=== PATIENT | male | born 1950 | race Caucasian/White ===

== ENCOUNTER → 2017-09-11 09:15 | Outpatient (CLI) | payer OTHER, SELFPAY ==
[2017-09-11 10:20] LABS: Anion Gap 7 (5-15); BUN 11 mg/dL (7-18); BUN/Creat Ratio 9.9 RATIO (10-20); Calcium,Total 9.3 mg/dL (8.5-10.1); Chloride 106 mmol/L (98-107); Creatinine, Serum 1.11 mg/dL (0.70-1.30); EST Glomerular Filtration Rate 70 mL/min (>60); Est Glom Filt Rate - Afr Amer 85 mL/min (>60); Glucose 89 mg/dL (74-106); Sodium Level 140 mmol/L (136-145)
== END ==
PROVIDERS: Family Provider Family Medicine; PCP Family Medicine; Visit Provider Family Medicine
DX: E11.9 Type 2 diabetes mellitus without complications (principal)
CPT/HCPCS: 36415; 80048

== ENCOUNTER → 2018-03-21 10:09 | Outpatient (CLI) | payer OTHER, SELFPAY ==
[2018-03-21 11:02] LABS: Microalbumin,Random Urine 15.5 mg/L (NO RANGE EST.); Microalbumin:Creatinine Ratio 12.1 mg/g CRE (<30 mg/g CRE)
[2018-03-21 11:25] LABS: AST(SGOT) 19 U/L (15-37); Alanine Aminotransfer ALT/SGPT 23 U/L (16-61); Albumin, Serum 3.6 g/dL (3.2-5.0); Alkaline Phosphatase 92 U/L (45-117); Anion Gap 6 (5-15); BUN 12 mg/dL (7-18); BUN/Creat Ratio 11.5 RATIO (10-20); Bilirubin, Direct 0.14 mg/dL (0.00-0.30); Calcium,Total 8.9 mg/dL (8.5-10.1); Chloride 102 mmol/L (98-107); Cholesterol 123 mg/dL (200); Creatinine, Serum 1.04 mg/dL (0.70-1.30); EST Glomerular Filtration Rate 76 mL/min (>60); Est Glom Filt Rate - Afr Amer 92 mL/min (>60); Globulin 4.1 g/dL (2.2-4.2); Glucose 92 mg/dL (74-106); High Density Lipoprotein 42 mg/dL; Potassium 4.4 mmol/L (3.5-5.1); Protein, Total 7.7 g/dL (6.4-8.2); Sodium Level 138 mmol/L (136-145); Triglycerides 99 mg/dL; Very Low Density Lipoprotein 20 mg/dL (5-40)
== END ==
PROVIDERS: Family Provider Family Medicine; PCP Family Medicine; Referring Provider Family Medicine; Visit Provider Family Medicine
DX: E11.9 Type 2 diabetes mellitus without complications (principal)
CPT/HCPCS: 36415; 80048; 80061; 80076; 82043; 82570

== ENCOUNTER → 2018-04-10 16:07 | Outpatient (CLI) | payer OTHER, SELFPAY ==
[2018-04-10 16:58] LABS: Absolute Lymphocyte Count 3.49 X10^3/ul (0.83-4.51); Absolute Neutrophil Count 5.8 X10^3/uL (2.0-7.7); Basophil# 0.03 X10^3/uL; Basophil% 0.3 % (0-1); Eosinophil# 0.13 X10^3/uL; Eosinophils% 1.3 % (0-5); Hematocrit 46.6 % (40-54); Hemoglobin 15.6 g/dl (13.0-16.5); Lymphocyte # 3.49 X10^3/ul (4.0); Lymphocyte % 34.8 % (19-41); Mean Corp Hgb Conc 33.5 g/gl (32-36); Mean Corpuscular Hgb 29.9 pg (27.0-32.0); Mean Corpuscular Volume 89.3 fL (80-94); Mean Platelet Vol. 10.2 fl (6.2-12.0); Monocyte# 0.62 X10^3/uL; Monocyte% 6.2 % (0-10); Neutrophil # 5.76 X10^3/uL (2.7-7.7); Neutrophil % 57.4 % (47-70); Platelet Count 176 K/mm3 (150-450); RBC Distribution Width CV 14.5 % (11.6-14.6); RBC Distribution Width SD 47.1 fl (35.1-43.9); Red Blood Count 5.22 M/mm3 (4.6-6.2)
[2018-04-10 16:59] LABS: POSITIVE COUNT NO; POSITIVE DIFFERENTIAL NO; POSITIVE MORPHOLOGY NO
[2018-04-10 17:53] LABS: Anion Gap 10 (5-15); BUN 14 mg/dL (7-18); BUN/Creat Ratio 14.3 RATIO (10-20); Calcium,Total 9.3 mg/dL (8.5-10.1); Chloride 103 mmol/L (98-107); Creatinine, Serum 0.98 mg/dL (0.70-1.30); EST Glomerular Filtration Rate 81 mL/min (>60); Est Glom Filt Rate - Afr Amer 98 mL/min (>60); Glucose 132 mg/dL (74-106); Potassium 3.7 mmol/L (3.5-5.1); Sodium Level 139 mmol/L (136-145)
--- OUTSIDE RECORDS SUMMARY | 2018-06-05 15:41 | XMS RPT_ITS | Summary of Care ---
:1950 Author Organization [facility] Address [address] [place] [address] Care Team Providers Name Role Phone Dulce Maria Daniels MD Unavailable Christophe Dexter MD Primary Care Provider Reason for Visit Auth/Cert Status Reason Specialty Diagnoses / Procedures Referred By Contact Referred To Contact Diagnoses Coronary artery disease involving y[place] shoshone coronary artery of y[place] heart, angina presence unspecified Procedures Left Heart Cath Possible PTCA/Stent Encounter Details Date Type Department Care Team Description 04/23/2018 Hospital Encounter [facility] Lilia, Coronary artery disease involving y[place] shoshone coronary artery of y[place] shoshone heart, angina presence unspecified; Procedural Care Unit Jaswinder Perez MD Coronary artery disease involving y[place] shoshone coronary artery of [place]osh[place] heart [address] [place] [address] [id number] Allergies No Known Allergiesas of this encounter Medications Prescription Sig. Disp. Refills Start Date End Date Status metoprolol succinate Take 25 mg by Active (TOPROL-XL) 25 MG 24 hr mouth daily. tablet aspirin 81 MG EC tablet Take 81 mg by Active mouth daily. DOCOSAHEXANOIC ACID/EPA Take by mouth. Active (FISH OIL ORAL) amLODIPine (NORVASC) 5 Take 5 mg by Active MG tablet mouth daily. atorvastatin (LIPITOR) Take 40 mg by Active 40 MG tablet mouth daily. cinnamon bark Take 2,000 mg by Active (CINNAMON) 500 mg mouth daily . capsule nitroGLYCERIN Place 1 tablet 24 tablet 3 08/19/2016 Active (NITROSTAT) 0.4 MG SL (0.4 mg total) tablet under the tongue every 5 (five) minutes as needed for chest pain , if no relief after 3rd dose call 911 . pantoprazole (PROTONIX) Take 40 mg by Active 40 MG tablet mouth daily . farxiga (SAMPLE) 5 mg Take 10 mg by Active tablet mouth daily . glimepiride (AMARYL) 2 Take 2 mg by Active MG tablet mouth every morning before breakfast . empagliflozin Take 10 mg by Active (JARDIANCE) 10 mg Tab mouth daily . metFORMIN (GLUCOPHAGE) Take 1,000 mg by Active 1000 MG tablet mouth 2 (two) times a day with meals . as of this encounter Active Problems Problem Noted Date Coronary artery disease involving [place] shosh[place] coronary artery of [place]oshone heart 04/20/2018 Overview: Added automatically from request for surgery [id number] CAD (coronary artery disease) 08/19/2016 Overview: 2002- OM stent 1998-[place]-- stent- LAD 2017- pat stents 50-60 mid lad, occluded rca with excellent collaterals Last Assessment & Plan: Worrisome symptoms and with abnormal stress will follow with cardiac cath GI bleed 08/19/2016 Overview: 4 units PRBC- Black stools no source-08/2016 Same in 2012 Last Assessment & Plan: ? AVM Social History Tobacco Use Types Packs/Day Years Used Date Current Every Day Smoker 1 Smokeless Tobacco: Never Used Alcohol Use Drinks/Week oz/Week Comments No occasional Sex Assigned at Date Recorded Not on file as of this encounter Last Filed Vital Signs Vital Sign Reading Time Taken Blood Pressure 123/70 04/23/2018 9:15 AM EST Pulse 77 04/23/2018 9:15 AM EST Temperature 36.4 ??C (97.6 ??F) 04/23/2018 7:32 AM EST Respiratory Rate 17 04/23/2018 9:15 AM EST Oxygen Saturation 97% 04/23/2018 9:15 AM EST Inhaled Oxygen Concentration - - Weight 90.7 kg (200 lb) 04/23/2018 7:32 AM EST Height 180.3 cm (5' 11) 04/23/2018 7:32 AM EST Body Mass Index 27.89 04/23/2018 7:32 AM EST in this encounter Discharge Instructions Discharge Instr - Other Orders - Ellie Harris RN - 04/23/2018 10:33 AM ESTContinue your home medications. Remember to hold your metformin until Mon. On Fri. Go and have lab work done, continue to hold office will call you and tell you when ok to restart. Follow up with your family doctor. And follow up with Dr. Rodrigues in about a year. The following attachments cannot be sent through Care Everywhere.CORONARY ANGIOGRAM: POST-OP ([place])in this encounter H&P Notes Jaswinder Rodrigues MD - 04/23/2018 7:31 AM ESTINTERVAL HISTORY AND PHYSICAL Patient Name: Cristofer Hancock Admit Date: [id number] MR #: [id number] : 1950 The H&P has been reviewed and the patient has been examined. I concur with the findings of the H&P. There are no significant changes. It is appropriate to proceed with the planned procedure. Sedation Plan: Moderate ASA Classification: 2 - Patient with mild systemic disease Mallampati Score: II Jaswinder Rodrigues MD 04/23/2018 7:31 AM Jaswinder Rodrigues MD - 04/20/2018 1:39 PM ESTFormatting of this note may be different from the original. Patient Name: Cristofer Hancock MR #: [id number] 04/20/18 Dear Christophe Dexter MD, Cristofer Hancock was seen in follow up for : Problem Cad (Coronary Artery Disease) 2002- OM stent 1998-[place]-- stent- unk Assessment and Plan CAD (coronary artery disease) Worrisome symptoms and with abnormal stress will follow with cardiac cath Thank you or allowing me to participate in the care of your patients. Orders Placed This Encounter Procedures ??? Basic Metabolic Panel ??? CBC and Differential ??? ECG 12 Lead ??? 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 The Friday before he aspirated something and had a horrible coughing spell. Since then he has been feeling fatigued lightheaded numbness feelings under his eyes occasionally and exertional burning across the chest. Theburning though and soreness may last an hour to an hour and a half. He in general just has lost hisenergy and feeling lousy. He summary that never really complaints. He had an abnormal EKG and was sent to [facility] for a stress Cardiolite. He had decent exercise tolerance of 7-1/2 minutes and did not really have any discomfort however he did have a moderate area of inferior ischemia. He now presents for further evaluation. He has a h/o GIB unknown-- but reportedly Hb was ok Denies , palpitations, pnd, orthopnea,edema or syncope. Past History and Exam PMH: Past Medical History: Diagnosis Date ??? 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 Coronary artery disease ??? Diabetes mellitus (HCC) ??? GI bleed 06/2013 ??? Myocardial infarction (HCC) Physical exam: BP 132/79 Pulse 77 Ht 5' 11 Wt 94.6 kg (208 lb 9.6 oz) SpO2 93% BMI 29.09 kg/m?? General: No acute distress, alert, and oriented x3. HEENT: Normocephalic, Neck: Supple, Cardiovascular: Regular rate and rhythm. No , murmurs, No JVD, No Carotid Bruits Respiratory: Clear to auscultation bilaterally Abdominal: Soft, nontender, nondistended,mild obese. Skin: Normal turgor, well-hydrated, Extremities : No clubbing cyanosis or edema Neurological: Cranial nerves 2 through 12 intact grossly. No focal neurological deficits noted. Psych: Normal mood and affect. ROS/MA were reviewed Home Medications: Patient's Medications New Prescriptions No medications on file Previous Medications AMLODIPINE (NORVASC) 5 MG TABLET Take 5 mg by mouth daily. ASPIRIN 81 MG EC TABLET Take 81 mg by mouth daily. ATORVASTATIN (LIPITOR) 40 MG TABLET Take 40 mg by mouth daily. CINNAMON BARK (CINNAMON) 500 MG CAPSULE Take 2,000 mg by mouth daily . DOCOSAHEXANOIC ACID/EPA (FISH OIL ORAL) Take by mouth. FARXIGA (SAMPLE) 5 MG TABLET Take 10 mg by mouth daily . METOPROLOL SUCCINATE (TOPROL-XL) 25 MG 24 HR TABLET Take 25 mg by mouth daily. NITROGLYCERIN (NITROSTAT) 0.[address] 1 tablet (0.4 mg total) under the tongue every 5 (five) minutes as needed for chest pain , if no relief after 3rd dose call 911 . PANTOPRAZOLE (PROTONIX) 40 MG TABLET Take 40 mg by mouth daily . Modified Medications No medications on file Discontinued Medications CLOPIDOGREL (PLAVIX) 75 MG TABLET Take 75 mg by mouth daily. GLIMEPIRIDE (AMARYL) 2 MG TABLET Take 2 mg by mouth every morning before breakfast. METFORMIN (GLUCOPHAGE) 1000 MG TABLET Take 1,000 mg by mouth 2 (two) times a day with meals. in this encounter Plan of Treatment Scheduled Tests Name Priority Associated Diagnoses Order Schedule Basic Metabolic Panel Routine Coronary artery disease 1 Occurrences starting involving y[place] sh[place] coronary 04/23/2018 until 04/23/2019 artery of y[place] shoshone heart Basic metabolic panel Routine Coronary artery disease 1 Occurrences starting involving y[place]osh[place] coronary 04/23/2018 until 04/23/2019 artery of y[place] shoshone heart Health Maintenance Due Date Last Done Comments COLONOSCOPY 1950 HEPATITIS C SCREENING 1950 ZOSTER VACCINES (1 of 2) 2000 ABDOMINAL AORTIC ULTRASOUND 12/11/2015 PNEUMOCOCCAL VACCINE AGE 65+ (1 of 2 - PCV13) 12/11/2015 SEQUENTIAL INFLUENZA VACCINE (#1) 2018 TETANUS EVERY 10 YR 11/18/2025 11/19/2015 as of this encounter Procedures Procedure Name Priority Date/Time Associated Diagnosis Comments LEFT HEART CATH Routine 04/23/2018 8:33 AM Coronary artery Results for this POSSIBLE PTCA/STENT EST disease involving procedure are in [place] coronary the results artery of [place] section. heart, angina presence unspecified in this encounter Results CARDIAC CATHETERIZATION (04/23/2018 8:33 AM) Narrative Performed At [facility] Patient Name: CRISTOFER MONCADA? Date of : 1950? Procedure Date: 04/23/2018? Cath #: [id number] Physician(s): Jaswinder Rodrigues?MD? Ref. Physician: PROCEDURE(S) PERFORMED: Heart Cath: Left with Coronary Angio & LV gram Clinical History:?Current/Recent Smoker (within 1year): Yes Cigarettes Heavy use (>= 10/day) Diabetes Mellitus: Yes Prior GA: Yes Prior PCI: Yes 02/23/2003 Family History of Premature CAD: Yes Shortness of breath Fatigue Lightheaded chest pain abnormal stress test Pre-OP Diagnosis/Indication: ACC Indications: Worsening Angina Stress Test w/SPECT MPI: Yes, Result: Positive Intermediate Risk ASA Classification: II Sedation plan prior to initiation of the case was moderate. ASA status unchanged immediately prior to sedation administration. Heart, lungs, and airway assessed prior to sedation. Following informed consent, the patient was brought to the procedure room in the fasting state.?was prepped and draped in a sterile fashion. Local anesthesia was attained with 2% Lidocaine SQ, total injected 5 mls to the Right groin region. Using standard technique, sheath(s) were placed in the following site(s): right femoral artery?- 6F. 10 cm [place] Catheters were advanced using standard guide wire technique. Multiple angiographic pictures were taken and appropriate pressures obtained. Hemodynamics: Time AIR REST AO?139/52?(98)?SA?08:20:39 AO?124/69?(91)?08:20:51 LV?123/11,?21?08:24:54 LV?128/12,?21?08:25:02 LVp?108/12,?24?08:25:15 AOp?128/73?(96)?08:25:22 After review of the angiography and assurance of the patient's stability, the catheter was withdrawn from the sheath and CORONARY_ANGIO/FINDINGS ANNOTATION: Patent LAD and Cx stents Tubular Calcified 50% Proximal lesion in LAD Collateral flow from LAD septal to right PDA Diagnosis: Coronary Artery Disease angiographic greater than 50% with patent old LAD/Cx stents Tubular 85% Ostial lesion in 2nd diagonal Calcified Complex 70% Proximal lesion in RCA Complex 100% Ostial lesion in RCA Collateral flow from RCA to RCA Luminal Irregularities 10% Ostial lesion in RCA Collateral(s):? Collateral flow from RCA to RCA Collateral flow from LAD septal to right PDA ANNOTATION: Patent LAD and Cx stents Ventricular Function:? LV Gram- 55% EF?with normal wall motion Dominance: < Right Dominant POST-OP DIAGNOSIS: Coronary Artery Disease angiographic greater than 50% with patent old LAD/Cx stents CARDIAC RECOMMENDATIONS: Medical therapy COMMENTS: No Complications _ ____ Intraprocedure Medications: Versed 2 mg IV given for anxiety and general discomfort per verbal order - Jaswinder Rodrigues M.D. Equipment: Sheath(s)? [employer] 6F 10CM [place] SHEATH Wire(s)? [employer] J WIRE FIXED MERIT .035 X 150CM GUIDEWIRE Catheter(s)? [employer] JL4 DIAG CATH 6F [employer] JR4 DIAG CATH 6F [employer] PIGTAIL ANGLED DIAG CATH 6F Other? [facility] ANGIOSEAL 6F VIP See Nursing Notes for further details Signed By Jaswinder Rodrigues? On 04/23/2018 08:42:39 Signed By Jaswinder Rodrigues? On 04/23/2018 08:41:46 Jaswinder Rodrigues? _ ____ Procedure Note Interface, Rad In [facility] - 04/23/2018 9:06 AM EST Patient Name: CRISTOFER MONCADA Date of : 1950 Procedure Date: 04/23/2018 Cath #: [id number] Physician(s): Jaswinder Rodrigues MD Ref. Physician: PROCEDURE(S) PERFORMED: Heart Cath: Left with Coronary Angio & LV gram Clinical History: Current/Recent Smoker (within 1year): Yes Cigarettes Heavy use (>= 10/day) Diabetes Mellitus: Yes Prior GA: Yes Prior PCI: Yes 02/23/2003 Family History of Premature CAD: Yes Shortness of breath Fatigue Lightheaded chest pain abnormal stress test Pre-OP Diagnosis/Indication: ACC Indications: Worsening Angina Stress Test w/SPECT MPI: Yes, Result: Positive Intermediate Risk ASA Classification: II Sedation plan prior to initiation of the case was moderate. ASA status unchanged immediately prior to sedation administration. Heart, lungs, and airway assessed prior to sedation. Following informed consent, the patient was brought to the procedure room in the fasting state. was prepped and draped in a sterile fashion. Local anesthesia was attained with 2% Lidocaine SQ, total injected 5 mls to the Right groin region. Using standard technique, sheath(s) were placed in the following site(s): right femoral artery - 6F. 10 cm [place] Catheters were advanced using standard guide wire technique. Multiple angiographic pictures were taken and appropriate pressures obtained. Hemodynamics: Time AIR REST AO 139/52 (98) SA 08:20:39 AO 124/69 (91) 08:20:51 LV 123/11, 21 08:24:54 LV 128/12, 21 08:25:02 LVp 108/12, 24 08:25:15 AOp 128/73 (96) 08:25:22 After review of the angiography and assurance of the patient's stability, the catheter was withdrawn from the sheath and CORONARY_ANGIO/FINDINGS ANNOTATION: Patent LAD and Cx stents Tubular Calcified 50% Proximal lesion in LAD Collateral flow from LAD septal to right PDA Diagnosis: Coronary Artery Disease angiographic greater than 50% with patent old LAD/Cx stents Tubular 85% Ostial lesion in 2nd diagonal Calcified Complex 70% Proximal lesion in RCA Complex 100% Ostial lesion in RCA Collateral flow from RCA to RCA Luminal Irregularities 10% Ostial lesion in RCA Collateral(s): Collateral flow from RCA to RCA Collateral flow from LAD septal to right PDA ANNOTATION: Patent LAD and Cx stents Ventricular Function: LV Gram- 55% EF with normal wall motion Dominance: < Right Dominant POST-OP DIAGNOSIS: Coronary Artery Disease angiographic greater than 50% with patent old LAD/Cx stents CARDIAC RECOMMENDATIONS: Medical therapy COMMENTS: No Complications ____ Intraprocedure Medications: Versed 2 mg IV given for anxiety and general discomfort per verbal order - Jaswinder Rodrigues M.D. Equipment: Sheath(s) [employer] 6F 10CM [place] SHEATH Wire(s) [employer] J WIRE FIXED MERIT .035 X 150CM GUIDEWIRE Catheter(s) [employer] JL4 DIAG CATH 6F [employer] JR4 DIAG CATH 6F [employer] PIGTAIL ANGLED DIAG CATH 6F Other [facility] ANGIOSEAL 6F VIP See Nursing Notes for further details Signed By Jaswinder Rodrigues MD On 04/23/2018 08:42:39 Signed By Jaswinder Rodrigues MD On 04/23/2018 08:41:46 Lilia Jaswinder VILLATORO ____ Performing Organization Address City/State/Zipcode Phone Number [facility] [address] [place] [address] in this encounter Visit Diagnoses Diagnosis Coronary artery disease involving [place] coronary artery of [place]osh[place] heart, angina presence unspecified Administered Medications Inactive Administered Medications - up to 3 most recent administrations Medication Order MAR Action Action Date Dose Rate Site ondansetron (ZOFRAN) injection 4 mg 4 mg, Intravenous, Every 6 hours PRN, nausea, vomiting, Starting Dari 04/23/18 at 0852, [] Oral or IV - use oral route if tolerated. ondansetron (ZOFRAN-ODT) disintegrating tablet 4 mg 4 mg, Oral, Every 6 hours PRN, nausea, vomiting, Starting Dari 04/23/18 at 0852, [] Oral or IV - use oral route if tolerated. Formulation requires tablet remain in sealed package until immediately prior to dose being administered. sodium chloride (PF) (NS) flush 5 mL 5 mL, Intravenous, As needed, line care, Starting Dari 04/23/18 at 0852 sodium chloride (PF) (NS) flush 5 mL 5 mL, Intravenous, Every 8 hours scheduled, First dose on Fri04/23/18 at 0945, Saline lock sodium chloride 0.9% (NS) 20 mL/hr, Intravenous, Continuous, Starting Fri04/23/18 at 0815, Pre-Procedure sodium chloride 0.9% (NS) 0-150 mL/hr, Intravenous, As needed, To flush line after IV infusions when no maintenance IV ordered or a compatibility issue with maintenance IV, Starting Dari 04/23/18 at 0852, Run as Primary IV. NOT intended for KVO. in this encounter
--- OUTSIDE RECORDS SUMMARY | 2018-06-05 15:42 | XMS RPT_ITS ---
:1950 Author Organization OHIP Support Name Relationship Address Phone KEK SUPPLY Unavailable [address] + [address] [address] MERCEDESCLIFF, GAVINO Unavailable [address] + [place] [address] LENNERTH, GAVINO Unavailable Unavailable + LENNERTH, GAVINO Unavailable Unavailable + KEK SUPPLY Unavailable [address] + [address] [address] LENNERTH, GAVINO Unavailable [address] + [place] [address] LENEDMUNDTH, GAVINO Unavailable Unavailable + KEK SUPPLY Unavailable [address] + [address] [address] MERCEDESNERTH, GAVINO Unavailable [address] + [place] [address] KEK SUPPLY Unavailable [address] + [address] [address] LENEDMUNDTH, GAVINO Unavailable [address] + [place] [address] KEK SUPPLY Unavailable [address] + [address] [address] LENEDMUNDTH, GAVINO Unavailable [address] + [place] [address] KEK SUPPLY Unavailable [address] + [address] [address] IBETH, GAVINO Unavailable [address] + [place] [address] KEK SUPPLY Unavailable [address] + [address] [place] [address] GAVINO CRISTINA Unavailable [address] + [place] [address] Care Team Providers Name Role Phone JASWINDER DEL RIO Attending Unavailable KAVITHA, PRAMOD ANJELICA Primary Care Unavailable JASWINDER DEL RIO Attending Unavailable CHRISTOPHE CORRAL Primary Care Unavailable JASWINDER DEL RIO Admitting Unavailable JASWINDER DEL RIO Attending Unavailable CORRAL, CHRISTOPHE DIEHL Primary Care Unavailable Quang, Dr. Jaswinder Lundy Admitting Unavailable Quang, Dr. Jaswinder Lundy Attending Unavailable , TIMMY Attending Unavailable , TIMMY Referring Unavailable Corral, Christophe Primary Care Unavailable Calabretta, Omar Attending Unavailable Corral, Christophe Referring Unavailable Calabretta, Omar Attending Unavailable Corral, Christophe Referring Unavailable Corral, Christophe Attending Unavailable Corral, Christophe Primary Care Unavailable Corral, Christophe Attending Unavailable Corral, Christophe Referring Unavailable Corral, Christophe Primary Care Unavailable Corral, Christophe Attending Unavailable Corral, Christophe Primary Care Unavailable Corral, Christophe Attending Unavailable Corral, Christophe Referring Unavailable Corral, Christophe Primary Care Unavailable PROBLEMS PROBLEMS DATE TYPE CONDITION / CODE ATTENDING STATUS SOURCE 04/27/2018 Unknown 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 / I25.10(ICD-10) 04/20/2018 Admitting Atherosclerotic QUANG, [facility] diagnosis heart disease of JASWINDER Perez Repository [place] coronary artery without angina pectoris / I25.10(ICD-10) 04/10/2018 Unknown R07.9 - Chest pain, Christophe Corral Active [place] unspecified / Community R07.9(ICD-10) Hospital Repository 03/21/2018 Unknown E11.9 - Type 2 Christophe Corral Active [place] diabetes mellitus Community without Hospital complications / Repository E11.9(ICD-10) PROCEDURES PROCEDURES No Procedure Records FoundRESULTS RESULTS BASIC METABOLIC Collected: 04/27/2018 Status: F Source: [facility] PROFILE (BMP) 8:47 AM [facility] TYPE CODE TESTS RESULT OUT OF RANGE REFERENCE UNITS LAB L501.0100 74-106 mg/dL High GLU 234 Result Comment: Glucose result greater than or equal to 200 mg/dL suggests DIABETES MELLITUS per A.D.A. criteria. Please note revised GLUCOSE reference range effective 2017. LAB L501.1000 7-18 mg/dL Normal BUN 10 LAB L501.1100 0.70-1.30 mg/dL Normal CREAT,SERUM 1.15 Result Comment: The validity of the calculated GFR AND GFRAA in patients over 70 years has not been determined. Clinical correlation is essential. LAB L501.1110 >60 mL/min Normal EST GFR 67 Result Comment: Non- GFR Calc LAB L501.1115 >60 mL/min Normal EST GFR - AA 82 Result Comment: GFR Calc LAB L501.1300 10-20 RATIO Low BUN/CRE 8.7 LAB L501.2200 8.5-10.1 mg/dL Normal CA 8.9 LAB L501.5300 136-145 mmol/L Normal NA 141 LAB L501.5600 3.5-5.1 mmol/L Normal K 4.0 LAB L501.5900 98-107 mmol/L Normal CL 103 LAB L501.6100 21.0-32.0 mmol/L Normal CO2 27.0 LAB L501.6200 5-15 Normal GAP 11 Performed By: #### L500.2500 #### [facility] [address] [place], [place], [address] LEFT HEART CATH Observed: 04/23/2018 Status: C Source: [facility] PTCA/STENT 9:06 AM TWO REPOSITORY Patient Name: ROBERT MONCADA Date of : 1950 Procedure Date: 04/23/2018 Cath #: [id number] Physician(s): Jaswinder Del Rio MD Ref. Physician: PROCEDURE(S) PERFORMED: Heart Cath: Left with Coronary Angio AND LV gram Clinical History: Current/Recent Smoker (within 1year): Yes Cigarettes Heavy use (>= 10/day) Diabetes Mellitus: Yes Prior NH: Yes Prior PCI: Yes 02/23/2003 Family History [...] right femoral artery - 6F. 10 cm [place] Catheters were advanced using standard guide wire [...] general discomfort per verbal order - Jaswinder Del Rio M.D. Equipment: Sheath(s) DriveFactor 6F 10CM [place] SHEATH Wire(s) [employer] J WIRE FIXED MERIT .035 X 150CM GUIDEWIRE Catheter(s) [employer] JL4 DIAG CATH 6F [employer] JR4 DIAG CATH 6F [employer] PIGTAIL ANGLED DIAG CATH 6F [address] [facility] VANESSA - DAIG DIVISION ANGIOSEAL 6F VIP See Nursing Notes for further details Signed By Jaswinder Del Rio MD On 04/23/2018 08:42:39 Signed By Jaswinder Del Rio MD On 04/23/2018 08:41:46 Jaswinder Del Rio MD ____ CBC WITH DIFF Collected: 04/20/2018 Status: F Source: [facility] 1:51 PM [facility] REPOSITORY TYPE CODE TESTS RESULT OUT OF REFERENCE UNITS RANGE LAB WBC 3.6-10.4 K/mcL WBC High 12.3 LAB RBC 4.0-5.5 M/mcL RBC 5.30 LAB HGB 12.9-16.9 g/dL Hemoglobin 15.9 LAB HCT 37.9-49.2 % Hematocrit 47.8 LAB MCV 82.8-99.3 FL MCV 90.2 LAB MCH 27.7-34.6 pg MCH 29.9 LAB MCHC 32.9-35.5 g/dL MCHC 33.2 LAB RDW 10-14.3 % RDW High 14.8 LAB PLT 139-354 K/mcL Platelet Count 182 LAB MPV 6.6-10.8 FL MPV 9.3 LAB NEUT# 1.4-6.8 K/mcL High Neutrophil # 8.4 LAB LYMPH# 0.9-3.6 K/mcL Lymphocyte # 2.9 LAB MONO# 0.2-0.6 K/mcL Monocyte High # 0.9 LAB EOS# 0-0.5 K/mcL Eosinophil # 0.1 LAB BASO# 0-0.2 K/mcL Basophil # 0.1 LAB SEGNEU% % Segmented Neut % 67.9 LAB LYMP% % Lymphocyte% 23.5 LAB MO% % Monocyte % 7.3 LAB EO% % Eosinophil % 0.8 LAB BA% % Basophil % 0.5 Performed By: #### CHEM8, CBCDIF #### Unless otherwise noted, all testing performed by [address] [place], [place] [address] CLIA: [id number] Bridge Opener: Jean Stubbs M.D. BASIC METABOLIC PANEL Collected: 04/20/2018 Status: F Source: [facility] 1:51 PM [facility] REPOSITORY TYPE CODE TESTS RESULT OUT OF REFERENCE UNITS RANGE LAB GLU 70-99 mg/dL High Glucose 170 Result Comment: This test result might be falsely depressed or falsely elevated on samples drawn from patients taking Sulfasalazine and Sulfapyridine. Venipuncture should occur prior to taking either of these drugs. LAB BUN 8-25 mg/dL BUN 12 LAB CREA 0.80-1.30 mg/dL Creatinine 1.05 LAB eGFR ml/min/1.73sq .m eGFR,NonAfrican-Am erican >=60 Result Comment: Non- GFR Calc eGFR is an estimated Glomerular Filtration Rate based on the value of the patient's serum creatinine. In outpatients, eGFR should be used as a helpful tool in screening for CKD. In inpatients or patients with acute renal failure, eGFR represents the GFR at the moment of the draw and should be used with caution. LAB eGFRB ml/min/1.73sq.m eGFR, -Saudi Arabian >=60 Result Comment: GFR Calc LAB CALCM 8.4-10.2 mg/dL Calcium 8.9 LAB NA 135-145 mmol/L Sodium 138 LAB K 3.5-5.1 mmol/L Potassium 3.9 LAB CL 98-108 mmol/L Chloride 104 LAB CO2 21-32 mmol/L CO2 24 Performed By: #### CHEM8, CBCDIF #### Unless otherwise noted, all testing performed by [facility] [address] [place], [place] [address] CLIA: [id number] Bridge Opener: Jean Stubbs M.D. STRESS REPORT Observed: 04/17/2018 Status: F Source: GY[place]UM 9:25 AM [facility] REPOSITORY [facility] Cardiovascular Services [address] [place] [address] MR#: [id number] Acct: [id number] Name: ROBERT CRISTINA Rep #: [id number] : 1950 67 From: Samuel Marx MD Primary Care: Christophe Corral MD Status: REG CLI Ordering Dr: Aung: Chelsie Dean Stress Test Report Exercise myocardial perfusion stress test. 67-year-old man with a history of chest pain. Status post previous angioplasty and stenting 1998, 2000. Stress protocol: Resting EKG demonstrates normal sinus rhythm with a rate of 65 bpm normal intervals are noted resting blood pressure 130/78 mmHg. The patient exercised according to regular Jaswinder protocol for a total duration of 7 minutes and 30 seconds. Patient completed 1 minute and 30 seconds into stage III of the Jaswinder protocol. Maximum heart rate attained was 134 bpm which was 87% of maximum predicted heart rate the maximum workload was 9.3 metabolic equivalents. At rest there were no ST or T wave changes noted suggest ischemia at peak exercise less than [address] depression was noted in the inferior leads we did not meet the criteria for ischemia. There was suggestive however, the resting blood pressure was 130/78 with a peak blood pressure 162/60. Myocardial perfusion protocol. 10.0 mCi of technetium 99m sestamibi was injected at rest. The patient exercised according to regular Jaswinder protocol for 7 minutes and 30 seconds at peak exercise 30.0 mCi of technetium 99m sestamibi was injected stress images were obtained stress and rest images were reconstructed and compared in the short axis vertical long horizontal long axis. Gated images were also obtained Perfusion SPECT analysis: Review of the stress images demonstrate normal uptake of tracer noted in the septum anterior wall and lateral wall. The mid to basal inferior wall had a perfusion defect medium in size. The resting images demonstrate complete reversibility in this area suggesting ischemia in the basal to mid inferior wall. Gated SPECT analysis: The gated ejection fraction is noted to be 65%. Conclusion: Abnormal exercise myocardial perfusion stress test at a moderate workload with evidence of basal to midinferior ischemia. Preserved ejection fraction. 04/17/18924 <Electronically signed by Samuel Marx MD> Date Samuel Marx MD CC: Christophe Corral MD Date Dictated: 04/17/18921 Date Transcribed: 04/17/18921 Gyn Physician: CO Signed CBC W/DIFF, AUTOMATED Collected: 04/10/2018 Status: F Source: ANDREW 4:09 PM [facility] REPOSITORY TYPE CODE TESTS RESULT OUT OF RANGE REFERENCE UNITS LAB L100.1000 4.4-11.0 K/mm3 Normal WBC 10.0 LAB L100.1200 4.6-6.2 M/mm3 Normal RBC 5.22 LAB L100.1300 13.0-16.5 g/dl Normal HGB 15.6 LAB L100.1400 40-54 % Normal HCT 46.6 LAB L100.1500 80-94 fL Normal MCV 89.3 LAB L100.1600 27.0-32.0 pg Normal MCH 29.9 LAB L100.1700 32-36 g/gl Normal MCHC 33.5 LAB L100.1810 11.6-14.6 % Normal RDW CV 14.5 LAB L100.1820 35.1-43.9 fl High RDW SD 47.1 LAB L100.1900 150-450 K/mm3 Normal PLT 176 LAB L100.2000 6.2-12.0 fl Normal MPV 10.2 LAB L100.2100 47-70 % Normal NEUT% 57.4 LAB L100.2200 19-41 % Normal LY% 34.8 LAB L100.2300 0-10 % Normal MONO% 6.2 LAB L100.2400 0-5 % Normal EO% 1.3 LAB L100.2500 0-1 % Normal BASO% 0.3 LAB L100.2550 0.0-0.9 % Normal IM GRAN % 0.000 Result Comment: IG% - Immature Granulocytes (promyelocytes, myelocytes and metamyelocytes) > 1% indicates that a LEFT SHIFT is Present. LAB L100.2620 2.0-7.7 X10 3/uL Normal Absolute Neut 5.8 LAB L100.2720 0.83-4.51 X10 3/ul Normal Absolute Lymph 3.49 Performed By: #### L100.0100 #### [facility] [address] [place], [address] BASIC METABOLIC Collected: 04/10/2018 Status: F Source: [place] PROFILE (BMP) 4:09 PM [facility] REPOSITORY Order Comment: 'TROP' Serial specimen #1, #2, #3, or #4: 1 TYPE CODE TESTS RESULT OUT OF RANGE REFERENCE UNITS LAB L501.0100 74-106 mg/dL High GLU 132 Result Comment: Fasting Glucose result greater than or equal to 126 mg/dL suggests DIABETES MELLITUS per A.D.A. criteria. Please note revised GLUCOSE reference range effective 2017. LAB L501.1000 7-18 mg/dL Normal BUN 14 LAB L501.1100 0.70-1.30 mg/dL Normal CREAT,SERUM 0.98 Result Comment: The validity of the calculated GFR AND GFRAA in patients over 70 years has not been determined. Clinical correlation is essential. LAB L501.1110 >60 mL/min Normal EST GFR 81 Result Comment: Non- GFR Calc LAB L501.1115 >60 mL/min Normal EST GFR - AA 98 Result Comment: GFR Calc LAB L501.1300 10-20 RATIO Normal BUN/CRE 14.3 LAB L501.2200 8.5-10.1 mg/dL CA Normal 9.3 LAB L501.5300 136-145 mmol/L NA Normal 139 LAB L501.5600 3.5-5.1 mmol/L K Normal 3.7 LAB L501.5900 98-107 mmol/L CL Normal 103 LAB L501.6100 21.0-32.0 mmol/L Normal CO2 26.0 LAB L501.6200 5-15 Normal GAP 10 Performed By: #### L500.2500, L501.4010 #### [facility] [address] [place], [address] TROPONIN-I Collected: 04/10/2018 Status: F Source: ANDREW 4:09 PM [facility] REPOSITORY Order Comment: 'TROP' Serial specimen #1, #2, #3, or #4: 1 TYPE CODE TESTS RESULT OUT OF RANGE REFERENCE UNITS LAB L501.4010 <0.045 ng/mL Normal < 0.015 TROPONIN-I Result Comment: TROPONIN-I EXPECTED VALUES <0.045 Negative 0.045 - 0.590 Consistent with Cardiac Damage > OR = 0.600 Critical Value Not every elevated troponin is indicative of NH. These values should be used with clinical judgement in examining the patient's clinical picture for diagnosis. To establish a diagnosis of NH versus myocardial injury, there must be a demonstrated rise and/or fall in the troponin values, in addition to ischemic symptoms, EKG changes, new regional wall motion abnormality, and/or angiographical evidence. PLEASE NOTE: REFERENCE RANGES EDITED 17 Performed By: #### L500.2500, L501.4010 #### [facility] [address] [facility] [place], [place], [address] MICROALB:CREAT Collected: 03/21/2018 Status: F Source: ANDREW RATIO,RANDOM UR 10:15 AM [facility] REPOSITORY TYPE CODE TESTS RESULT OUT OF RANGE REFERENCE UNITS LAB L501.1200 NO RANGE EST. mg/dL Normal UR CREAT 128.00 LAB L502.0500 NO RANGE EST. mg/L Normal 15.5 MICROALBUMIN ,UR LAB L502.0600 <30 mg/g CRE mg/g CRE Normal 12.1 MALB:CREAT Performed By: #### L502.0250 #### [facility] [address] [place], [place], [address] BASIC METABOLIC Collected: 03/21/2018 Status: F Source: ANDREW PROFILE (BMP) 10:15 AM [facility] REPOSITORY TYPE CODE TESTS RESULT OUT OF RANGE REFERENCE UNITS LAB L501.0100 74-106 mg/dL Normal GLU 92 Result Comment: Please note revised GLUCOSE reference range effective 2017. LAB L501.1000 7-18 mg/dL Normal BUN 12 LAB L501.1100 0.70-1.30 mg/dL Normal CREAT,SERUM 1.04 Result Comment: The validity of the calculated GFR AND GFRAA in patients over 70 years has not been determined. Clinical correlation is essential. LAB L501.1110 >60 mL/min Normal EST GFR 76 Result Comment: Non- GFR Calc LAB L501.1115 >60 mL/min Normal EST GFR - AA 92 Result Comment: GFR Calc LAB L501.1300 10-20 RATIO Normal BUN/CRE 11.5 LAB L501.2200 8.5-10.1 mg/dL CA Normal 8.9 LAB L501.5300 136-145 mmol/L NA Normal 138 LAB L501.5600 3.5-5.1 mmol/L K Normal 4.4 Result Comment: Slight Hemolysis, Result may be falsely increased. LAB L501.5900 98-107 mmol/L Normal CL 102 LAB L501.6100 21.0-32.0 mmol/L Normal CO2 30.0 LAB L501.6200 5-15 Normal 6 GAP Performed By: #### L500.2500, L500.3400, L500.4100 #### [facility] [address] [place], [address] LIVER PROFILE Collected: 03/21/2018 Status: F Source: GYPSUM 10:15 AM [facility] REPOSITORY TYPE CODE TESTS RESULT OUT OF RANGE REFERENCE UNITS LAB L501.1500 6.4-8.2 g/dL Normal T PROT 7.7 LAB L501.1800 3.2-5.0 g/dL Normal ALB 3.6 LAB L501.1950 2.2-4.2 g/dL Normal GLOB 4.1 LAB L501.4100 15-37 U/L Normal AST 19 Result Comment: Slight Hemolysis, Result may be falsely increased. LAB L501.4305 45-117 U/L Normal ALK P 92 LAB L501.4405 16-61 U/L Normal ALT 23 LAB L501.4600 0.20-1.00 mg/dL Normal T BILI 0.50 LAB L501.4700 0.00-0.30 mg/dL Normal D BILI 0.14 Performed By: #### L500.2500, L500.3400, L500.4100 #### [facility] [address] [place], [place], [address] LIPID PROFILE Collected: 03/21/2018 Status: F Source: GYPSUM 10:15 AM [facility] REPOSITORY TYPE CODE TESTS RESULT OUT OF RANGE REFERENCE UNITS LAB L501.4900 200 mg/dL Normal CHOL 123 Result Comment: <200 mg/dL Desirable 200-240 mg/dL Borderline >240 mg/dL High Risk LAB L501.5000 mg/dL Normal TRIG 99 Result Comment: The drugs N-Acetylcysteine and Metamizole may falsely depress this assay. Serum Triglycerides Reference Interval Normal <150 mg/dL Borderline high 150 - 199 mg/dL High 200 - 499 mg/dL Very High > or = 500 mg/dL LAB L501.6400 mg/dL Normal HDL 42 Result Comment: The drugs N-Acetylcysteine and Metamizole may falsely depress this assay. Reference Range HDL <40 mg/dL Low HDL Cholesterol HDL >or= 60 mg/dL High HDL Cholesterol LAB L501.6500 0-130 mg/dL Normal LDL 61 LAB L501.6600 5-40 mg/dL Normal VLDL 20 Performed By: #### L500.2500, L500.3400, L500.4100 #### [facility] [address] [place], [place], [address] BASIC METABOLIC Collected: 09/11/2017 Status: F Source: ANDREW PROFILE (BMP) 9:17 AM [facility] REPOSITORY TYPE CODE TESTS RESULT OUT OF RANGE REFERENCE UNITS LAB L501.0100 74-106 mg/dL Normal GLU 89 Result Comment: Please note revised GLUCOSE reference range effective 2017. LAB L501.1000 7-18 mg/dL Normal BUN 11 LAB L501.1100 0.70-1.30 mg/dL Normal CREAT,SERUM 1.11 Result Comment: The validity of the calculated GFR AND GFRAA in patients over 70 years has not been determined. Clinical correlation is essential. LAB L501.1110 >60 mL/min Normal EST GFR 70 Result Comment: Non- GFR Calc LAB L501.1115 >60 mL/min Normal EST GFR - AA 85 Result Comment: GFR Calc LAB L501.1300 10-20 RATIO Low BUN/CRE 9.9 LAB L501.2200 8.5-10.1 mg/dL Normal CA 9.3 LAB L501.5300 136-145 mmol/L Normal NA 140 LAB L501.5600 3.5-5.1 mmol/L Normal K 4.0 LAB L501.5900 98-107 mmol/L Normal CL 106 LAB L501.6100 21.0-32.0 mmol/L Normal CO2 27.0 LAB L501.6200 5-15 Normal GAP 7 Performed By: #### L500.2500 #### [facility] [address] 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 [Ecotrin] 81 mg PO DAILY@0800 02/23/15 [History Confirmed 08/07/17] Atorvastatin Calcium [Lipitor] 40 mg PO QHS 02/23/15 [History Confirmed 08/07/17] Fish Oil/Dha/Epa [Fish Oil 1,200 mg Fish Oil] 2 cap PO QHS 02/23/15 [History Confirmed 08/07/17] Metformin 1,000 mg PO BID 02/23/15 [History Confirmed 08/07/17] Metoprolol(XL)Succ [Toprol Xl (Beta Paulie)] 25 mg PO DAILY 02/23/15 [History Confirmed 08/07/17] Nitro 0.4 mg SL PRN PRN 02/23/15 [History Confirmed 08/07/17] Ascorbic Acid [Vitamin C] 500 mg PO DAILY@0800 08/16/16 [History Confirmed 08/07/17] Cinnamon Bark [Cinnamon] 2,000 mg PO BID 08/16/16 [History Confirmed 08/07/17] Pantoprazole Sodium [Protonix] 40 mg PO DAILY 08/16/16 [History Confirmed 08/07/17] cinnamon bark 500 mg capsule mg PO 08/07/17 [History Confirmed 08/07/17] dapagliflozin 10 mg tablet 10 mg PO QAM 08/07/17 [History Confirmed 08/07/17] PFSH Medical History CAD (coronary artery disease) (Acute) Diabetes (Acute) GERD (gastroesophageal reflux disease) (Acute) Heart disease (Acute) Umbilical hernia (Acute) HTN (hypertension) (Chronic) Surgical History H/O heart artery stent (Acute) History of back surgery (Acute) History of colonoscopy (Acute) History of eye surgery (Acute) Family History Father Diabetes Heart disease Social History Smoking Status: Current every day smoker alcohol intake: current alcohol intake frequency: holidays/special occasions only HPI HPI HPI: ROBERT CRISTINA, is a 66 M who presents to the office today for umbilical hernia. The patient reports he has noticed a slight bulge in his umbilical region for 4 months. He is not having any pain and is not having any limiting of his daily activities. He does not report any nausea or vomiting. ROS General General: No weight change or fatigue Musc Musculoskeletal: No back problems or arthritis Cardio Cardiovascular: Yes heart disease, heart attack and heart stent; no murmur, pacemaker, atrial fibrillation, high blood pressure, palpitations, shortness of breat with exertion or chest pain Psych Psychiatric: No depression, anxiety or hearing voices Resp Respiratory: No shortness of breath, No sleep apnea, No cough, No COPD, No asthma, No emphysema, No wheezing Gastro Gastrointestinal: No abdominal pain, No nausea or vomiting, No diarrhea, No constipation, No blood in stool, No acid reflux, No hemorrhoids, No ulcers, No gallbladder problem, No black,tarry stools Dani Hematologic: Yes blood thinners Exam Const General: cooperative Orientation: alert, oriented x3 Resp Effort AND Inspection: normal respiratory effort Auscultation: clear to auscultation bilaterally Cardio Rate: regular rate Rhythm: regular rhythm Heart Sounds: no murmurs GI Inspection: non-distended Palpation: soft, nontender, hernia umbilical Other: The patient has a small umbilical hernia which is not even the size of my fingertip. It is approximately 3-5 mm. There are no incarcerated contents and is nontender. Assessment AND Plan Problems 1. Umbilical hernia without obstruction and without gangrene K42.9 Plan 1. He has a very small umbilical hernia. There is no incarceration or signs of obstruction. It does not limit his daily activities or cause him any pain. I recommended that he get this fixed once it becomes painful enough that it limits any daily activity or grows large enough that hernia contents actually cause discomfort. The patient is agreeable to this plan. We will continue to observe and he will follow-up if the hernia grows or becomes painful. Omar Verdin MD Pager: [facility] [address] , [address] [address] Office: Coding Level of Care Code Off vis,new,level 3 Diagnoses Umbilical hernia without obstruction and without gangrene K42.9 Obstruction and gangrene presence: without obstruction or gangrene 08/12/17 1228 <Electronically signed by Omar Verdin MD> Date Omar Verdin MD Cosigner Signature: Date (if applicable) CC: Christophe Corral MD ALLERGIES ALLERGIES DATE TYPE / CODE NAME / CODE REACTION SEVERITY SOURCE 08/07/2017 Drug No Known Unknown [facility] Allergy/416 Allergies/[id number] Hospital 393339(SNOM 0388(RXNORM) Repository ED CT) Drug NO KNOWN [facility] Three Class/42591 ALLERGIES Repository 1003(SNOMED CT) ENCOUNTERS ENCOUNTERS ADMIT/DISCHARGE ACCOUNT NUMBER ADMITTING ENCOUNTER LOCATION SOURCE CLASS 04/27/2018 [id number] Ambulatory [facility] ding:LAB Repository 04/23/2018/04/23/20 [id number] QUANG Ambulatory Building:[place] [address] JASWINDER Perez Room: Two PXR29Wco: 11 Repository 04/20/2018 [id number] Quang, Ambulatory [facility] Dr. Jaswinder Lundy [place] [facility] Repository 04/20/2018/04/20/20 [id number] Ambulatory Building:[place] [address] HVPGAHANNAAM Three BPKWY Repository 04/17/2018 [id number] [facility] Center ding[facility] Repository 04/17/2018 [id number] Ambulatory Building:[facility] HCHOOVERRD Three Repository 04/10/2018 [id number] Ambulatory [facility] ding:MFPLAB Repository 03/21/2018 [id number] Ambulatory [facility] ding:LAB Repository 09/11/2017 [id number] Ambulatory [facility] ding:MFPLAB Repository 08/07/2017/08/08/19 [id number] Ambulatory BMSBuilding: [place] 18 [facility] Repository 06/19/2017 [id number] Ambulatory BMSBuilding: [place] [facility] Repository PAYERS PAYERS ENCOUNTER GUARANTOR PAYER SUBSCRIBER SOURCE 04/27/2018 ROBERT Salazar Primary Insurance:[facility] GAVINO Samayoaoster [id number] [facility] LENNERDOB: [facility] 8923-54-86ESVFate, [place] Number: Repository [address]Neb: (291) [id number] [phone] (HP) Date:9866-10-05AQ [address]CZVLVVLXR, [place] [address]XU: CHECK WEBSITE 04/27/2018 Secondary NOT GIVENUNK [place] Insurance:SELF PAY [facility] Number: Effective Repository Date:2018-04-27 04/23/2018 EDUMU Salazar Primary [facility] LENNERTHDOB: Insurance:MMOPolicy LENNERTHDOB: Repository [id number] Number: [id number] [facility] [address] [id number] [place] Date:0065-13-36WC [place], [place] [address]Dcx: ([phone]) 60[address], [place] [address]Fmn: (HP) [phone]: (HP) [phone] 04/20/2018 Primary [facility] Insurance:[facility] Number: Repository [id number] Date:Plan Name:Health 04/20/2018 EDUMU Salazar [facility] LENNERTHDOB: Insurance:MMOPolicy LENNERTHDOB: Three Repository [id number] Number: [id number] [facility] [id number] [place] Date:9088-34-46GS [place], [place] [address]Ozq: (095) 6093[place], [place] [address]Fgr: (HP) [address]ZL: (HP) [phone] 04/17/2018 PRITIUMU Salazar Primary Insurance:[facility] GAVINO L [facility]8238 [facility]: Community [facility] 8218-56-91WSAFate, [place] Number: Repository [address]Xyx: 440 [id number] [phone] (HP) Date:6890-14-04QF [facility] [address]UMPYNAQYV, [place] [address]AC: CHECK WEBSITE 04/17/2018 Secondary NOT GIVENUNK [place] Insurance:SELF PAY Community [facility] Number: Effective Repository Date:2018-04-14 04/17/2018 EDUMU Salazar [facility] Insurance:Dayanna HERRMANN: Three Repository [id number] Number: [id number] [facility] [id number] [place], [place] Date:7960-31-70AQ [place], [place] [address]Nfu: (112) 6017[place], [place] [address]Afh: (HP) [phone]: (HP) [phone] 04/10/2018 ROBERT Salazar Primary Insurance:[facility] GAVINO [id number] [facility]: [facility] [id number], [place] Number: Repository [address]Hmi: 440 [id number] [phone] () Date:9222-44-54TG [facility] 81957BJNXVOVIU, [place] [address]CB: CHECK WEBSITE 04/10/2018 Secondary NOT GIVENUNK [place] Insurance:SELF PAY [facility] Number: Effective Repository Date:2018-04-10 03/21/2018 ROBERT Salazar Primary Insurance:[facility] GAVINO Kamron Andrewjake [id number] [facility]: [facility] [id number], [place] Number: Repository [address]Ryw: 440 [id number] [phone] () Date:7357-04-95DN [facility] 08957AQSZHLZBK, [place] [address]CH: CHECK WEBSITE 03/21/2018 Secondary NOT GIVENUNK [place] Insurance:SELF PAY [facility] Number: Effective Repository Date:2018-03-21 09/11/2017 EDUMU Primary Insurance:[facility] GAVINO Kamron Andrew [id number] [facility]: [facility] [id number], [place] Number: Repository [address]Rck: [id number] [phone] Date:8417-09-94DQ [address] (HP) [address]DFSORYFRO, [place] [address]BS: CHECK WEBSITE 09/11/2017 Secondary NOT GIVENUNK [place] Insurance:SELF PAY [facility] Number: Effective Repository Date:2017-09-11 08/07/2017 EDWARD Primary Insurance:[facility] GAVINO Morales [id number] [facility]: [facility] 5028-88-68AHQFate, [place] Number: Repository [address]Xrn: [id number] [phone] Date:7526-68-73CL [address] (HP) [address]AIULOFXRL, [place] [address]EF: CHECK WEBSITE 08/07/2017 Secondary NOT GIVENUNK [place] Insurance:SELF PAY [facility] Number: Effective Repository Date:2017-08-07 06/19/2017 Edward Primary Insurance:[facility] Gavino Morales [id number] [facility]: [facility] [id number] [place], [place] Number: Repository [address]Kqg: (320) [id number] [phone] (HP) Date:3978-68-69ZD [address] [address]SKESKIILH, [place] [address]LM: CHECK WEBSITE 06/19/2017 Secondary NOT GIVENUNK [place] Insurance:SELF PAY [facility] Number: Effective Repository Date:2017-06-16
== END ==
PROVIDERS: Family Provider Family Medicine; PCP Family Medicine; Visit Provider Family Medicine
DX: R07.9 Chest pain, unspecified (principal)
CPT/HCPCS: 36415; 80048; 84484; 85025

== ENCOUNTER → 2018-04-17 06:49 | Outpatient (CLI) | payer OTHER, SELFPAY ==
--- NOTE | 2018-04-17 09:22 | STRESSREP ---
Stress Test Report Exercise myocardial perfusion stress test. 67-year-old man with a history of chest pain. Status post previous angioplasty and stenting 1998, 2000. Stress protocol: Resting EKG demonstrates normal sinus rhythm with a rate of 65 bpm normal intervals are noted resting blood pressure 130/78 mmHg. The patient exercised according to regular Jaswinder protocol for a total duration of 7 minutes and 30 seconds. Patient completed 1 minute and 30 seconds into stage III of the Jaswinder protocol. Maximum heart rate attained was 134 bpm which was 87% of maximum predicted heart rate the maximum workload was 9.3 metabolic equivalents. At rest there were no ST or T wave changes noted suggest ischemia at peak exercise less than [address] depression was noted in the inferior leads we did not meet the criteria for ischemia. There was suggestive however, the resting blood pressure was 130/78 with a peak blood pressure 162/60. Myocardial perfusion protocol. 10.0 mCi of technetium 99m sestamibi was injected at rest. The patient exercised according to regular Jaswinder protocol for 7 minutes and 30 seconds at peak exercise 30.0 mCi of technetium 99m sestamibi was injected stress images were obtained stress and rest images were reconstructed and compared in the short axis vertical long horizontal long axis. Gated images were also obtained Perfusion SPECT analysis: Review of the stress images demonstrate normal uptake of tracer noted in the septum anterior wall and lateral wall. The mid to basal inferior wall had a perfusion defect medium in size. The resting images demonstrate complete reversibility in this area suggesting ischemia in the basal to mid inferior wall. Gated SPECT analysis: The gated ejection fraction is noted to be 65%. Conclusion: Abnormal exercise myocardial perfusion stress test at a moderate workload with evidence of basal to midinferior ischemia. Preserved ejection fraction.
== END ==
PROVIDERS: Family Provider Family Medicine; PCP Family Medicine; Referring Provider Family Medicine; Visit Provider Family Medicine
DX: R07.9 Chest pain, unspecified (principal)
CPT/HCPCS: 78452; 93017; A9500; A4216

== ENCOUNTER → 2018-04-27 08:41 | Outpatient (CLI) | payer OTHER, SELFPAY ==
[2017-08-07 08:46] VITALS: BMI 28.5
[2018-04-27 09:25] LABS: Anion Gap 11 (5-15); BUN 10 mg/dL (7-18); BUN/Creat Ratio 8.7 RATIO (10-20); Calcium,Total 8.9 mg/dL (8.5-10.1); Chloride 103 mmol/L (98-107); Creatinine, Serum 1.15 mg/dL (0.70-1.30); EST Glomerular Filtration Rate 67 mL/min (>60); Est Glom Filt Rate - Afr Amer 82 mL/min (>60); Glucose 234 mg/dL (74-106); Sodium Level 141 mmol/L (136-145)
--- OUTSIDE RECORDS SUMMARY | 2018-07-29 19:51 | XMS RPT_ITS ---
:1950 Author Organization OHIP Support Name Relationship Address Phone KEK SUPPLY Unavailable [address] + [address] [address] MERCEDESCLIFF, GAVINO Unavailable [address] + [place] [address] LENEDMUNDTH, GAVINO Unavailable Unavailable + LENEDMUNDTH, GAVINO Unavailable Unavailable + KEK SUPPLY Unavailable [address] + [address] [address] LENEDMUNDTH, GAVINO Unavailable [address] + [place] [address] KEK SUPPLY Unavailable [address] + [address] [address] MERCEDESEDMUNDTH, GAVINO Unavailable [address] + [place] [address] LENCLIFF, GAVINO Unavailable Unavailable + KEK SUPPLY Unavailable [address] + [address] [address] LENEDMUNDTH, GAVINO Unavailable [address] + [place] [address] KEK SUPPLY Unavailable [address] + [address] [address] IBETH, GAVINO Unavailable [address] + [place] [address] KEK SUPPLY Unavailable [address] + [address] [address] IBETH, GAVINO Unavailable [address] + [place] [address] KEK SUPPLY Unavailable [address] + [facility] [address] [place] [address] GAVINO CRISTINA Unavailable [address] + [place] [address] KEK SUPPLY Unavailable [address] + [place] [address] [place] [address] CANDICE CRISTINANDY Unavailable [address] + [place] [address] Care Team Providers Name Role Phone JASWINDER DEL RIO Attending Unavailable GANPRAMOD KHAN Primary Care Unavailable JASWINDER DEL RIO Attending Unavailable SHAYNA, CHRISTOPHE DIEHL Primary Care Unavailable Quang, Dr. Jaswinder Lundy Admitting Unavailable Quang, Dr. Jaswinder Lundy Attending Unavailable JASWINDER DEL RIO Admitting Unavailable JASWINDER DEL RIO Attending Unavailable SHAYNA, CHRISTOPHE DIEHL Primary Care Unavailable , TIMMY Attending Unavailable TIMMY MOODY Referring Unavailable Dexter, Christophe Primary Care Unavailable Araseli, Samuel Attending Unavailable Dexter, Christophe Referring Unavailable Calabretta, Omar Attending Unavailable Dexter, Christophe Referring Unavailable Calabretta, Omar Attending Unavailable Dexter, Christophe Referring Unavailable Dexter, Christophe Attending Unavailable Dexter, Christophe Primary Care Unavailable Dexter, Christophe Attending Unavailable Dexter, Christophe Referring Unavailable Dexter, Christophe Primary Care Unavailable Dexter, Christophe Attending Unavailable Dexter, Christophe Primary Care Unavailable Dexter, Christophe Attending Unavailable Dexter, Christophe Referring Unavailable Dexter, Christophe Primary Care Unavailable PROBLEMS PROBLEMS DATE TYPE CONDITION / CODE ATTENDING STATUS SOURCE 04/27/2018 Unknown 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 / I25.10(ICD-10) 04/20/2018 Admitting Atherosclerotic Yara DEL RIO [facility] diagnosis heart disease of JASWINDER Perez Repository [place] coronary artery without angina pectoris / I25.10(ICD-10) 05/06/2018 Unknown R07.9 - Chest pain, Araseli, Samuel Active [place] unspecified / Community R07.9(ICD-10) Hospital Repository 03/21/2018 Unknown E11.9 - Type 2 Christophe Dexter Active [place] diabetes mellitus Community without Hospital complications / Repository E11.9(ICD-10) PROCEDURES PROCEDURES No Procedure Records FoundRESULTS RESULTS BASIC METABOLIC Collected: 04/27/2018 Status: F Source: ORANGE PROFILE ([facility]) 8:47 AM [facility] REPOSITORY TYPE CODE TESTS RESULT OUT OF [...] GAP 11 Performed By: #### L500.2500 #### [facility] [address] [place], [address] LEFT HEART CATH Observed: 04/23/2018 Status: C Source: [facility] POSSIBLE PTCA/STENT 9:06 AM TWO REPOSITORY Patient Name: ROBERT MONCADA Date of : 1950 Procedure Date: 04/23/2018 Cath #: [id number] Physician(s): Jaswinder Del Rio MD Ref. Physician: PROCEDURE(S) PERFORMED: Heart Cath: Left with Coronary Angio AND LV gram Clinical History: Current/Recent Smoker (within 1year): Yes Cigarettes Heavy use (>= 10/day) Diabetes Mellitus: Yes Prior AR: Yes Prior PCI: Yes 02/23/2003 Family History [...] right femoral artery - 6F. 10 cm [place] Catheters were advanced using standard guide wire [...] - Jaswinder Del Rio M.D. Equipment: Sheath(s) DDN 6F 10CM [place] SHEATH Wire(s) [employer] J WIRE FIXED MERIT .035 X 150CM GUIDEWIRE Catheter(s) [employer] JL4 DIAG CATH 6F [employer] JR4 DIAG CATH 6F [employer] PIGTAIL ANGLED DIAG CATH [address] [facility] DIVISION ANGIOSEAL 6F VIP See Nursing Notes for further details Signed By Jaswinder Del Rio MD On 04/23/2018 08:42:39 Signed By Jaswinder Del Rio MD On 04/23/2018 08:41:46 Jaswinder Del Rio MD ____ CBC WITH DIFF Collected: 04/20/2018 Status: F Source: [facility] 1:51 PM [facility] REPOSITORY TYPE CODE TESTS RESULT OUT OF [...] Unless otherwise noted, all testing performed by [address] [address] CLIA: [id number] Corporate Treasurer: [place] Stubbs M.D. BASIC METABOLIC PANEL Collected: 04/20/2018 Status: F Source: [facility] 1:51 PM [facility] REPOSITORY TYPE CODE TESTS RESULT OUT OF [...] used with caution. LAB eGFRB ml/min/1.73sq.m eGFR, -Kenyan >=60 Result Comment: GFR Calc LAB CALCM 8.4-10.2 mg/dL Calcium 8.9 LAB NA 135-145 mmol/L Sodium 138 LAB K 3.5-5.1 mmol/L Potassium 3.9 LAB CL 98-108 mmol/L Chloride 104 LAB CO2 21-32 mmol/L CO2 24 Performed By: #### CHEM8, CBCDIF #### Unless otherwise noted, all testing performed by [facility] [address] [place], [place] [address] CLIA: [id number] Corporate Treasurer: [place] Stubbs M.D. STRESS REPORT Observed: 04/17/2018 Status: F Source: [place] 9:25 AM [facility] REPOSITORY [facility] Cardiovascular Services [address] [place] [address] MR#: [id number] Acct: [id number] Name: ROBERT CRISTINA Rep #: [id number] : 1950 67 From: Samuel Marx MD Primary Care: Christophe Dexter MD Status: REG CLI Ordering Dr: Sex: Chelsie C Stress Test Report Exercise myocardial perfusion stress [...] MD> Date Samuel Marx MD CC: Christophe Dexter MD Date Dictated: 04/17/18921 Date Transcribed: 04/17/18921 Blending Technician: CO Signed CBC W/DIFF, AUTOMATED Collected: 04/10/2018 Status: F Source: ANDREW 4:09 PM [facility] REPOSITORY TYPE CODE TESTS RESULT OUT OF [...] Lymph 3.49 Performed By: #### L100.0100 #### [facility] [address] [place], [address] BASIC METABOLIC Collected: 04/10/2018 Status: F Source: [place] PROFILE (BMP) 4:09 PM [facility] REPOSITORY Order Comment: 'TROP' Serial specimen #1, [...] 10 Performed By: #### L500.2500, L501.4010 #### [facility] [address] [facility] [place], [place], [address] TROPONIN-I Collected: 04/10/2018 Status: F Source: [place] 4:09 PM [facility] REPOSITORY Order Comment: 'TROP' Serial specimen #1, #2, #3, or #4: 1 TYPE CODE TESTS RESULT OUT OF RANGE REFERENCE UNITS LAB L501.4010 <0.045 ng/mL Normal < 0.015 TROPONIN-I Result Comment: TROPONIN-I EXPECTED VALUES <0.045 Negative 0.045 - 0.590 Consistent with Cardiac Damage > OR = 0.600 Critical Value Not every elevated troponin is indicative of AR. These values should be used with clinical judgement in examining the patient's clinical picture for diagnosis. To establish a diagnosis of AR versus myocardial injury, there must be a demonstrated rise and/or fall in the troponin values, in addition to ischemic symptoms, EKG changes, new regional wall motion abnormality, and/or angiographical evidence. PLEASE NOTE: REFERENCE RANGES EDITED 17 Performed By: #### L500.2500, L501.4010 #### [facility] [address] [facility] [place], [place], [address] MICROALB:CREAT Collected: 03/21/2018 Status: F Source: [place] RATIO,RANDOM UR 10:15 AM [facility] REPOSITORY TYPE CODE TESTS RESULT OUT OF RANGE REFERENCE UNITS LAB L501.1200 NO RANGE EST. mg/dL Normal UR CREAT 128.00 LAB L502.0500 NO RANGE EST. mg/L Normal 15.5 MICROALBUMIN ,UR LAB L502.0600 <30 mg/g CRE mg/g CRE Normal 12.1 MALB:CREAT Performed By: #### L502.0250 #### [facility] [address] [place], [place], [address] BASIC METABOLIC Collected: 03/21/2018 Status: F Source: ANDREW PROFILE (BMP) 10:15 AM [facility] REPOSITORY TYPE CODE TESTS RESULT OUT OF [...] Performed By: #### L500.2500, L500.3400, L500.4100 #### [facility] [address] [place], [address] LIVER PROFILE Collected: 03/21/2018 Status: F Source: ANDREW 10:15 AM [facility] REPOSITORY TYPE CODE TESTS RESULT OUT OF [...] Performed By: #### L500.2500, L500.3400, L500.4100 #### [facility] [address] [place], [place], [address] LIPID PROFILE Collected: 03/21/2018 Status: F Source: [place] 10:15 AM [facility] REPOSITORY TYPE CODE TESTS RESULT OUT OF [...] Performed By: #### L500.2500, L500.3400, L500.4100 #### [facility] [address] [place], [place], [address] BASIC METABOLIC Collected: 09/11/2017 Status: F Source: ANDREW PROFILE (BMP) 9:17 AM [facility] REPOSITORY TYPE CODE TESTS RESULT OUT OF [...] GAP 7 Performed By: #### L500.2500 #### [facility] [address] [facility] [place], [address] SURGERY VISIT REPORT Observed: 08/12/2017 Status: F Source: [place] 12:28 PM [facility] REPOSITORY [facility] [address] [facility] [address] [place] [address] OFFICE VISIT Date of Service: 08/07/17 MR#: [id number] Acct: [id number] Name: LORENZOROBERT DIXON Rep #: [id number] : 1950 Provider: Omar Verdin MD Age/Sex: 66/M Location: [facility] Status: Signed Intake Vital Signs08/07/17 Height 5 ft 11 in 08/07/17 Weight: 205 lb 08/07/17 Body Mass Index (BMI) 28.5 Intake Visit Reasons: UMBILICAL HERNIA 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 Omar Verdin MD Pager: [facility] Cydney Eng , [facility] [address] [place] [address] Office: Coding Level of Care Code Off vis,new,level 3 Diagnoses Umbilical hernia without obstruction and without gangrene K42.9 Obstruction and gangrene presence: without obstruction or gangrene 08/12/17 1228 <Electronically signed by Omar Verdin MD> Date Omar Verdin MD Cosigner Signature: Date (if applicable) CC: Christophe Dexter MD ALLERGIES ALLERGIES DATE TYPE / CODE NAME / CODE REACTION SEVERITY SOURCE 08/07/2017 Drug No Known Unknown [facility] Allergy/416 Allergies/S77503 Hospital 737770(SNOM 0388(RXNORM) Repository ED CT) Drug NO KNOWN [facility] Three Class/29897 ALLERGIES Repository 1003(SNOMED CT) ENCOUNTERS ENCOUNTERS ADMIT/DISCHARGE ACCOUNT NUMBER ADMITTING ENCOUNTER LOCATION SOURCE CLASS 04/27/2018 [id number] Ambulatory [facility] ding:LAB Repository 04/23/2018/04/23/20 [id number] QUANG, Ambulatory Building:[place] [address] JASWINDER Perez Room: [place] [address]Bed: 11 Repository 04/20/2018 [id number] Quang, Ambulatory [facility] Dr. Jaswinder Lundy [facility] Repository 04/20/2018/04/20/20 [id number] Ambulatory Building:[place] [address] HVPGAHANNA Three BPKWY Repository 04/17/2018 [id number] Ambulatory BMSBuilding: [facility] Repository 04/17/2018 [id number] Ambulatory [facility] ding:[facility] Repository 04/17/2018 [id number] Ambulatory Building:[facility] HCHOOVERRD Three Repository 04/10/2018 [id number] Ambulatory [facility] ding:MFPLAB Repository 03/21/2018 [id number] Ambulatory [facility] ding:LAB Repository 09/11/2017 [id number] Ambulatory [facility] ding:MFPLAB Repository 08/07/2017/08/08/19 [id number] Ambulatory BMSBuilding: [place] [facility] Repository 06/19/2017 [id number] Ambulatory BMSBuilding: Andrew BMS.[facility] Repository PAYERS PAYERS ENCOUNTER GUARANTOR PAYER SUBSCRIBER SOURCE 04/27/2018 ROBERT Salazar Primary Insurance:[facility] GAVINO Samayoaoster [id number] [facility] LENNERDOB: [facility] [address] [facility] 4916-57-42[place]QLyn[place], [place] Number: Repository [address]Nvu: (981) [id number] [phone] (HP) Date:7653-18-42LM [facility] [address]NZVGSBYTR, [place] [address]GG: CHECK WEBSITE 04/27/2018 Secondary NOT GIVENUNK [place] Insurance:SELF PAY [facility] Number: Effective Repository Date:2018-04-27 04/23/2018 ROBERT Salazar Primary [facility] LENNERDOB: Insurance:MMOPolangelicay LORENZOTHDOB: Repository [id number] Number: [id number] [address] [id number] [address], [place] Date:1168-89-68NY [place], [place] [address]Myz: (834) 6[address], [place] [address]Awo: (HP) [address]AM: (HP) [phone] 04/20/2018 Primary [facility] Insurance:Medical [place] [facility] Number: Repository [id number] Date:Plan Name:Health 04/20/2018 PRITIUMU Martin Primary [facility] LENNERDOB: Insurance:MMOPolicy LORENZOTHDOB: Three Repository Number: [id number] [address] [id number] [place], [place] Date:1580-12-25ZN [place], [place] [address]Lkz: (942) 6[address], [place] [address]Mvl: (HP) [address]WU: (HP) [phone] 04/17/2018 ROBERT Salazar Primary Insurance:[facility] GAVINO Kamron Andrew [id number] [facility] LENNERDOB: [facility] RDWEST SERVICESFairmount Behavioral Health System 3234-96-16NMOLyn[place], [place] Number: Repository [address]Kty: 440 [id number] [phone] (HP) Date:3439-79-15OV [address] [address]PWIUJKONR, [place] [address]OY: CHECK WEBSITE 04/17/2018 Secondary NOT GIVENUNK Andrew Insurance:SELF PAY [facility] Number: Effective Repository Date:2018-04-17 04/17/2018 ROBERT Salazar Primary Insurance:[facility] GAVINO L Andrew [id number] [facility]: [facility] CenterWEST SERVICESFairmount Behavioral Health [facility] 0585-60-09WTTLyndhurst, [place] Number: Repository [address]Ofs: 440 [id number] [phone] () Date:6053-00-99AY [address] [address]DWPVGYFLF, [place] [address]XO: CHECK WEBSITE 04/17/2018 Secondary NOT GIVENUNK [place] Insurance:SELF PAY [facility] Number: Effective Repository Date:2018-04-14 04/17/2018 ROBERT Salazar Primary [facility] MICH[facility]ANEDMUNDDOB: Three Repository Number: [id number] [facility] [id number] [place], [place] Date:3499-76-78VY [place], [place] [address]Wly: (337) 6[address], [place] [address]Wkp: (HP) [address]OH: () [phone] 04/10/2018 ROBERT Salazar Primary Insurance:[facility] GAVINO L Andrew [id number] [facility]ENTERD[facility]: [facility] RDWEST SERVICESFairmount Behavioral Health System 1848-44-10DMJLyndhurst, [place] Number: Repository [address]Hvq: 440 [id number] [phone] (HP) Date:7565-74-98BO [address] [address]EWOUMOVEM, [place] [address]UA: CHECK WEBSITE 04/10/2018 Secondary NOT GIVENUNK [place] Insurance:SELF PAY Community [facility] Number: Effective Repository Date:2018-04-10 03/21/2018 EDWARD J Primary Insurance:[facility] GAVINO Morales [id number] [facility]: [facility] 5601-85-89SUDMimbres Memorial [facility] Number: Repository [address]Epa: (208) [id number] [phone] (HP) Date:7562-33-73QZ [address] [address]DMGBRFLFQ, [place] [address]KR: CHECK WEBSITE 03/21/2018 Secondary NOT GIVENUNK [place] Insurance:SELF PAY [facility] Number: Effective Repository Date:2018-03-21 09/11/2017 EDWARD Primary Insurance:[facility] GAVINO Morales [id number] [facility]ITAL[facility]: [facility] [id number] Memorial [facility], [place] Number: Repository [address]Icp: [id number] [phone] Date:9352-69-41YQ [address] (HP) [address]PFGKYLFBL, [place] [address]XO: CHECK WEBSITE 09/11/2017 Secondary NOT GIVENUNK [place] Insurance:SELF PAY [facility] Number: Effective Repository Date:2017-09-11 08/07/2017 EDWARD Primary Insurance:[facility] GAVINO Morales [id number] [facility]: [facility] [id number] Memorial Hospital, [place] Number: Repository [address]Ajr: [id number] [phone] Date:8619-08-27MW [address] (HP) [address]GFRBQATKI, [place] [address]JW: CHECK WEBSITE 08/07/2017 Secondary NOT GIVENUNK [place] Insurance:SELF PAY [facility] Number: Effective Repository Date:2017-08-07 06/19/2017 Edward Primary Insurance:[facility] Gavino Morales [id number] [facility]: [facility] 1731-11-77SEGNew [facility] Rehabilitation [facility], [place] Number: Repository [address]Sxb: (346) [id number] [phone] () Date:6118-62-24ZX [address] [address]AUPOHTZZW, [place] [address]NP: CHECK WEBSITE 06/19/2017 Secondary NOT GIVENUNK Andrew Insurance:SELF PAY [facility] Number: Effective Repository Date:2017-06-16
== END ==
PROVIDERS: Family Provider Family Medicine; PCP Family Medicine
DX: I25.10 Atherosclerotic heart disease of native coronary artery without angina pectoris (principal)
CPT/HCPCS: 36415; 80048

== ENCOUNTER → 2018-10-01 08:27 | Outpatient (CLI) | payer OTHER, SELFPAY ==
[2017-08-07 08:46] VITALS: BMI 28.5
[2018-10-01 10:20] LABS: Microalbumin,Random Urine 64.6 mg/L (NO RANGE EST.); Microalbumin:Creatinine Ratio 21.8 mg/g CRE (<30 mg/g CRE)
[2018-10-01 10:23] LABS: AST(SGOT) 20 U/L (15-37); Alanine Aminotransfer ALT/SGPT 27 U/L (16-61); Albumin, Serum 3.6 g/dL (3.2-5.0); Alkaline Phosphatase 99 U/L (45-117); Anion Gap 8 (5-15); BUN 12 mg/dL (7-18); BUN/Creat Ratio 13.2 RATIO (10-20); Bilirubin, Direct 0.16 mg/dL (0.00-0.30); Calcium,Total 9.4 mg/dL (8.5-10.1); Chloride 107 mmol/L (98-107); Cholesterol 119 mg/dL (200); Creatinine, Serum 0.91 mg/dL (0.70-1.30); EST Glomerular Filtration Rate 88 mL/min (>60); Est Glom Filt Rate - Afr Amer 107 mL/min (>60); Globulin 3.6 g/dL (2.2-4.2); Glucose 121 mg/dL (74-106); High Density Lipoprotein 43 mg/dL; Potassium 4.4 mmol/L (3.5-5.1); Protein, Total 7.2 g/dL (6.4-8.2); Sodium Level 139 mmol/L (136-145); Triglycerides 93 mg/dL; Very Low Density Lipoprotein 19 mg/dL (5-40)
== END ==
PROVIDERS: Family Provider Family Medicine; PCP Family Medicine; Visit Provider Family Medicine
DX: E11.9 Type 2 diabetes mellitus without complications (principal)
CPT/HCPCS: 36415; 80048; 80061; 80076; 82043; 82570

== ENCOUNTER → 2019-04-10 10:08 | Outpatient (CLI) | payer OTHER, SELFPAY ==
[2017-08-07 08:46] VITALS: BMI 28.5
[2019-04-10 11:10] LABS: Anion Gap 8 (5-15); BUN 17 mg/dL (7-18); BUN/Creat Ratio 17.5 RATIO (10-20); Calcium,Total 9.6 mg/dL (8.5-10.1); Chloride 106 mmol/L (98-107); Creatinine, Serum 0.97 mg/dL (0.70-1.30); EST Glomerular Filtration Rate 82 mL/min (>60); Est Glom Filt Rate - Afr Amer 99 mL/min (>60); Glucose 106 mg/dL (74-106); Potassium 4.3 mmol/L (3.5-5.1); Sodium Level 140 mmol/L (136-145)
== END ==
PROVIDERS: Family Provider Family Medicine; PCP Family Medicine; Referring Provider Family Medicine; Visit Provider Family Medicine
DX: E11.9 Type 2 diabetes mellitus without complications (principal)
CPT/HCPCS: 36415; 80048

== ENCOUNTER 2019-06-29 10:00 | Outpatient (RCR) | payer OTHER, SELFPAY ==
[2019-06-22 08:49] VITALS: BP 114/68; PULSE 85; RESP 16; TEMP 36.7; BMI 26.5
[2019-06-22 11:27] LABS: Hematocrit 47.8 % (40-54); Hemoglobin 15.3 g/dL (13.0-16.5); Mean Corpuscular Volume 87.4 fL (80-94); Mean Platelet Vol. 11.4 fl (6.2-12.0); Platelet Count 157 K/mm3 (150-450); RBC Distribution Width CV 14.6 % (11.6-14.6); RBC Distribution Width SD 46.6 fl (35.1-43.9); Red Blood Count 5.47 M/mm3 (4.6-6.2); White Blood Count 9.4 K/mm3 (4.4-11.0)
[2019-06-22 11:49] LABS: Hemoglobin A1c 6.6 % (4.2-6.3)
[2019-06-22 12:01] LABS: Anion Gap 5 (5-15); BUN 16 mg/dL (7-18); BUN/Creat Ratio 13.1 RATIO (10-20); Calcium,Total 9.5 mg/dL (8.5-10.1); Chloride 108 mmol/L (98-107); Creatinine, Serum 1.22 mg/dL (0.70-1.30); EST Glomerular Filtration Rate 63 mL/min (>60); Est Glom Filt Rate - Afr Amer 76 mL/min (>60); Estimated Creatinine Clearance 59.84 ml/min; Glucose 65 mg/dL (74-106); Potassium 4.9 mmol/L (3.5-5.1); Prealbumin 24.6 mg/dL (20.0-40.0); Sodium Level 138 mmol/L (136-145)
--- NOTE | 2019-06-22 13:23 | PCM.WC.HP ---
(1) Ulcer of right leg Status: Chronic Current Visit: Yes Qualifiers: Non-pressure ulcer stage: with fat layer exposed Qualified Code(s): L97.912 - Non-pressure chronic ulcer of unspecified part of right lower leg with fat layer exposed Code(s): L97.919 - Non-pressure chronic ulcer of unspecified part of right lower leg with unspecified severity (2) Swelling of right lower extremity Status: Chronic Current Visit: Yes Code(s): M79.89 - Other specified soft tissue disorders (3) Coronary artery disease Status: Chronic Current Visit: Yes Qualifiers: Coronary Disease-Associated Artery/Lesion type: [place] artery [place] vs. transplanted heart: [place] heart Code(s): I25.10 - Atherosclerotic heart disease of [place] coronary artery without angina pectoris (4) Stented coronary artery Status: Chronic Current Visit: Yes Code(s): Z95.5 - Presence of coronary angioplasty implant and graft (5) Diabetes mellitus Status: Chronic Current Visit: Yes Qualifiers: Diabetes mellitus type: type 2 Code(s): E11.9 - Type 2 diabetes mellitus without complications (6) Hypertension Status: Chronic Current Visit: No Code(s): I10 - Essential (primary) hypertension (7) Umbilical hernia Status: Chronic Current Visit: No Code(s): K42.9 - Umbilical hernia without obstruction or gangrene (8) Overweight (BMI 25.0-29.9) Status: Chronic Current Visit: No (9) Hyperlipidemia Status: Chronic Current Visit: No Code(s): E78.5 - Hyperlipidemia, unspecified (10) History of VA (myocardial infarction) Status: Chronic Current Visit: No Code(s): I25.2 - Old myocardial infarction (11) Tobacco abuse Status: Chronic Current Visit: Yes Code(s): Z72.0 - Tobacco use (12) Tobacco abuse counseling Status: Chronic Current Visit: Yes Code(s): Z71.6 - Tobacco abuse counseling History of Present Illness Date of Service: 06/22/19 Chief Complaint: Clustered ulceration of the right anterior tibial surface History of Wound: This is a 68-year-old functional white male who presents with a clustered ulceration on the right anterior tibial surface. According to the patient, there has been no recent trauma. The ulceration has been present for approximately 1 month. He remembers itching in the area at the time of its initiation, to which he responded by scratching. This may have been the inciting event. The patient relates swelling in his right lower extremity. He denies a history of deep vein thrombosis. He is active. He ambulates liberally. He sleeps on a flat mattress at night. He has had no similar wounds or ulcerations in the past. When evaluated by the patient's primary care physician several days ago, the patient was placed on oral Bactrim antibiotic, and collagen hydrogel was prescribed as a topical treatment measure. Past Medical History Past Medical History: Chronic Problems (Last Reviewed 08/07/17 @ 08:45 by Britta Lea) Ulcer of right leg (Chronic) Swelling of right lower extremity (Chronic) Coronary artery disease (Chronic) Stented coronary artery (Chronic) Diabetes mellitus (Chronic) Hypertension (Chronic) Umbilical hernia (Chronic) Overweight (BMI 25.0-29.9) (Chronic) Hyperlipidemia (Chronic) History of VA (myocardial infarction) (Chronic) Tobacco abuse (Chronic) Tobacco abuse counseling (Chronic) Past Medical History: Patient has a history of coronary artery disease, for which he has undergone 2 cardiac stenting procedures. He has a history of 2 prior myocardial infarctions. He suffers from diabetes mellitus, hypertension, and hyperlipidemia. Known umbilical hernia. His history is negative for cerebrovascular accident, pulmonary disease, renal disease, and thyroid disease. The patient is a smoker, and has been counseled as to its adverse health consequences, and advised to quit. Surgical History: - - The patient has had 2 coronary artery stent procedures. He is undergone bilateral cataract extraction. Lumbar disc surgery has been performed in the past. Allergies/Adverse Reactions: Allergies No Known Allergies Allergy (Verified 08/07/17 08:47) Home Medications: Ambulatory Orders Medication Instructions Recorded Amlodipine [Norvasc] 5 mg PO DAILY 02/23/15 Aspirin E.C. [Ecotrin] 81 mg PO DAILY@0800 02/23/15 Atorvastatin Calcium [Lipitor] 40 mg PO QHS 02/23/15 Fish Oil/Dha/Epa [Fish Oil 1,200 1,000 mg PO QHS 02/23/15 mg Fish Oil] Metformin 1,000 mg PO BID 02/23/15 Metoprolol(XL)Succ [Toprol Xl 25 mg PO DAILY 02/23/15 (Beta Paulie)] Pantoprazole Sodium [Protonix] 40 mg PO DAILY 08/16/16 cinnamon bark 500 mg capsule 2,000 mg PO BID 08/07/17 Dapagliflozin Propanediol [Farxiga] 10 mg PO DAILY 06/22/19 Lipitor 06/22/19 Pantoprazole Sodium [Protonix] 40 mg PO DAILY 06/22/19 - Family History Paternal Family History: Family History (Last Updated 08/07/17 @ 08:46 by Britta Lea) Father Diabetes Heart disease - - Patient's father age of 80 with a history of heart disease. Patient's mother at the age of 80, suffering from dementia. Social History: The patient is . He lives with his . 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 He denies the use of alcohol. He smokes 1 pack of cigarettes per day and has done so for many years. Counseling has been provided as to the adverse health effects of smoking, and the patient has been advised to cease the habit. Lives: Spouse/ Significant Other Smoking Status: Current every day smoker Tobacco Use: Cigarettes Alcohol: None Drugs: None Review of Systems Constitutional: Denies: Chills, Fever, Weight Change Eyes: Denies: Pain, Vision Change HEENT: Denies: Difficulty Hearing, Difficulty Swallowing, Sinus Congestion Cardiovascular: Denies: Chest Pain, Palpitations Respiratory: Denies: Cough, Shortness of Breath Gastrointestinal: Denies: Diarrhea, Nausea, Vomiting Genitourinary: Denies: Dysuria, Hematuria Endocrine: Denies: Heat/ Cold Intolerance, Polydipsia, Polyuria Hematologic/ Lymphatic: Denies: Easy Bruising, Easy Bleeding - Physical Exam Vital Signs Temp Pulse Resp BP 98.0 F 85 16 114/68 06/22/19 08:49 06/22/19 08:49 06/22/19 08:49 06/22/19 08:49 General: Alert, Oriented x3, Cooperative, No apparent distress, Well developed, Well nourished HEENT: Atraumatic, PERRLA, EOMI, Normocephalic Oral: Moist Mucosa, No Gingival or Mucosal Lesions/ Ulcerations Neck: Supple, No JVD, Negative Carotid Bruits, Negative Hepatojugular Reflux, No Nodes, No Nuchal Rigidity, Trachea Midline Lungs: Clear to auscultation, Normal air movement, No rhonchi, No wheeze, No rales Cardiovascular: Regular rate, Regular Rhythm, Normal S1, Normal S2, No murmurs Abdomen: Soft, Non Tender, Non-Distended Extremities: No clubbing, No cyanosis, No edema, No Calf Tenderness, - - Multiple clustered ulcerations are noted on the right anterior tibial surface, with associated dry gangrenous changes. There is a hint of erythema, suspected to be cellulitic in nature. Dimensions are documented elsewhere. Wound Measurements and Assessment WC - Nurse 1 - General Ulcer Measurement Start: 06/22/19 08:49 Freq: Status: Active Protocol: Activity Type Activity Date Activity User E-Sign Co-Sign Detail Recorded Client Recorded Date Recorded By Document 06/22/19 08:49 [id number] 06/22/19 09:10 06/22/19 08:49 Wound Center Nurse 1 [Ulcer Assessment] 1-right dick cluster -Combined with other wound No -Current Size (cm) - Length 11.0 -Current Size (cm) - Width 9.3 -Current Size (cm) - Depth 0.1 -Total Square Cm 102.30 -Photo Taken Yes -Epithelialization None Present -Tunneling No -Undermining/Tunneling No -Circular Undermining No -Classification - Thickness Unclassifiable (Eschar Covered ) -Exudate Amt None Present -Wound Margin Flat & Intact -Granulation Amt None Present (0 %) -Slough/Fibrin Yes -Necrosis Amt Large (67-100%) -Necrotic Tissue Type Eschar -Structure Exposed N/A -Texture (Genia-wound Skin Appearance) Assessed, Localized Edema -Moisture (Genia-wound Skin Appearance Assessed,Dry/ ) Scaly -Color (Genia-wound Skin Appearance) Assessed -Temperature (Genia-wound Skin No Abnormality Appearance) (Pt Warm) -Tenderness on Palpation (Genia-wound No Skin Appearance) -Ulcer Cleansing Rinsed/ Irrigated with Saline -Foul Odor after Cleansing No -Anesthetic Used 4% Lidocaine Solution [Edema Assessment] -Lower Limb Edema Present Yes -Right Calf (cm) 40.7 -Right Ankle (cm) 25.5 -Left Calf (cm) 36.8 -Left Ankle (cm) 22.7 WC - Nurse 2 - General Ulcer CM Notes Start: 06/22/19 08:49 Freq: Status: Active Protocol: Activity Type Activity Date Activity User E-Sign Co-Sign Detail Recorded Client Recorded Date Recorded By Document 02/11/20 09:47 DV [id number] 06/22/19 10:10 DV 06/22/19 09:47 Wound Center Nurse 2 [Procedure/Treatment] 1-right dick cluster -Time 09:47 -Correct Patient Yes -Correct Side, Site, Position Yes -Correct Procedure Yes -Procedure Performed Yes -Type of Procedure Debridement -Clinical Debridement Subcutaneous -Post Debridement Size (cm) - Length 10.0 -Post Debridement Size (cm) - Width 8.9 -Post Debridement Size (cm) - Depth 0.4 -Total Square Cm 89.00 -Wound/Ulcer Outcome Healed- Flap -Ulcer Cleansing Rinsed/ Irrigated with Saline -Foul Odor after Cleansing No -Bioengineered Tissue No -Bleeding Controlled with Pressure -Offloading No -Treatment Response Procedure Tolerated Well [See Physician Procedure note for Specifics] Pain Scale: 0-10 Numeric [Pain] -Is Patient Pain Free? Yes Musculoskeletal: No Muscle Wasting Neurological: Cranial nerves II-XII grossly intact, Neuro grossly intact Psych/Mental Status: Normal Affect, Appropriate, Alert and oriented to time, place, person, mood and affect Debridement Note Post-Debridement Measurements/Treatment WC - Nurse 2 - General Ulcer CM Notes Start: 06/22/19 08:49 Freq: Status: Active Protocol: Activity Type Activity Date Activity User E-Sign Co-Sign Detail Recorded Client Recorded Date Recorded By Document 06/22/19 09:47 DV [id number] 06/22/19 10:10 DV 06/22/19 09:47 Wound Center Nurse 2 1-right dick cluster -Time 09:47 -Correct Patient Yes -Correct Side, Site, Position Yes -Correct Procedure Yes -Procedure Performed Yes -Type of Procedure Debridement -Clinical Debridement Subcutaneous -Post Debridement Size (cm) - Length 10.0 -Post Debridement Size (cm) - Width 8.9 -Post Debridement Size (cm) - Depth 0.4 -Total Square Cm 89.00 -Wound/Ulcer Outcome Healed- Flap -Ulcer Cleansing Rinsed/ Irrigated with Saline -Foul Odor after Cleansing No -Bioengineered Tissue No -Bleeding Controlled with Pressure -Offloading No -Treatment Response Procedure Tolerated Well Pain Scale: 0-10 Numeric Is Patient Pain Free? Yes Laterality: Right - Anterior tibial surface Type of Debridement: Excisional debridement Anesthesia Used: 5% Lidocaine Gel Depth: Down to and including healthy tissue, in the subcutaneous layer Percentage of wound debrided: 100 Instrument Used: 5mm curette, #15 blade, Forceps Tissue Removed: Bioburden and frankly necrotic tissue Severity: Fat Layer Exposed Amount of bleeding with debridement: Mild Bleeding Controlled with: Compression and gauze Patient tolerated procedure well Assessment/Plan Active Problems (Last Reviewed 08/07/17 @ 08:45 by Britta Lea) Ulcer of right leg (Chronic) Swelling of right lower extremity (Chronic) Coronary artery disease (Chronic) Stented coronary artery (Chronic) Diabetes mellitus (Chronic) Hypolipidemia (Acute) Tobacco abuse (Chronic) Tobacco abuse counseling (Chronic) Assessment: This is a 68-year-old functional white male who presents with clustered, necrotic ulcerations on the right anterior tibial surface. It appears as though these are nontraumatic in nature, though the patient does admit to scratching approximately 1 month ago at the time of the origination of the ulcerations. Patient has multiple pre-existing medical problems, as discussed above. Plan: At the time of debridement today, the remaining areas of frankly necrotic, gangrenous tissue, which were resistant to removal, were scored with a #15 scalpel blade. The scoring was performed so as to permit better penetration of the collagenase Santyl ointment, in an effort to enhance its enzymatic penetration and effect. The patient has been advised to optimize his nutritional intake. He has also been advised to optimize his glycemic control. Serial debridements are anticipated with each clinic visit. We are to obtain a noninvasive lower extremity arterial study, and a venous duplex examination, for further evaluation of the patient's vascular status. Routine laboratory studies will be obtained as well, including a CBC, comprehensive metabolic profile, serum prealbumin, and a hemoglobin A1c. Swab cultures have been obtained, for aerobic and anaerobic bacterial growth. These results will be awaited. Antibiotic treatment will be tailored to the results of the cultures. The patient is currently on Bactrim oral antibiotic, which is to be continued to completion. Patient has been advised to elevate his lower extremities as much as possible to minimize the swelling, she has experienced historically. Consideration may be given to some form of compression in the future, based upon the patient's evolving course. The patient is to return in 1 week for reassessment. Influenza vaccine was not administered today. Patient stands 5 feet 10 inches tall. He weighs 185 pounds. His BMI is 26.5, which places him in an overweight category. Weight optimization has been recommended, with collaboration by the patient's primary care physician. The patient is known to be a smoker, and has been counseled as to the adverse consequences of the smoking habit, and smoking cessation has been recommended.
[2019-06-22 13:32] LABS: M R Staph aureus DNA By PCR Negative (Negative); Probe Check PASS; Specimen Processing Control PASS; Staph aureus DNA By PCR NEGATIVE (Negative)
--- NOTE | 2019-06-25 11:04 | WC ---
Dr Novak called after reviewing culture results. Per pt's , he is currently already on a 14 day course of Bactrim per Dr Azevedo for his wound. Instruction given to pt's for him to continue w/ current antibiotic regimen w/ understanding voiced.
--- NOTE | 2019-06-29 08:00 | ART_ITS ---
Reason For Study: PVD Procedure A bilateral lower extremity continuous wave Doppler with analog waveform analysis,segmental pressures,and ankle brachial indexes without exercise. Left Segmental Pressures Left brachial= 103mmHg. Left posterior tibial artery = 117mmHg. Left dorsalis pedis artery = 120mmHg. Left digit = 96 mmHg. The left dorsalis pedis waveforms are triphasic. The left posterior tibial artery waveforms are triphasic. Right Segmental Pressures Right brachial= 110mmHg. Right posterior tibial artery = 120mmHg. Right dorsalis pedis artery = 117mmHg. Right digit = 88 mmHg. The right dorsalis pedis waveforms are triphasic. The right posterior tibial artery waveforms are triphasic. Indices The right ankle brachial index by the dorsalis pedis is 1.06. The right ankle brachial index by the posterior tibial artery is 1.09. The right digital-brachial index is .8. The left ankle brachial index by the dorsalis pedis is 1.09. The left ankle brachial index by the posterior tibial artery is 1.06. The left digital-brachial index is .87. Interpretation Summary Triphasic Doppler waveforms are noted at ankle level bilaterally. Pulse-volume recordings appear satisfactory at all levels bilaterally. Resting ankle-brachial indices are normal bilaterally. Digital-brachial indices are normal bilaterally. There is no evidence of significant arterial occlusive disease in the lower extremities bilaterally. Ordering Physician: Garcia Novak Performed By: [facility]
--- NOTE | 2019-06-29 08:01 | VDLE_ITS ---
Reason For Study: swelling, pain RIGHT LEFT CFV is compressible, spontaneous, phasic, CFV is compressible, spontaneous, phasic, competent and demonstrates normal competent, and demonstrates normal augmentation. augmentation. FV is compressible, spontaneous, phasic, FV is compressible, spontaneous, phasic, competent and demonstrates normal competent and demonstrates normal augmentation. augmentation. POP V is compressible, spontaneous, phasic, POP V is compressible, spontaneous, phasic, competent and demonstrates normal competent and demonstrates normal augmentation. augmentation. T/P Trunk is compressible. T/P Trunk is compressible. PTV is compressible. PTV is compressible. RT PerV is compressible. LT PerV is compressible. SFJ is competent and measures .51 x .6 cm. SFJ is competent and measures .63 x .73 cm. GSV proximal thigh measures .22 x .26 cm. GSV proximal thigh measures .29 x .35 cm. GSV at knee measures .18 x .23 cm. GSV at knee measures .27 x .25 cm. GSV is competent throughout. GSV is competent throughout. SSV proximal calf is competent and SSV proximal calf is competent and measures .36 x .37 cm. measures .19 x .19 cm. Procedure Exam performed in department. The exam was diagnostic. Interpretation Summary Deep veins of the lower extremities are bilaterally patent and compressible segmentally. There is no evidence of deep vein thrombosis on either side. Valvular competence appears intact within the proximal deep venous systems bilaterally. The great saphenous veins appear bilaterally patent and compressible segmentally. Sapheno-femoral junctions are bilaterally competent . Valvular competence appears to be intact segmentally within the great saphenous veins bilaterally. Small saphenous veins are patent and competent bilaterally. Ordering Physician: Garcia Novak Performed By: Kulwinder Coleman, RVT
[2019-06-29 09:37] VITALS: BP 125/74; PULSE 76; RESP 18; TEMP 36.4; BMI 26.5
--- NOTE | 2019-06-29 10:30 | TISS_PTH ---
PATIENT: ROBERT CRISTINA LOC: U#:[id number] AGE/SX: 68/M ROOM: RE06/29/[address]: Dr. Garcia Novak MD : 1950 BED: DIS: 07/10/2019 SPEC #: [id number] RECD: 06/29/19 11:09 STATUS: LUKE VITA #: [id number] JANEY: 06/29/19 10:[address]: Garcia Novak DEPT: SURGICAL PATHOLOGY RECD BY: Norris Garcia ENTERED: 06/29/19 13:06 SP TYPE: Tissue Bx LEXII DR: Dr. Christophe Dexter MD Tissues: Right leg Procedures: Special Stain Group I Surgery Specimen Level IV AFB Stain (control) GMS Stain (control) HEADER OPERATION: Biopsy of right dick cluster x2 PRE-OP DIAGNOSIS: Rule out pyoderma gangrenosum; rule out necrobiosis lipoidica diabeticorum TISSUE SUBMITTED: Right dick, middle edge of cluster; right dick, right edge of cluster MICROSCOPIC DIAGNOSIS Right dick, punch biopsy x2: Skin with ulceration, necrosis as well as an extensive neutrophilic and eosinophilic dermal infiltrate. Special stains for acid fast bacilli and fungi are negative for organisms; matched controls are appropriate. See comment. SJ:brian 07/07/19 COMMENT The specimen is sent to [facility] for expert opinion and reviewed by Dr. Handley and above diagnosis is rendered. Dr. Handley also made note that the findings are not entirely specific. The differential diagnosis includes Sweet syndrome, an arthropod assault or a drug eruption in the appropriate clinical setting. The microscopic features do not support pyoderma gangrenosum which is always a diagnosis by exclusion. No evidence of granulomatous dermatitis is identified. If the lesion(s) persist or progress, an additional biopsy is recommended. Multiple level sections have been examined. The complete report is viewable in patient's EMR. Case has been reviewed in consultation with Dr. Oh who concurs with the above diagnosis. IDC:AM MICROSCOPIC DESCRIPTION Slides are reviewed. GROSS DESCRIPTION Received in fixative is one container labeled with the patient's name and designated right dick. The specimen consists of two pieces of punch biopsy of champion-white skin each measuring 0.5 cm in diameter and 0.4 cm in length. One of the piece is inked black. Both pieces are longitudinally bisected. The entire specimen is submitted in one cassette. / SJ:brian 06/29/19 TC:2 CPT: 37127, 22203 x2
--- NOTE | 2019-06-29 13:03 | PCM.WC.HP ---
(1) Ulcer of right leg Status: Chronic Current Visit: Yes Qualifiers: Non-pressure ulcer stage: with fat layer exposed Qualified Code(s): L97.912 - Non-pressure chronic ulcer of unspecified part of right lower leg with fat layer exposed Code(s): L97.919 - Non-pressure chronic ulcer of unspecified part of right lower leg with unspecified severity (2) Swelling of right lower extremity Status: Chronic Current Visit: Yes Code(s): M79.89 - Other specified soft tissue disorders (3) Coronary artery disease Status: Chronic Current Visit: Yes Qualifiers: Coronary Disease-Associated Artery/Lesion type: [place] artery [place] vs. transplanted heart: [place] heart Code(s): I25.10 - Atherosclerotic heart disease of [place] coronary artery without angina pectoris (4) Stented coronary artery Status: Chronic Current Visit: Yes Code(s): Z95.5 - Presence of coronary angioplasty implant and graft (5) Diabetes mellitus Status: Chronic Current Visit: Yes Qualifiers: Diabetes mellitus type: type 2 Code(s): E11.9 - Type 2 diabetes mellitus without complications (6) Hypertension Status: Chronic Current Visit: No Code(s): I10 - Essential (primary) hypertension (7) Umbilical hernia Status: Chronic Current Visit: No Code(s): K42.9 - Umbilical hernia without obstruction or gangrene (8) Overweight (BMI 25.0-29.9) Status: Chronic Current Visit: No (9) Hyperlipidemia Status: Chronic Current Visit: No Code(s): E78.5 - Hyperlipidemia, unspecified (10) History of SC (myocardial infarction) Status: Chronic Current Visit: No Code(s): I25.2 - Old myocardial infarction (11) Tobacco abuse Status: Chronic Current Visit: Yes Code(s): Z72.0 - Tobacco use (12) Tobacco abuse counseling Status: Chronic Current Visit: Yes Code(s): Z71.6 - Tobacco abuse counseling History of Present Illness Date of Service: 06/29/19 Chief Complaint: Clustered ulceration of the right anterior tibial surface History of Wound: This is a 68-year-old active and functional white male who presents with a clustered ulceration on the right anterior tibial surface. According to the patient, there had been no recent trauma. The ulceration had been present for approximately 1 month. He remembers itching in the area at the time of its initiation, to which he responded by scratching. This may have been the inciting event. The patient relates intermittent swelling in his right lower extremity. He denies a history of deep vein thrombosis. He is active and ambulates liberally. He sleeps on a flat mattress at night. He has had no similar wounds or ulcerations in the past. When evaluated by the patient's primary care physician several days prior to presentation here, the patient was placed on oral Bactrim antibiotic, and collagen hydrogel was prescribed as a topical treatment measure. Past Medical History Past Medical History: Chronic Problems (Last Reviewed 08/07/17 @ 08:45 by Britta Lea) Ulcer of right leg (Chronic) Swelling of right lower extremity (Chronic) Coronary artery disease (Chronic) Stented coronary artery (Chronic) Diabetes mellitus (Chronic) Hypertension (Chronic) Umbilical hernia (Chronic) Overweight (BMI 25.0-29.9) (Chronic) Hyperlipidemia (Chronic) History of SC (myocardial infarction) (Chronic) Tobacco abuse (Chronic) Tobacco abuse counseling (Chronic) Surgical History: - - The patient has had 2 coronary artery stent procedures. He is undergone bilateral cataract extraction. Lumbar disc surgery has been performed in the past. Allergies/Adverse Reactions: Allergies No Known Allergies Allergy (Verified 08/07/17 08:47) Home Medications: Ambulatory Orders Medication Instructions Recorded Amlodipine [Norvasc] 5 mg PO DAILY 02/23/15 Aspirin E.C. [Ecotrin] 81 mg PO DAILY@0800 02/23/15 Atorvastatin Calcium [Lipitor] 40 mg PO QHS 02/23/15 Fish Oil/Dha/Epa [Fish Oil 1,200 1,000 mg PO QHS 02/23/15 mg Fish Oil] Metformin 1,000 mg PO BID 02/23/15 Metoprolol(XL)Succ [Toprol Xl 25 mg PO DAILY 02/23/15 (Beta Paulie)] Pantoprazole Sodium [Protonix] 40 mg PO DAILY 08/16/16 cinnamon bark 500 mg capsule 2,000 mg PO BID 08/07/17 Dapagliflozin Propanediol [Farxiga] 10 mg PO DAILY 06/22/19 Lipitor 06/22/19 Pantoprazole Sodium [Protonix] 40 mg PO DAILY 06/22/19 - Family History Paternal Family History: Family History (Last Updated 08/07/17 @ 08:46 by Britta Lea) Father Diabetes Heart disease - - Patient's father age of 80 with a history of heart disease. Patient's mother at the age of 80, suffering from dementia. Lives: Spouse/ Significant Other Smoking Status: Current every day smoker Tobacco Use: Cigarettes Alcohol: None Drugs: None Review of Systems Constitutional: Denies: Chills, Fever, Weight Change Eyes: Denies: Pain, Vision Change HEENT: Denies: Difficulty Hearing, Difficulty Swallowing, Sinus Congestion Cardiovascular: Denies: Chest Pain, Palpitations Respiratory: Denies: Cough, Shortness of Breath Gastrointestinal: Denies: Diarrhea, Nausea, Vomiting Genitourinary: Denies: Dysuria, Hematuria Endocrine: Denies: Heat/ Cold Intolerance, Polydipsia, Polyuria Hematologic/ Lymphatic: Denies: Easy Bruising, Easy Bleeding - Physical Exam Vital Signs Temp Pulse Resp BP 97.5 F L 76 18 125/74 H 06/29/19 09:37 06/29/19 09:37 06/29/19 09:37 06/29/19 09:37 General: Alert, Oriented x3, Cooperative, No apparent distress, Well developed, Well nourished HEENT: Atraumatic, PERRLA, EOMI, Normocephalic Oral: Moist Mucosa Neck: No JVD Lungs: Normal air movement Abdomen: Non-Distended Extremities: No clubbing, No cyanosis, No edema, No Calf Tenderness, - - The clustered ulcerations on the right anterior tibial surface persist. There are multiple, some of which are frankly dry and gangrenous, and others which have been unroofed and demonstrate mild depth with some nonviable and necrotic tissue within. In fact, additional areas of necrosis have developed since the patient was initially evaluated 1 week previously. Dimensions are documented elsewhere. Photographic images have also been obtained. Wound Measurements and Assessment WC - Nurse 1 - General Ulcer Measurement Start: 06/22/19 08:49 Freq: Status: Active Protocol: Activity Type Activity Date Activity User E-Sign Co-Sign Detail Recorded Client Recorded Date Recorded By Document 06/29/19 09:37 DL [id number] 06/29/19 09:43 DL 06/29/19 09:37 Wound Center Nurse 1 [Ulcer Assessment] 1-right dick cluster -Current Size (cm) - Length 11 -Current Size (cm) - Width 10 -Current Size (cm) - Depth 0.3 -Total Square Cm 110 -Photo Taken No -Exudate Amt Small -Exudate Type Serosanguineous -Wound Margin Distinct, Outline Attached -Granulation Amt None Present (0 %) -Necrosis Amt Large (67-100%) -Necrotic Tissue Type Adherent Slough -Structure Exposed N/A -Texture (Genia-wound Skin Appearance) Localized Edema ,Scarring -Moisture (Genia-wound Skin Appearance No Abnormality ) -Color (Genia-wound Skin Appearance) Erythema,Rubor -Temperature (Genia-wound Skin No Abnormality Appearance) (Pt Warm) -Tenderness on Palpation (Genia-wound No Skin Appearance) -Ulcer Cleansing Wound Cleanser -Foul Odor after Cleansing No -Anesthetic Used 4% Lidocaine Solution [Edema Assessment] -Right Calf (cm) 38.5 -Right Ankle (cm) 23.8 WC - Nurse 2 - General Ulcer CM Notes Start: 06/22/19 08:49 Freq: Status: Active Protocol: Activity Type Activity Date Activity User E-Sign Co-Sign Detail Recorded Client Recorded Date Recorded By Document 06/29/19 10:35 DV [id number] 06/29/19 10:43 DV 06/29/19 10:35 Wound Center Nurse 2 [Procedure/Treatment] 1-right dick cluster -Time 10:37 -Correct Patient Yes -Correct Side, Site, Position Yes -Correct Procedure Yes -Procedure Performed Yes -Type of Procedure Debridement -Clinical Debridement Subcutaneous -Post Debridement Size (cm) - Length 11.5 -Post Debridement Size (cm) - Width 10.2 -Post Debridement Size (cm) - Depth 0.3 -Total Square Cm 117.30 -Wound/Ulcer Outcome Not Healed -Ulcer Cleansing Rinsed/ Irrigated with Saline -Foul Odor after Cleansing No -Bioengineered Tissue No -Bleeding Controlled with Pressure -Offloading No -Treatment Response Procedure Tolerated Well [See Physician Procedure note for Specifics] Pain Scale: 0-10 Numeric [Pain] -Is Patient Pain Free? Yes Musculoskeletal: No Muscle Wasting Neurological: Cranial nerves II-XII grossly intact, Neuro grossly intact Psych/Mental Status: Normal Affect, Appropriate, Alert and oriented to time, place, person, mood and affect Debridement Note Post-Debridement Measurements/Treatment WC - Nurse 2 - General Ulcer CM Notes Start: 06/22/19 08:49 Freq: Status: Active Protocol: Activity Type Activity Date Activity User E-Sign Co-Sign Detail Recorded Client Recorded Date Recorded By Document 06/22/19 09:47 DV [id number] 06/22/19 10:10 DV Document 06/29/19 10:35 DV [id number] 06/29/19 10:43 DV 06/22/19 06/29/19 09:47 10:35 Wound Center Nurse 2 1-right dick cluster -Time 09:47 10:37 -Correct Patient Yes Yes -Correct Side, Site, Position Yes Yes -Correct Procedure Yes Yes -Procedure Performed Yes Yes -Type of Procedure Debridement Debridement -Clinical Debridement Subcutaneous Subcutaneous -Post Debridement Size (cm) - Length 10.0 11.5 -Post Debridement Size (cm) - Width 8.9 10.2 -Post Debridement Size (cm) - Depth 0.4 0.3 -Total Square Cm 89.00 117.30 -Wound/Ulcer Outcome Healed- Flap Not Healed -Ulcer Cleansing Rinsed/ Rinsed/ Irrigated with Irrigated with Saline Saline -Foul Odor after Cleansing No No -Bioengineered Tissue No No -Bleeding Controlled with Pressure Pressure -Offloading No No -Treatment Response Procedure Procedure Tolerated Well Tolerated Well Pain Scale: 0-10 Numeric Is Patient Pain Free? Yes Yes While no debridement was performed today, biopsies were obtained. The area was prepped with alcohol. Lidocaine 1% with epinephrine was then used to provide local anesthesia. A 5 mm punch biopsy was then used to obtain 2 specimens of tissue. The tissue obtained was at the margin of the lesion, incorporating both normal adjacent skin as well as a portion of the ulceration itself. Two specimens were obtained, were placed within formalin for histological/pathological examination. The procedure was well-tolerated by the patient. No debridement was completed today Assessment/Plan Active Problems (Last Reviewed 08/07/17 @ 08:45 by Britta Lea) Ulcer of right leg (Chronic) Swelling of right lower extremity (Chronic) Coronary artery disease (Chronic) Stented coronary artery (Chronic) Diabetes mellitus (Chronic) Hypolipidemia (Acute) Tobacco abuse (Chronic) Tobacco abuse counseling (Chronic) Assessment: This is a 68-year-old functional white male who presented with clustered, necrotic ulcerations on the right anterior tibial surface. It appears as though these are nontraumatic in nature, though the patient does admit to scratching approximately 1 month ago at the time of the origination of the ulcerations. The patient has multiple pre-existing medical problems, as documented above. The ulcerations on the right anterior tibial surface have progressed since the patient's initial visit 1 week prior, with the development of additional ulcerations in the adjacent areas. Plan: The patient remains on Bactrim twice daily, as previously prescribed by his primary care physician. He has several days remaining. Swab cultures, obtained last week, are positive for Staphylococcus epidermidis. Culture and sensitivity report suggests the organism to be sensitive to Bactrim. In addition, the patient is undergone vascular studies earlier today. A venous duplex examination appears normal, with no evidence of superficial venous incompetence in either lower extremity. A noninvasive lower extremity arterial study also appears normal, with triphasic waveforms noted at ankle level bilaterally, and with normal resting ankle-brachial indices and normal digital brachial indices bilaterally. Laboratory studies obtained 1 week ago have also been reviewed, with results as follows: Glucose 65, BUN 16, creatinine 1.22, calcium 9.5, sodium 138, potassium 4.9, chloride 108, serum prealbumin 24.6, hemoglobin A1c 6.6, white blood count 9.4, hemoglobin 15.3, hematocrit 47.8, platelets 157,000. At this juncture, the etiology of the patient's right lower extremity ulceration is somewhat enigmatic. Its appearance is atypical of an arterial or venous lesion. Biopsies have been obtained, anticipating that the results may provide further information as to the etiology of the ulcerations. Considerations as to potential etiologies include necrobiosis lipoidica diabeticorum, pyoderma gangrenosum, autoimmune phenomenon, etc. We are to request a consultation with Dr. Montez, Infectious Disease specialist. It is desired that we can exclude an infectious etiology of the patient's ulcerations. We may also consider laboratory studies to further evaluate an autoimmune etiology. Patient is to elevate his lower extremities as much as possible, and to use a mild form of compression by means of stockings, to prevent swelling in the lower extremities. Collagenase Santyl will be continued topically to the open portions of the ulceration, applied on a daily basis. The dry, gangrenous portions of the ulceration will be left undisturbed. The patient is to return in 1 week for reevaluation. The patient has been advised to optimize his nutritional intake. He has also been advised to optimize his glycemic control. The patient is to return in 1 week for reassessment. Influenza vaccine was not administered today. Patient stands 5 feet 10 inches tall. He weighs 185 pounds. His BMI is 26.5, which places him in an overweight category. Weight optimization has been recommended, with collaboration by the patient's primary care physician. The patient is known to be a smoker, and has been counseled as to the adverse consequences of the smoking habit, and smoking cessation has been recommended.
--- NOTE | 2019-07-06 15:42 | PN.PCM_ITS ---
(1) Ulcer of right leg Status: Chronic Qualifiers: Code(s): L97.919 - Non-pressure chronic ulcer of unspecified part of right lower leg with unspecified severity (2) Swelling of right lower extremity Status: Chronic Code(s): M79.89 - Other specified soft tissue disorders (3) Coronary artery disease Status: Chronic Code(s): I25.10 - Atherosclerotic heart disease of [place] coronary artery without angina pectoris (4) Stented coronary artery Status: Chronic Code(s): Z95.5 - Presence of coronary angioplasty implant and graft (5) Diabetes mellitus Status: Chronic Qualifiers: Diabetes mellitus type: type 2 Diabetes mellitus rat exterminator insulin use: without residential use Diabetes mellitus complication status: without complication Qualified Code(s): E11.9 - Type 2 diabetes mellitus without complications Code(s): E11.9 - Type 2 diabetes mellitus without complications (6) Hypertension Status: Chronic Qualifiers: Hypertension type: essential hypertension Qualified Code(s): I10 - Essential (primary) hypertension Code(s): I10 - Essential (primary) hypertension (7) Umbilical hernia Status: Chronic Code(s): K42.9 - Umbilical hernia without obstruction or gangrene (8) Overweight (BMI 25.0-29.9) Status: Chronic (9) Hyperlipidemia Status: Chronic Code(s): E78.5 - Hyperlipidemia, unspecified (10) History of [place] (myocardial infarction) Status: Chronic Code(s): I25.2 - Old myocardial infarction (11) Tobacco abuse Status: Chronic Code(s): Z72.0 - Tobacco use (12) Tobacco abuse counseling Status: Chronic Code(s): Z71.6 - Tobacco abuse counseling Type of Wound Date of Service: 07/06/19 Chief Complaint: Clustered ulceration of the right anterior tibial surface History of Wound: This is a 68-year-old active and functional white male who presents with a clustered ulceration on the right anterior tibial surface. According to the patient, there had been no recent trauma. The ulceration had been present for approximately 1 month. He remembers itching in the area at the time of its initiation, to which he responded by scratching. This may have been the inciting event. The patient relates intermittent swelling in his right lower extremity. He denies a history of deep vein thrombosis. He is active and ambulates liberally. He sleeps on a flat mattress at night. He has had no similar wounds or ulcerations in the past. When evaluated by the patient's primary care physician several days prior to presentation here, the patient was placed on oral Bactrim antibiotic, and collagen hydrogel was prescribed as a topical treatment measure. - Physical Exam Vital Signs Temp Pulse Resp BP 97.5 F L 76 18 125/74 H 06/29/19 09:37 06/29/19 09:37 06/29/19 09:37 06/29/19 09:37 Debridement Note Post-Debridement Measurements/Treatment WC - Nurse 2 - General Ulcer CM Notes Start: 06/22/19 08:49 Freq: Status: Active Protocol: Activity Type Activity Date Activity User E-Sign Co-Sign Detail Recorded Client Recorded Date Recorded By Document 06/22/19 09:47 DV [id number] 06/22/19 10:10 DV Document 06/29/19 10:35 DV [id number] 06/29/19 10:43 DV 06/22/19 06/29/19 09:47 10:35 Wound Center Nurse 2 1-right dick cluster -Time 09:47 10:37 -Correct Patient Yes Yes -Correct Side, Site, Position Yes Yes -Correct Procedure Yes Yes -Procedure Performed Yes Yes -Type of Procedure Debridement Debridement -Clinical Debridement Subcutaneous Subcutaneous -Post Debridement Size (cm) - Length 10.0 11.5 -Post Debridement Size (cm) - Width 8.9 10.2 -Post Debridement Size (cm) - Depth 0.4 0.3 -Total Square Cm 89.00 117.30 -Wound/Ulcer Outcome Healed- Flap Not Healed -Ulcer Cleansing Rinsed/ Rinsed/ Irrigated with Irrigated with Saline Saline -Foul Odor after Cleansing No No -Bioengineered Tissue No No -Bleeding Controlled with Pressure Pressure -Offloading No No -Treatment Response Procedure Procedure Tolerated Well Tolerated Well Pain Scale: 0-10 Numeric Is Patient Pain Free? Yes Yes Assessment/Plan Assessment: This is a 68-year-old functional white male who presented with clustered, necrotic ulcerations on the right anterior tibial surface. It appears as though these are nontraumatic in nature, though the patient does admit to scratching approximately 1 month ago at the time of the origination of the ulcerations. The patient has multiple pre-existing medical problems, as documented above. The ulcerations on the right anterior tibial surface have progressed since the patient's initial visit 1 week prior, with the development of additional ulcerations in the adjacent areas. Plan: The patient remains on Bactrim twice daily, as previously prescribed by his primary care physician. He has several days remaining. Swab cultures, obtained last week, are positive for Staphylococcus epidermidis. Culture and sensitivity report suggests the organism to be sensitive to Bactrim. In addition, the patient is undergone vascular studies earlier today. A venous duplex examination appears normal, with no evidence of superficial venous incompetence in either lower extremity. A noninvasive lower extremity arterial study also appears normal, with triphasic waveforms noted at ankle level bilaterally, and with normal resting ankle-brachial indices and normal digital brachial indices bilaterally. Laboratory studies obtained 1 week ago have also been reviewed, with results as follows: Glucose 65, BUN 16, creatinine 1.22, calcium 9.5, sodium 138, potassium 4.9, chloride 108, serum prealbumin 24.6, hemoglobin A1c 6.6, white blood count 9.4, hemoglobin 15.3, hematocrit 47.8, platelets 157,000. At this juncture, the etiology of the patient's right lower extremity ulceration is somewhat enigmatic. Its appearance is atypical of an arterial or venous lesion. Biopsies have been obtained, anticipating that the results may provide further information as to the etiology of the ulcerations. Considerations as to potential etiologies include necrobiosis lipoidica diabeticorum, pyoderma gangrenosum, autoimmune phenomenon, etc. We are to request a consultation with Dr. Montez, Infectious Disease specialist. It is desired that we can exclude an infectious etiology of the patient's ulcerations. We may also consider laboratory studies to further evaluate an autoimmune etiology. Patient is to elevate his lower extremities as much as possible, and to use a mild form of compression by means of stockings, to prevent swelling in the lower extremities. Collagenase Santyl will be continued topically to the open portions of the ulceration, applied on a daily basis. The dry, gangrenous portions of the ulceration will be left undisturbed. The patient is to return in 1 week for reevaluation. The patient has been advised to optimize his nutritional intake. He has also been advised to optimize his glycemic control. The patient is to return in 1 week for reassessment. Influenza vaccine was not administered today. Patient stands 5 feet 10 inches tall. He weighs 185 valerie nds. His BMI is 26.5, which places him in an overweight category. Weight optimization has been recommended, with collaboration by the patient's primary care physician. The patient is known to be a smoker, and has been counseled as to the adverse consequences of the smoking habit, and smoking cessation has been recommended.
--- NOTE | 2019-07-09 12:52 | PCM.WC.PN ---
(1) Ulcer of right leg Status: Chronic Qualifiers: Non-pressure ulcer stage: with fat layer exposed Code(s): L97.919 - Non-pressure chronic ulcer of unspecified part of right lower leg with unspecified severity (2) Swelling of right lower extremity Status: Chronic Code(s): M79.89 - Other specified soft tissue disorders (3) Coronary artery disease Status: Chronic Qualifiers: Coronary Disease-Associated Artery/Lesion type: [place] artery [place] vs. transplanted heart: [place] heart Code(s): I25.10 - Atherosclerotic heart disease of [place] coronary artery without angina pectoris (4) Stented coronary artery Status: Chronic Code(s): Z95.5 - Presence of coronary angioplasty implant and graft (5) Diabetes mellitus Status: Chronic Qualifiers: Diabetes mellitus type: type 2 Diabetes mellitus [facility] insulin use: without exterminator termite use Diabetes mellitus complication status: without complication Qualified Code(s): E11.9 - Type 2 diabetes mellitus without complications Code(s): E11.9 - Type 2 diabetes mellitus without complications (6) Hypertension Status: Chronic Qualifiers: Hypertension type: essential hypertension Qualified Code(s): I10 - Essential (primary) hypertension Code(s): I10 - Essential (primary) hypertension (7) Umbilical hernia Status: Chronic Code(s): K42.9 - Umbilical hernia without obstruction or gangrene (8) Overweight (BMI 25.0-29.9) Status: Chronic (9) Hyperlipidemia Status: Chronic Code(s): E78.5 - Hyperlipidemia, unspecified (10) History of [place] (myocardial infarction) Status: Chronic Code(s): I25.2 - Old myocardial infarction (11) Tobacco abuse Status: Chronic Code(s): Z72.0 - Tobacco use (12) Tobacco abuse counseling Status: Chronic Code(s): Z71.6 - Tobacco abuse counseling Type of Wound Date of Service: 07/09/19 Chief Complaint: Clustered ulceration of the right anterior tibial surface History of Wound: This is a 68-year-old active and functional white male who presented with a clustered ulceration on the right anterior tibial surface, with areas of necrosis. According to the patient, there had been no recent trauma or insect bites. The ulceration had been present for approximately 1 month. He remembers itching in the area at the time of its initiation, to which he responded by scratching. This may have been the inciting event. The patient relates intermittent swelling in his right lower extremity. He denies a history of deep vein thrombosis or superficial thrombophlebitis. He is active and ambulates liberally. He sleeps on a flat mattress at night. He has had no similar wounds or ulcerations in the past. When evaluated by the patient's primary care physician several days prior to presentation here, the patient was placed on oral Bactrim antibiotic, and collagen hydrogel was prescribed as a topical treatment. Progress of Wound: During [facility], 5 mm punch biopsies were obtained. These were submitted to the [facility] pathology department for histological evaluation. Given the enigmatic etiology of the patient's presenting ulcerations, etiologies such as necrobiosis lipoidica diabeticorum, pyoderma gangrenosum, autoimmune disease, and necrotizing vasculitis were considered. The initial verbal report obtained several days following the patient's biopsy suggested pyoderma gangrenosum as a possible etiology, though it was understood that the specimens were to be sent for a secondary expert opinion. The final result was rendered on July 07, 2019, as follows: Skin with ulceration, necrosis as well as an extensive neutrophilic and eosinophilic dermal infiltrate. Special stains for acid-fast bacilli and fungi are negative for organisms, matched controls are appropriate. Findings are not entirely specific. The differential diagnosis includes Sweet syndrome, and arthropod assault, or a drug eruption in the appropriate clinical setting. The microscopic features do not support pyoderma gangrenosum which is always a diagnosis by exclusion. No evidence of granulomatous dermatitis is identified. If the lesions persist or progress, an additional biopsy is recommended.In the interim, the patient did undergo inpatient treatment from July 04, 2019, through July 06, 2019. The patient has undergone evaluation by the Infectious Disease service, Dr. John Montez, and the patient was discharged from his hospital stay not thought to require ongoing antibiotic treatment. At the time of his discharge, a systemic/autoimmune source of his ulcerations was suspected, and he was discharged on prednisone 80 mg p.o. daily. At the time of the patient's discharge, it was felt that consultation with an academic cyber security systems engineer with specialty in medical dermatology and dermatopathology would be of benefit, and efforts were initiated to arrange outpatient consultation at a tertiary care center such as the [facility], [facility], or the [facility]. The patient and his have been fully informed of all issues related to care and management. It is anticipated that the patient will follow-up henceforth at the [facility], though the aforementioned consultation with a sustainable agriculture specialist is felt to be foremost. - Physical Exam Vital Signs Temp Pulse Resp BP 97.5 F L 76 18 125/74 H 06/29/19 09:37 06/29/19 09:37 06/29/19 09:37 06/29/19 09:37 Debridement Note Post-Debridement Measurements/Treatment WC - Nurse 2 - General Ulcer CM Notes Start: 06/22/19 08:49 Freq: Status: Active Protocol: Activity Type Activity Date Activity User E-Sign Co-Sign Detail Recorded Client Recorded Date Recorded By Document 06/22/19 09:47 DV [id number] 06/22/19 10:10 DV Document 06/29/19 10:35 DV [id number] 06/29/19 10:43 DV 06/22/19 06/29/19 09:47 10:35 Wound Center Nurse 2 1-right dick cluster -Time 09:47 10:37 -Correct Patient Yes Yes -Correct Side, Site, Position Yes Yes -Correct Procedure Yes Yes -Procedure Performed Yes Yes -Type of Procedure Debridement Debridement -Clinical Debridement Subcutaneous Subcutaneous -Post Debridement Size (cm) - Length 10.0 11.5 -Post Debridement Size (cm) - Width 8.9 10.2 -Post Debridement Size (cm) - Depth 0.4 0.3 -Total Square Cm 89.00 117.30 -Wound/Ulcer Outcome Healed- Flap Not Healed -Ulcer Cleansing Rinsed/ Rinsed/ Irrigated with Irrigated with Saline Saline -Foul Odor after Cleansing No No -Bioengineered Tissue No No -Bleeding Controlled with Pressure Pressure -Offloading No No -Treatment Response Procedure Procedure Tolerated Well Tolerated Well Pain Scale: 0-10 Numeric Is Patient Pain Free? Yes Yes Assessment/Plan Assessment: This is a 68-year-old functional white male who presented with clustered, necrotic ulcerations on the right anterior tibial surface. It appears as though these are nontraumatic in nature, though the patient does admit to scratching approximately 1 month ago at the time of the origination of the ulcerations. The patient has multiple pre-existing medical problems, as documented above. The ulcerations on the right anterior tibial surface have progressed since the patient's initial visit, with the development of additional ulcerations in the adjacent areas. Vascular studies have been performed. A venous duplex examination appears normal, with no evidence of superficial venous incompetence in either lower extremity. A noninvasive lower extremity arterial study also appears normal, with triphasic waveforms noted at ankle level bilaterally, and with normal resting ankle-brachial indices and normal digital-brachial indices bilaterally. Laboratory studies have been obtained recently, with results as follows: Glucose 65, BUN 16, creatinine 1.22, calcium 9.5, sodium 138, potassium 4.9, chloride 108, serum prealbumin 24.6, hemoglobin A1c 6.6, white blood count 9.4, hemoglobin 15.3, hematocrit 47.8, platelets 157,000. At this juncture, the etiology of the patient's right lower extremity ulceration is somewhat enigmatic. Its appearance is atypical of an arterial or venous lesion. Plan: At this juncture, the etiology of the patient's right lower extremity ulceration remains somewhat enigmatic. Its appearance is atypical of an arterial or venous lesion. Considerations as to potential etiologies include necrobiosis lipoidica diabeticorum, pyoderma gangrenosum, autoimmune phenomenon, necrotizing vasculitis, etc. we are seeking consultation with a sustainable agriculture specialist we are to request a consultation with Dr. Montez, Infectious Disease specialist to help in the assessment and management of the patient's ulcerations. Patient is to elevate his lower extremities as much as possible, and to use a mild form of compression by means of stockings, to prevent swelling in the lower extremities. The patient has been advised to optimize his nutritional intake. He has also been advised to optimize his glycemic control. The patient is known to be a smoker, and has been counseled as to the adverse consequences of the smoking habit, and smoking cessation has been recommended.
--- NOTE | 2019-07-09 13:48 | PCM.WC.PN ---
(1) Ulcer of right leg Status: Chronic Qualifiers: Non-pressure ulcer stage: with fat layer exposed Code(s): L97.919 - Non-pressure chronic ulcer of unspecified part of right lower leg with unspecified severity (2) Swelling of right lower extremity Status: Chronic Code(s): M79.89 - Other specified soft tissue disorders (3) Coronary artery disease Status: Chronic Qualifiers: Coronary Disease-Associated Artery/Lesion type: [place] artery [place] vs. transplanted heart: [place] heart Code(s): I25.10 - Atherosclerotic heart disease of [place] coronary artery without angina pectoris (4) Stented coronary artery Status: Chronic Code(s): Z95.5 - Presence of coronary angioplasty implant and graft (5) Diabetes mellitus Status: Chronic Qualifiers: Diabetes mellitus type: type 2 Diabetes mellitus [facility] insulin use: without intermediate frame tender use Diabetes mellitus complication status: without complication Qualified Code(s): E11.9 - Type 2 diabetes mellitus without complications Code(s): E11.9 - Type 2 diabetes mellitus without complications (6) Hypertension Status: Chronic Qualifiers: Hypertension type: essential hypertension Qualified Code(s): I10 - Essential (primary) hypertension Code(s): I10 - Essential (primary) hypertension (7) Umbilical hernia Status: Chronic Code(s): K42.9 - Umbilical hernia without obstruction or gangrene (8) Overweight (BMI 25.0-29.9) Status: Chronic (9) Hyperlipidemia Status: Chronic Code(s): E78.5 - Hyperlipidemia, unspecified (10) History of [place] (myocardial infarction) Status: Chronic Code(s): I25.2 - Old myocardial infarction (11) Tobacco abuse Status: Chronic Code(s): Z72.0 - Tobacco use (12) Tobacco abuse counseling Status: Chronic Code(s): Z71.6 - Tobacco abuse counseling Type of Wound Date of Service: 07/09/19 Chief Complaint: Clustered ulceration of the right anterior tibial surface History of Wound: This is a 68-year-old active and functional white male who presented with a clustered ulceration on the right anterior tibial surface, with areas of necrosis. According to the patient, there had been no recent trauma or insect bites. The ulceration had been present for approximately 1 month. He remembers itching in the area at the time of its initiation, to which he responded by scratching. This may have been the inciting event. The patient relates intermittent swelling in his right lower extremity. He denies a history of deep vein thrombosis or superficial thrombophlebitis. He is active and ambulates liberally. He sleeps on a flat mattress at night. He has had no similar wounds or ulcerations in the past. When evaluated by the patient's primary care physician several days prior to presentation here, the patient was placed on oral Bactrim antibiotic, and collagen hydrogel was prescribed as a topical treatment. Progress of Wound: During the [facility], 5 mm punch biopsies were obtained. These were submitted to the [facility] pathology department for histological evaluation. Given the enigmatic etiology of the patient's presenting ulcerations, etiologies such as necrobiosis lipoidica diabeticorum, pyoderma gangrenosum, autoimmune disease, and necrotizing vasculitis were considered. The initial verbal report obtained several days following the patient's biopsy suggested pyoderma gangrenosum as a possible etiology, though it was understood that the specimens were to be sent for a secondary expert opinion. The final result was rendered on July 07, 2019, as follows: Skin with ulceration, necrosis as well as an extensive neutrophilic and eosinophilic dermal infiltrate. Special stains for acid-fast bacilli and fungi are negative for organisms, matched controls are appropriate. Findings are not entirely specific. The differential diagnosis includes Sweet syndrome, and arthropod assault, or a drug eruption in the appropriate clinical setting. The microscopic features do not support pyoderma gangrenosum which is always a diagnosis by exclusion. No evidence of granulomatous dermatitis is identified. If the lesions persist or progress, an additional biopsy is recommended.In the interim, the patient did undergo inpatient treatment from July 04, 2019, through July 06, 2019. The patient has undergone evaluation by the Infectious Disease service, Dr. John Montez, and the patient was discharged from his hospital stay not thought to require ongoing antibiotic treatment. At the time of his discharge, a systemic/autoimmune source of his ulcerations was suspected, and he was discharged on prednisone 80 mg p.o. daily. At the time of the patient's discharge, it was felt that consultation with an academic physician non invasive cardiologist with specialty in medical dermatology and dermatopathology would be of benefit, and efforts were initiated to arrange outpatient consultation at a tertiary care center such as the [facility], [facility], or the [facility]. The patient and his have been fully informed of all issues related to care and management. It is anticipated that the patient will follow-up henceforth at the [facility], though the aforementioned consultation with a assistance specialist is felt to be foremost. - Physical Exam Vital Signs Temp Pulse Resp BP 97.5 F L 76 18 125/74 H 06/29/19 09:37 06/29/19 09:37 06/29/19 09:37 06/29/19 09:37 Debridement Note Post-Debridement Measurements/Treatment WC - Nurse 2 - General Ulcer CM Notes Start: 06/22/19 08:49 Freq: Status: Active Protocol: Activity Type Activity Date Activity User E-Sign Co-Sign Detail Recorded Client Recorded Date Recorded By Document 06/22/19 09:47 DV [id number] 06/22/19 10:10 DV Document 06/29/19 10:35 DV [id number] 06/29/19 10:43 DV 06/22/19 06/29/19 09:47 10:35 Wound Center Nurse 2 1-right dick cluster -Time 09:47 10:37 -Correct Patient Yes Yes -Correct Side, Site, Position Yes Yes -Correct Procedure Yes Yes -Procedure Performed Yes Yes -Type of Procedure Debridement Debridement -Clinical Debridement Subcutaneous Subcutaneous -Post Debridement Size (cm) - Length 10.0 11.5 -Post Debridement Size (cm) - Width 8.9 10.2 -Post Debridement Size (cm) - Depth 0.4 0.3 -Total Square Cm 89.00 117.30 -Wound/Ulcer Outcome Healed- Flap Not Healed -Ulcer Cleansing Rinsed/ Rinsed/ Irrigated with Irrigated with Saline Saline -Foul Odor after Cleansing No No -Bioengineered Tissue No No -Bleeding Controlled with Pressure Pressure -Offloading No No -Treatment Response Procedure Procedure Tolerated Well Tolerated Well Pain Scale: 0-10 Numeric Is Patient Pain Free? Yes Yes Assessment/Plan Assessment: This is a 68-year-old functional white male who presented with clustered, necrotic ulcerations on the right anterior tibial surface. It appears as though these are nontraumatic in nature, though the patient does admit to scratching approximately 1 month ago at the time of the origination of the ulcerations. The patient has multiple pre-existing medical problems, as documented above. The ulcerations on the right anterior tibial surface have progressed since the patient's initial visit, with the development of additional ulcerations in the adjacent areas. Vascular studies have been performed. A venous duplex examination appears normal, with no evidence of superficial venous incompetence in either lower extremity. A noninvasive lower extremity arterial study also appears normal, with triphasic waveforms noted at ankle level bilaterally, and with normal resting ankle-brachial indices and normal digital-brachial indices bilaterally. Laboratory studies have been obtained recently, with results as follows: Glucose 65, BUN 16, creatinine 1.22, calcium 9.5, sodium 138, potassium 4.9, chloride 108, serum prealbumin 24.6, hemoglobin A1c 6.6, white blood count 9.4, hemoglobin 15.3, hematocrit 47.8, platelets 157,000. At this juncture, the etiology of the patient's right lower extremity ulceration is somewhat enigmatic. Its appearance is atypical of an arterial or venous lesion. Plan: At this juncture, the etiology of the patient's right lower extremity ulceration remains somewhat enigmatic. Its appearance is atypical of an arterial or venous lesion. Considerations as to potential etiologies include necrobiosis lipoidica diabeticorum, pyoderma gangrenosum, autoimmune phenomenon, necrotizing vasculitis, etc. We are seeking consultation with a assistance specialist to help in the assessment and management of the patient's ulcerations. The patient is to elevate his lower extremities as much as possible, and to use a mild form of compression by means of stockings, to prevent swelling in the lower extremities. The patient has been advised to optimize his nutritional intake. He has also been advised to optimize his glycemic control. The patient is known to be a smoker, and has been counseled as to the adverse consequences of the smoking habit, and smoking cessation has been recommended.
== END 2019-07-10 23:59 ==
LOC: WC 10:00
PROVIDERS: PCP Family Medicine; Referring Provider Surgery; Visit Provider Surgery
DX: E11.622 Type 2 diabetes mellitus with other skin ulcer (principal); E11.52 Type 2 diabetes mellitus with diabetic peripheral angiopathy with gangrene; I25.10 Atherosclerotic heart disease of native coronary artery without angina pectoris; L97.812 Non-pressure chronic ulcer of other part of right lower leg with fat layer exposed; M79.89 Other specified soft tissue disorders; R51 Headache; I10 Essential (primary) hypertension; E78.5 Hyperlipidemia, unspecified; I25.2 Old myocardial infarction; Z79.899 Other long term (current) drug therapy; Z79.82 Long term (current) use of aspirin; Z79.84 Long term (current) use of oral hypoglycemic drugs; F17.210 Nicotine dependence, cigarettes, uncomplicated
CPT/HCPCS: 11042; 11045; 11102; 80048; 83036; 84134; 85027; 87070; 87075; 87077; 87186; 87205; 87640; 88305; 88312; 93923; 93970; 99213; G0463

== ENCOUNTER 2019-07-04 12:16 | Inpatient (IN) | payer OTHER, MEDICARE, SELFPAY ==
[2019-07-04 12:17] VITALS: BP 145/87; PULSE 84; RESP 16; TEMP 36.5; O2SAT 99; BMI 27.2
[2019-07-04 12:38] VITALS: RESP 16
[2019-07-04 12:55] LABS: Absolute Lymphocyte Count 3.57 X10^3/uL (0.83-4.51); Absolute Neutrophil Count 5.8 X10^3/uL (2.0-7.7); Basophil# 0.05 X10^3/uL; Basophil% 0.5 % (0-1); Eosinophil# 0.58 X10^3/uL; Eosinophils% 5.3 % (0-5); Hematocrit 53.4 % (40-54); Hemoglobin 17.4 g/dL (13.0-16.5); Lymphocyte # 3.57 X10^3/ul (4.0); Lymphocyte % 32.7 % (19-41); Mean Corp Hgb Conc 32.6 g/dL (32-36); Mean Corpuscular Hgb 28.9 pg (27.0-32.0); Mean Corpuscular Volume 88.6 fL (80-94); Mean Platelet Vol. 10.1 fl (6.2-12.0); Monocyte% 8.2 % (0-10); NRBC Flagged by Analyzer 0 % (0-5); Neutrophil % 53.1 % (47-70); Platelet Count 186 K/mm3 (150-450); RBC Distribution Width CV 15.1 % (11.6-14.6); RBC Distribution Width SD 47.8 fl (35.1-43.9); Red Blood Count 6.03 M/mm3 (4.6-6.2); White Blood Count 10.9 K/mm3 (4.4-11.0)
[2019-07-04] MEDS: 0.9% Normal Saline 1,000 ML 150 ML IV (12:56)
[2019-07-04 13:14] LABS: Anion Gap 5 (5-15); BUN 13 mg/dL (7-18); BUN/Creat Ratio 11.4 RATIO (10-20); Chloride 109 mmol/L (98-107); Creatinine, Serum 1.14 mg/dL (0.70-1.30); EST Glomerular Filtration Rate 68 mL/min (>60); Est Glom Filt Rate - Afr Amer 82 mL/min (>60); Estimated Creatinine Clearance 64.04 ml/min; Glucose 74 mg/dL (74-106); Potassium 4.5 mmol/L (3.5-5.1); Sodium Level 141 mmol/L (136-145)
--- NOTE | 2019-07-04 14:26 | NURSING ---
DR BENJAMÍN DICK
--- NOTE | 2019-07-04 14:33 | ED.VISSUMM ---
- ER Visit Summary Date of Service: 07/04/19 Chief Complaint: [Right leg wound] History of Present Illness: The patient is a 68 M [presents to the emergency department with a wound on his right leg that started about 3 weeks ago. Patient has been seen by his primary care physician who initially thought he might be a diabetic wound however it continued to worsen and he was referred to the wound center where he was seen by Dr. Garcia Novak the vascular surgeon. Patient has been on Bactrim and currently is on Augmentin for this wound. Patient has had a culture of it and it grew out staph epidermidis which was thought to be contaminant. Patient also apparently had a biopsy of the wound however no results are returned as of yet. Patient states that the wound keeps getting worse and he is having more discomfort in it. He denies any fever chills or sweats. states that the wound starts off as little blisters that then turned black and necrotic and ulcerated. Patient has history of coronary artery disease as well as diabetes. Patient has had a venous Doppler of the extremity and also an arterial Doppler which was unremarkable.] Physical Examination: [HEENT-PERRLA, EOMI. Cranial nerves II through XII grossly intact. TMs clear. Mucous membranes moist. No adenopathy. Cardiovascular-regular rate and rhythm without murmur or ectopy Lungs-clear to auscultation, chest wall stable without crepitus or subcu emphysema Abdomen-normoactive bowel sounds, soft, nontender, no rebound or rigidity, no peritoneal signs. Extremities-intact ?4, normal range of motion, normal pulses, atraumatic. Right leg-patient has a patchy necrotic looking rash on the anterior tibia. There is some faint erythema diffusely about the lower extremity. There is a mild soft tissue swelling noted. No lymphangitic streaking noted. No petechiae noted.] Test Results: [CBC with differential obtained was unremarkable. Chemistries unremarkable.] Emergency Department Course and Treatment: [Patient was started on vancomycin as well as Unasyn.] Treatment Plan: [Etiology of wound unclear. In the differential would be herpes zoster potentially although he does have necrotic looking wound with black eschar. Patient will be admitted for IV antibiotics and possibly infectious disease consultation.] Disposition: [Admit] Impression: [Cellulitis right leg with failed outpatient therapy] This note was generated with [employer] dictation software. It may contain incorrect words, spelling, and punctuation that were not noted in review of the chart prior to signing ED Disposition - Plan for ED Patient: Referrals: Christophe Dexter MD [Primary Care Provider] -
--- NOTE | 2019-07-04 14:52 | NURSING ---
MED SURG JOPPERI CELLULITIS RT LEG, FAILED OUT PATIENT THERAPY
[2019-07-04 15:12] VITALS: RESP 16
--- NOTE | 2019-07-04 15:23 | HP.PCM_ITS ---
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 Diabetes mellitus complication status: without complication Qualified Code(s): E11.9 - Type 2 diabetes mellitus without complications (6) Hypertension Status: Chronic Qualifiers: Hypertension type: essential hypertension Qualified Code(s): I10 - Essential (primary) hypertension (7) Hypolipidemia Status: Chronic (8) Umbilical hernia Status: Chronic (9) Overweight (BMI 25.0-29.9) Status: Chronic (10) Hyperlipidemia Status: Chronic (11) History of [place] (myocardial infarction) Status: Chronic (12) Tobacco abuse Status: Chronic (13) Tobacco abuse counseling Status: Chronic History of Present Illness Date of Admission: 07/04/19 Chief Complaint: leg wounds. The patient is a 68 year old M presents with leg wounds. He states several weeks ago he had a lesion that he scratched and since then it has just progresse d. Patient has been on antibiotics, most recently Bactrim and then just prior to arrival amoxicillin. Despite antibiotics his wounds have all gotten worse. Patient has seen Dr. Novak in the office. He had a biopsy performed this past Friday results which are still pending. Cultures have grown staph epidermidis and anaerobic cocci. Patient has had just wound care but the wounds continue to get worse. He has minimal amount of pain with this. He is never had a lesion such as this before. Lesions have developed eschars. Given its worsening, patient sought evaluation in the emergency room. In the emergency room, patient received Vanco and Unasyn. He states that he did recently see an infectious doctor up in [place] who changed him over from Bactrim to amoxicillin. Patient denies any contact with fresh or salt water. Denies any contact with livestock or any wild animals. He denies being in contact with any mysterious powders. [] Past Medical History Past Medical History (Chronic Problems): Chronic Problems (Last Reviewed 07/04/19 @ 15:[address] Candelario Seals DO) Ulcer of right leg (Chronic) Swelling of right lower extremity (Chronic) Coronary artery disease (Chronic) Stented coronary artery (Chronic) Diabetes mellitus (Chronic) Hypertension (Chronic) Hypolipidemia (Chronic) Umbilical hernia (Chronic) Overweight (BMI 25.0-29.9) (Chronic) Hyperlipidemia (Chronic) History of WI (myocardial infarction) (Chronic) Tobacco abuse (Chronic) Tobacco abuse counseling (Chronic) Medical History: Medical History (Last Reviewed 07/04/19 @ 15:[address] Candelario Seals DO) CAD (coronary artery disease) I25.10 Diabetes E11.9 GERD (gastroesophageal reflux disease) K21.9 Heart disease I51.9 Umbilical hernia K42.9 HTN (hypertension) I10 Allergies No Known Allergies Allergy (Verified 07/04/19 12:17) Home Medications: Ambulatory Orders Medication Instructions Recorded Amlodipine [Norvasc] 5 mg PO DAILY 02/23/15 Aspirin E.C. [Ecotrin] 81 mg PO DAILY@0800 02/23/15 Atorvastatin Calcium [Lipitor] 40 mg PO QHS 02/23/15 Metformin HCl 1,000 mg PO BID 02/23/15 Metoprolol(XL)Succ [Toprol Xl 25 mg PO DAILY 02/23/15 (Beta Paulie)] Pantoprazole Sodium [Protonix] 40 mg PO DAILY 08/16/16 cinnamon bark 500 mg capsule 2,000 mg PO BID 08/07/17 Dapagliflozin Propanediol [Farxiga] 10 mg PO DAILY 06/22/19 Amoxicillin/Potassium Clav 1 ea PO BID 07/04/19 [Augmentin 875-125 Tablet] [place]-3 Fatty Acids/Fish Oil [Fish 2 ea PO QHS 07/04/19 Oil 1,000 mg Capsule] Surgical History: Surgical History (Last Reviewed 07/04/19 @ 15:[address] Candelario Seals DO) H/O heart artery stent Z95.5 History of back surgery Z98.890 History of colonoscopy Z98.890 2017 History of eye surgery Z98.890 Surgical History: - - The patient has had 2 coronary artery stent procedures. He is undergone bilateral cataract extraction. Lumbar disc surgery has been performed in the past. Smoking Status: Current every day smoker - *Family History Paternal Family History: Family History (Last Reviewed 07/04/19 @ 15:[address] Candelario Seals DO) Father Diabetes Heart disease History Items: - - Patient's father age of 80 with a history of heart disease. Patient's mother at the age of 80, suffering from dementia. Review of Systems Constitutional: Denies: Anorexia, Chills, Fever Eyes: Denies: Blurred vision, Double vision HEENT: Denies: Head Aches, Sinus Congestion, Sinus Drainage Cardiovascular: Denies: Chest Pain, Palpitations Respiratory: Denies: Cough, Shortness of breath at rest, Sputum production Gastrointestinal: Denies: Abdominal Pain, Constipation, Diarrhea, Dyspepsia Genitourinary: Denies: Dysuria, Frequency, Hematuria Musculoskeletal: Denies: Joint Pain, Joint Tenderness Skin: Reports: Jaundice, Wounds. Denies: Dryness Neurological: Denies: Numbness, Tingling, Focal weakness Psychiatric: Denies: Anxiety, Depression Endocrine: Denies: Change in Body Habitus, Heat/ Cold Intolerance Hematologic/ Lymphatic: Denies: Easy Bruising, Easy Bleeding Comment: All review of systems were negative except as mentioned above in the history of present illness and the other review of systems. VTE Information - Inpt Only VTE Present on Admission: No VTE Mechan Device Prophylaxis: None VTE Pharm Prophylaxis ordered?: Yes - Physical Exam Vitals/I&O's: Vital Signs Temp Pulse Resp BP Pulse Ox 36.5 C L 84 16 145/87 H 99 07/04/19 12:17 07/04/19 12:17 07/04/19 15:12 07/04/19 12:17 07/04/19 12:17 Oxygen Delivery Method Room Air Weight: 86.183 kg Body Mass Index (BMI) 27.2 Intake and Output for Last 24 Hours 07/02/19 07/03/19 07/04/19 23:59 23:59 23:59 Intake Total 112 / 112 Balance 112 / 112 General: Alert, Cooperative, No apparent distress HEENT: Atraumatic, Normocephalic Oral: Moist Mucosa, No Gingival or Mucosal Lesions/ Ulcerations Neck: No Nodes, Trachea Midline Lungs: Clear to auscultation, Normal air movement, No rhonchi, No wheeze, No rales Cardiovascular: Regular rate, Regular Rhythm, Normal S1, Normal S2 Abdomen: Bowel Sounds Present, Soft, Non Tender, Non-Distended, No Hepato- splenomegaly Extremities: No edema, No Calf Tenderness Skin: - - Multiple confluent open lesions. Somewhat eschars, some with granulation tissue. No odor was appreciated nor any purulence. Involves on his mid to distal right dick and lateral leg. Not seen elsewhere the patient did have some few petechiae on the left lower extremity. No rash noted elsewhere. Musculoskeletal: No Tenderness to Palpation of Joints or Extremities, No Muscle Wasting Neurological: Sensory exam intact to light touch and pain, Coordination normal Psych/Mental Status: Normal Affect, Appropriate Laboratory Results 07/04/19 12:47: WBC 10.9, RBC 6.03, Hgb 17.4 H, Hct 53.4, MCV 88.6, MCH 28.9, MCHC 32.6, RDW Std Deviation 47.8 H, RDW Coeff of Homero 15.1 H, Plt Count 186, MPV 10.1, Immature Gran % (Auto) 0.200, Neut % (Auto) 53.1, Lymph % (Auto) 32.7, Drew % (Auto) 8.2, Eos % (Auto) 5.3 H, Baso % (Auto) 0.5, Absolute Neuts (auto) 5.8, Absolute Lymphs (auto) 3.57, Nucleated RBC % 0 07/04/19 12:47: Sodium 141, Potassium 4.5, Chloride 109 H, Carbon Dioxide 27.0, Anion Gap 5, BUN 13, Creatinine 1.14, Estim Creat Clear Calc 64.04, Est GFR (MDRD) Af Amer 82, Est GFR (MDRD) Non-Af 68, BUN/Creatinine Ratio 11.4, Glucose 74, Calcium 10.0 Current Medications Sodium Chloride () 1,000 mls @ 150 mls/hr IV .Q6H40M [facility] Last Admin: 07/04/19 12:56 Dose: 150 mls/hr Documented by: Assessment/Plan 1. non-healing RLE wounds * etiologies: infectious > autoimmune > traumatic > Buerger's disease. * From an infectious standpoint could be bacterial (aerobic +/- anaerobic) v zoster (or other viral) doubt anthrax * had duplex and arterial studies performed that were normal. * plan: * reculture for bacterial, plus viral culture. * consult PRS, ID, wound care * follow path from Dr. Novak on the (not in [facility] yet) * continue ampicillin/sulbactam. start clindamycin (for anaerobes) and acyclovir (for possible zoster) * smoking cessation 2. DM2 * continue home meds * add SSI * check a1c 3. VTE prophylaxis: mod risk. enoxaparin. DW patient's daughter at bedside. Code Visit Inpatient E&M: 18972 Init Hosp L3
[2019-07-04 15:57] VITALS: BMI 27.8
[2019-07-04 16:24] VITALS: BMI 27.8
[2019-07-04 16:48] LABS: Hemoglobin A1c 6.4 % (4.2-6.3)
[2019-07-04] MEDS: metFORMIN HCl 1,000 MG Tablet 1000 MG PO (17:06)
[2019-07-04 17:26] LABS: Bedside Glucose 62 mg/dL (70-110)
[2019-07-04 20:00] VITALS: BP 124/67; PULSE 76; RESP 18; TEMP 36.4; O2SAT 95
[2019-07-04] MEDS: Atorvastatin Calcium 40 MG Tablet PO (22:10)
[2019-07-04] MEDS: Acyclovir 800 MG in Dextrose 5% 250 ML 266 MG IV (22:10)
[2019-07-04] MEDS: 0.9% Saline Lock 10 ML Syringe IV (22:12)
[2019-07-04 22:31] LABS: Bedside Glucose 109 mg/dL (70-110)
[2019-07-05] VITALS (8 sets, daily range): BP systolic 134–152; BP diastolic 78–89; PULSE 75–95; RESP 16–18; TEMP 36.5–37.1; O2SAT 94–97
[2019-07-05 06:07] LABS: Absolute Lymphocyte Count 1.87 X10^3/uL (0.83-4.51); Absolute Neutrophil Count 5.9 X10^3/uL (2.0-7.7); Basophil# 0.04 X10^3/uL; Basophil% 0.4 % (0-1); Eosinophil# 0.53 X10^3/uL; Eosinophils% 5.8 % (0-5); Hematocrit 47.2 % (40-54); Hemoglobin 15.1 g/dL (13.0-16.5); Lymphocyte # 1.87 X10^3/ul (4.0); Lymphocyte % 20.6 % (19-41); Mean Corpuscular Volume 87.4 fL (80-94); Mean Platelet Vol. 10.4 fl (6.2-12.0); Monocyte# 0.74 X10^3/uL; Monocyte% 8.1 % (0-10); NRBC Flagged by Analyzer 0 % (0-5); Neutrophil # 5.87 X10^3/uL (2.7-7.7); Neutrophil % 64.8 % (47-70); Platelet Count 162 K/mm3 (150-450); RBC Distribution Width CV 14.5 % (11.6-14.6); RBC Distribution Width SD 46.6 fl (35.1-43.9); White Blood Count 9.1 K/mm3 (4.4-11.0)
[2019-07-05] MEDS: Acyclovir 800 MG in Dextrose 5% 250 ML 266 MG IV ×2 (06:15→14:02)
[2019-07-05 06:34] LABS: ALB/GLOB Ratio 0.9 RATIO (0.9-2.4); AST(SGOT) 22 U/L (15-37); Alanine Aminotransfer ALT/SGPT 38 U/L (16-61); Albumin, Serum 3.2 g/dL (3.2-5.0); Alkaline Phosphatase 110 U/L (45-117); Anion Gap 6 (5-15); BUN 13 mg/dL (7-18); BUN/Creat Ratio 13.9 RATIO (10-20); Calcium,Total 9.3 mg/dL (8.5-10.1); Chloride 108 mmol/L (98-107); Creatinine, Serum 0.93 mg/dL (0.70-1.30); EST Glomerular Filtration Rate 85 mL/min (>60); Est Glom Filt Rate - Afr Amer 103 mL/min (>60); Estimated Creatinine Clearance 78.49 ml/min; Globulin 3.6 g/dL (2.2-4.2); Glucose 83 mg/dL (74-106); Potassium 4.2 mmol/L (3.5-5.1); Protein, Total 6.8 g/dL (6.4-8.2); Sodium Level 139 mmol/L (136-145)
[2019-07-05 06:35] LABS: Bedside Glucose 108 mg/dL (70-110)
[2019-07-05] MEDS: Aspirin E.C. 81 MG Tablet PO (08:14)
[2019-07-05] MEDS: Metoprolol(XL)Succ 25 MG Tablet PO (08:14)
[2019-07-05] MEDS: Empagliflozin 25 MG Tablet PO (08:14)
[2019-07-05] MEDS: amLODIPine 5 MG Tablet PO (08:14)
[2019-07-05] MEDS: Pantoprazole Sodium 40 MG Tablet PO (08:14)
[2019-07-05] MEDS: metFORMIN HCl 1,000 MG Tablet 1000 MG PO (08:15)
--- NOTE | 2019-07-05 08:32 | NUR.TO.PHY ---
Patient refused AM lovenox. Explained risk for DVTs, patient verbalized he will ambulate frequently in hallway today
--- NOTE | 2019-07-05 09:47 | NURSING ---
wound photo: right lower leg
--- NOTE | 2019-07-05 10:13 | EKG12_ITS ---
Test Reason : ARRYTHMIA Blood Pressure : / mmHG Vent. Rate : 069 BPM Atrial Rate : 375 BPM P-R Int : 000 ms QRS Dur : 082 ms QT Int : 338 ms P-R-T Axes : 000 125 028 degrees QTc Int : 362 ms Atrial fibrillation Abnormal ECG No previous ECGs available Confirmed by FARAZ AMES ([id number]), production repairer GUILLERMINA LAMB ([id number]) on 07/07/2019 3:13:18 PM Referred By: CHASE Confirmed By:FARAZ AMES
--- NOTE | 2019-07-05 10:39 | ECHOD_ITS ---
Reason For Study: New Onset Afib Procedure This was a 2D Doppler, Color Flow transthoracic echocardiogram. Exam performed portable in patient room. Left Ventricle Normal LV size. The estimated ejection fraction is 70 %. No evidence for diastolic dysfunction. No regional wall motion abnormalities noted. Right Ventricle Normal RV size. Normal systolic function. Atria Normal left atrium. Normal right atrium. No doppler evidence for ASD. Mitral Valve There is no mitral valve stenosis. No mitral valve insufficiency. Tricuspid Valve There is no tricuspid stenosis. Trivial tricuspid valve insufficiency. Pulmonary artery systolic pressure is 30 mmHg. Aortic Valve Trisinus/trileaflet aortic valve. Mild focal aortic valve calcification. There is no aortic stenosis. No aortic valve insufficiency. Pulmonic Valve There is no pulmonic valvular stenosis. No pulmonic valve insufficiency. Great Vessels Normal aortic root. Pericardium/Pleural No pericardial effusion. MMode/2D Measurements & Calculations LVIDd: 3.9 cm IVSd: 1.2 cm Ao root diam: 3.4 cm LVIDs: 2.0 cm LVPWd: 1.2 cm RVDd: 3.3 cm FS: 50.1 % LAV(MOD-bp): 46.9 ml LVAd ap4: 20.7 cm2 SV(MOD-sp4): 31.9 ml LAV(MOD-bp) Indexed: 22.8 ml/m2 EDV(MOD-sp4): 48.0 ml LAV(MOD-sp2): 48.9 ml EDV(sp4-el): 50.2 ml LAV(MOD-sp4): 39.3 ml LVAs ap4: 10.8 cm2 ESV(MOD-sp4): 16.1 ml ESV(sp4-el): 16.5 ml EF(MOD-sp4): 66.4 % EF(sp4-el): 67.1 % SV(sp4-el): 33.7 ml LA A4 area: 15.5 cm2 LA dimension(2D): 4.3 cm RA A4 area: 17.2 cm2 Doppler Measurements & Calculations MV E max jonnie: 114.5 cm/sec Ao V2 max: 148.2 cm/sec LV V1 max: 93.3 cm/sec Ao max P.8 mmHg LV V1 max P.5 mmHg Ao V2 mean: 101.9 cm/sec Ao mean P.6 mmHg Ao V2 VTI: 22.6 cm PA V2 max: 101.8 cm/sec TR max jonnie: 246.3 cm/sec TR max P.3 mmHg Interpretation Summary The estimated ejection fraction is 70 %. No evidence for diastolic dysfunction. Ordering Physician: Los Quevedo Referring Physician: Christophe Dexter Performed By: Alisson Arevalo, RDCS, RVT
--- NOTE | 2019-07-05 11:02 | NURSING ---
talked w/ Dr. Quevedo and air conditioning installer supervisor regarding new onset AFIB and transferring to PCU. aware to stay on medsurg at this time as no cardiac interventions to be done ok to stay on medsurg.
--- NOTE | 2019-07-05 11:25 | CASEMGMT ---
RN CM Face to Face with patient for initial transition planning/care coordination assessment. RN CM introduced self and role at [facility]. Patient sitting in chair, alert and oriented. Patient willing to participate in assessment and is able to answer all questions appropriately. Care providers, pharmacy, and demographics verified. Patient wishes to discharge home, denies need for home health at this time. Patient states he has no further needs or concerns at this time. CM to follow for discharge planning needs that may arise. PCP: Guerita Specialists: Sana hardware technician Preferred Pharmacy: [facility] Retail Insurance: [facility] [employer] Prescription Benefit: yes Living Will/HPOA: none LNOK: Living Arrangements: patient lives with in house, patient independent at home. Transportation: self/ DME/HHC: Patient has cane and walker at home. Patient denies need for HHC. Disposition Plan: Patient to discharge home with family support and follow-up plans in place. Luisa ALCANTARA, RN, CM
[2019-07-05 12:01] LABS: Bedside Glucose 123 mg/dL (70-110)
--- NOTE | 2019-07-05 14:49 | PCM.CONS.GEN ---
Reason for Consult Date of Consultation: 07/05/19 Reason for Consultation: Nonhealing infected ulcers cluster with skin necrosis right anterior leg. REFERRING PHYSICIAN: Dr. Seals. FAMILY PROGRAM SPECIALIST: Dr. Cano. History of Present Illness: The patient is a 68 year old M who was recently admitted for increasing pain and redness and swelling right anterior leg. He had scratched his right leg about a month ago and since then has developed nonhealing ulcers cluster with scattered skin necrosis. [facility]. Wound culture showed Staphylococcus epidermidis and Anaerobic cocci. He was initially placed on Bactrim and that was changed to Augmentin. He had Venous Doppler studies on 06/29/19 which was negative for DVT and Arterial Doppler studies on 06/29/19 which showed triphasic waveforms and no evidence significant aorto-occlusive disease in lower extremities bilaterally. Santyl was started for wound care. HgbA1c was 6.4. Punch biopsies were done and the preliminary report (unofficial) showed pyoderma. It was sent out for a second opinion. Upon admission, he was given Vancomycin and he was started on Unasyn and Clindamycin. I was asked to evaluate this patient for surgical options for treatment. Past Medical History Past Medical History (Chronic Problems): Chronic Problems (Last Reviewed 07/04/19 @ 15:[address] 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 Candelario Seals DO) CAD (coronary artery disease) I25.10 Diabetes E11.9 GERD (gastroesophageal reflux disease) K21.9 Heart disease I51.9 Umbilical hernia K42.9 HTN (hypertension) I10 Allergies No Known Allergies Allergy (Verified 07/04/19 12:17) Home Medications: Ambulatory Orders Medication Instructions Recorded Amlodipine [Norvasc] 5 mg PO DAILY 02/23/15 Aspirin E.C. [Ecotrin] 81 mg PO DAILY@0800 02/23/15 Atorvastatin Calcium [Lipitor] 40 mg PO QHS 02/23/15 Metformin HCl 1,000 mg PO BID 02/23/15 Metoprolol(XL)Succ [Toprol Xl 25 mg PO DAILY 02/23/15 (Beta Paulie)] Pantoprazole Sodium [Protonix] 40 mg PO DAILY 08/16/16 cinnamon bark 500 mg capsule 2,000 mg PO BID 08/07/17 Dapagliflozin Propanediol [Farxiga] 10 mg PO DAILY 06/22/19 [place]-3 Fatty Acids/Fish Oil [Fish 2 ea PO QHS 07/04/19 Oil 1,000 mg Capsule] predniSONE tablet 80 mg PO DAILYCM #100 tab 07/06/19 Surgical History: Surgical History (Last Reviewed 07/04/19 @ 15:[address] Candelario Seals DO) H/O heart artery stent Z95.5 History of back surgery Z98.890 History of colonoscopy Z98.890 2017 History of eye surgery Z98.890 Surgical History: - - The patient has had 2 coronary artery stent procedures. He is undergone bilateral cataract extraction. Lumbar disc surgery has been performed in the past. Smoking Status: Current every day smoker - *Family History Paternal Family History: Family History (Last Reviewed 07/04/19 @ 15:[address] Candelario Seals DO) Father Diabetes Heart disease History Items: - - Patient's father age of 80 with a history of heart disease. Patient's mother at the age of 80, suffering from dementia. Review of Systems Comment: Constitutional: Denies: Anorexia, Chills, Fever. Eyes: Denies: Blurred vision, Double vision. HEENT: Denies: Head Aches, Sinus Congestion, Sinus Drainage. Cardiovascular: Denies: Chest Pain, Palpitations. Respiratory: Denies: Cough, Shortness of breath at rest, Sputum production. Gastrointestinal: Denies: Abdominal Pain, Constipation, Diarrhea, Dyspepsia. Genitourinary: Denies: Dysuria, Frequency, Hematuria. Musculoskeletal: Denies: Joint Pain, Joint Tenderness. Skin: Reports: Jaundice, Wounds. Denies: Dryness. Neurological: Denies: Numbness, Tingling, Focal weakness. Psychiatric: Denies: Anxiety, Depression. Endocrine: Denies: Change in Body Habitus, Heat/ Cold Intolerance. Hematologic/ Lymphatic: Denies: Easy Bruising, Easy Bleeding - Physical Exam Vitals/I&O's: General: Alert, Cooperative. HEENT: PERRL. EOMI. Oral: Moist Mucosa. Neck: supple, nontender. No cervical adenopathy. Lungs: Clear to auscultation. Cardiovascular: Regular rate, Regular Rhythm. Abdomen: Soft, Non-Distended. Extremities: No Calf Tenderness. Nonhealing ulcers cluster with scattered skin necrosis right anterior leg. Mild hyperemia around the necrotic skin. Measures 11 x 9 cm. No odor. No fluctuance. No purulent drainage. Mild swelling present. Mild discomfort to palpation. Dorsalis pedis pulses are palpable. No inguinal adenopathy. Musculoskeletal: No Tenderness to Palpation of Joints or Extremities, No Muscle Wasting Neurological: CN II-XII grossly intact. Psych/Mental Status: Normal Affect, Appropriate Vital Signs Temp Pulse Resp BP Pulse Ox 97.7 F L 95 18 152/89 H 97 07/05/19 14:13 07/05/19 14:13 07/05/19 14:13 07/05/19 14:13 07/05/19 14:13 Oxygen Delivery Method Room Air Weight: 193 lb 12.581 oz Body Mass Index (BMI) 27.8 Intake and Output for Last 24 Hours 07/03/19 07/04/19 07/05/19 23:59 23:59 23:59 Intake Total 1641.5 / 1641.5 867 / 867 Balance 1641.5 / 1641.5 867 / 867 Microbiology Past 72 Hours 07/04/19 17:00 Wound - Leg, Right Wound Culture - Preliminary Gram positive organism Laboratory Results 07/04/19 12:47: Hemoglobin A1c 6.4 H 07/04/19 17:04: POC Glucose 62 L 07/04/19 22:08: POC Glucose 109 07/05/19 05:10: WBC 9.1, RBC 5.40, Hgb 15.1, Hct 47.2, MCV 87.4, MCH 28.0, MCHC 32.0, RDW Std Deviation 46.6 H, RDW Coeff of Homero 14.5, Plt Count 162, MPV 10.4, Immature Gran % (Auto) 0.300, Neut % (Auto) 64.8, Lymph % (Auto) 20.6, [place] % (Auto) 8.1, Eos % (Auto) 5.8 H, Baso % (Auto) 0.4, Absolute Neuts (auto) 5.9, Absolute Lymphs (auto) 1.87, Nucleated RBC % 0 07/05/19 05:10: Sodium 139, Potassium 4.2, Chloride 108 H, Carbon Dioxide 25.0, Anion Gap 6, BUN 13, Creatinine 0.93, Estim Creat Clear Calc 78.49, Est GFR (MDRD) Af Amer 103, Est GFR (MDRD) Non-Af 85, BUN/Creatinine Ratio 13.9, Glucose 83, Calcium 9.3, Total Bilirubin 0.50, AST 22, ALT 38, Alkaline Phosphatase 110, Total Protein 6.8, Albumin 3.2, Globulin 3.6, Albumin/Globulin Ratio 0.9 07/05/19 06:32: POC Glucose 108 07/05/19 11:08: POC Glucose 123 H Current Medications Acetaminophen (Tylenol) 650 mg PO Q6H PRN PRN PRN Reason: Pain Score 1-10/Temp > 100.7 F Amlodipine Besylate (Norvasc) 5 mg PO DAILY [facility] Last Admin: 07/05/19 08:14 Dose: 5 mg Documented by: Apixaban (Eliquis) 5 mg PO BID [facility] Last Admin: 07/05/19 11:05 Dose: Not Given Documented by: Aspirin (Ecotrin) 81 mg PO DAILY@0800 [facility] Last Admin: 07/05/19 08:14 Dose: 81 mg Documented by: Atorvastatin Calcium (Lipitor) 40 mg PO QHS [facility] Last Admin: 07/04/19 22:10 Dose: 40 mg Documented by: Dextrose (D50w Syringe) 0 gm IV X1 PRN; Protocol PRN Reason: Hypoglycemia Empagliflozin (Jardiance) 25 mg PO DAILY [facility] Last Admin: 07/05/19 08:14 Dose: 25 mg Documented by: Glucagon () 1 mg IM .X1 PRN PRN Reason: Hypoglycemia Ampicillin Sodium/Sulbactam (Sodium 3 gm/ Sodium Chloride) 112 mls @ 150 mls/hr IV Q6 [facility] Last Infusion: 07/05/19 11:48 Dose: Infused Documented by: Acyclovir Sodium 800 mg/ (Dextrose) 266 mls @ 266 mls/hr IV Q8 [facility] Last Admin: 07/05/19 14:02 Dose: 266 mls/hr Documented by: Insulin Human Lispro (Humalog Kwikpen (Bkc)) 0 unit SC TIDAC [facility]; Protocol Last Admin: 07/05/19 11:08 Dose: Not Given Documented by: Melatonin (Melatonin) 3 mg PO QHS PRN PRN PRN Reason: INSOMNIA Metformin [facility] (Glucophage) [facility] Metoprolol Succinate (Toprol Xl (Beta Paulie)) 25 mg PO DAILY [facility] Last Admin: 07/05/19 08:14 Dose: 25 mg Documented by: Ondansetron HCl (Zofran) 4 mg IV Q8H PRN PRN PRN Reason: NAUSEA/VOMITING Pantoprazole Sodium (Protonix) 40 mg PO DAILY [facility] Last Admin: 07/05/19 08:14 Dose: 40 mg Documented by: Sodium Chloride () 10 - 40 ml IV UD PRN PRN Reason: SALINE FLUSH Last Admin: 07/04/19 22:12 Dose: 10 ml Documented by: Assessment/Plan 1. Nonhealing ulcers cluster right anterior leg with scattered skin necrosis. 2. Diabetes mellitus. 3. Smoker. 4. Suspect pyoderma gangrenosum. Patient has nonhealing ulcers cluster right anterior leg with scattered skin necrosis suspicious for possible pyoderma gangrenosum or necrobiosis lipoidica diabeticorum. Patient had recent biopsy at [facility] by Dr. Novak. Preliminary report showed Pyoderma. Pathology will be sent out for a second opinion. He had a recent culture that showed Staphylococcus epidermidis and Anaerobic cocci and was placed on Augmentin. He was given Unasyn and Clindamycin upon admission. There is no urgent need for surgery at this time. Generally, the treatment for pyoderma gangrenosum is medical. Usually steroids are given. I don't know if immune modulators may be helpful as well such as Humira. He would benefit from an evaluation by an academic Inspector Automatic Typewriter at a tertiary center as an outpatient. Surgery can be indicated in these patients only for complications of the ulcers such as hematoma, abscess, increasing pain, redness, or swelling, or sepsis. If surgical debridement becomes necessary for complications, postop wound care with a VAC can be started. If there is a plateau in the healing process, then delayed closure with skin grafting can be done. For a skin graft, the HgbA1c needs to be less than 8. For this patient, his level is 6.4 from last week. He was seen at Wound Center last week and will continue his [facility] appt next week. Keep right leg elevated when sitting. Patient was informed of the risks and complications of the procedure including alternatives to surgery. These were discussed with the patient personally. Patient voices understanding and wishes to proceed with the current plan of medical therapy and reserve surgical intervention for complications if necessary. Encouraged patient to stop smoking as it may have deleterious effects on wound healing. Code Visit Inpatient E&M: 88634 Init Hosp L2 - ICD-10 - L97.912, I96, E11.622, L88, E11.9, F17.200
--- NOTE | 2019-07-05 16:12 | PN_ITS ---
Reason for Visit: Leg wound Objective: Patient is admitted for multiple wounds in the right leg. Patient is admitted from wound center. Skin biopsy was done and Dr. Novak called me that it seems pyoderma gangrenosum. Patient was found to be irregular heartbeat. Twelve-lead EKG was done and found to be A. fib at 69 bpm. Discussed with the patient. No prior history of A. fib. A. fib probably secondary to inflammatory cause. Risk and benefits of anticoagulation discussion patient does not want anticoagulant. Patient has history of 2 times upper GI bleed on Plavix and was diagnosed ulcer. On PPI at home. Vitals/I&O's: Vital Signs Temp Pulse Resp BP Pulse Ox 97.7 F L 76 18 152/89 H 97 07/05/19 14:13 07/05/19 14:53 07/05/19 14:13 07/05/19 14:13 07/05/19 14:13 Oxygen Delivery Method Room Air Weight: 193 lb 12.581 oz Body Mass Index (BMI) 27.8 Intake and Output for Last 24 Hours 07/03/19 07/04/19 07/05/19 23:59 23:59 23:59 Intake Total 1641.5 / 1641.5 1133 / 1133 Balance 1641.5 / 1641.5 1133 / 1133 General: Alert, Oriented x3, Cooperative HEENT: Atraumatic, PERRLA, EOMI, Normocephalic Neck: Supple, No JVD, Negative Carotid Bruits Lungs: Clear to auscultation, Normal air movement, No rhonchi, No wheeze, No rales Cardiovascular: Regular rate, Normal S1, Normal S2, No murmurs, Irregular Rate Abdomen: Bowel Sounds Present, Soft, Non Tender, Non-Distended Extremities: No edema, Capillary Refill Less than 3 Seconds Skin: Ulcer/ Wound - Multiple open wounds, black in coloration with discharge present. No order. Right lower leg below knee level. Some petechial left lower extremity., Rash Present - Petechial rash, pinpoint reddish over left lower leg Musculoskeletal: No Tenderness to Palpation of Joints or Extremities, Arthritic Changes Neurological: Cranial nerves II-XII grossly intact, Deep Tendon Reflexes 2+/4 and Symmetrical, Neuro grossly intact Psych/Mental Status: Normal Affect, Appropriate Microbiology Past 72 Hours 07/04/19 17:00 Wound - Leg, Right Gram Stain - Final 07/04/19 17:00 Wound - Leg, Right Wound Culture - Preliminary Gram positive organism Laboratory Results 07/04/19 12:47: Hemoglobin A1c 6.4 H 07/04/19 17:04: POC Glucose 62 L 07/04/19 22:08: POC Glucose 109 07/05/19 05:10: WBC 9.1, RBC 5.40, Hgb 15.1, Hct 47.2, MCV 87.4, MCH 28.0, MCHC 32.0, RDW Std Deviation 46.6 H, RDW Coeff of Homero 14.5, Plt Count 162, MPV 10.4, Immature Gran % (Auto) 0.300, Neut % (Auto) 64.8, Lymph % (Auto) 20.6, [place] % (Auto) 8.1, Eos % (Auto) 5.8 H, Baso % (Auto) 0.4, Absolute Neuts (auto) 5.9, Absolute Lymphs (auto) 1.87, Nucleated RBC % 0 07/05/19 05:10: Sodium 139, Potassium 4.2, Chloride 108 H, Carbon Dioxide 25.0, Anion Gap 6, BUN 13, Creatinine 0.93, Estim Creat Clear Calc 78.49, Est GFR (MDRD) Af Amer 103, Est GFR (MDRD) Non-Af 85, BUN/Creatinine Ratio 13.9, Glucose 83, Calcium 9.3, Total Bilirubin 0.50, AST 22, ALT 38, Alkaline Phosphatase 110, Total Protein 6.8, Albumin 3.2, Globulin 3.6, Albumin/Globulin Ratio 0.9 07/05/19 06:32: POC Glucose 108 07/05/19 11:08: POC Glucose 123 H Current Medications Acetaminophen (Tylenol) 650 mg PO Q6H PRN PRN PRN Reason: Pain Score 1-10/Temp > 100.7 F Amlodipine Besylate (Norvasc) 5 mg PO DAILY [facility] Last Admin: 07/05/19 08:14 Dose: 5 mg Documented by: Apixaban (Eliquis) 5 mg PO BID [facility] Last Admin: 07/05/19 11:05 Dose: Not Given Documented by: Aspirin (Ecotrin) 81 mg PO DAILY@0800 [facility] Last Admin: 07/05/19 08:14 Dose: 81 mg Documented by: Atorvastatin Calcium (Lipitor) 40 mg PO QHS [facility] Last Admin: 07/04/19 22:10 Dose: 40 mg Documented by: Dextrose (D50w Syringe) 0 gm IV X1 PRN; Protocol PRN Reason: Hypoglycemia Empagliflozin (Jardiance) 25 mg PO DAILY [facility] Last Admin: 07/05/19 08:14 Dose: 25 mg Documented by: Glucagon () 1 mg IM .X1 PRN PRN Reason: Hypoglycemia Insulin Human Lispro (Humalog Kwikpen (Bkc)) 0 unit SC TIDAC [facility]; Protocol Last Admin: 07/05/19 11:08 Dose: Not Given Documented by: Melatonin (Melatonin) 3 mg PO QHS PRN PRN PRN Reason: INSOMNIA [facility] Metoprolol Succinate (Toprol Xl (Beta Paulie)) 25 mg PO DAILY [facility] Last Admin: 07/05/19 08:14 Dose: 25 mg Documented by: Ondansetron HCl (Zofran) 4 mg IV Q8H PRN PRN PRN Reason: NAUSEA/VOMITING Pantoprazole Sodium (Protonix) 40 mg PO DAILY [facility] Last Admin: 07/05/19 08:14 Dose: 40 mg Documented by: Pred[facility]one () [facility] Sodium Chloride () 10 - 40 ml IV UD PRN PRN Reason: SALINE FLUSH Last Admin: 07/04/19 22:12 Dose: 10 ml Documented by: STROKE Vital Signs/Narrative: Vital Signs Temp Pulse Resp BP Pulse Ox 07/05/19 14:53 76 07/05/19 14:13 97.7 F L 95 18 152/89 H 97 Medical Necessity - Tobacco Use Smoking Status: Current every day smoker Assessment/Plan This 60-year-old patient gentleman who was sent from wound center, Dr. Novak office for biopsy performed about a week ago on past Friday shows preliminary result pyoderma gangrenosum. ID has been consulted. 1. 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 Plastic surgeon Dr. Cano and ID are being consulted and they are aware. I discussed with Dr. Novak and informed me of the biopsy result of pyoderma gangrenosum and it is sent out for second opinion to confirm. Patient denies a history of ulcerative colitis. Wound culture shows gram-positive organism 1+. Prior wound cultures of 06/22 2019 shows staph epidermidis and this time gram-positive cocci most likely skin contamination. Initially started on Unasyn, clindamycin and acyclovir but has been discontinued. Patient arterial duplex and venous Doppler and were normal. Discussed with the patient regarding her diagnosis. No history of prolonged diarrhea, abdominal pain or other GI symptoms to suspect inflammatory bowel disease. Patient had colonoscopy about 4 years and as per him no diagnosis of ulcerative colitis. Patient wants to follow-up with child protective services social worker and contract administration specialist for better maintenance medicine outpatient. Smoking cessation. 2. New onset A. fib probably inflammatory response secondary to ulcer: Discussed with the patient. Does not want anticoagulant because of high risk of bleeding. 3. DM2 * continue home meds. A1c 6.4. On Accu-Chek and cover with Humalog sliding scale. 4.. VTE prophylaxis: mod risk. Patient refused for enoxaparin, DVT dose. SCDs ordered. Total time of the visit including total time spent in counseling or coordination of care, (more than 50% of the total time, spent in obtaining medical information from nurses and other ancillary care providers), discussion with customer care voice consultant, vascular surgeon Dr. Novak, RONEL and plastic surgeon, review of labs and imaging is 30 minutes Code Visit Inpatient E&M: 67398 [facility] L3
--- NOTE | 2019-07-05 16:26 | PCM.HP.ID ---
Problem List (1) Ulcer of right leg Status: Chronic Qualifiers: Reason for Consult: R dick ulcer Consulted by: Dr. Quevedo History of Present Illness: The patient is a 68 year old M with h/o DM presented with R dick ulcers, progressive over past month. No inciting events but had been scratching his leg a little. No fever, no pain, no drainage. Saw PCP, started on bactrim without improvement. Referred to Dr. Orosco, cx done, biopsy done. Referred to ID, I saw him 06/30, changed bactrim to augmentin based on cx with CoNS and anaerobes. Came to ED over the weekend with tingling in his leg. Started on clinda, unasyn, and acyclovir. Full ROS performed and neg except as noted above. - Medical History Past Medical History (Chronic Problems): Chronic Problems (Last Reviewed 07/04/19 @ 15:[address] Candelario Seals, DO) Ulcer of right leg (Chronic) Swelling of right lower extremity (Chronic) Coronary artery disease (Chronic) Stented coronary artery (Chronic) Diabetes mellitus (Chronic) Hypertension (Chronic) Hypolipidemia (Chronic) Umbilical hernia (Chronic) Overweight (BMI 25.0-29.9) (Chronic) Hyperlipidemia (Chronic) History of ID (myocardial infarction) (Chronic) Tobacco abuse (Chronic) Tobacco abuse counseling (Chronic) Allergies/Adverse Reactions: Allergies No Known Allergies Allergy (Verified 07/04/19 12:17) Home Medications: Ambulatory Orders Medication Instructions Recorded Amlodipine [Norvasc] 5 mg PO DAILY 02/23/15 Aspirin E.C. [Ecotrin] 81 mg PO DAILY@0800 02/23/15 Atorvastatin Calcium [Lipitor] 40 mg PO QHS 02/23/15 Metformin HCl 1,000 mg PO BID 02/23/15 Metoprolol(XL)Succ [Toprol Xl 25 mg PO DAILY 02/23/15 (Beta Paulie)] Pantoprazole Sodium [Protonix] 40 mg PO DAILY 08/16/16 cinnamon bark 500 mg capsule 2,000 mg PO BID 08/07/17 Dapagliflozin Propanediol [Farxiga] 10 mg PO DAILY 06/22/19 Amoxicillin/Potassium Clav 1 ea PO BID 07/04/19 [Augmentin 875-125 Tablet] [place]-3 Fatty Acids/Fish Oil [Fish 2 ea PO QHS 07/04/19 Oil 1,000 mg Capsule] - Social History Tobacco Use: cigarettes Vital Signs Temp Pulse Resp BP Pulse Ox 97.7 F L 76 18 152/89 H 97 07/05/19 14:13 07/05/19 14:53 07/05/19 14:13 07/05/19 14:13 07/05/19 14:13 Oxygen Delivery Method Room Air Weight: 87.9 kg Body Mass Index (BMI) 27.8 Microbiology Past 72 Hours 07/04/19 17:00 Gram Stain - Final Wound - Leg, Right Wound Culture - Preliminary Gram positive organism Laboratory Tests Past 24 Hrs 07/04/19 07/05/19 07/05/19 12:47 05:10 05:10 WBC 9.1 RBC 5.40 Hgb 15.1 Hct 47.2 MCV 87.4 MCH 28.0 MCHC 32.0 RDW Std Deviation 46.6 H RDW Coeff of Homero 14.5 Plt Count 162 MPV 10.4 Immature Gran % (Auto) 0.300 Neut % (Auto) 64.8 Lymph % (Auto) 20.6 [place] % (Auto) 8.1 Eos % (Auto) 5.8 H Baso % (Auto) 0.4 Absolute Neuts (auto) 5.9 Absolute Lymphs (auto) 1.87 Nucleated RBC % 0 Sodium 139 Potassium 4.2 Chloride 108 H Carbon Dioxide 25.0 Anion Gap 6 BUN 13 Creatinine 0.93 Estim Creat Clear Calc 78.49 Est GFR (MDRD) Af Amer 103 Est GFR (MDRD) Non-Af 85 BUN/Creatinine Ratio 13.9 Glucose 83 Hemoglobin A1c 6.4 H Calcium 9.3 Total Bilirubin 0.50 AST 22 ALT 38 Alkaline Phosphatase 110 Total Protein 6.8 Albumin 3.2 Globulin 3.6 Albumin/Globulin Ratio 0.9 - Other Studies Radiology: [] reviewed Other Studies: [] Route of nutrition/ use of supplements: [] Nutritional Intake: [] IV Site: [] Cohen Catheter: [] - Physical Exam General: Alert, Oriented x3, Cooperative, No apparent distress HEENT: Atraumatic, PERRLA, EOMI Neck: Supple, No Nodes Lungs: Clear to auscultation, Normal air movement Cardiovascular: Regular rate, Regular Rhythm, No murmurs Abdomen: Soft, Non Tender, Non-Distended Extremities: Edema - mild Skin: Ulcer/ Wound - R dick dark necrotic grouped lesions, minimal redness, no drainage IV Site: Peripheral, without redness Musculoskeletal: No Tenderness to Palpation of Joints or Extremities Neurological: Cranial nerves II-XII grossly intact - Assessment/Plan Antibiotics: [] Assessment/Plan: [] R dick ulcers - no systemic symptoms, doubt infection. Suspect autoimmune source. D/w Dr. Cano, prelim path is showing possible pyoderma. Some diarrhea since starting augmentin as outpt. Wound cx here with no inflammation or bacteria on gram stain; gpc seen on cx, suspect skin colonization. Will stop abx, ok to start steroids from my perspective. Will follow, thank you, d/w Dr. Quevedo
[2019-07-05] MEDS: metFORMIN HCl 500 MG Tablet PO (16:49)
[2019-07-05] MEDS: predniSONE 20 MG Tablet 60 MG PO (16:49)
[2019-07-05] MEDS: Atorvastatin Calcium 40 MG Tablet PO (20:41)
--- NOTE | 2019-07-05 20:46 | NURSING ---
Handout about prednisone set on patients bedside table, this RN briefly reviewed one of the side effects about prednisone being potential for elevated blood sugars. Patient seems discouraged, per patient he was told earlier today that he needs to try to keep his blood glucose down to help promote leg wound healing. Per patient if it's not one thing its another. Support attempted.
[2019-07-05 22:50] LABS: Bedside Glucose 133 mg/dL (70-110)
[2019-07-06 02:00] VITALS: PULSE 94
[2019-07-06 05:20] VITALS: BP 117/38; PULSE 89; RESP 16; TEMP 36.6; O2SAT 92
[2019-07-06 07:05] LABS: Bedside Glucose 120 mg/dL (70-110)
[2019-07-06 07:48] VITALS: BP 136/87; PULSE 84; RESP 18; TEMP 36.6; O2SAT 97
[2019-07-06] MEDS: predniSONE 20 MG Tablet 60 MG PO (08:00)
[2019-07-06] MEDS: Aspirin E.C. 81 MG Tablet PO (08:00)
[2019-07-06] MEDS: metFORMIN HCl 500 MG Tablet PO (08:00)
[2019-07-06 09:07] VITALS: PULSE 72
--- NOTE | 2019-07-06 09:36 | PCM.DC ---
You will use the following diet at home:: Calorie/Carbohydrate Controlled (specify 1200, 1400, etc), Cardiac Your food should be the consistency of: Regular Discharge Activity: May Not Drive - Until he sees Weight Bearing Status: Weight bearing as tolerated Call your doctor if you observe: Fever of 101 or Higher, Coldness, Increased Pain, Numbness or Tingling, Inability to urinate, Inability to have a bowel movement, Shortness of breath, Dizziness, Fainting spells, Swelling in the ankles, Chest pain, Prolonged hiccoughing, Increased palpitations (irregular heartbeat), Calf discomfort, Uncontrolled pain Allergies/Adverse Reactions: Allergies No Known Allergies Allergy (Verified 07/04/19 12:17) Medications to take at Discharge Amlodipine [Norvasc] 5 mg PO DAILY 02/23/15 Aspirin E.C. [Ecotrin] 81 mg PO DAILY@0800 02/23/15 Atorvastatin Calcium [Lipitor] 40 mg PO QHS 02/23/15 Metformin HCl 1,000 mg PO BID 02/23/15 Metoprolol(XL)Succ [Toprol Xl (Beta Paulie)] 25 mg PO DAILY 02/23/15 Pantoprazole Sodium [Protonix] 40 mg PO DAILY 08/16/16 cinnamon bark 500 mg capsule 2,000 mg PO BID 08/07/17 Dapagliflozin Propanediol [Farxiga] 10 mg PO DAILY 06/22/19 [place]-3 Fatty Acids/Fish Oil [Fish Oil 1,000 mg Capsule] 2 ea PO QHS 07/04/19 predniSONE tablet 80 mg PO DAILYCM #100 tab 07/06/19 The following prescriptions were given: predniSONE tablet 80 mg PO DAILYCM #100 tab Transmission Status: Pending to [facility] Primary Care Physician: Christophe Dexter MD [Primary Care Provider] - Please follow up with your Primary Care Physician in: in 2 weeks Test Results: Test results from this visit will be discussed in further detail at your follow-up appointment, if applicable. Please Follow Up With: Rea Carranza MD When: in 2 weeks Please Follow Up With: dora bowman MD [facility] When: in 2 weeks
--- NOTE | 2019-07-06 09:38 | PCM.DC.SUM ---
Discharge Date and Diagnosis Date of Admission: 07/04/19 Date of Discharge: 07/06/19 - Primary Discharge Diagnosis Pyoderma gangrenosum right leg ulcer. - Secondary Discharge Diagnosis Chronic Problems (Last Reviewed 07/04/19 @ 15:[address] Candelario Seals, DO) Ulcer of right leg (Chronic) Swelling of right lower extremity (Chronic) Coronary artery disease (Chronic) Stented coronary artery (Chronic) Diabetes mellitus (Chronic) Hypertension (Chronic) Hypolipidemia (Chronic) Umbilical hernia (Chronic) Overweight (BMI 25.0-29.9) (Chronic) Hyperlipidemia (Chronic) History of [place] (myocardial infarction) (Chronic) Tobacco abuse (Chronic) Tobacco abuse counseling (Chronic) Hospital Course and Treatment Consultations 07/04/19 15:54 Consult: Onc/Wound/acquisition advisor Routine Comment: Summary of Care Provided: [] This 60-year-old patient gentleman who was sent from wound center, Dr. Novak office for biopsy performed about a week ago on past Friday shows preliminary result pyoderma gangrenosum. ID has been consulted. 1. 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 Plastic surgeon Dr. Cano and ID are being consulted and they are aware. I discussed with Dr. Novak and informed me of the biopsy result of pyoderma gangrenosum and it is sent out for second opinion to confirm. Patient denies a history of ulcerative colitis. Prior wound cultures of 06/22 2019 shows staph epidermidis and this time gram-positive cocci most likely skin contamination. Initially started on Unasyn, clindamycin and acyclovir but has been discontinued. Patient arterial duplex and venous Doppler and were normal. Discussed with the patient regarding her diagnosis. No history of prolonged diarrhea, abdominal pain or other GI symptoms to suspect inflammatory bowel disease. Patient had colonoscopy about 4 years and as per him no diagnosis of ulcerative colitis. Started on prednisone. Patient wants to follow-up with instructional support technician and wood planer for better maintenance medicine outpatient. Smoking cessation. Patient was given phone number of Dr. Dora Bowman, [phone], given clinic main campus follow-up in 2 weeks. Patient was also advised to follow-up with instructional support technician Dr. Carranza. Also advised to follow-up with GI for repeat colonoscopy to rule out ulcerative colitis. Follow with PCP and if needed can follow with hematology rule out leukemia or lymphoma as 50% of patient of pyoderma has either ulcerative colitis or leukemia/lymphoma. No family history of cancer as per the patient. 2. New onset A. fib probably inflammatory response secondary to ulcer: Discussed with the patient. Does not want anticoagulant because of high risk of bleeding. 3. DM2 continue home meds. A1c 6.4. On Accu-Chek and cover with Humalog sliding scale. 4.. VTE prophylaxis: mod risk. Patient refused for enoxaparin, DVT dose. SCDs ordered. Discharge medication reconciliation done. Discharge follow-up instructions completed. Discharge process discussed with the patient and all questions were answered to patient's satisfaction. Patient discharged on prednisone 80 mg daily as per dose of 1 mg/kg body weight. Prescription given. Advised to take Protonix 1 hour before breakfast for tach ulcer prevention and treatment Total time spent, exact 35 minutes on discharge meds reconciliation, examination, coordination of care with nurses and ancillary staff, review of imaging and blood test and discussion with the patient on follow-up instructions Subjective: Seen and examined. Right leg wounds looks better as compared to yesterday. Dry wound. No discharge. Objective: General: Alert, Oriented x3, Cooperative HEENT: Atraumatic, PERRLA, EOMI, Normocephalic Neck: Supple, No JVD, Negative Carotid Bruits Lungs: Clear to auscultation, Normal air movement, No rhonchi, No wheeze, No rales Cardiovascular: Regular rate, Normal S1, Normal S2, No murmurs, Irregular Rate Abdomen: Bowel Sounds Present, Soft, Non Tender, Non-Distended Extremities: No edema, Capillary Refill Less than 3 Seconds Skin: Multiple open wounds/ulcers, black in coloration, below right knee level. No discharge or odor. Some petechial left lower extremity. Musculoskeletal: No Tenderness to Palpation of Joints or Extremities, Arthritic Changes Neurological: Cranial nerves II-XII grossly intact, Deep Tendon Reflexes 2+/4 and Symmetrical, Neuro grossly intact Psych/Mental Status: Normal Affect, Appropriate - Physical Exam Vitals/I&O's: Vital Signs Temp Pulse Resp BP Pulse Ox 97.9 F 84 18 136/87 H 97 07/06/19 07:48 07/06/19 07:48 07/06/19 07:48 07/06/19 07:48 07/06/19 07:48 Oxygen Delivery Method Room Air Weight: 193 lb 12.581 oz Body Mass Index (BMI) 27.8 Intake and Output for Last 24 Hours 07/04/19 07/05/19 07/06/19 23:59 23:59 23:59 Intake Total 1641.5 / 1641.5 2059.2059. Balance 1641.5 / 1641.5 Microbiology Past 72 Hours 07/04/19 17:00 Wound - Leg, Right Gram Stain - Final 07/04/19 17:00 Wound - Leg, Right Wound Culture - Preliminary Gram positive organism Laboratory Results 07/05/19 11:08: POC Glucose 123 H 07/05/19 16:48: POC Glucose 133 H 07/06/19 06:47: POC Glucose 120 H Current Medications Acetaminophen (Tylenol) 650 mg PO Q6H PRN PRN PRN Reason: Pain Score 1-10/Temp > 100.7 F Amlodipine Besylate (Norvasc) 5 mg PO DAILY [facility] Last Admin: 07/05/19 08:14 Dose: 5 mg Documented by: Apixaban (Eliquis) 5 mg PO BID [facility] Last Admin: 07/05/19 20:41 Dose: Not Given Documented by: Aspirin (Ecotrin) 81 mg PO DAILY@0800 [facility] Last Admin: 07/06/19 08:00 Dose: 81 mg Documented by: Atorvastatin Calcium (Lipitor) 40 mg PO QHS [facility] Last Admin: 07/05/19 20:41 Dose: 40 mg Documented by: Dextrose (D50w Syringe) 0 gm IV X1 PRN; Protocol PRN Reason: Hypoglycemia Empagliflozin (Jardiance) 25 mg PO DAILY [facility] Last Admin: 07/05/19 08:14 Dose: 25 mg Documented by: Glucagon () 1 mg IM .X1 PRN PRN Reason: Hypoglycemia Insulin Human Lispro (Humalog Kwikpen (Bkc)) 0 unit SC TIDAC [facility]; Protocol Last Admin: 07/06/19 07:40 Dose: Not Given Documented by: Melatonin (Melatonin) 3 mg PO QHS PRN PRN PRN Reason: INSOMNIA Met[facility] ([facility]) [facility] Last Admin: 07/06/19 08:00 Dose: 500 mg Documented by: Metoprolol Succinate (Toprol Xl (Beta Paulie)) 25 mg PO DAILY [facility] Last Admin: 07/05/19 08:14 Dose: 25 mg Documented by: Ondansetron HCl (Zofran) 4 mg IV Q8H PRN PRN PRN Reason: NAUSEA/VOMITING Pantoprazole Sodium (Protonix) 40 mg PO DAILY [facility] Last Admin: 07/05/19 08:14 Dose: 40 mg Documented by: Prednisone () [facility] Last Admin: 07/06/19 08:00 Dose: 60 mg Documented by: Sodium Chloride () 10 - 40 ml IV UD PRN PRN Reason: SALINE FLUSH Last Admin: 07/04/19 22:12 Dose: 10 ml Documented by: Discharge Activity: May Not Drive - Until he sees Weight Bearing Status: Weight bearing as tolerated Call your doctor if you observe: Fever of 101 or Higher, Coldness, Increased Pain, Numbness or Tingling, Inability to urinate, Inability to have a bowel movement, Shortness of breath, Dizziness, Fainting spells, Swelling in the ankles, Chest pain, Prolonged hiccoughing, Increased palpitations (irregular heartbeat), Calf discomfort, Uncontrolled pain Home Medications: Medications to take at Discharge Amlodipine [Norvasc] 5 mg PO DAILY 02/23/15 Aspirin E.C. [Ecotrin] 81 mg PO DAILY@0800 02/23/15 Atorvastatin Calcium [Lipitor] 40 mg PO QHS 02/23/15 Metformin HCl 1,000 mg PO BID 02/23/15 Metoprolol(XL)Succ [Toprol Xl (Beta Paulie)] 25 mg PO DAILY 02/23/15 Pantoprazole Sodium [Protonix] 40 mg PO DAILY 08/16/16 cinnamon bark 500 mg capsule 2,000 mg PO BID 08/07/17 Dapagliflozin Propanediol [Farxiga] 10 mg PO DAILY 06/22/19 [place]-3 Fatty Acids/Fish Oil [Fish Oil 1,000 mg Capsule] 2 ea PO QHS 07/04/19 predniSONE tablet 80 mg PO DAILYCM #100 tab 07/06/19 Following Prescrptions Were Given to Patient: predniSONE tablet 80 mg PO DAILYCM #100 tab Transmission Status: Received by [facility] Primary Care Physician: Christophe Dexter MD [Primary Care Provider] - Please follow up with your Primary Care Physician in: in 2 weeks Please Follow Up With: Rea Carranza MD When: in 2 weeks Please Follow Up With: dora bowman MD [facility] When: in 2 weeks Medical Necessity - Tobacco Use Smoking Status: Current every day smoker Meaningful Use Info Meaningful Use Diagnoses (Choose all that apply): None applicable Code Visit Inpatient E&M: 94105 [facility]
[2019-07-06] MEDS: amLODIPine 5 MG Tablet PO (09:52)
[2019-07-06] MEDS: Empagliflozin 25 MG Tablet PO (09:52)
[2019-07-06 09:53] VITALS: PULSE 86
[2019-07-06] MEDS: Pantoprazole Sodium 40 MG Tablet PO (09:53)
[2019-07-06] MEDS: Metoprolol(XL)Succ 25 MG Tablet PO (09:53)
--- NOTE | 2019-07-06 10:35 | PN.ID_ITS ---
Subjective: Feeling better. Leg less swollen. No drainage, no fever. - Physical Exam Vitals/I&O's: Vital Signs Temp Pulse Resp BP Pulse Ox 97.9 F 86 18 136/87 H 97 07/06/19 07:48 07/06/19 09:53 07/06/19 07:48 07/06/19 07:48 07/06/19 07:48 Oxygen Delivery Method Room Air Weight: 87.9 kg Body Mass Index (BMI) 27.8 Intake and Output for Last 24 Hours 07/04/19 07/05/19 07/06/19 23:59 23:59 23:59 Intake Total 1641.5 / 1641.5 Balance 1641.5 / 1641.5 General: Alert, Cooperative, No apparent distress Lungs: Clear to auscultation, Normal air movement Cardiovascular: Regular rate, Regular Rhythm Abdomen: Soft, Non Tender, Non-Distended Skin: Ulcer/ Wound - R dick with dark necrotic dry lesions Microbiology Past 72 Hours 07/04/19 17:00 Wound - Leg, Right Gram Stain - Final 07/04/19 17:00 Wound - Leg, Right Wound Culture - Final Coag Negative Staph Laboratory Results 07/05/19 11:08: POC Glucose 123 H 07/05/19 16:48: POC Glucose 133 H 07/06/19 06:47: POC Glucose 120 H Current Medications Acetaminophen (Tylenol) 650 mg PO Q6H PRN PRN PRN Reason: Pain Score 1-10/Temp > 100.7 F Amlodipine Besylate (Norvasc) 5 mg PO DAILY [facility] Last Admin: 07/06/19 09:52 Dose: 5 mg Documented by: Apixaban (Eliquis) 5 mg PO BID [facility] Last Admin: 07/06/19 09:54 Dose: Not Given Documented by: Aspirin (Ecotrin) 81 mg PO DAILY@0800 [facility] Last Admin: 07/06/19 08:00 Dose: 81 mg Documented by: Atorvastatin Calcium (Lipitor) 40 mg PO QHS [facility] Last Admin: 07/05/19 20:41 Dose: 40 mg Documented by: Dextrose (D50w Syringe) 0 gm IV X1 PRN; Protocol PRN Reason: Hypoglycemia Empagliflozin (Jardiance) 25 mg PO DAILY [facility] Last Admin: 07/06/19 09:52 Dose: 25 mg Documented by: Glucagon () 1 mg IM .X1 PRN PRN Reason: Hypoglycemia Insulin Human Lispro (Humalog Kwikpen (Bkc)) 0 unit SC TIDAC [facility]; Protocol Last Admin: 07/06/19 07:40 Dose: Not Given Documented by: Melatonin (Melatonin) 3 mg PO QHS PRN PRN PRN Reason: INSOMNIA [facility] Admin: 07/06/19 08:00 Dose: 500 mg Documented by: Metoprolol Succinate (Toprol Xl (Beta Paulie)) 25 mg PO DAILY [facility] Last Admin: 07/06/19 09:53 Dose: 25 mg Documented by: Ondansetron HCl (Zofran) 4 mg IV Q8H PRN PRN PRN Reason: NAUSEA/VOMITING Pantoprazole Sodium (Protonix) 40 mg PO DAILY [facility] Last Admin: 07/06/19 09:53 Dose: 40 mg Documented by: [facility] () [facility] Admin: 07/06/19 08:00 Dose: 60 mg Documented by: Sodium Chloride () 10 - 40 ml IV UD PRN PRN Reason: SALINE FLUSH Last Admin: 07/04/19 22:12 Dose: 10 ml Documented by: Medical Necessity - Tobacco Use Smoking Status: Current every day smoker Route of nutrition/ use of supplements: [] Nutritional Intake: [] IV Site: [] Cohen Catheter: [] - Assessment/Plan Antibiotics: [] Assessment/Plan: [] R dick ulcers - no systemic symptoms, doubt infection. Suspect autoimmune source. D/w Dr. Cano, prelim path is showing possible pyoderma. Some diarrhea since starting augmentin as outpt. Wound cx here with no inflammation or bacteria on gram stain; gpc seen on cx, suspect skin colonization. Now on steroids, leg improving. No need for further abx. Will follow as needed
== END 2019-07-06 10:44 | disposition home or self-care (01) | DRG 603 ==
LOC: ED 13:02 → MS3 15:28
PROVIDERS: Emergency Provider Emergency Medicine; PCP Family Medicine; Visit Provider Internal Medicine
DX: L88 Pyoderma gangrenosum (principal); E11.9 Type 2 diabetes mellitus without complications; I25.10 Atherosclerotic heart disease of native coronary artery without angina pectoris; E78.5 Hyperlipidemia, unspecified; I48.91 Unspecified atrial fibrillation; I10 Essential (primary) hypertension; E66.3 Overweight; Z68.27 Body mass index [BMI] 27.0-27.9, adult; Z79.84 Long term (current) use of oral hypoglycemic drugs; I25.2 Old myocardial infarction; K42.9 Umbilical hernia without obstruction or gangrene; Z95.5 Presence of coronary angioplasty implant and graft; F17.210 Nicotine dependence, cigarettes, uncomplicated
CPT/HCPCS: 36415; 80048; 80053; 82962; 83036; 85025; 87070; 87205; 87252; 93005; 93306; 99284; 99406; J7030; J7040; J7050; Q9957; A4216; J0295

== ENCOUNTER → 2019-07-10 09:11 | Outpatient (CLI) | payer OTHER, SELFPAY ==
[2019-07-04 15:57] VITALS: BMI 27.8
== END ==
PROVIDERS: PCP Family Medicine; Referring Provider Surgery; Visit Provider Surgery
DX: L97.909 Non-pressure chronic ulcer of unspecified part of unspecified lower leg with unspecified severity (principal); I77.6 Arteritis, unspecified; M35.9 Systemic involvement of connective tissue, unspecified; L88 Pyoderma gangrenosum
CPT/HCPCS: 36415

== ENCOUNTER 2019-08-10 09:00 | Outpatient (RCR) | payer OTHER, SELFPAY ==
[2019-07-11 01:05] VITALS: BP 125/74; PULSE 76; RESP 18; TEMP 36.4
[2019-07-20 09:26] VITALS: BP 120/76; PULSE 81; RESP 18; TEMP 36; BMI 27.8
--- NOTE | 2019-07-20 19:53 | HP.PCM_ITS ---
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: Chronic Current Visit: Yes Code(s): E11.622 - Type 2 diabetes mellitus with other skin ulcer; L97.812 - Non-pressure chronic ulcer of other part of right lower leg with fat layer exposed (3) Skin necrosis Status: Chronic Current Visit: Yes Code(s): I96 - Gangrene, not elsewhere classified (4) Ulcer of right leg Status: Chronic Current Visit: Yes Qualifiers: Non-pressure ulcer stage: with fat layer exposed Code(s): L97.919 - Non-pressure chronic ulcer of unspecified part of right lower leg with unspecified severity (5) Swelling of right lower extremity Status: Chronic Current Visit: Yes Code(s): M79.89 - Other specified soft tissue disorders (6) Coronary artery disease Status: Chronic Current Visit: No Qualifiers: Coronary Disease-Associated Artery/Lesion type: [place] artery [place] vs. transplanted heart: [place] heart Code(s): I25.10 - Atherosclerotic heart disease of [place] coronary artery without angina pectoris (7) Stented coronary artery Status: Chronic Current Visit: No Code(s): Z95.5 - Presence of coronary angioplasty implant and graft (8) Diabetes mellitus Status: Chronic Current Visit: Yes Qualifiers: Diabetes mellitus type: type 2 Code(s): E11.9 - Type 2 diabetes mellitus without complications (9) Hypertension Status: Chronic Current Visit: No Qualifiers: Code(s): I10 - Essential (primary) hypertension (10) Hypolipidemia Status: Chronic Current Visit: No Code(s): E78.6 - Lipoprotein deficiency (11) Umbilical hernia Status: Chronic Current Visit: No Code(s): K42.9 - Umbilical hernia without obstruction or gangrene (12) Overweight (BMI 25.0-29.9) Status: Chronic Current Visit: No (13) Hyperlipidemia Status: Chronic Current Visit: No Code(s): E78.5 - Hyperlipidemia, unspecified (14) History of [place] (myocardial infarction) Status: Chronic Current Visit: No Code(s): I25.2 - Old myocardial infarction (15) Tobacco abuse Status: Chronic Current Visit: No Code(s): Z72.0 - Tobacco use (16) Tobacco abuse counseling Status: Chronic Current Visit: No Code(s): Z71.6 - Tobacco abuse counseling History of Present Illness Date of Service: 07/20/19 Chief Complaint: Clustered ulceration of the right anterior tibial surface History of Wound: This is a 68-year-old active and functional white male who presented with a clustered ulceration on the right anterior tibial surface. According to the patient, there had been no recent trauma. The ulceration had been present for approximately 1 month. He remembers itching in the area at the time of its initiation, to which he responded by scratching. This may have been the inciting event. He recalls no insect bites in the area. The patient relates intermittent swelling in his right lower extremity. He denies a history of deep vein thrombosis. He is active and ambulates liberally. He sleeps on a flat mattress at night. He has had no similar wounds or ulcerations in the past. When evaluated by the patient's primary care physician several days prior to presentation here, the patient was placed on oral Bactrim antibiotic, and collagen hydrogel was prescribed as a topical treatment measure. Past Medical History Past Medical History: Chronic Problems (Last Reviewed 07/04/19 @ 15:[address] 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 He is undergone bilateral cataract extraction. Lumbar disc surgery has been performed in the past. Allergies/Adverse Reactions: Allergies No Known Allergies Allergy (Verified 07/04/19 12:17) Home Medications: Ambulatory Orders Medication Instructions Recorded Amlodipine [Norvasc] 5 mg PO DAILY 02/23/15 Aspirin E.C. [Ecotrin] 81 mg PO DAILY@0800 10/15/15 Atorvastatin Calcium [Lipitor] 40 mg PO QHS 02/23/15 Metformin HCl 1,000 mg PO BID 02/23/15 Metoprolol(XL)Succ [Toprol Xl 25 mg PO DAILY 02/23/15 (Beta Paulie)] Pantoprazole Sodium [Protonix] 40 mg PO DAILY 08/16/16 cinnamon bark 500 mg capsule 2,000 mg PO BID 08/07/17 Dapagliflozin Propanediol [Farxiga] 10 mg PO DAILY 06/22/19 [place]-3 Fatty Acids/Fish Oil [Fish 2 ea PO QHS 07/04/19 Oil 1,000 mg Capsule] predniSONE tablet 80 mg PO DAILYCM #100 tab 07/06/19 - Family History Paternal Family History: Family History (Last Reviewed 07/04/19 @ 15:[address] Candelario Seals, DO) Father Diabetes Heart disease - - Patient's father age of 80 with a history of heart disease. Patient's mother at the age of 80, suffering from dementia. Smoking Status: Current every day smoker Tobacco Use: Cigarettes Review of Systems Constitutional: Denies: Chills, Fever, Weight Change Eyes: Denies: Pain, Vision Change HEENT: Denies: Difficulty Hearing, Difficulty Swallowing, Sinus Congestion Cardiovascular: Denies: Chest Pain, Palpitations Respiratory: Denies: Cough, Shortness of Breath Gastrointestinal: Denies: Diarrhea, Nausea, Vomiting Genitourinary: Denies: Dysuria, Hematuria Endocrine: Denies: Heat/ Cold Intolerance, Polydipsia, Polyuria Hematologic/ Lymphatic: Denies: Easy Bruising, Easy Bleeding - Physical Exam Vital Signs Temp Pulse Resp BP 96.8 F L 81 18 120/76 07/20/19 09:26 07/20/19 09:26 07/20/19 09:26 07/20/19 09:26 General: Alert, Oriented x3, Cooperative, No apparent distress, Well developed, Well nourished HEENT: Atraumatic, PERRLA, EOMI, Normocephalic Oral: Moist Mucosa Neck: No JVD Lungs: Normal air movement Abdomen: Soft, Non Tender, Non-Distended Extremities: No clubbing, No cyanosis, No edema, No Calf Tenderness, - - The clustered ulceration on the right anterior tibial surface persists. It consists of multiple separate dry gangrenous ulcerations, and a clustered configuration. There is no significant redness or erythema. It does not appear infected or cellulitic. There is no drainage. Dimensions are documented elsewhere. The clustered ulceration is comprised of multiple areas of garo, dry gangrene. Skin: No rashes Wound Measurements and Assessment WC - Nurse 1 - General Ulcer Measurement Start: 07/20/19 09:26 Freq: Status: Active Protocol: Activity Type Activity Date Activity User E-Sign Co-Sign Detail Recorded Client Recorded Date Recorded By Document 07/20/19 09:26 [id number] 07/20/19 09:33 CS 07/20/19 09:26 Wound Center Nurse 1 [Ulcer Assessment] 1-right dick cluster -Combined with other wound No -Current Size (cm) - Length 14 -Current Size (cm) - Width 11.6 -Current Size (cm) - Depth 0.3 -Total Square Cm 162.4 -Tunneling No -Undermining/Tunneling No -Circular Undermining No -Exudate Amt None Present -Wound Margin Flat & Intact -Granulation Amt None Present (0 %) -Slough/Fibrin Yes -Necrosis Amt Large (67-100%) -Necrotic Tissue Type Eschar -Structure Exposed N/A -Texture (Genia-wound Skin Appearance) Assessed, Scarring -Moisture (Genia-wound Skin Appearance Assessed ) -Color (Genia-wound Skin Appearance) Assessed -Temperature (Genia-wound Skin No Abnormality Appearance) (Pt Warm) -Tenderness on Palpation (Genia-wound No Skin Appearance) -Ulcer Cleansing Wound Cleanser -Foul Odor after Cleansing No -Anesthetic Used 4% Lidocaine Solution [Edema Assessment] -Lower Limb Edema Present Yes -Right Calf (cm) 38.6 -Right Ankle (cm) 23.7 WC - Nurse 2 - General Ulcer CM Notes Start: 07/20/19 09:26 Freq: Status: Active Protocol: Activity Type Activity Date Activity User E-Sign Co-Sign Detail Recorded Client Recorded Date Recorded By Document 07/20/19 10:09 DV [id number] 07/20/19 10:19 DV 07/20/19 10:09 Wound Center Nurse 2 [Procedure/Treatment] 1-right dick cluster -Time 10:10 -Correct Patient Yes -Correct Side, Site, Position Yes -Correct Procedure Yes -Procedure Performed Yes -Type of Procedure Debridement -Clinical Debridement Subcutaneous -Post Debridement Size (cm) - Length 15.0 -Post Debridement Size (cm) - Width 12.0 -Post Debridement Size (cm) - Depth 0.4 -Total Square Cm 180.00 -Wound/Ulcer Outcome Not Healed -Ulcer Cleansing Rinsed/ Irrigated with Saline -Foul Odor after Cleansing No -Bioengineered Tissue No -Bleeding Controlled with Pressure -Offloading No -Treatment Response Procedure Tolerated Well [See Physician Procedure note for Specifics] Pain Scale: 0-10 Numeric [Pain] -Is Patient Pain Free? Yes Musculoskeletal: No Muscle Wasting Neurological: Cranial nerves II-XII grossly intact, Neuro grossly intact Psych/Mental Status: Normal Affect, Appropriate, Alert and oriented to time, place, person, mood and affect Debridement Note Post-Debridement Measurements/Treatment WC - Nurse 2 - General Ulcer CM Notes Start: 07/20/19 09:26 Freq: Status: Active Protocol: Activity Type Activity Date Activity User E-Sign Co-Sign Detail Recorded Client Recorded Date Recorded By Document 07/20/19 10:09 DV [id number] 07/20/19 10:19 DV 07/20/19 10:09 Wound Center Nurse 2 1-right dick cluster -Time 10:10 -Correct Patient Yes -Correct Side, Site, Position Yes -Correct Procedure Yes -Procedure Performed Yes -Type of Procedure Debridement -Clinical Debridement Subcutaneous -Post Debridement Size (cm) - Length 15.0 -Post Debridement Size (cm) - Width 12.0 -Post Debridement Size (cm) - Depth 0.4 -Total Square Cm 180.00 -Wound/Ulcer Outcome Not Healed -Ulcer Cleansing Rinsed/ Irrigated with Saline -Foul Odor after Cleansing No -Bioengineered Tissue No -Bleeding Controlled with Pressure -Offloading No -Treatment Response Procedure Tolerated Well Pain Scale: 0-10 Numeric Is Patient Pain Free? Yes Laterality: Right - Anterior tibial surface Type of Debridement: Excisional debridement Anesthesia Used: 5% Lidocaine Gel Depth: Down to and including healthy tissue, in the subcutaneous layer Percentage of wound debrided: 40 Instrument Used: 5mm curette, Forceps, - - Scissors Tissue Removed: Bioburden, and frankly necrotic and nonviable tissue Severity: Fat Layer Exposed Amount of bleeding with debridement: Mild Bleeding Controlled with: Compression and gauze Patient tolerated procedure well An effort was made to debride a portion of the dry, necrotic material which comprises the patient's ulceration. However, the gangrenous material proved to be quite resistant to removal. Considerable time was devoted to removal of a large portion of the gangrenous tissue. The debridement was carried down to healthy?appearing tissue in the subcutaneous space. The removal of the necrotic tissue was accomplished using a 5 mm curette, several of which were utilized. In addition, a #15 scalpel blade and forceps were also utilized. Approximately 40% of the necrotic tissue on the right anterior tibial surface was removed. The remaining necrotic material was dry and devoid of drainage or apparent infection. The patient tolerated the procedure well. Assessment/Plan Active Problems (Last Reviewed 07/04/19 @ 15:[address] 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 It appears as though these are nontraumatic in nature, though the patient does admit to scratching approximately 1 month prior to the development of the ulcerations. The patient has multiple pre-existing medical problems, as documented above. Based upon the appearance of the ulcerations, the etiology has remained enigmatic. While insect bites have been a consideration, the patient denies any such insult. The ulcerations do not appear to be venous or arterial in nature. Necrobiosis lipoidica diabeticorum, pyoderma gangrenosum, vasculitis, and autoimmune causes have been considered. Biopsies have been obtained, though results have been of little help in differentiating the etiology of the patient's ulcerations. The patient's biopsy results indicated Skin with ulceration, necrosis as well as an extensive neutrophilic and eosinophilic dermal infiltrate. Special stains for acid-fast bacilli and fungi are negative for organisms; matched controls are appropriate. In addition, the biopsy results suggested The differential diagnosis includes Sweet syndrome, and arthropod assault or a drug eruption in the appropriate clinical setting. The microscopic features do not support pyoderma gangrenosum which is always a diagnosis by exclusion. No evidence of granulomatous dermatitis is identified. Laboratory results were generally unremarkable. White blood count and hemogram were normal. Platelet count was normal. Chemistries were also unremarkable. Patient appears to be of adequate nutritional status. Laboratory testing for interleukin?6 revealed a result of 2.0, which is normal. Interleukin?8 result was 41.5, which is also within normal range. Plan: At this juncture, the etiology of the patient's right lower extremity ulceration remains somewhat enigmatic. Its appearance is atypical of an arterial or venous lesion. Considerations as to potential etiologies include necrobiosis lipoidica diabeticorum, pyoderma gangrenosum, autoimmune phenomenon, necrotizing vasculitis, etc. We are seeking consultation with a help desk support specialist to help in the assessment and management of the patient's ulcerations. He is scheduled for an appointment with Dr. Omar Johnson at the [facility] in 2 weeks. The patient is to elevate his lower extremities as much as possible, and to use a mild form of compression by means of stockings, to prevent swelling in the lower extremities. The patient has been advised to optimize his nutritional intake. He has also been advised to optimize his glycemic control. The patient is known to be a smoker, and has been counseled as to the adverse consequences of the smoking habit, and smoking cessation has been recommended. Patient remains on prednisone daily, which is intended to continue until which time he is evaluated by Dr. Johnson, Tour Bus Driver/Guide, at the [facility] in [place].
[2019-07-27 10:14] VITALS: BP 119/75; PULSE 81; RESP 16; TEMP 36.2; BMI 27.8
--- NOTE | 2019-07-27 13:13 | HP.PCM_ITS ---
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: Chronic Current Visit: Yes Code(s): E11.622 - Type 2 diabetes mellitus with other skin ulcer; L97.812 - Non-pressure chronic ulcer of other part of right lower leg with fat layer exposed (3) Skin necrosis Status: Chronic Current Visit: Yes Code(s): I96 - Gangrene, not elsewhere classified (4) Ulcer of right leg Status: Chronic Current Visit: Yes Qualifiers: Non-pressure ulcer stage: with fat layer exposed Code(s): L97.919 - Non-pressure chronic ulcer of unspecified part of right lower leg with unspecified severity (5) Swelling of right lower extremity Status: Chronic Current Visit: Yes Code(s): M79.89 - Other specified soft tissue disorders (6) Coronary artery disease Status: Chronic Current Visit: No Qualifiers: Coronary Disease-Associated Artery/Lesion type: ak chin artery [place] vs. transplanted heart: ak chin heart Code(s): I25.10 - Atherosclerotic heart disease of ak chin coronary artery without angina pectoris (7) Stented coronary artery Status: Chronic Current Visit: No Code(s): Z95.5 - Presence of coronary angioplasty implant and graft (8) Diabetes mellitus Status: Chronic Current Visit: Yes Qualifiers: Diabetes mellitus type: type 2 Code(s): E11.9 - Type 2 diabetes mellitus without complications (9) Hypertension Status: Chronic Current Visit: No Qualifiers: Code(s): I10 - Essential (primary) hypertension (10) Hypolipidemia Status: Chronic Current Visit: No Code(s): E78.6 - Lipoprotein deficiency (11) Umbilical hernia Status: Chronic Current Visit: No Code(s): K42.9 - Umbilical hernia without obstruction or gangrene (12) Overweight (BMI 25.0-29.9) Status: Chronic Current Visit: No (13) Hyperlipidemia Status: Chronic Current Visit: No Code(s): E78.5 - Hyperlipidemia, unspecified (14) History of PA (myocardial infarction) Status: Chronic Current Visit: No Code(s): I25.2 - Old myocardial infarction (15) Tobacco abuse Status: Chronic Current Visit: No Code(s): Z72.0 - Tobacco use (16) Tobacco abuse counseling Status: Chronic Current Visit: No Code(s): Z71.6 - Tobacco abuse counseling History of Present Illness Date of Service: 07/27/19 Chief Complaint: Clustered ulceration of the right anterior tibial surface History of Wound: This is a 68-year-old active and functional white male who presented with a clustered ulceration on the right anterior tibial surface. According to the patient, there had been no recent trauma. The ulceration had been present for approximately 1 month. He remembers itching in the area at the time of its initiation, to which he responded by scratching. This may have been the inciting event. He recalls no insect bites in the area. The patient relates intermittent swelling in his right lower extremity. He denies a history of deep vein thrombosis. He is active and ambulates liberally. He sleeps on a flat mattress at night. He has had no similar wounds or ulcerations in the past. When evaluated by the patient's primary care physician several days prior to presentation here, the patient was placed on oral Bactrim antibiotic, and collagen hydrogel was prescribed as a topical treatment measure. Past Medical History Past Medical History: Chronic Problems (Last Reviewed 07/04/19 @ 15:[address] 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 He is undergone bilateral cataract extraction. Lumbar disc surgery has been performed in the past. Allergies/Adverse Reactions: Allergies No Known Allergies Allergy (Verified 07/04/19 12:17) Home Medications: Ambulatory Orders Medication Instructions Recorded Amlodipine [Norvasc] 5 mg PO DAILY 02/23/15 Aspirin E.C. [Ecotrin] 81 mg PO DAILY@0800 10/15/15 Atorvastatin Calcium [Lipitor] 40 mg PO QHS 02/23/15 Metformin HCl 1,000 mg PO BID 02/23/15 Metoprolol(XL)Succ [Toprol Xl 25 mg PO DAILY 02/23/15 (Beta Paulie)] Pantoprazole Sodium [Protonix] 40 mg PO DAILY 08/16/16 cinnamon bark 500 mg capsule 2,000 mg PO BID 08/07/17 Dapagliflozin Propanediol [Farxiga] 10 mg PO DAILY 06/22/19 [place]-3 Fatty Acids/Fish Oil [Fish 2 ea PO QHS 07/04/19 Oil 1,000 mg Capsule] predniSONE tablet 80 mg PO DAILYCM #100 tab 07/06/19 - Family History Paternal Family History: Family History (Last Reviewed 07/04/19 @ 15:[address] Candelario Seals, DO) Father Diabetes Heart disease - - Patient's father age of 80 with a history of heart disease. Patient's mother at the age of 80, suffering from dementia. Smoking Status: Current every day smoker Tobacco Use: Cigarettes Review of Systems Constitutional: Denies: Chills, Fever, Weight Change Eyes: Denies: Pain, Vision Change HEENT: Denies: Difficulty Hearing, Difficulty Swallowing, Sinus Congestion Cardiovascular: Denies: Chest Pain, Palpitations Respiratory: Denies: Cough, Shortness of Breath Gastrointestinal: Denies: Diarrhea, Nausea, Vomiting Genitourinary: Denies: Dysuria, Hematuria Endocrine: Denies: Heat/ Cold Intolerance, Polydipsia, Polyuria Hematologic/ Lymphatic: Denies: Easy Bruising, Easy Bleeding - Physical Exam Vital Signs Temp Pulse Resp BP 97.2 F L 81 16 119/75 07/27/19 10:14 07/27/19 10:14 07/27/19 10:14 07/27/19 10:14 General: Alert, Oriented x3, Cooperative, No apparent distress, Well developed, Well nourished HEENT: Atraumatic, PERRLA, EOMI, Normocephalic Oral: Moist Mucosa Neck: No JVD Lungs: Normal air movement Abdomen: Non-Distended Extremities: No clubbing, No cyanosis, No edema, No Calf Tenderness, - - The clustered ulcerations on the right anterior tibial surface persist. Those which have been left undisturbed remain dry and gangrenous. Those which have been recently debrided have largely redeveloped into gangrene, which is also dry. There are only a few isolated areas of granulation tissue at the site where debridement has been recently performed, and collagenase Santyl has been utilized topically. There is no drainage of any kind. There is no odor. There is no erythema or redness to suggest cellulitis. Skin: No rashes Wound Measurements and Assessment WC - Nurse 1 - General Ulcer Measurement Start: 07/20/19 09:26 Freq: Status: Active Protocol: Activity Type Activity Date Activity User E-Sign Co-Sign Detail Recorded Client Recorded Date Recorded By Document 07/27/19 10:14 ANTONIO [id number] 07/27/19 10:16 ANTONIO 07/27/19 10:14 Wound Center Nurse 1 [Ulcer Assessment] 1-right dick cluster -Combined with other wound No -Current Size (cm) - Length 12.8 -Current Size (cm) - Width 9.4 -Current Size (cm) - Depth 0.2 -Total Square Cm 120.32 -Photo Taken No -Epithelialization Small 1-33% -Tunneling No -Undermining/Tunneling No -Circular Undermining No -Exudate Amt Small -Exudate Type Serosanguineous -Wound Margin Flat & Intact -Granulation Amt None Present (0 %) -Slough/Fibrin Yes -Necrosis Amt Large (67-100%) -Necrotic Tissue Type Adherent Slough -Structure Exposed N/A -Texture (Genia-wound Skin Appearance) Assessed, Localized Edema -Moisture (Genia-wound Skin Appearance Assessed,Dry/ ) Scaly -Color (Genia-wound Skin Appearance) Assessed -Temperature (Genia-wound Skin No Abnormality Appearance) (Pt Warm) -Tenderness on Palpation (Genia-wound No Skin Appearance) -Ulcer Cleansing Rinsed/ Irrigated with Saline -Foul Odor after Cleansing No -Anesthetic Used 4% Lidocaine Solution [Edema Assessment] -Lower Limb Edema Present Yes -Right Calf (cm) 37.2 -Right Ankle (cm) 21.6 WC - Nurse 2 - General Ulcer CM Notes Start: 07/20/19 09:26 Freq: Status: Active Protocol: Activity Type Activity Date Activity User E-Sign Co-Sign Detail Recorded Client Recorded Date Recorded By Document 07/27/19 10:42 GAIL [id number] 07/27/19 10:47 DV 07/27/19 10:42 Wound Center Nurse 2 [Procedure/Treatment] 1-right dick cluster -Time 10:43 -Correct Patient Yes -Correct Side, Site, Position Yes -Correct Procedure No -Procedure Performed No -Post Debridement Size (cm) - Length 13.0 -Post Debridement Size (cm) - Width 9.5 -Post Debridement Size (cm) - Depth 0.3 -Total Square Cm 123.50 -Wound/Ulcer Outcome Not Healed -Ulcer Cleansing Rinsed/ Irrigated with Saline -Foul Odor after Cleansing No -Bioengineered Tissue No -Bleeding Controlled with Pressure -Offloading No -Treatment Response Procedure Tolerated Well [See Physician Procedure note for Specifics] Pain Scale: 0-10 Numeric [Pain] -Is Patient Pain Free? Yes Musculoskeletal: No Muscle Wasting Neurological: Cranial nerves II-XII grossly intact, Neuro grossly intact Psych/Mental Status: Normal Affect, Appropriate, Alert and oriented to time, place, person, mood and affect Debridement Note Post-Debridement Measurements/Treatment WC - Nurse 2 - General Ulcer CM Notes Start: 07/20/19 09:26 Freq: Status: Active Protocol: Activity Type Activity Date Activity User E-Sign Co-Sign Detail Recorded Client Recorded Date Recorded By Document 07/20/19 10:09 DV [id number] 07/20/19 10:19 DV Document 07/27/19 10:42 DV [id number] 07/27/19 10:47 DV 07/20/19 07/27/19 10:09 10:42 Wound Center Nurse 2 1-right dick cluster -Time 10:10 10:43 -Correct Patient Yes Yes -Correct Side, Site, Position Yes Yes -Correct Procedure Yes No -Procedure Performed Yes No -Type of Procedure Debridement -Clinical Debridement Subcutaneous -Post Debridement Size (cm) - Length 15.0 13.0 -Post Debridement Size (cm) - Width 12.0 9.5 -Post Debridement Size (cm) - Depth 0.4 0.3 -Total Square Cm 180.00 123.50 -Wound/Ulcer Outcome Not Healed Not Healed -Ulcer Cleansing Rinsed/ Rinsed/ Irrigated with Irrigated with Saline Saline -Foul Odor after Cleansing No No -Bioengineered Tissue No No -Bleeding Controlled with Pressure Pressure -Offloading No No -Treatment Response Procedure Procedure Tolerated Well Tolerated Well Pain Scale: 0-10 Numeric Is Patient Pain Free? Yes Yes No debridement was completed today Assessment/Plan Active Problems (Last Reviewed 07/04/19 @ 15:[address] 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 It appears as though these are nontraumatic in nature, though the patient does admit to scratching approximately 1 month prior to the development of the ulcerations. The patient has multiple pre-existing medical problems, as documented above. Based upon the appearance of the ulcerations, the etiology has remained enigmatic. While insect bites have been a consideration, the patient denies any such insult. The ulcerations do not appear to be venous or arterial in nature. Necrobiosis lipoidica diabeticorum, pyoderma gangrenosum, vasculitis, and autoimmune causes have been considered. Biopsies have been obtained, though results have been of little help in differentiating the etiol ogy of the patient's ulcerations. The patient's biopsy results indicated Skin with ulceration, necrosis as well as an extensive neutrophilic and eosinophilic dermal infiltrate. Special stains for acid-fast bacilli and fungi are negative for organisms; matched controls are appropriate. In addition, the biopsy results suggested The differential diagnosis includes Sweet syndrome, an arthropod assault or a drug eruption in the appropriate clinical setting. The microscopic features do not support pyoderma gangrenosum which is always a diagnosis by exclusion. No evidence of granulomatous dermatitis is identified. Laboratory results were generally unremarkable. White blood count and hemogram were normal. Platelet count was normal. Chemistries were also unremarkable. Patient appears to be of adequate nutritional status. Laboratory testing for interleukin?6 revealed a result of 2.0, which is normal. Interleukin?8 result was 41.5, which is also within normal range. Plan: At this juncture, the etiology of the patient's right lower extremity ulceration remains somewhat enigmatic. Its appearance is atypical of an arterial or venous lesion. Considerations as to potential etiologies include necrobiosis lipoidica diabeticorum, pyoderma gangrenosum, autoimmune phenomenon, necrotizing vasculitis, etc. We are seeking consultation with a workforce development specialist to help in the assessment and management of the patient's ulcerations. He is scheduled for an appointment with Dr. Omar Johnson at the [facility] on August 03, 2019. The patient is to elevate his lower extremities as much as possible, and to use a mild form of compression by means of stockings, to prevent swelling in the lower extremities. The patient has been advised to optimize his nutritional intake. He has also been advised to optimize his glycemic control. The patient is known to be a smoker, and has been counseled as to the adverse consequences of the smoking habit, and smoking cessation has been recommended. Patient remains on prednisone daily, which is intended to continue until which time he is evaluated by Dr. Johnson, [place], at the [facility] in [place]. He is currently taking 80 mg of prednisone daily. He has been advised to taper his dose over the next week, and the means by which this is to be accomplished has been explained. We will await the evaluation and recommendations from Dr. Johnson, and proceed accordingly. The necrotic areas of his extremity ulceration remain dry, without evidence of infection, and collagen hydrogel is to be used topically only on the granulating portions of the ulceration. Otherwise, the dry gangrenous portions of the ulceration are to be left undisturbed. The patient will return in 2 weeks, at which time it is anticipated that the clinical impressions of Dr. Johnson will be known.
[2019-08-10 09:03] VITALS: BP 142/87; PULSE 95; RESP 20; TEMP 36.7; BMI 27.8
--- NOTE | 2019-08-10 09:40 | PCM.WC.HP ---
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: Chronic Current Visit: Yes Code(s): E11.622 - Type 2 diabetes mellitus with other skin ulcer; L97.812 - Non-pressure chronic ulcer of other part of right lower leg with fat layer exposed (3) Skin necrosis Status: Chronic Current Visit: Yes Code(s): I96 - Gangrene, not elsewhere classified (4) Ulcer of right leg Status: Chronic Current Visit: Yes Qualifiers: Non-pressure ulcer stage: with fat layer exposed Code(s): L97.919 - Non-pressure chronic ulcer of unspecified part of right lower leg with unspecified severity (5) Swelling of right lower extremity Status: Chronic Current Visit: Yes Code(s): M79.89 - Other specified soft tissue disorders (6) Coronary artery disease Status: Chronic Current Visit: No Qualifiers: Coronary Disease-Associated Artery/Lesion type: [place] artery [place] vs. transplanted heart: [place] heart Code(s): I25.10 - Atherosclerotic heart disease of [place] coronary artery without angina pectoris (7) Stented coronary artery Status: Chronic Current Visit: No Code(s): Z95.5 - Presence of coronary angioplasty implant and graft (8) Diabetes mellitus Status: Chronic Current Visit: Yes Qualifiers: Diabetes mellitus type: type 2 Code(s): E11.9 - Type 2 diabetes mellitus without complications (9) Hypertension Status: Chronic Current Visit: No Qualifiers: Code(s): I10 - Essential (primary) hypertension (10) Hypolipidemia Status: Chronic Current Visit: No Code(s): E78.6 - Lipoprotein deficiency (11) Umbilical hernia Status: Chronic Current Visit: No Code(s): K42.9 - Umbilical hernia without obstruction or gangrene (12) Overweight (BMI 25.0-29.9) Status: Chronic Current Visit: No (13) Hyperlipidemia Status: Chronic Current Visit: No Code(s): E78.5 - Hyperlipidemia, unspecified (14) History of ND (myocardial infarction) Status: Chronic Current Visit: No Code(s): I25.2 - Old myocardial infarction (15) Tobacco abuse Status: Chronic Current Visit: No Code(s): Z72.0 - Tobacco use (16) Tobacco abuse counseling Status: Chronic Current Visit: No Code(s): Z71.6 - Tobacco abuse counseling History of Present Illness Date of Service: 08/10/19 Chief Complaint: Clustered ulceration of the right anterior tibial surface History of Wound: This is a 68-year-old active and functional white male who presented with a clustered ulceration on the right anterior tibial surface. According to the patient, there had been no recent trauma. The ulceration had been present for approximately 1 month. He remembers itching in the area at the time of its initiation, to which he responded by scratching. This may have been the inciting event. He recalls no insect bites in the area. The patient relates intermittent swelling in his right lower extremity. He denies a history of deep vein thrombosis. He is active and ambulates liberally. He sleeps on a flat mattress at night. He has had no similar wounds or ulcerations in the past. When evaluated by the patient's primary care physician several days prior to presentation here, the patient was placed on oral Bactrim antibiotic, and collagen hydrogel was prescribed as a topical treatment measure. Past Medical History Past Medical History: Chronic Problems (Last Reviewed 07/04/19 @ 15:[address] 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 He is undergone bilateral cataract extraction. Lumbar disc surgery has been performed in the past. Allergies/Adverse Reactions: Allergies No Known Allergies Allergy (Verified 07/04/19 12:17) Home Medications: Ambulatory Orders Medication Instructions Recorded Amlodipine [Norvasc] 5 mg PO DAILY 02/23/15 Aspirin E.C. [Ecotrin] 81 mg PO DAILY@0800 10/15/15 Atorvastatin Calcium [Lipitor] 40 mg PO QHS 02/23/15 Metformin HCl 1,000 mg PO BID 02/23/15 Metoprolol(XL)Succ [Toprol Xl 25 mg PO DAILY 02/23/15 (Beta Paulie)] Pantoprazole Sodium [Protonix] 40 mg PO DAILY 08/16/16 cinnamon bark 500 mg capsule 2,000 mg PO BID 08/07/17 Dapagliflozin Propanediol [Farxiga] 10 mg PO DAILY 06/22/19 [place]-3 Fatty Acids/Fish Oil [Fish 2 ea PO QHS 07/04/19 Oil 1,000 mg Capsule] predniSONE tablet 80 mg PO DAILYCM #100 tab 07/06/19 - Family History Paternal Family History: Family History (Last Reviewed 07/04/19 @ 15:[address] Candelario Seals, DO) Father Diabetes Heart disease - - Patient's father age of 80 with a history of heart disease. Patient's mother at the age of 80, suffering from dementia. Smoking Status: Current every day smoker Tobacco Use: Cigarettes Review of Systems Constitutional: Denies: Chills, Fever, Weight Change Eyes: Denies: Pain, Vision Change HEENT: Denies: Difficulty Hearing, Difficulty Swallowing, Sinus Congestion Cardiovascular: Denies: Chest Pain, Palpitations Respiratory: Denies: Cough, Shortness of Breath Gastrointestinal: Denies: Diarrhea, Nausea, Vomiting Genitourinary: Denies: Dysuria, Hematuria Endocrine: Denies: Heat/ Cold Intolerance, Polydipsia, Polyuria Hematologic/ Lymphatic: Denies: Easy Bruising, Easy Bleeding - Physical Exam Vital Signs Temp Pulse Resp BP 98.1 F 95 20 H 142/87 H 08/10/19 09:03 08/10/19 09:03 08/10/19 09:03 08/10/19 09:03 General: Alert, Oriented x3, Cooperative, No apparent distress, Well developed, Well nourished HEENT: Atraumatic, PERRLA, EOMI, Normocephalic Oral: Moist Mucosa Neck: No JVD Lungs: Normal air movement Abdomen: Non-Distended Extremities: No clubbing, No cyanosis, No edema, No Calf Tenderness, - - A large clustered ulceration persists on the patient's right anterior tibial surface. There are multiple small ulcerations. Approximately half of the ulcerations remain unchanged in appearance compared to their initial presentation. In this case, there is dry gangrenous eschar at the sites. Others, which have been unroofed, reveal a mostly pink ulcer base, with a moderate amount of bioburden. There is no obvious sign of infection or cellulitis. There is little or no erythema. Dimensions are documented elsewhere. Skin: No rashes Wound Measurements and Assessment WC - Nurse 1 - General Ulcer Measurement Start: 07/20/19 09:26 Freq: Status: Active Protocol: Activity Type Activity Date Activity User E-Sign Co-Sign Detail Recorded Client Recorded Date Recorded By Document 08/10/19 09:03 DL [id number] 08/10/19 09:10 DL 08/10/19 09:03 Wound Center Nurse 1 [Ulcer Assessment] 1-right dick cluster -Current Size (cm) - Length 12.1 -Current Size (cm) - Width 11 -Current Size (cm) - Depth 0.2 -Total Square Cm 133.1 -Photo Taken No -Epithelialization None Present -Exudate Amt Small -Exudate Type Serosanguineous -Wound Margin Distinct, Outline Attached -Granulation Amt Medium (34-66%) -Granulation Quality Red -Necrosis Amt Medium (34-66%) -Necrotic Tissue Type Eschar -Structure Exposed N/A -Texture (Genia-wound Skin Appearance) Scarring -Moisture (Genia-wound Skin Appearance No Abnormality ) -Color (Genia-wound Skin Appearance) Erythema,Rubor -Temperature (Genia-wound Skin No Abnormality Appearance) (Pt Warm) -Tenderness on Palpation (Genia-wound No Skin Appearance) -Ulcer Cleansing Wound Cleanser -Foul Odor after Cleansing No [Edema Assessment] -Right Calf (cm) 36 -Right Ankle (cm) 21.6 WC - Nurse 2 - General Ulcer CM Notes Start: 07/20/19 09:26 Freq: Status: Active Protocol: Activity Type Activity Date Activity User E-Sign Co-Sign Detail Recorded Client Recorded Date Recorded By Document 08/10/19 09:27 DV [id number] 08/10/19 09:34 DV 08/10/19 09:27 Wound Center Nurse 2 [Procedure/Treatment] 1-right dick cluster -Time 09:27 -Correct Patient Yes -Correct Side, Site, Position Yes -Correct Procedure Yes -Procedure Performed Yes -Type of Procedure Debridement -Clinical Debridement Subcutaneous -Post Debridement Size (cm) - Length 13.1 -Post Debridement Size (cm) - Width 12.2 -Post Debridement Size (cm) - Depth 0.4 -Total Square Cm 159.82 -Wound/Ulcer Outcome Failed Flap -Ulcer Cleansing Rinsed/ Irrigated with Saline -Foul Odor after Cleansing No -Bioengineered Tissue No -Bleeding Controlled with Pressure -Offloading No -Treatment Response Procedure Tolerated Well [See Physician Procedure note for Specifics] Pain Scale: 0-10 Numeric [Pain] -Is Patient Pain Free? Yes Musculoskeletal: No Muscle Wasting Neurological: Cranial nerves II-XII grossly intact, Neuro grossly intact Psych/Mental Status: Normal Affect, Appropriate, Alert and oriented to time, place, person, mood and affect Debridement Note Post-Debridement Measurements/Treatment WC - Nurse 2 - General Ulcer CM Notes Start: 07/20/19 09:26 Freq: Status: Active Protocol: Activity Type Activity Date Activity User E-Sign Co-Sign Detail Recorded Client Recorded Date Recorded By Document 07/20/19 10:09 DV [id number] 07/20/19 10:19 DV Document 07/27/19 10:42 DV [id number] 07/27/19 10:47 DV Document 08/10/19 09:27 DV [id number] 08/10/19 09:34 DV 07/20/19 07/27/19 08/10/19 10:09 10:42 09:27 Wound Center Nurse 2 1-right dick cluster -Time 10:10 10:43 09:27 -Correct Patient Yes Yes Yes -Correct Side, Site, Position Yes Yes Yes -Correct Procedure Yes No Yes -Procedure Performed Yes No Yes -Type of Procedure Debridement Debridement -Clinical Debridement Subcutaneous Subcutaneous -Post Debridement Size (cm) - Length 15.0 13.0 13.1 -Post Debridement Size (cm) - Width 12.0 9.5 12.2 -Post Debridement Size (cm) - Depth 0.4 0.3 0.4 -Total Square Cm 180.00 123.50 159.82 -Wound/Ulcer Outcome Not Healed Not Healed Failed Flap -Ulcer Cleansing Rinsed/ Rinsed/ Rinsed/ Irrigated with Irrigated with Irrigated with Saline Saline Saline -Foul Odor after Cleansing No No No -Bioengineered Tissue No No No -Bleeding Controlled with Pressure Pressure Pressure -Offloading No No No -Treatment Response Procedure Procedure Procedure Tolerated Well Tolerated Well Tolerated Well Pain Scale: 0-10 Numeric Is Patient Pain Free? Yes Yes Yes Laterality: Right - Anterior tibial surface Type of Debridement: Excisional debridement Anesthesia Used: 5% Lidocaine Gel Depth: Down to and including healthy tissue, in the subcutaneous layer Percentage of wound debrided: 100 Instrument Used: 5mm curette Tissue Removed: Bioburden and a large amount of frankly necrotic, dry, gangrenous material Severity: Fat Layer Exposed Amount of bleeding with debridement: Mild Bleeding Controlled with: Compression and gauze And extensive debridement was performed today. An effort was made to remove as much of the dry, adherent, gangrenous material from the clustered ulceration as possible. The dry gangrenous material is densely adherent. It has proven to be very difficult to remove mechanically. However, using sharp debridement by means of multiple sterile 5 mm curettes, a 15 scalpel blade, and a pair of forceps, the preponderance of the dry gangrene was removed from the clustered ulceration. The debris was carried down through all layers of the dermis and into the subcutaneous tissues. Bleeding was relatively minimal, and easily controlled with manual compression. The areas which have been unroofed, were then debrided sharply using a 5 mm curette. At this juncture, only approximately 10 to 20% of the ulcerated area remains which is covered by dry gangrenous eschar. The remaining portion of the clustered ulceration now demonstrates an ulcer base, which is in part pink and healthy, and partly with persisting bioburden and nonviable tissue. It is felt that the use of hydrogel has softened the tenacious dry eschar, allowing for removal by means of serial debridement. Assessment/Plan Active Problems (Last Reviewed 07/04/19 @ 15:[address] 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 It appears as though these are nontraumatic in nature, though the patient does admit to scratching approximately 1 month prior to the development of the ulcerations. The patient has multiple pre-existing medical problems, as documented above. Based upon the appearance of the ulcerations, the etiology has remained enigmatic. While insect bites have been a consideration, the patient denies any such insult. The ulcerations do not appear to be venous or arterial in origin. Necrobiosis lipoidica diabeticorum, pyoderma gangrenosum, vasculitis, and autoimmune causes have been considered. Biopsies have been obtained, though results have been of little help in differentiating the etiology of the patient's ulcerations. The patient's biopsy results indicated Skin with ulceration, necrosis as well as an extensive neutrophilic and eosinophilic dermal infiltrate. Special stains for acid-fast bacilli and fungi are negative for organisms; matched controls are appropriate. In addition, the biopsy results suggested The differential diagnosis includes Sweet syndrome, an arthropod assault or a drug eruption in the appropriate clinical setting. The microscopic features do not support pyoderma gangrenosum which is always a diagnosis by exclusion. No evidence of granulomatous dermatitis is identified. Laboratory results were generally unremarkable. White blood count and hemogram were normal. Platelet count was normal. Chemistries were also unremarkable. Patient appears to be of adequate nutritional status. Laboratory testing for interleukin?6 revealed a result of 2.0, which is normal. Interleukin?8 result was 41.5, which is also within normal range. Plan: At this juncture, the etiology of the patient's right lower extremity ulceration remains somewhat enigmatic. Its appearance is atypical of an arterial or venous lesion. Considerations as to potential etiologies include necrobiosis lipoidica diabeticorum, pyoderma gangrenosum, autoimmune phenomenon, necrotizing vasculitis, etc. We are seeking consultation with a biologics specialist to help in the assessment and management of the patient's ulcerations. He had been scheduled for an appointment with Dr. Omar Johnson at the [facility] on August 03, 2019. However, the Coronavirus pandemic has significantly pushed back in the opportunity for an outpatient appointment at the [facility]. The patient is to elevate his lower extremities as much as possible, and to use a mild form of compression by means of stockings, to prevent swelling in the lower extremities. The patient has been advised to optimize his nutritional intake. He has also been advised to optimize his glycemic control. The patient is known to be a smoker, and has been counseled as to the adverse consequences of the smoking habit, and smoking cessation has been recommended. Prednisone has been tapered and discontinued. He is to use collagen hydrogel topically on a daily basis to all portions of his right lower extremity ulceration. We continue to await the evaluation and recommendations from Dr. Johnson, and proceed accordingly. The necrotic areas of his extremity ulceration have largely now been removed by means of serial debridements. The patient will return in 2 weeks.
== END 2019-08-10 23:59 ==
LOC: WC 09:00
PROVIDERS: PCP Family Medicine; Referring Provider Surgery; Visit Provider Surgery
DX: E11.622 Type 2 diabetes mellitus with other skin ulcer (principal); L97.812 Non-pressure chronic ulcer of other part of right lower leg with fat layer exposed; E11.52 Type 2 diabetes mellitus with diabetic peripheral angiopathy with gangrene; I25.10 Atherosclerotic heart disease of native coronary artery without angina pectoris; I10 Essential (primary) hypertension; E78.6 Lipoprotein deficiency; E78.5 Hyperlipidemia, unspecified; F17.210 Nicotine dependence, cigarettes, uncomplicated; Z79.82 Long term (current) use of aspirin; Z95.5 Presence of coronary angioplasty implant and graft; Z79.899 Other long term (current) drug therapy; Z79.84 Long term (current) use of oral hypoglycemic drugs; Z79.52 Long term (current) use of systemic steroids
CPT/HCPCS: 11042; 11045; 99213; G0463

== ENCOUNTER 2019-09-07 09:00 | Outpatient (RCR) | payer OTHER, SELFPAY ==
[2019-08-11 00:48] VITALS: BP 142/87; PULSE 95; RESP 20; TEMP 36.7
[2019-08-24 09:01] VITALS: BP 129/80; PULSE 83; RESP 18; TEMP 36; BMI 27.8
--- NOTE | 2019-08-24 09:34 | HP.PCM_ITS ---
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: Chronic Current Visit: Yes Code(s): E11.622 - Type 2 diabetes mellitus with other skin ulcer; L97.812 - Non-pressure chronic ulcer of other part of right lower leg with fat layer exposed (3) Skin necrosis Status: Chronic Current Visit: Yes Code(s): I96 - Gangrene, not elsewhere classified (4) Ulcer of right leg Status: Chronic Current Visit: Yes Qualifiers: Non-pressure ulcer stage: with fat layer exposed Code(s): L97.919 - Non-pressure chronic ulcer of unspecified part of right lower leg with unspecified severity (5) Swelling of right lower extremity Status: Chronic Current Visit: Yes Code(s): M79.89 - Other specified soft tissue disorders (6) Coronary artery disease Status: Chronic Current Visit: No Code(s): I25.10 - Atherosclerotic heart disease of [place] coronary artery without angina pectoris (7) Stented coronary artery Status: Chronic Current Visit: No Code(s): Z95.5 - Presence of coronary angioplasty implant and graft (8) Diabetes mellitus Status: Chronic Current Visit: No Qualifiers: Diabetes mellitus type: type 2 Code(s): E11.9 - Type 2 diabetes mellitus without complications (9) Hypertension Status: Chronic Current Visit: No Qualifiers: Code(s): I10 - Essential (primary) hypertension (10) Umbilical hernia Status: Chronic Current Visit: No Code(s): K42.9 - Umbilical hernia without obstruction or gangrene (11) Overweight (BMI 25.0-29.9) Status: Chronic Current Visit: No (12) Hyperlipidemia Status: Chronic Current Visit: No Code(s): E78.5 - Hyperlipidemia, unspecified (13) History of MD (myocardial infarction) Status: Chronic Current Visit: No Code(s): I25.2 - Old myocardial infarction (14) Tobacco abuse Status: Chronic Current Visit: Yes Code(s): Z72.0 - Tobacco use (15) Tobacco abuse counseling Status: Chronic Current Visit: Yes Code(s): Z71.6 - Tobacco abuse counseling History of Present Illness Date of Service: 08/24/19 Chief Complaint: Clustered ulceration of the right anterior tibial surface History of Wound: This is a 68-year-old active and functional white male who presented with a clustered ulceration on the right anterior tibial surface. According to the patient, there had been no recent trauma. The ulceration had been present for approximately 1 month. He remembers itching in the area at the time of its initiation, to which he responded by scratching. This may have been the inciting event. He recalls no insect bites in the area. The patient relates intermittent swelling in his right lower extremity. He denies a history of deep vein thrombosis. He is active and ambulates liberally. He sleeps on a flat mattress at night. He has had no similar wounds or ulcerations in the past. When evaluated by the patient's primary care physician several days prior to presentation here, the patient was placed on oral Bactrim antibiotic, and collagen hydrogel was prescribed as a topical treatment measure. Past Medical History Past Medical History: Chronic Problems (Last Reviewed 07/04/19 @ 15:[address] 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 He is undergone bilateral cataract extraction. Lumbar disc surgery has been performed in the past. Allergies/Adverse Reactions: Allergies No Known Allergies Allergy (Verified 07/04/19 12:17) Home Medications: Ambulatory Orders Medication Instructions Recorded Amlodipine [Norvasc] 5 mg PO DAILY 02/23/15 Aspirin E.C. [Ecotrin] 81 mg PO DAILY@0800 02/23/15 Atorvastatin Calcium [Lipitor] 40 mg PO QHS 02/23/15 Metformin HCl 1,000 mg PO BID 02/23/15 Metoprolol(XL)Succ [Toprol Xl 25 mg PO DAILY 02/23/15 (Beta Paulie)] Pantoprazole Sodium [Protonix] 40 mg PO DAILY 08/16/16 cinnamon bark 500 mg capsule 2,000 mg PO BID 08/07/17 Dapagliflozin Propanediol [Farxiga] 10 mg PO DAILY 06/22/19 [place]-3 Fatty Acids/Fish Oil [Fish 2 ea PO QHS 07/04/19 Oil 1,000 mg Capsule] predniSONE tablet 80 mg PO DAILYCM #100 tab 07/06/19 - Family History Paternal Family History: Family History (Last Reviewed 07/04/19 @ 15:[address] Candelario Seals, DO) Father Diabetes Heart disease - - Patient's father age of 80 with a history of heart disease. Patient's mother at the age of 80, suffering from dementia. Smoking Status: Current every day smoker Tobacco Use: Cigarettes Review of Systems Constitutional: Denies: Chills, Fever, Weight Change Eyes: Denies: Pain, Vision Change HEENT: Denies: Difficulty Hearing, Difficulty Swallowing, Sinus Congestion Cardiovascular: Denies: Chest Pain, Palpitations Respiratory: Denies: Cough, Shortness of Breath Gastrointestinal: Denies: Diarrhea, Nausea, Vomiting Genitourinary: Denies: Dysuria, Hematuria Endocrine: Denies: Heat/ Cold Intolerance, Polydipsia, Polyuria Hematologic/ Lymphatic: Denies: Easy Bruising, Easy Bleeding - Physical Exam Vital Signs Temp Pulse Resp BP 96.8 F L 83 18 129/80 H 08/24/19 09:01 08/24/19 09:01 08/24/19 09:01 08/24/19 09:01 General: Alert, Oriented x3, Cooperative, No apparent distress, Well developed, Well nourished HEENT: Atraumatic, PERRLA, EOMI, Normocephalic Oral: Moist Mucosa Neck: No JVD Lungs: Normal air movement Abdomen: Non-Distended Extremities: No clubbing, No cyanosis, No edema, No Calf Tenderness, - - There is no significant swelling or edema in the patient's right lower extremity. The clustered ulceration persists, but with significant improvement. There are increasing areas of epithelialization. The amount of nonviable and necrotic tissue has diminished significantly. The base of the clustered ulcerations is generally pink and healthy in appearance, with a mild to moderate amount of bioburden. There is no sign of infection or cellulitis. Dimensions are documented elsewhere. Skin: No rashes Wound Measurements and Assessment - Nurse 1 - General Ulcer Measurement Start: 08/24/19 09:01 Freq: Status: Active Protocol: Activity Type Activity Date Activity User E-Sign Co-Sign Detail Recorded Client Recorded Date Recorded By Document 08/24/19 09:01 PL [id number] 08/24/19 09:07 PL 08/24/19 09:01 Wound Center Nurse 1 [Ulcer Assessment] 1-right dick cluster -Combined with other wound No -Current Size (cm) - Length 11.5 -Current Size (cm) - Width 11.5 -Current Size (cm) - Depth 0.2 -Total Square Cm 132.25 -Photo Taken No -Epithelialization Medium 34-66% -Tunneling No -Undermining/Tunneling No -Circular Undermining No -Exudate Amt Small -Exudate Type Serosanguineous -Granulation Amt Small (1-33%) -Granulation Quality [place] -Slough/Fibrin Yes -Necrosis Amt Large (67-100%) -Necrotic Tissue Type Eschar -Texture (Genia-wound Skin Appearance) No Abnormality -Moisture (Genia-wound Skin Appearance No Abnormality ) -Color (Genia-wound Skin Appearance) No Abnormality -Temperature (Genia-wound Skin No Abnormality Appearance) (Pt Warm) -Ulcer Cleansing Rinsed/ Irrigated with Saline -Foul Odor after Cleansing No -Anesthetic Used 4% Lidocaine Solution WC - Nurse 2 - General Ulcer CM Notes Start: 08/24/19 09:01 Freq: Status: Active Protocol: Activity Type Activity Date Activity User E-Sign Co-Sign Detail Recorded Client Recorded Date Recorded By Document 08/24/19 09:25 DV [id number] 08/24/19 09:27 DV 08/24/19 09:25 Wound Center Nurse 2 [Procedure/Treatment] -Time 09:15 -Correct Patient Yes -Correct Side, Site, Position Yes -Correct Procedure Yes -Procedure Performed Yes -Type of Procedure Debridement -Clinical Debridement Subcutaneous -Post Debridement Size (cm) - Length 13.2 -Post Debridement Size (cm) - Width 10.5 -Post Debridement Size (cm) - Depth 0.3 -Total Square Cm 138.60 -Wound/Ulcer Outcome Not Healed -Ulcer Cleansing Rinsed/ Irrigated with Saline -Foul Odor after Cleansing No -Bioengineered Tissue No -Bleeding Controlled with Pressure -Offloading No -Treatment Response Procedure Tolerated Well [See Physician Procedure note for Specifics] Pain Scale: 0-10 Numeric [Pain] -Is Patient Pain Free? Yes Musculoskeletal: No Muscle Wasting Neurological: Cranial nerves II-XII grossly intact, Neuro grossly intact Psych/Mental Status: Normal Affect, Appropriate, Alert and oriented to time, place, person, mood and affect Debridement Note Post-Debridement Measurements/Treatment WC - Nurse 2 - General Ulcer CM Notes Start: 08/24/19 09:01 Freq: Status: Active Protocol: Activity Type Activity Date Activity User E-Sign Co-Sign Detail Recorded Client Recorded Date Recorded By Document 08/24/19 09:25 DV [id number] 08/24/19 09:27 DV 08/24/19 09:25 Wound Center Nurse 2 1-right dick cluster -Time 09:15 -Correct Patient Yes -Correct Side, Site, Position Yes -Correct Procedure Yes -Procedure Performed Yes -Type of Procedure Debridement -Clinical Debridement Subcutaneous -Post Debridement Size (cm) - Length 13.2 -Post Debridement Size (cm) - Width 10.5 -Post Debridement Size (cm) - Depth 0.3 -Total Square Cm 138.60 -Wound/Ulcer Outcome Not Healed -Ulcer Cleansing Rinsed/ Irrigated with Saline -Foul Odor after Cleansing No -Bioengineered Tissue No -Bleeding Controlled with Pressure -Offloading No -Treatment Response Procedure Tolerated Well Pain Scale: 0-10 Numeric Is Patient Pain Free? Yes Laterality: Right - Anterior tibial surface, clustered ulcerations Type of Debridement: Excisional debridement Anesthesia Used: 5% Lidocaine Gel Depth: Down to and including healthy tissue, in the subcutaneous layer Percentage of wound debrided: 100 Instrument Used: 5mm curette Tissue Removed: Bioburden and nonviable tissue Severity: Fat Layer Exposed Amount of bleeding with debridement: Mild Bleeding Controlled with: Compression and gauze Patient tolerated procedure well Assessment/Plan Active Problems (Last Reviewed 07/04/19 @ 15:[address] 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 It appears as though these are nontraumatic in nature, though the patient does admit to scratching approximately 1 month prior to the development of the ulcerations. The patient has multiple pre-existing medical problems, as documented above. Based upon the appearance of the ulcerations, the etiology has remained enigmatic. While insect bites have been a consideration, the patient denies any such insult. The ulcerations do not appear to be venous or arterial in origin. Necrobiosis lipoidica diabeticorum, pyoderma gangrenosum, vasculitis, and autoimmune causes have been considered. Biopsies have been obtained, though results have been of little help in differentiating the etiology of the patient's ulcerations. The patient's biopsy results indicated Skin with ulceration, necrosis as well as an extensive neutrophilic and eosinophilic dermal infiltrate. Special stains for acid-fast bacilli and fungi are negative for organisms; matched controls are appropriate. In addition, the biopsy results suggested The differential diagnosis includes Sweet syndrome, an arthropod assault or a drug eruption in the appropriate clinical setting. The microscopic features do not support pyoderma gangrenosum which is always a diagnosis by exclusion. No evidence of granulomatous dermatitis is identified. Laboratory results were generally unremarkable. White blood count and hemogram were normal. Platelet count was normal. Chemistries were also unremarkable. Patient appears to be of adequate nutritional status. Laboratory testing for interleukin?6 revealed a result of 2.0, which is normal. Interleukin?8 result was 41.5, which is also within normal range. Plan: At this juncture, the etiology of the patient's right lower extremity ulceration remains somewhat enigmatic. Its appearance is atypical of an arterial or venous lesion. Considerations as to potential etiologies include necrobiosis lipoidica diabeticorum, pyoderma gangrenosum, autoimmune phenomenon, necrotizing vasculitis, etc. We were seeking consultation with a computer specialist to help in the assessment and management of the patient's ulcerations. He had been scheduled for an appointment with Dr. Omar Johnson at the [facility] on August 03, 2019. However, the Coronavirus pandemic has postponed the opportunity for an outpatient appointment at the [facility]. Nonetheless, with current conservative treatment measures, the patient has shown significant improvement in recent weeks. The patient is to elevate his lower extremities as much as possible, and to use a mild form of compression by means of stockings, to prevent swelling in the lower extremities. The patient has been advised to optimize his nutritional intake. He has also been advised to optimize his glycemic control. The patient is known to be a smoker, and has been counseled as to the adverse consequences of the smoking habit, and smoking cessation has been recommended. Prednisone has been tapered and discontinued. He is to use collagen hydrogel topically on a daily basis to all portions of his right lower extremity ulceration. The necrotic areas of his extremity ulceration have largely now been removed by means of serial debridements. The patient will return in 2 weeks. Tobacco cessation counseling has been provided. Patient has been strongly encouraged to discontinue his smoking habit.
[2019-09-07 09:06] VITALS: BP 124/70; PULSE 61; RESP 18; TEMP 36.3; BMI 27.8
--- NOTE | 2019-09-07 10:20 | HP.PCM_ITS ---
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: Chronic Current Visit: Yes Code(s): E11.622 - Type 2 diabetes mellitus with other skin ulcer; L97.812 - Non-pressure chronic ulcer of other part of right lower leg with fat layer exposed (3) Skin necrosis Status: Chronic Current Visit: Yes Code(s): I96 - Gangrene, not elsewhere classified (4) Ulcer of right leg Status: Chronic Current Visit: Yes Qualifiers: Non-pressure ulcer stage: with fat layer exposed Code(s): L97.919 - Non-pressure chronic ulcer of unspecified part of right lower leg with unspecified severity (5) Swelling of right lower extremity Status: Chronic Current Visit: Yes Code(s): M79.89 - Other specified soft tissue disorders (6) Coronary artery disease Status: Chronic Current Visit: No Code(s): I25.10 - Atherosclerotic heart disease of [place] coronary artery without angina pectoris (7) Stented coronary artery Status: Chronic Current Visit: No Code(s): Z95.5 - Presence of coronary angioplasty implant and graft (8) Diabetes mellitus Status: Chronic Current Visit: No Qualifiers: Diabetes mellitus type: type 2 Code(s): E11.9 - Type 2 diabetes mellitus without complications (9) Hypertension Status: Chronic Current Visit: No Qualifiers: Code(s): I10 - Essential (primary) hypertension (10) Umbilical hernia Status: Chronic Current Visit: No Code(s): K42.9 - Umbilical hernia without obstruction or gangrene (11) Overweight (BMI 25.0-29.9) Status: Chronic Current Visit: No (12) Hyperlipidemia Status: Chronic Current Visit: No Code(s): E78.5 - Hyperlipidemia, unspecified (13) History of VT (myocardial infarction) Status: Chronic Current Visit: No Code(s): I25.2 - Old myocardial infarction (14) Tobacco abuse Status: Chronic Current Visit: Yes Code(s): Z72.0 - Tobacco use (15) Tobacco abuse counseling Status: Chronic Current Visit: Yes Code(s): Z71.6 - Tobacco abuse counseling History of Present Illness Date of Service: 09/07/19 Chief Complaint: Clustered ulceration of the right anterior tibial surface History of Wound: This is a 68-year-old active and functional white male who presented with a clustered ulceration on the right anterior tibial surface. According to the patient, there had been no recent trauma. The ulceration had been present for approximately 1 month. He remembers itching in the area at the time of its initiation, to which he responded by scratching. This may have been the inciting event. He recalls no insect bites in the area. The patient relates intermittent swelling in his right lower extremity. He denies a history of deep vein thrombosis. He is active and ambulates liberally. He sleeps on a flat mattress at night. He has had no similar wounds or ulcerations in the past. When evaluated by the patient's primary care physician several days prior to presentation here, the patient was placed on oral Bactrim antibiotic, and collagen hydrogel was prescribed as a topical treatment measure. Past Medical History Past Medical History: Chronic Problems (Last Reviewed 07/04/19 @ 15:[address] 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 He is undergone bilateral cataract extraction. Lumbar disc surgery has been performed in the past. Allergies/Adverse Reactions: Allergies No Known Allergies Allergy (Verified 07/04/19 12:17) Home Medications: Ambulatory Orders Medication Instructions Recorded Amlodipine [Norvasc] 5 mg PO DAILY 02/23/15 Aspirin E.C. [Ecotrin] 81 mg PO DAILY@0800 02/23/15 Atorvastatin Calcium [Lipitor] 40 mg PO QHS 02/23/15 Metformin HCl 1,000 mg PO BID 02/23/15 Metoprolol(XL)Succ [Toprol Xl 25 mg PO DAILY 02/23/15 (Beta Paulie)] Pantoprazole Sodium [Protonix] 40 mg PO DAILY 08/16/16 cinnamon bark 500 mg capsule 2,000 mg PO BID 08/07/17 Dapagliflozin Propanediol [Farxiga] 10 mg PO DAILY 06/22/19 [place]-3 Fatty Acids/Fish Oil [Fish 2 ea PO QHS 07/04/19 Oil 1,000 mg Capsule] predniSONE tablet 80 mg PO DAILYCM #100 tab 07/06/19 - Family History Paternal Family History: Family History (Last Reviewed 07/04/19 @ 15:[address] Candelario Seals, DO) Father Diabetes Heart disease - - Patient's father age of 80 with a history of heart disease. Patient's mother at the age of 80, suffering from dementia. Smoking Status: Current every day smoker Tobacco Use: Cigarettes Review of Systems Constitutional: Denies: Chills, Fever, Weight Change Eyes: Denies: Pain, Vision Change HEENT: Denies: Difficulty Hearing, Difficulty Swallowing, Sinus Congestion Cardiovascular: Denies: Chest Pain, Palpitations Respiratory: Denies: Cough, Shortness of Breath Gastrointestinal: Denies: Diarrhea, Nausea, Vomiting Genitourinary: Denies: Dysuria, Hematuria Endocrine: Denies: Heat/ Cold Intolerance, Polydipsia, Polyuria Hematologic/ Lymphatic: Denies: Easy Bruising, Easy Bleeding - Physical Exam Vital Signs Temp Pulse Resp BP 97.3 F L 61 18 124/70 H 09/07/19 09:06 09/07/19 09:06 09/07/19 09:06 09/07/19 09:06 General: Alert, Oriented x3, Cooperative, No apparent distress, Well developed, Well nourished HEENT: Atraumatic, PERRLA, EOMI, Normocephalic Oral: Moist Mucosa Neck: No JVD Lungs: Normal air movement Abdomen: Non-Distended Extremities: No clubbing, No cyanosis, No edema, No Calf Tenderness, - - There is no significant swelling or edema in the patient's right lower extremity. The clustered ulceration on the right anterior tibial surface is markedly improved. There are now multiple areas of epithelialization, and many of the clustered ulcerations have now completely healed. Only just a few small ulcerations persist, with a small amount of bioburden present. There is no sign of infection or cellulitis. Dimensions are documented elsewhere. Overall, there has been significant improvement. Skin: No rashes Wound Measurements and Assessment - Nurse 1 - General Ulcer Measurement Start: 08/24/19 09:01 Freq: Status: Active Protocol: Activity Type Activity Date Activity User E-Sign Co-Sign Detail Recorded Client Recorded Date Recorded By Document 09/07/19 09:06 PL [id number] 09/07/19 09:12 PL 09/07/19 09:06 Wound Center Nurse 1 [Ulcer Assessment] 1-right dick cluster -Combined with other wound No -Current Size (cm) - Length 13 -Current Size (cm) - Width 10 -Current Size (cm) - Depth 0.3 -Total Square Cm 130 -Photo Taken No -Epithelialization Medium 34-66% -Tunneling No -Undermining/Tunneling No -Circular Undermining No -Exudate Amt Small -Exudate Type Serosanguineous -Granulation Amt Medium (34-66%) -Granulation Quality [place] -Slough/Fibrin Yes -Necrosis Amt Medium (34-66%) -Necrotic Tissue Type Adherent Slough -Texture (Genia-wound Skin Appearance) No Abnormality -Moisture (Genia-wound Skin Appearance No Abnormality ) -Color (Genia-wound Skin Appearance) No Abnormality -Temperature (Genia-wound Skin No Abnormality Appearance) (Pt Warm) -Tenderness on Palpation (Genia-wound No Skin Appearance) -Ulcer Cleansing Rinsed/ Irrigated with Saline -Anesthetic Used 4% Lidocaine Solution - Nurse 2 - General Ulcer CM Notes Start: 08/24/19 09:01 Freq: Status: Active Protocol: Activity Type Activity Date Activity User E-Sign Co-Sign Detail Recorded Client Recorded Date Recorded By Document 09/07/19 09:37 DV [id number] 09/07/19 09:40 DV 09/07/19 09:37 Wound Center Nurse 2 [Procedure/Treatment] -Time 09:38 -Correct Patient Yes -Correct Side, Site, Position Yes -Correct Procedure Yes -Procedure Performed Yes -Type of Procedure Debridement -Clinical Debridement Subcutaneous -Post Debridement Size (cm) - Length 12 -Post Debridement Size (cm) - Width 10.2 -Post Debridement Size (cm) - Depth 0.3 -Total Square Cm 122.4 -Wound/Ulcer Outcome Healed- Epithelialized -Ulcer Cleansing Rinsed/ Irrigated with Saline -Foul Odor after Cleansing No -Bioengineered Tissue No -Bleeding Controlled with Pressure -Treatment Response Procedure Tolerated Well [See Physician Procedure note for Specifics] Pain Scale: 0-10 Numeric [Pain] -Is Patient Pain Free? Yes Musculoskeletal: No Muscle Wasting Neurological: Cranial nerves II-XII grossly intact, Neuro grossly intact Psych/Mental Status: Normal Affect, Appropriate, Alert and oriented to time, place, person, mood and affect Debridement Note Post-Debridement Measurements/Treatment WC - Nurse 2 - General Ulcer CM Notes Start: 08/24/19 09:01 Freq: Status: Active Protocol: Activity Type Activity Date Activity User E-Sign Co-Sign Detail Recorded Client Recorded Date Recorded By Document 08/24/19 09:25 DV [id number] 08/24/19 09:27 DV Document 09/07/19 09:37 DV [id number] 09/07/19 09:40 DV 08/24/19 09/07/19 09:25 09:37 Wound Center Nurse 2 1-right dick cluster -Time 09:15 09:38 -Correct Patient Yes Yes -Correct Side, Site, Position Yes Yes -Correct Procedure Yes Yes -Procedure Performed Yes Yes -Type of Procedure Debridement Debridement -Clinical Debridement Subcutaneous Subcutaneous -Post Debridement Size (cm) - Length 13.2 12 -Post Debridement Size (cm) - Width 10.5 10.2 -Post Debridement Size (cm) - Depth 0.3 0.3 -Total Square Cm 138.60 122.4 -Wound/Ulcer Outcome Not Healed Healed- Epithelialized -Ulcer Cleansing Rinsed/ Rinsed/ Irrigated with Irrigated with Saline Saline -Foul Odor after Cleansing No No -Bioengineered Tissue No No -Bleeding Controlled with Pressure Pressure -Offloading No -Treatment Response Procedure Procedure Tolerated Well Tolerated Well Pain Scale: 0-10 Numeric Is Patient Pain Free? Yes Yes Wound debrided: Right anterior tibial surface, clustered ulceration Laterality: Right - Anterior tibial surface Type of Debridement: Excisional debridement Anesthesia Used: 5% Lidocaine Gel Depth: Down to and including healthy tissue, in the subcutaneous layer Percentage of wound debrided: 100 Instrument Used: 5mm curette Tissue Removed: Bioburden Severity: Fat Layer Exposed Amount of bleeding with debridement: Mild Bleeding Controlled with: Compression and gauze Patient tolerated procedure well Assessment/Plan Active Problems (Last Reviewed 07/04/19 @ 15:[address] 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 It appears as though these are nontraumatic in nature, though the patient does admit to scratching approximately 1 month prior to the development of the ulcerations. The patient has multiple pre-existing medical problems, as documented above. Based upon the appearance of the ulcerations, the etiology has remained enigmatic. While insect bites have been a consideration, the patient denies any such insult. The ulcerations do not appear to be venous or arterial in origin. Necrobiosis lipoidica diabeticorum, pyoderma gangrenosum, vasculitis, and autoimmune causes have been considered. Biopsies have been obta ined, though results have been of little help in differentiating the etiology of the patient's ulcerations. The patient's biopsy results indicated Skin with ulceration, necrosis as well as an extensive neutrophilic and eosinophilic dermal infiltrate. Special stains for acid-fast bacilli and fungi are negative for organisms; matched controls are appropriate. In addition, the biopsy results suggested The differential diagnosis includes Sweet syndrome, an arthropod assault or a drug eruption in the appropriate clinical setting. The microscopic features do not support pyoderma gangrenosum which is always a diagnosis by exclusion. No evidence of granulomatous dermatitis is identified. Laboratory results were generally unremarkable. White blood count and hemogram were normal. Platelet count was normal. Chemistries were also unremarkable. Patient appears to be of adequate nutritional status. Laboratory testing for interleukin?6 revealed a result of 2.0, which is normal. Interle ukin?8 result was 41.5, which is also within normal range. Plan: At this juncture, the etiology of the patient's right lower extremity ulceration remains somewhat enigmatic. Its appearance is atypical of an arterial or venous lesion. Considerations as to potential etiologies include necrobiosis lipoidica diabeticorum, pyoderma gangrenosum, autoimmune phenomenon, necrotizing vasculitis, etc. Nonetheless, despite uncertainty as to the etiology and underlying cause of the patient's right lower extremity ulcerations, the patient has shown significant improvement over the last several months. Current conservative treatment measures appear to be of benefit, resulting in significant improvement. We were seeking consultation with a medical review specialist to help in the assessment and management of the patient's ulcerations. He had been scheduled for an appointment with Dr. Omar Johnson at the [facility] on August 03, 2019. However, the Coronavirus pandemic has postponed the opportunity for an outpatient appointment at the [facility]. Nonetheless, with current conservative treatment measures, the patient has shown significant improvement in recent weeks. The patient is to elevate his lower extremities as much as possible, and to use a mild form of compression by means of stockings, to prevent swelling in the lower extremities. The patient has been advised to optimize his nutritional intake. He has also been advised to optimize his glycemic control. The patient is known to be a smoker, and has been counseled as to the adverse consequences of the smoking habit, and smoking cessation has been recommended. Prednisone has been tapered and discontinued. He is to continue using collagen hydrogel topically on a daily basis to all remaining open portions of his right lower extremity ulceration. The necrotic areas of his extremity ulceration have largely now been removed by means of serial debridements. The patient will return in 3 weeks, now appearing to be doing well and progressing in a satisfactory manner. Tobacco cessation counseling has been provided. Patient has been strongly encouraged to discontinue his smoking habit.
== END 2019-09-09 23:59 ==
LOC: WC 09:00
PROVIDERS: PCP Family Medicine; Referring Provider Surgery; Visit Provider Surgery
DX: E11.622 Type 2 diabetes mellitus with other skin ulcer (principal); L97.812 Non-pressure chronic ulcer of other part of right lower leg with fat layer exposed; E11.52 Type 2 diabetes mellitus with diabetic peripheral angiopathy with gangrene; M79.89 Other specified soft tissue disorders; I25.10 Atherosclerotic heart disease of native coronary artery without angina pectoris; I10 Essential (primary) hypertension; E78.5 Hyperlipidemia, unspecified; L88 Pyoderma gangrenosum; F17.210 Nicotine dependence, cigarettes, uncomplicated; Z79.84 Long term (current) use of oral hypoglycemic drugs; Z79.82 Long term (current) use of aspirin; Z79.899 Other long term (current) drug therapy; I25.2 Old myocardial infarction; Z95.5 Presence of coronary angioplasty implant and graft
CPT/HCPCS: 11042; 11045

== ENCOUNTER 2019-09-28 09:01 | Outpatient (RCR) | payer OTHER, SELFPAY ==
[2019-09-10 00:16] VITALS: BP 124/70; PULSE 61; RESP 18; TEMP 36.3
[2019-09-28 09:01] VITALS: BP 117/68; PULSE 87; RESP 16; TEMP 36.4; BMI 27.8
--- NOTE | 2019-09-28 11:44 | HP.PCM_ITS ---
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: Chronic Current Visit: Yes Code(s): E11.622 - Type 2 diabetes mellitus with other skin ulcer; L97.812 - Non-pressure chronic ulcer of other part of right lower leg with fat layer exposed (3) Skin necrosis Status: Chronic Current Visit: Yes Code(s): I96 - Gangrene, not elsewhere classified (4) Pyoderma gangrenosum Status: Chronic Current Visit: No Code(s): L88 - Pyoderma gangrenosum (5) Ulcer of right leg Status: Chronic Current Visit: Yes Qualifiers: Non-pressure ulcer stage: with fat layer exposed Code(s): L97.919 - Non-pressure chronic ulcer of unspecified part of right lower leg with unspecified severity (6) Swelling of right lower extremity Status: Chronic Current Visit: Yes Code(s): M79.89 - Other specified soft tissue disorders (7) Coronary artery disease Status: Chronic Current Visit: No Code(s): I25.10 - Atherosclerotic heart disease of [place] coronary artery without angina pectoris (8) Stented coronary artery Status: Chronic Current Visit: No Code(s): Z95.5 - Presence of coronary angioplasty implant and graft (9) Diabetes mellitus Status: Chronic Current Visit: No Qualifiers: Diabetes mellitus type: type 2 Code(s): E11.9 - Type 2 diabetes mellitus without complications (10) Hypertension Status: Chronic Current Visit: No Qualifiers: Code(s): I10 - Essential (primary) hypertension (11) Umbilical hernia Status: Chronic Current Visit: No Code(s): K42.9 - Umbilical hernia without obstruction or gangrene (12) Overweight (BMI 25.0-29.9) Status: Chronic Current Visit: No (13) Hyperlipidemia Status: Chronic Current Visit: No Code(s): E78.5 - Hyperlipidemia, unspecified (14) History of NV (myocardial infarction) Status: Chronic Current Visit: No Code(s): I25.2 - Old myocardial infarction (15) Tobacco abuse Status: Chronic Current Visit: Yes Code(s): Z72.0 - Tobacco use (16) Tobacco abuse counseling Status: Chronic Current Visit: Yes Code(s): Z71.6 - Tobacco abuse counseling History of Present Illness Date of Service: 09/28/19 Chief Complaint: Clustered ulceration of the right anterior tibial surface History of Wound: This is a 68-year-old active and functional white male who presented with a clustered ulceration on the right anterior tibial surface. According to the patient, there had been no recent trauma. The ulceration had been present for approximately 1 month. He remembers itching in the area at the time of its initiation, to which he responded by scratching. This may have been the inciting event. He recalls no insect bites in the area. The patient relates intermittent swelling in his right lower extremity. He denies a history of deep vein thrombosis. He is active and ambulates liberally. He sleeps on a flat mattress at night. He has had no similar wounds or ulcerations in the past. When evaluated by the patient's primary care physician several days prior to presentation here, the patient was placed on oral Bactrim antibiotic, and collagen hydrogel was prescribed as a topical treatment measure. Past Medical History Past Medical History: Chronic Problems (Last Reviewed 07/04/19 @ 15:[address] 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 He is undergone bilateral cataract extraction. Lumbar disc surgery has been performed in the past. Allergies/Adverse Reactions: Allergies No Known Allergies Allergy (Verified 07/04/19 12:17) Home Medications: Ambulatory Orders Medication Instructions Recorded Amlodipine [Norvasc] 5 mg PO DAILY 02/23/15 Aspirin E.C. [Ecotrin] 81 mg PO DAILY@0800 02/23/15 Atorvastatin Calcium [Lipitor] 40 mg PO QHS 02/23/15 Metformin HCl 1,000 mg PO BID 02/23/15 Metoprolol(XL)Succ [Toprol Xl 25 mg PO DAILY 02/23/15 (Beta Paulie)] Pantoprazole Sodium [Protonix] 40 mg PO DAILY 08/16/16 cinnamon bark 500 mg capsule 2,000 mg PO BID 08/07/17 Dapagliflozin Propanediol [Farxiga] 10 mg PO DAILY 06/22/19 [place]-3 Fatty Acids/Fish Oil [Fish 2 ea PO QHS 07/04/19 Oil 1,000 mg Capsule] predniSONE tablet 80 mg PO DAILYCM #100 tab 07/06/19 - Family History Paternal Family History: Family History (Last Reviewed 07/04/19 @ 15:[address] Candelario Seals, ) Father Diabetes Heart disease - - Patient's father age of 80 with a history of heart disease. Patient's mother at the age of 80, suffering from dementia. Smoking Status: Current every day smoker Tobacco Use: Cigarettes Review of Systems Constitutional: Denies: Chills, Fever, Weight Change Eyes: Denies: Pain, Vision Change HEENT: Denies: Difficulty Hearing, Difficulty Swallowing, Sinus Congestion Cardiovascular: Denies: Chest Pain, Palpitations Respiratory: Denies: Cough, Shortness of Breath Gastrointestinal: Denies: Diarrhea, Nausea, Vomiting Genitourinary: Denies: Dysuria, Hematuria Endocrine: Denies: Heat/ Cold Intolerance, Polydipsia, Polyuria Hematologic/ Lymphatic: Denies: Easy Bruising, Easy Bleeding - Physical Exam Vital Signs Temp Pulse Resp BP 97.6 F L 87 16 117/68 09/28/19 09:01 09/28/19 09:01 09/28/19 09:01 09/28/19 09:01 General: Alert, Oriented x3, Cooperative, No apparent distress, Well developed, Well nourished HEENT: Atraumatic, PERRLA, EOMI, Normocephalic Oral: Moist Mucosa Neck: No JVD Lungs: Normal air movement Abdomen: Non-Distended Extremities: No clubbing, No cyanosis, No edema, No Calf Tenderness, - - The clustered ulcerations on the right anterior tibial surface are markedly improved. Most are completely healed and epithelialized. Only several persists, and are quite small and very superficial. There is no sign of infection or cellulitis. Dimensions are documented elsewhere. There is a small amount of bioburden. Those clustered ulcerations that have healed, are largely hyperpigmented and slightly raised. Wound Measurements and Assessment - Nurse 1 - General Ulcer Measurement Start: 09/28/19 09:00 Freq: Status: Active Protocol: Activity Type Activity Date Activity User E-Sign Co-Sign Detail Recorded Client Recorded Date Recorded By Document 09/28/19 09:01 [id number] 09/28/19 09:08 09/28/19 09:01 Wound Center Nurse 1 [Ulcer Assessment] 1-right dick cluster -Combined with other wound No -Current Size (cm) - Length 0.7 -Current Size (cm) - Width 1.3 -Current Size (cm) - Depth 0.1 -Total Square Cm 0.91 -Photo Taken No -Epithelialization Medium 34-66% -Tunneling No -Undermining/Tunneling No -Circular Undermining No -Exudate Amt None Present -Wound Margin Flat & Intact -Granulation Amt Small (1-33%) -Granulation Quality Red -Slough/Fibrin Yes -Necrosis Amt Medium (34-66%) -Necrotic Tissue Type Adherent Slough -Structure Exposed N/A -Texture (Genia-wound Skin Appearance) Assessed, Localized Edema ,Scarring -Moisture (Genia-wound Skin Appearance Assessed,Dry/ ) Scaly -Color (Genia-wound Skin Appearance) Assessed -Temperature (Genia-wound Skin No Abnormality Appearance) (Pt Warm) -Tenderness on Palpation (Genia-wound No Skin Appearance) -Ulcer Cleansing Rinsed/ Irrigated with Saline -Foul Odor after Cleansing No -Anesthetic Used 4% Lidocaine Solution [Edema Assessment] -Lower Limb Edema Present Yes -Right Calf (cm) 38 -Right Ankle (cm) 22 - Nurse 2 - General Ulcer CM Notes Start: 09/28/19 09:00 Freq: Status: Active Protocol: Activity Type Activity Date Activity User E-Sign Co-Sign Detail Recorded Client Recorded Date Recorded By Document 09/28/19 09:16 [email or web address] 09/28/19 09:17 09/28/19 09:16 Wound Center Nurse 2 [Procedure/Treatment] 1-right dick cluster -Time 09:16 -Correct Patient Yes -Correct Side, Site, Position Yes -Correct Procedure Yes -Procedure Performed Yes -Type of Procedure Debridement -Clinical Debridement Subcutaneous -Post Debridement Size (cm) - Length 1.0 -Post Debridement Size (cm) - Width 1.5 -Post Debridement Size (cm) - Depth 0.1 -Total Square Cm 1.50 -Wound/Ulcer Outcome Not Healed -Ulcer Cleansing Rinsed/ Irrigated with Saline -Foul Odor after Cleansing No -Bioengineered Tissue No -Bleeding Controlled with Pressure -Offloading No -Treatment Response Procedure Tolerated Well [See Physician Procedure note for Specifics] Pain Scale: 0-10 Numeric [Pain] -Is Patient Pain Free? Yes Musculoskeletal: No Muscle Wasting Neurological: Cranial nerves II-XII grossly intact, Neuro grossly intact Psych/Mental Status: Normal Affect, Appropriate, Alert and oriented to time, place, person, mood and affect Debridement Note Post-Debridement Measurements/Treatment WC - Nurse 2 - General Ulcer CM Notes Start: 09/28/19 09:00 Freq: Status: Active Protocol: Activity Type Activity Date Activity User E-Sign Co-Sign Detail Recorded Client Recorded Date Recorded By Document 09/28/19 09:16 ANTONIO [id number] 09/28/19 09:17 ANTONIO 09/28/19 09:16 Wound Center Nurse 2 1-right dick cluster -Time 09:16 -Correct Patient Yes -Correct Side, Site, Position Yes -Correct Procedure Yes -Procedure Performed Yes -Type of Procedure Debridement -Clinical Debridement Subcutaneous -Post Debridement Size (cm) - Length 1.0 -Post Debridement Size (cm) - Width 1.5 -Post Debridement Size (cm) - Depth 0.1 -Total Square Cm 1.50 -Wound/Ulcer Outcome Not Healed -Ulcer Cleansing Rinsed/ Irrigated with Saline -Foul Odor after Cleansing No -Bioengineered Tissue No -Bleeding Controlled with Pressure -Offloading No -Treatment Response Procedure Tolerated Well Pain Scale: 0-10 Numeric Is Patient Pain Free? Yes Laterality: Right - Anterior tibial surface Type of Debridement: Excisional debridement Anesthesia Used: 5% Lidocaine Gel Depth: Down to and including healthy tissue, in the subcutaneous layer Percentage of wound debrided: 100 Instrument Used: 3mm curette Tissue Removed: Bioburden Severity: Fat Layer Exposed Amount of bleeding with debridement: Mild Bleeding Controlled with: Compression and gauze Patient tolerated procedure well Assessment/Plan Active Problems (Last Reviewed 07/04/19 @ 15:[address] 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 It appears as though these are nontraumatic in nature, though the patient does admit to scratching approximately 1 month prior to the development of the ulcerations. The patient has multiple pre-existing medical problems, as documented above. Based upon the appearance of the ulcerations, the etiology has remained enigmatic. While insect bites have been a consideration, the patient denies any such insult. The ulcerations do not appear to be venous or arterial in origin. Necrobiosis lipoidica diabeticorum, pyoderma gangrenosum, vasculitis, and autoimmune causes have been considered. Biopsies have been obtained, though results have been of little help in differentiating the etiology of the patient's ulcerations. The patient's biopsy results indicated Skin with ulceration, necrosis as well as an extensive neutrophilic and eosinophilic dermal infiltrate. Special stains for acid-fast bacilli and fungi are negative for organisms; matched controls are appropriate. In addition, the biopsy results suggested The differential diagnosis includes Sweet syndrome, an arthropod assault or a drug eruption in the appropriate clinical setting. The microscopic features do not support pyoderma gangrenosum which is always a diagnosis by exclusion. No evidence of granulomatous dermatitis is identified. Laboratory results were generally unremarkable. White blood count and hemogram were normal. Platelet count was normal. Chemistries were also unremarkable. Patient appears to be of adequate nutritional status. Laboratory testing for interleukin?6 revealed a result of 2.0, which is normal. Interleukin?8 result was 41.5, which is also within normal range. Plan: At this juncture, the etiology of the patient's right lower extremity ulceration remains somewhat enigmatic. Its appearance is atypical of an arterial or venous lesion. Considerations as to potential etiologies include necrobiosis lipoidica diabeticorum, pyoderma gangrenosum, autoimmune phenomenon, necrotizing vasculitis, etc. Nonetheless, despite uncertainty as to the etiology and underlying cause of the patient's right lower extremity ulcerations, the patient has shown significant improvement over the last several months. Current conservative treatment measures appear to be of benefit, resulting in significant improvement. We had been seeking consultation with a refractory specialist to help in the assessment and management of the patient's ulcerations. The patient had been scheduled for an appointment with Dr. Omar Johnson at the [facility] on August 03, 2019. However, the Coronavirus pandemic has postponed the opportunity for an outpatient appointment at the [facility]. Nonetheless, with current conservative treatment measures, the patient has shown significant improvement in recent weeks. The patient is to elevate his lower extremities as much as possible, and to use compression by means of stockings, to prevent swelling in the lower extremities. A prescription for graduated compression stockings of 20 to 30 mmHg co mpression has been provided, of knee-high length. The compression may be of benefit in minimizing the raised sites representing healing, much in the way that burn scars are treated with compression garments. The patient has been advised to optimize his nutritional intake. He has also been advised to optimize his glycemic control. The patient is known to be a smoker, and has been counseled as to the adverse consequences of the smoking habit, and smoking cessation has been recommended. Prednisone has been tapered and discontinued. He is to continue using collagen hydrogel topically on a daily basis to all remaining open portions of his right lower extremity ulceration. The necrotic areas of his extremity ulceration have been eliminated by means of serial debridements. The patient will return in 3 weeks, now appearing to be doing well and progressing in a satisfactory manner. Tobacco cessation counseling has been provided. Patient has been strongly encouraged to discontinue his smoking habit.
== END 2019-10-10 23:59 ==
LOC: WC 09:01
PROVIDERS: PCP Family Medicine; Referring Provider Surgery; Visit Provider Surgery
DX: E11.622 Type 2 diabetes mellitus with other skin ulcer (principal); L97.912 Non-pressure chronic ulcer of unspecified part of right lower leg with fat layer exposed; E11.52 Type 2 diabetes mellitus with diabetic peripheral angiopathy with gangrene; L88 Pyoderma gangrenosum; M79.89 Other specified soft tissue disorders; I25.10 Atherosclerotic heart disease of native coronary artery without angina pectoris; I10 Essential (primary) hypertension; E78.5 Hyperlipidemia, unspecified; E66.3 Overweight; F17.210 Nicotine dependence, cigarettes, uncomplicated; Z79.82 Long term (current) use of aspirin; Z79.84 Long term (current) use of oral hypoglycemic drugs; Z79.899 Other long term (current) drug therapy; I25.2 Old myocardial infarction; Z95.5 Presence of coronary angioplasty implant and graft
CPT/HCPCS: 11042

== ENCOUNTER → 2019-10-21 08:48 | Outpatient (CLI) | payer OTHER, SELFPAY ==
[2019-10-19 09:02] VITALS: BMI 27.8
[2019-10-21 10:41] LABS: Anion Gap 7 (5-15); BUN 10 mg/dL (7-18); Calcium,Total 9.3 mg/dL (8.5-10.1); Chloride 107 mmol/L (98-107); Cholesterol 106 mg/dL (200); Creatinine, Serum 0.91 mg/dL (0.70-1.30); EST Glomerular Filtration Rate 88 mL/min (>60); Est Glom Filt Rate - Afr Amer 106 mL/min (>60); Glucose 102 mg/dL (74-106); High Density Lipoprotein 40 mg/dL; Sodium Level 137 mmol/L (136-145); Triglycerides 100 mg/dL; Very Low Density Lipoprotein 20 mg/dL (5-40)
== END ==
PROVIDERS: PCP Family Medicine; Referring Provider Family Medicine; Visit Provider Family Medicine
DX: E11.9 Type 2 diabetes mellitus without complications (principal)
CPT/HCPCS: 36415; 80048; 80061

== ENCOUNTER 2019-11-09 09:00 | Outpatient (RCR) | payer OTHER, SELFPAY ==
[2019-10-11 00:26] VITALS: BP 117/68; PULSE 87; RESP 16; TEMP 36.4
[2019-10-19 09:02] VITALS: BP 116/75; PULSE 81; RESP 20; TEMP 36.6; BMI 27.8
--- NOTE | 2019-10-19 11:02 | HP.PCM_ITS ---
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: Chronic Current Visit: Yes Code(s): E11.622 - Type 2 diabetes mellitus with other skin ulcer; L97.812 - Non-pressure chronic ulcer of other part of right lower leg with fat layer exposed (3) Skin necrosis Status: Chronic Current Visit: Yes Code(s): I96 - Gangrene, not elsewhere classified (4) Pyoderma gangrenosum Status: Chronic Current Visit: No Code(s): L88 - Pyoderma gangrenosum (5) Ulcer of right leg Status: Chronic Current Visit: Yes Qualifiers: Non-pressure ulcer stage: with fat layer exposed Code(s): L97.919 - Non-pressure chronic ulcer of unspecified part of right lower leg with unspecified severity (6) Swelling of right lower extremity Status: Chronic Current Visit: Yes Code(s): M79.89 - Other specified soft tissue disorders (7) Coronary artery disease Status: Chronic Current Visit: No Code(s): I25.10 - Atherosclerotic heart disease of [place] coronary artery without angina pectoris (8) Stented coronary artery Status: Chronic Current Visit: No Code(s): Z95.5 - Presence of coronary angioplasty implant and graft (9) Diabetes mellitus Status: Chronic Current Visit: Yes Qualifiers: Diabetes mellitus type: type 2 Code(s): E11.9 - Type 2 diabetes mellitus without complications (10) Hypertension Status: Chronic Current Visit: No Qualifiers: Code(s): I10 - Essential (primary) hypertension (11) Hypolipidemia Status: Chronic Current Visit: No Code(s): E78.6 - Lipoprotein deficiency (12) Umbilical hernia Status: Chronic Current Visit: No Code(s): K42.9 - Umbilical hernia without obstruction or gangrene (13) Overweight (BMI 25.0-29.9) Status: Chronic Current Visit: No (14) Hyperlipidemia Status: Chronic Current Visit: No Code(s): E78.5 - Hyperlipidemia, unspecified (15) History of NM (myocardial infarction) Status: Chronic Current Visit: No Code(s): I25.2 - Old myocardial infarction (16) Tobacco abuse Status: Chronic Current Visit: No Code(s): Z72.0 - Tobacco use (17) Tobacco abuse counseling Status: Chronic Current Visit: No Code(s): Z71.6 - Tobacco abuse counseling History of Present Illness Date of Service: 10/19/19 Chief Complaint: Clustered ulceration of the right anterior tibial surface History of Wound: This is a 68-year-old active and functional white male who presented with a clustered ulceration on the right anterior tibial surface. According to the patient, there had been no recent trauma. The ulceration had been present for approximately 1 month. He remembers itching in the area at the time of its initiation, to which he responded by scratching. This may have been the inciting event. He recalls no insect bites in the area. The patient relates intermittent swelling in his right lower extremity. He denies a history of deep vein thrombosis. He is active and ambulates liberally. He sleeps on a flat mattress at night. He has had no similar wounds or ulcerations in the past. When evaluated by the patient's primary care physician several days prior to presentation here, the patient was placed on oral Bactrim antibiotic, and collagen hydrogel was prescribed as a topical treatment measure. Past Medical History Past Medical History: Chronic Problems (Last Reviewed 07/04/19 @ 15:[address] 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 He is undergone bilateral cataract extraction. Lumbar disc surgery has been performed in the past. Allergies/Adverse Reactions: Allergies No Known Allergies Allergy (Verified 07/04/19 12:17) Home Medications: Ambulatory Orders Medication Instructions Recorded Amlodipine [Norvasc] 5 mg PO DAILY 02/23/15 Aspirin E.C. [Ecotrin] 81 mg PO DAILY@0800 02/23/15 Atorvastatin Calcium [Lipitor] 40 mg PO QHS 02/23/15 Metformin HCl 1,000 mg PO BID 02/23/15 Metoprolol(XL)Succ [Toprol Xl 25 mg PO DAILY 02/23/15 (Beta Paulie)] Pantoprazole Sodium [Protonix] 40 mg PO DAILY 08/16/16 cinnamon bark 500 mg capsule 2,000 mg PO BID 08/07/17 Dapagliflozin Propanediol [Farxiga] 10 mg PO DAILY 06/22/19 [place]-3 Fatty Acids/Fish Oil [Fish 2 ea PO QHS 07/04/19 Oil 1,000 mg Capsule] predniSONE tablet 80 mg PO DAILYCM #100 tab 07/06/19 - Family History Paternal Family History: Family History (Last Reviewed 07/04/19 @ 15:[address] Candelario Seals, DO) Father Diabetes Heart disease - - Patient's father age of 80 with a history of heart disease. Patient's mother at the age of 80, suffering from dementia. Smoking Status: Current every day smoker Tobacco Use: Cigarettes Review of Systems Constitutional: Denies: Chills, Fever, Weight Change Eyes: Denies: Pain, Vision Change HEENT: Denies: Difficulty Hearing, Difficulty Swallowing, Sinus Congestion Cardiovascular: Denies: Chest Pain, Palpitations Respiratory: Denies: Cough, Shortness of Breath Gastrointestinal: Denies: Diarrhea, Nausea, Vomiting Genitourinary: Denies: Dysuria, Hematuria Endocrine: Denies: Heat/ Cold Intolerance, Polydipsia, Polyuria Hematologic/ Lymphatic: Denies: Easy Bruising, Easy Bleeding - Physical Exam Vital Signs Temp Pulse Resp BP 97.8 F 81 20 H 116/75 10/19/19 09:02 10/19/19 09:02 10/19/19 09:02 10/19/19 09:02 General: Alert, Oriented x3, Cooperative, No apparent distress, Well developed, Well nourished HEENT: Atraumatic, PERRLA, EOMI, Normocephalic Oral: Moist Mucosa Neck: No JVD Lungs: Normal air movement Abdomen: Non-Distended Extremities: No clubbing, No cyanosis, No edema, No Calf Tenderness, - - The clustered ulcerations on the patient's right anterior tibial surface continue to improve significantly. There has been significant healing and epithelialization. There are only 2 small areas yet to heal, very small in dimension. The actual dimensions are documented elsewhere. The areas that have healed, which represent the preponderance of the original ulceration, are now moderately pigmented. However, there is no sign of infection or cellulitis. Skin: No rashes Wound Measurements and Assessment WC - Nurse 1 - General Ulcer Measurement Start: 10/19/19 09:02 Freq: Status: Active Protocol: Activity Type Activity Date Activity User E-Sign Co-Sign Detail Recorded Client Recorded Date Recorded By Document 10/19/19 09:02 DL [id number] 10/19/19 09:05 DL 10/19/19 09:02 Wound Center Nurse 1 [Ulcer Assessment] 1-right dick cluster -Current Size (cm) - Length 0 -Current Size (cm) - Width 0 -Current Size (cm) - Depth 0 -Total Square Cm 0 -Photo Taken Yes -Wound Margin Flat & Intact -Granulation Amt Large (67-100%) -Granulation Quality [place] -Necrosis Amt None Present (0 %) -Structure Exposed N/A -Texture (Genia-wound Skin Appearance) Scarring -Moisture (Genia-wound Skin Appearance No Abnormality ) -Color (Genia-wound Skin Appearance) Hemosiderin Staining -Temperature (Genia-wound Skin No Abnormality Appearance) (Pt Warm) -Tenderness on Palpation (Genia-wound No Skin Appearance) -Ulcer Cleansing Rinsed/ Irrigated with Saline -Foul Odor after Cleansing No [Edema Assessment] -Right Calf (cm) 37.5 -Right Ankle (cm) 22.5 WC - Nurse 2 - General Ulcer CM Notes Start: 10/19/19 09:02 Freq: Status: Active Protocol: Activity Type Activity Date Activity User E-Sign Co-Sign Detail Recorded Client Recorded Date Recorded By Document 10/19/19 09:19 DV [id number] 10/19/19 09:21 DV 10/19/19 09:19 Wound Center Nurse 2 [Procedure/Treatment] 1-right dick cluster -Time 09:19 -Correct Patient Yes -Correct Side, Site, Position Yes -Correct Procedure No -Post Debridement Size (cm) - Length 0 -Post Debridement Size (cm) - Width 0 -Post Debridement Size (cm) - Depth 0 -Total Square Cm 0 -Wound/Ulcer Outcome Healed- Epithelialized [See Physician Procedure note for Specifics] Musculoskeletal: No Muscle Wasting Neurological: Cranial nerves II-XII grossly intact, Neuro grossly intact Psych/Mental Status: Normal Affect, Appropriate, Alert and oriented to time, place, person, mood and affect Debridement Note Post-Debridement Measurements/Treatment WC - Nurse 2 - General Ulcer CM Notes Start: 10/19/19 09:02 Freq: Status: Active Protocol: Activity Type Activity Date Activity User E-Sign Co-Sign Detail Recorded Client Recorded Date Recorded By Document 10/19/19 09:19 DV [id number] 10/19/19 09:21 DV 10/19/19 09:19 Wound Center Nurse 2 1-right dick cluster -Time 09:19 -Correct Patient Yes -Correct Side, Site, Position Yes -Correct Procedure No -Post Debridement Size (cm) - Length 0 -Post Debridement Size (cm) - Width 0 -Post Debridement Size (cm) - Depth 0 -Total Square Cm 0 -Wound/Ulcer Outcome Healed- Epithelialized No debridement was completed today - The patient's ulceration is now nearly completely healed, with only 2 very small areas which appear now nearly completely healed. Assessment/Plan Active Problems (Last Reviewed 07/04/19 @ 15:[address] 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 It appears as though these are nontraumatic in nature, though the patient does admit to scratching approximately 1 month prior to the development of the ulcerations. The patient has multiple pre-existing medical problems, as documented above. Based upon the appearance of the ulcerations, the etiology has remained enigmatic. While insect bites have been a consideration, the patient denies any such insult. The ulcerations do not appear to be venous or arterial in origin. Necrobiosis lipoidica diabeticorum, pyoderma gangrenosum, vasculitis, and autoimmune causes have been considered. Biopsies have been obtained, though results have been of little help in differentiating the etiology of the patient's ulcerations. The patient's biopsy results indicated Skin with ulceration, necrosis as well as an extensive neutrophilic and eosinophilic dermal infiltrate. Special stains for acid-fast bacilli and fungi are negative for organisms; matched controls are appropriate. In addition, the biopsy results suggested The differential diagnosis includes Sweet syndrome, an arthropod assault or a drug eruption in the appropriate clinical setting. The microscopic features do not support pyoderma gangrenosum which is always a diagnosis by exclusion. No evidence of granulomatous dermatitis is identified. Laboratory results were generally unremarkable. White blood count and hemogram were normal. Platelet count was normal. Chemistries were also unremarkable. Patient appears to be of adequate nutritional status. Laboratory testing for interleukin?6 revealed a result of 2.0, which is normal. Interleukin?8 result was 41.5, which is also within normal range. The patient indicates that within the last 2 weeks he has literally applied no dressings to the clustered ulcerations, yet has observed continued and progressive healing. Plan: At this juncture, the etiology of the patient's right lower extremity ulceration remains somewhat enigmatic. Its appearance is atypical of an arterial or venous lesion. Considerations as to potential etiologies include necrobiosis lipoidica diabeticorum, pyoderma gangrenosum, autoimmune phenomenon, necrotizing vasculitis, etc. Nonetheless, despite uncertainty as to the etiology and underlying cause of the patient's right lower extremity ulcerations, the patient has shown significant improvement over the last several months. Current conservative treatment measures appear to be of benefit, resulting in significant improvement. We had been seeking consultation with a document design specialist to help in the assessment and management of the patient's ulcerations. The patient had been scheduled for an appointment with Dr. Omar Johnson at the [facility] on August 03, 2019. However, the Coronavirus pandemic has postponed the opportunity for an outpatient appointment at the [facility]. Nonetheless, with current conservative treatment measures, the patient has shown significant improvement in recent weeks. The patient is to elevate his lower extremities as much as possible, and to use compression by means of stockings, to prevent swelling in the lower extremities. A prescription for graduated compression stockings of 20 to 30 mmHg compression has been provided, of knee-high length. The compression may be of benefit in minimizing the raised sites representing healing, much in the way that burn scars are treated with compression garments. The patient has been advised to optimize his nutritional intake. He has also been advised to optimize his glycemic control. The patient is known to be a smoker, and has been counseled a s to the adverse consequences of the smoking habit, and smoking cessation has been recommended. Prednisone has been tapered and discontinued. The patient has unilaterally abandon the application of any topical products. Nonetheless, ulcer healing has continued. Therefore, we are to continue with his current regimen, which will be to refrain from the application of any topical products, but rather allowing the healing process to continue, as it has done unimpaired in recent weeks. The necrotic areas of his extremity ulceration have been eliminated by means of serial debridements, and healing has occurred in a progressive fashion. The patient will return in 3 weeks, now appearing to be doing well and progressing in a satisfactory manner. If the healing process continues at the current rate, complete healing is expected at the patient's next follow-up visit. Tobacco cessation counseling has been provided. Patient has been strongly encouraged to discontinue his smoking habit.
[2019-11-09 09:06] VITALS: BP 120/75; PULSE 75; RESP 18; TEMP 36.4; BMI 27.8
--- NOTE | 2019-11-09 09:21 | HP.PCM_ITS ---
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: Chronic Current Visit: Yes Code(s): E11.622 - Type 2 diabetes mellitus with other skin ulcer; L97.812 - Non-pressure chronic ulcer of other part of right lower leg with fat layer exposed (3) Skin necrosis Status: Chronic Current Visit: Yes Code(s): I96 - Gangrene, not elsewhere classified (4) Pyoderma gangrenosum Status: Chronic Current Visit: No Code(s): L88 - Pyoderma gangrenosum (5) Ulcer of right leg Status: Chronic Current Visit: Yes Qualifiers: Non-pressure ulcer stage: with fat layer exposed Code(s): L97.919 - Non-pressure chronic ulcer of unspecified part of right lower leg with unspecified severity (6) Swelling of right lower extremity Status: Chronic Current Visit: Yes Code(s): M79.89 - Other specified soft tissue disorders (7) Coronary artery disease Status: Chronic Current Visit: No Code(s): I25.10 - Atherosclerotic heart disease of [place] coronary artery without angina pectoris (8) Stented coronary artery Status: Chronic Current Visit: No Code(s): Z95.5 - Presence of coronary angioplasty implant and graft (9) Diabetes mellitus Status: Chronic Current Visit: Yes Qualifiers: Diabetes mellitus type: type 2 Code(s): E11.9 - Type 2 diabetes mellitus without complications (10) Hypertension Status: Chronic Current Visit: No Qualifiers: Code(s): I10 - Essential (primary) hypertension (11) Hypolipidemia Status: Chronic Current Visit: No Code(s): E78.6 - Lipoprotein deficiency (12) Umbilical hernia Status: Chronic Current Visit: No Code(s): K42.9 - Umbilical hernia without obstruction or gangrene (13) Overweight (BMI 25.0-29.9) Status: Chronic Current Visit: No (14) Hyperlipidemia Status: Chronic Current Visit: No Code(s): E78.5 - Hyperlipidemia, unspecified (15) History of NH (myocardial infarction) Status: Chronic Current Visit: No Code(s): I25.2 - Old myocardial infarction (16) Tobacco abuse Status: Chronic Current Visit: No Code(s): Z72.0 - Tobacco use (17) Tobacco abuse counseling Status: Chronic Current Visit: No Code(s): Z71.6 - Tobacco abuse counseling History of Present Illness Date of Service: 11/09/19 Chief Complaint: Clustered ulceration of the right anterior tibial surface History of Wound: This is a 68-year-old active and functional white male who presented with a clustered ulceration on the right anterior tibial surface. According to the patient, there had been no recent trauma. The ulceration had been present for approximately 1 month. He remembers itching in the area at the time of its initiation, to which he responded by scratching. This may have been the inciting event. He recalls no insect bites in the area. The patient relates intermittent swelling in his right lower extremity. He denies a history of deep vein thrombosis. He is active and ambulates liberally. He sleeps on a flat mattress at night. He has had no similar wounds or ulcerations in the past. When evaluated by the patient's primary care physician several days prior to presentation here, the patient was placed on oral Bactrim antibiotic, and collagen hydrogel was prescribed as a topical treatment measure. Past Medical History Past Medical History: Chronic Problems (Last Reviewed 07/04/19 @ 15:[address] 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 He is undergone bilateral cataract extraction. Lumbar disc surgery has been performed in the past. Allergies/Adverse Reactions: Allergies No Known Allergies Allergy (Verified 07/04/19 12:17) Home Medications: Ambulatory Orders Medication Instructions Recorded Amlodipine [Norvasc] 5 mg PO DAILY 02/23/15 Aspirin E.C. [Ecotrin] 81 mg PO DAILY@0800 02/23/15 Atorvastatin Calcium [Lipitor] 40 mg PO QHS 02/23/15 Metformin HCl 1,000 mg PO BID 02/23/15 Metoprolol(XL)Succ [Toprol Xl 25 mg PO DAILY 02/23/15 (Beta Paulie)] Pantoprazole Sodium [Protonix] 40 mg PO DAILY 08/16/16 cinnamon bark 500 mg capsule 2,000 mg PO BID 08/07/17 Dapagliflozin Propanediol [Farxiga] 10 mg PO DAILY 06/22/19 Eclectic-3 Fatty Acids/Fish Oil [Fish 2 ea PO QHS 07/04/19 Oil 1,000 mg Capsule] predniSONE tablet 80 mg PO DAILYCM #100 tab 07/06/19 - Family History Paternal Family History: Family History (Last Reviewed 07/04/19 @ 15:[address] Candelario Seals, DO) Father Diabetes Heart disease - - Patient's father age of 80 with a history of heart disease. Patient's mother at the age of 80, suffering from dementia. Smoking Status: Current every day smoker Tobacco Use: Cigarettes Review of Systems Constitutional: Denies: Chills, Fever, Weight Change Eyes: Denies: Pain, Vision Change HEENT: Denies: Difficulty Hearing, Difficulty Swallowing, Sinus Congestion Cardiovascular: Denies: Chest Pain, Palpitations Respiratory: Denies: Cough, Shortness of Breath Gastrointestinal: Denies: Diarrhea, Nausea, Vomiting Genitourinary: Denies: Dysuria, Hematuria Endocrine: Denies: Heat/ Cold Intolerance, Polydipsia, Polyuria Hematologic/ Lymphatic: Denies: Easy Bruising, Easy Bleeding - Physical Exam Vital Signs Temp Pulse Resp BP 97.5 F L 75 18 120/75 11/09/19 09:06 11/09/19 09:06 11/09/19 09:06 11/09/19 09:06 General: Alert, Oriented x3, Cooperative, No apparent distress, Well developed, Well nourished HEENT: Atraumatic, PERRLA, EOMI, Normocephalic Oral: Moist Mucosa Neck: No JVD Lungs: Normal air movement Abdomen: Non-Distended Extremities: No clubbing, No cyanosis, No edema, No Calf Tenderness, - - The multiple clustered ulcerations on the right anterior tibial surface are now completely healed and epithelialized. There are no open wounds or ulcerations. At the site of the patient's clustered ulcerations, however, there is extensive hyperpigmentation. There is no swelling or edema noted in the patient's lower extremities. Skin: No rashes Wound Measurements and Assessment WC - Nurse 1 - General Ulcer Measurement Start: 10/19/19 09:02 Freq: Status: Active Protocol: Activity Type Activity Date Activity User E-Sign Co-Sign Detail Recorded Client Recorded Date Recorded By Document 11/09/19 09:06 DL [id number] 11/09/19 09:09 DL 11/09/19 09:06 Wound Center Nurse 1 [Edema Assessment] -Right Calf (cm) 37 -Right Ankle (cm) 22.5 WC - Nurse 2 - General Ulcer CM Notes Start: 10/19/19 09:02 Freq: Status: Active Protocol: Activity Type Activity Date Activity User E-Sign Co-Sign Detail Recorded Client Recorded Date Recorded By Document 11/09/19 09:15 DL [id number] 11/09/19 09:18 DL 11/09/19 09:15 Pain Scale: 0-10 Numeric [Pain] -Is Patient Pain Free? Yes Musculoskeletal: No Muscle Wasting Neurological: Cranial nerves II-XII grossly intact, Neuro grossly intact Psych/Mental Status: Normal Affect, Appropriate, Alert and oriented to time, place, person, mood and affect Debridement Note Post-Debridement Measurements/Treatment WC - Nurse 2 - General Ulcer CM Notes Start: 10/19/19 09:02 Freq: Status: Active Protocol: Activity Type Activity Date Activity User E-Sign Co-Sign Detail Recorded Client Recorded Date Recorded By Document 10/19/19 09:19 DV [id number] 10/19/19 09:21 DV Document 11/09/19 09:15 DL [id number] 11/09/19 09:18 DL 10/19/19 11/09/19 09:19 09:15 Wound Center Nurse 2 1-right dick cluster -Time 09:19 -Correct Patient Yes -Correct Side, Site, Position Yes -Correct Procedure No -Post Debridement Size (cm) - Length 0 -Post Debridement Size (cm) - Width 0 -Post Debridement Size (cm) - Depth 0 -Total Square Cm 0 -Wound/Ulcer Outcome Healed- Epithelialized Pain Scale: 0-10 Numeric Is Patient Pain Free? Yes No debridement was completed today - The patient's ulcerations in the right lower extremity are now completely healed and epithelialized. Assessment/Plan Active Problems (Last Reviewed 07/04/19 @ 15:[address] 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 It appears as though these are nontraumatic in nature, though the patient did admit to scratching approximately 1 month prior to the development of the ulcerations. The patient has multiple pre-existing medical problems, as documented above. Based upon the appearance of the ulcerations, the etiology has remained enigmatic. While insect bites have been a consideration, the patient denies any such insult. The ulcerations do not appear to be venous or arterial in origin. Necrobiosis lipoidica diabeticorum, pyoderma gangrenosum, vasculitis, livedoid vasculopathy, and autoimmune causes have been considered. Biopsies have been obtained, though results have been of little help in differentiating the etiology of the patient's ulcerations. The patient's biopsy results indicated Skin with ulceration, necrosis as well as an extensive neutrophilic and eosinophilic dermal infiltrate. Special stains for acid-fast bacilli and fungi are negative for organisms; matched controls are appropriate. In addition, the biopsy results suggested The differential diagnosis includes Sweet syndrome, an arthropod assault or a drug eruption in the appropriate clinical setting. The microscopic features do not support pyoderma gangrenosum which is always a diagnosis by exclusion. No evidence of granulomatous dermatitis is identified. Laboratory results were generally unremarkable. White blood count and hemogram were normal. Platelet count was normal. Chemistries were also unremarkable. Patient appears to be of adequate nutritional status. Laboratory testing for interleukin?6 revealed a result of 2.0, which is normal. Interleukin?8 result was 41.5, which is also within normal range. The patient indicates that within the last several weeks he has literally applied no dressings to the clustered ulcerations, yet has observed continued and progressive healing. Plan: At this juncture, the etiology of the patient's right lower extremity ulcerations remains somewhat enigmatic. Its appearance is atypical of an arterial or venous lesion. Considerations as to potential etiologies include necrobiosis lipoidica diabeticorum, pyoderma gangrenosum, autoimmune phenomenon, necrotizing vasculitis, livedoid vasculopathy, etc. Nonetheless, despite uncertainty as to the etiology and underlying cause of the patient's right lower extremity ulcerations, the patient has shown significant improvement over the last several months, and is now completely healed and epithelialized. Therefore, we are to discharge the patient, with understanding that he will contact our facility if the ulcerations recur or other related problems ensue. The patient has been advised to optimize his nutritional intake. He has also been advised to optimize his glycemic control. The patient is known to be a smoker, and has been counseled as to the adverse consequences of the smoking habit, and smoking cessation has been recommended. The patient is to be discharged, and will follow-up henceforth as needed.
== END 2019-11-09 23:59 ==
LOC: WC 09:00
PROVIDERS: PCP Family Medicine; Referring Provider Surgery; Visit Provider Surgery
DX: E11.622 Type 2 diabetes mellitus with other skin ulcer (principal); L97.912 Non-pressure chronic ulcer of unspecified part of right lower leg with fat layer exposed; L88 Pyoderma gangrenosum; L97.919 Non-pressure chronic ulcer of unspecified part of right lower leg with unspecified severity; M79.89 Other specified soft tissue disorders; I25.10 Atherosclerotic heart disease of native coronary artery without angina pectoris; Z95.5 Presence of coronary angioplasty implant and graft; E11.9 Type 2 diabetes mellitus without complications; I10 Essential (primary) hypertension; E78.6 Lipoprotein deficiency; K42.9 Umbilical hernia without obstruction or gangrene; E78.5 Hyperlipidemia, unspecified; I25.2 Old myocardial infarction; E66.3 Overweight; Z68.25 Body mass index [BMI] 25.0-25.9, adult; Z72.0 Tobacco use; Z71.6 Tobacco abuse counseling; Z79.82 Long term (current) use of aspirin; Z79.84 Long term (current) use of oral hypoglycemic drugs; Z82.49 Family history of ischemic heart disease and other diseases of the circulatory system
CPT/HCPCS: 99212; 99213; G0463

== ENCOUNTER 2020-08-25 08:09 | Outpatient (RCR) | payer OTHER, SELFPAY ==
[2020-08-25 08:24] VITALS: BP 123/81; PULSE 87; RESP 16; TEMP 35.9; BMI 26.6
--- NOTE | 2020-08-25 11:45 | PCM.WC.HP ---
(1) Diabetic ulcer of right dick with fat layer exposed Status: Acute Code(s): E11.622 - Type 2 diabetes mellitus with other skin ulcer; L97.812 - Non-pressure chronic ulcer of other part of right lower leg with fat layer exposed (2) Diabetes mellitus Status: Chronic Qualifiers: Diabetes mellitus type: type 2 Diabetes mellitus manager long term care insulin use: without mcc use Diabetes mellitus complication status: with skin complications Diabetes mellitus complication detail: with other skin ulcer Qualified Code(s): E11.622 - Type 2 diabetes mellitus with other skin ulcer Code(s): E11.9 - Type 2 diabetes mellitus without complications (3) Coronary artery disease Status: Chronic Code(s): I25.10 - Atherosclerotic heart disease of [place] coronary artery without angina pectoris (4) Hypertension Status: Chronic Qualifiers: Code(s): I10 - Essential (primary) hypertension History of Present Illness Date of Service: 08/25/20 Chief Complaint: Clustered ulceration of the right anterior tibial surface History of Wound: Cristofer is a pleasant 69 year old white male who [facility] for evaluation of right dick ulcers. He has a past medical history significant for type 2 diabetes mellitus, hypertension, hyperlipidemia and tobacco abuse. He states the ulcers began approximately 1 to 2 weeks ago. He feels they may have occurred as a result of an unrecognized injury while working outside in his yard. He has been applying Neosporin ointment to his ulcers and keeping them covered and they have been improving. The patient denies fever, chills, nause, vomiting, or diarrhea. The patient has not had increased redness, swelling, or any purulent/malodorous drainage from affected area. He primarily sought care for these ulcers due to his history of right dick ulcers which erupted spontaneously and required extensive management. (Please see below for details). He was previously evaluated and [facility] by Dr. Novak from June-November 2019 for ulcers of his right dick. He states the started as small ulcerations and then suddenly erupted over 1 to 2 weeks into large clusters of ulcerations. He was referred to a specialist at [facility], but given the COVID-19 pandemic he was unable to be seen. He continued his [facility]. He underwent an extensive work-up and the specific cause of his ulcerations remained undetermined. Differential diagnoses included insect bites, venous or arterial ulcers, necrobiosis lipoidica diabeticorum, pyoderma gangrenosum, vasculitis, livedoid vasculopathy, and autoimmune causes. The patient's biopsy results indicated Skin with ulceration, necrosis as well as an extensive neutrophilic and eosinophilic dermal infiltrate. Special stains for acid-fast bacilli and fungi are negative for organisms; matched controls are appropriate. In addition, the biopsy results suggested The differential diagnosis includes Sweet syndrome, an arthropod assault or a drug eruption in the appropriate clinical setting. The microscopic features do not support pyoderma gangrenosum which is always a diagnosis by exclusion. No evidence of granulomatous dermatitis is identified. Laboratory testing for interleukin?6 revealed a result of 2.0, which is normal. Interleukin?8 result was 41.5, which is also within normal range. Arterial studies from 06/29/2019 revealed no evidence of significant arterial occlusive disease in the bilateral lower extremities. Venous duplex ultrasounds of the bilateral lower extremities from 06/29/2019 were unremarkable. Past Medical History Past Medical History: Chronic Problems (Last Reviewed 07/04/19 @ 15:[address] Candelario Seals, DO) Chronic ulcer of right leg with fat layer exposed (Chronic) Skin necrosis (Chronic) Pyoderma gangrenosum (Chronic) Ulcer of right leg (Chronic) Swelling of right lower extremity (Chronic) Coronary artery disease (Chronic) Stented coronary artery (Chronic) Diabetes mellitus (Chronic) Hypertension (Chronic) Hypolipidemia (Chronic) Umbilical hernia (Chronic) Overweight (BMI 25.0-29.9) (Chronic) Hyperlipidemia (Chronic) History of OR (myocardial infarction) (Chronic) Tobacco abuse (Chronic) Tobacco abuse counseling (Chronic) Surgical History: - - The patient has had 2 coronary artery stent procedures. He is undergone bilateral cataract extraction. Lumbar disc surgery has been performed in the past. Allergies/Adverse Reactions: Allergies No Known Allergies Allergy (Verified 08/25/20 08:33) Home Medications: Ambulatory Orders Medication Instructions Recorded Aspirin E.C. [Ecotrin] 81 mg PO DAILY@0800 02/23/15 Atorvastatin Calcium [Lipitor] 40 mg PO QHS 02/23/15 Metformin HCl 1,000 mg PO BID 02/23/15 Metoprolol(XL)Succ [Toprol Xl 25 mg PO DAILY 02/23/15 (Beta Paulie)] Pantoprazole Sodium [Protonix] 40 mg PO DAILY 08/16/16 cinnamon bark 500 mg capsule 2,000 mg PO BID 08/07/17 Le[place]-3 Fatty Acids/Fish Oil [Fish 2 ea PO QHS 07/04/19 Oil 1,000 mg Capsule] Empagliflozin [Jardiance] 10 mg PO DAILY 08/25/20 Rivaroxaban [Xarelto] 20 mg PO DAILY 08/25/20 - Family History Paternal Family History: Family History (Last Reviewed 07/04/19 @ 15:[address] Candelario Seals DO) Father Diabetes Heart disease - - Patient's father age of 80 with a history of heart disease. Patient's mother at the age of 80, suffering from dementia. Smoking Status: Current every day smoker Review of Systems Constitutional: Denies: Chills, Fever, Weight Change Eyes: Denies: Pain, Vision Change HEENT: Denies: Difficulty Hearing, Difficulty Swallowing, Sinus Congestion Cardiovascular: Denies: Chest Pain, Edema, Palpitations Respiratory: Denies: Cough, Shortness of Breath Gastrointestinal: Denies: Diarrhea, Nausea, Vomiting Genitourinary: Denies: Dysuria, Hematuria Musculoskeletal: Denies: Leg Pain Skin: Reports: Wounds Endocrine: Reports: - - T2DM. Denies: Heat/ Cold Intolerance, Polydipsia, Polyuria - Physical Exam Vital Signs Temp Pulse Resp BP 96.7 F L 87 16 123/81 H 08/25/20 08:24 08/25/20 08:24 08/25/20 08:24 08/25/20 08:24 General: Alert, Oriented x3, Cooperative, No apparent distress HEENT: Atraumatic, Normocephalic Oral: Moist Mucosa Neck: Supple, Trachea Midline Lungs: Clear to auscultation, Normal air movement, No rhonchi, No wheeze, No rales Cardiovascular: Irregular Rate - Irregularly irregular Abdomen: Bowel Sounds Present, Soft, Non-Distended Extremities: No clubbing, No cyanosis, No edema, Capillary Refill Less than 3 Seconds, Peripheral Pulses Normal Skin: No rashes, Ulcer/ Wound - Small ulcer of right anterior dick with subcutaneous layer exposed. No tunneling, undermining, or probing to bone. No purulent/malodorous drainage. No periulcer erythema, warmth, or tenderness. Chronic skin changes/scarring from previous ulcerations. Wound Measurements and Assessment WC - Nurse 1 - General Ulcer Measurement Start: 08/25/20 08:23 Freq: Status: Active Protocol: Activity Type Activity Date Activity User E-Sign Co-Sign Detail Recorded Client Recorded Date Recorded By Document 08/25/20 08:24 [facility] [id number] 08/25/20 08:32 [facility] 08/25/20 08:24 Wound Center Nurse 1 [Ulcer Assessment] #2- R DICK CLUSTER -Combined with other wound No -Current Size (cm) - Length 1.7 -Current Size (cm) - Width 0.2 -Current Size (cm) - Depth 0.1 -Total Square Cm 0.34 -Date of Last Picture (Recall this 08/25/20 field) -Photo Taken Yes -Epithelialization None Present -Tunneling No -Undermining/Tunneling No -Circular Undermining No -Exudate Amt None Present -Wound Margin Distinct, Outline Attached -Granulation Amt None Present (0 %) -Slough/Fibrin Yes -Necrosis Amt Large (67-100%) -Necrotic Tissue Type Eschar -Texture (Genia-wound Skin Appearance) Assessed, Scarring -Moisture (Genia-wound Skin Appearance Assessed ) -Color (Genia-wound Skin Appearance) Assessed -Temperature (Genia-wound Skin No Abnormality Appearance) (Pt Warm) -Tenderness on Palpation (Genia-wound No Skin Appearance) -Ulcer Cleansing Rinsed/ Irrigated with Saline -Foul Odor after Cleansing No -Anesthetic Used 4% Lidocaine Solution [Edema Assessment] -Lower Limb Edema Present Yes -Right Calf (cm) 37.8 -Right Ankle (cm) 23.4 -Left Calf (cm) 37.5 -Left Ankle (cm) 25.5 - Nurse 3 - General Ulcer D/C NN Start: 08/25/20 08:23 Freq: Status: Active Protocol: Activity Type Activity Date Activity User E-Sign Co-Sign Detail Recorded Client Recorded Date Recorded By Document 08/25/20 09:09 [facility] [id number] 08/25/20 09:10 [facility] 08/25/20 09:09 Wound Care Nurse 3 [Wound Dressing] #2- R DICK CLUSTER -Ulcer Cleansing Rinsed/ Irrigated with Saline -Foul Odor after Cleansing No -Primary Dressing Applied Aquacel AG 4x4 -Primary Dressing Covered/Secured Dry Gauze, with Secured with Tape -Aquacel AG 4x4 1 [Compression Applied] Right -Tubular Bandage Double Layer -Size of Tubigrip Used Size D -Size D ($) 2 [Post Procedure Tolerated] -Treatment Response Procedure Tolerated Well Pain Scale: 0-10 Numeric [Pain] -Is Patient Pain Free? Yes WC - Visit Discharge [Visit Discharge Information] -Discharge Condition Stable -Ambulatory Status Ambulatory -Transportation Private Auto Musculoskeletal: No Tenderness to Palpation of Joints or Extremities, No Muscle Wasting Neurological: Neuro grossly intact Psych/Mental Status: Normal Affect, Appropriate Debridement Note Post-Debridement Measurements/Treatment WC - Nurse 3 - General Ulcer D/C NN Start: 08/25/20 08:23 Freq: Status: Active Protocol: Activity Type Activity Date Activity User E-Sign Co-Sign Detail Recorded Client Recorded Date Recorded By Document 08/25/20 09:09 [facility] [id number] 08/25/20 09:10 [facility] 08/25/20 09:09 Wound Care Nurse 3 #2- R DIKC CLUSTER -Ulcer Cleansing Rinsed/ Irrigated with Saline -Foul Odor after Cleansing No -Primary Dressing Applied Aquacel AG 4x4 -Primary Dressing Covered/Secured with Dry Gauze, Secured with Tape -Aquacel AG 4x4 1 Right -Tubular Bandage Double Layer -Size of Tubigrip Used Size D -Size D ($) 2 Treatment Response Procedure Tolerated Well Pain Scale: 0-10 Numeric Is Patient Pain Free? Yes - Visit Discharge Discharge Condition Stable Ambulatory Status Ambulatory Transportation Private [facility] Wound debrided: Right anterior dick ulcer Laterality: Right Wound Grade/Stage: Shepherd 1 Type of Debridement: Excisional debridement Anesthesia Used: 4% Lidocaine Solution Depth: in the subcutaneous layer Percentage of wound debrided: 100 Instrument Used: 3mm curette Tissue Removed: Slough and devitalized tissue Severity: Fat Layer Exposed Amount of bleeding with debridement: Mild Bleeding Controlled with: Pressure Patient tolerated procedure well Assessment/Plan Active Problems (Last Reviewed 07/04/19 @ 15:[address] Candelario Seals DO) Diabetic ulcer of right dick with fat layer exposed (Acute) Coronary artery disease (Chronic) Diabetes mellitus (Chronic) Hypertension (Chronic) Plan: Debridement performed today in clinic as annotated above. Aquacel Ag applied. At home wound-care instructions: Change Aquacel Ag dressing once daily or more frequently as needed due to contamination. Wash wounds daily with antibacterial soap and water, rinse and dry thoroughly before each dressing change. Compression: Double Tubigrip's to the right lower extremity, to be worn daily. Off-loading: Avoid prolonged standing and/or dangling of legs. When seated, feet should be elevated at chest level. Frequent ambulation is encouraged. Diet: Patient encouraged to increase protein intake while taking caution to avoid high carbohydrate and/or sugar intake. Labs/cultures/imaging: Cultures deferred today. Routine baseline labwork deferred for the time being. Vascular studies from June 2019 reviewed. Follow-up: Return to clinic in 2 weeks for re-evaluation. Return sooner or report to the emergency room should symptoms worsen, or new symptoms arise. Note: [employer] speech recognition test desk trouble locator software was used to create portions of this document. Sound-alike and misspelled words, as well as other test desk trouble locator errors may be contained in the documentation. Greater than 30 minutes were spent by me on today's visit. This time includes coordinating care, reviewing labs/records/history, interpretation of test results, and counseling patient/family. This also includes time spent with the patient for exam, treatment plan, and education as well as documenting clinical information in the electronic health record. Office Visits / Consults: [id number] OV L4 Est [id number]: [id number] Nichole subq tissue 20 sq cm/<
== END 2020-09-08 23:59 ==
LOC: WC 08:09
PROVIDERS: PCP Family Medicine; Visit Provider Nurse Practitioner Family
DX: E11.621 Type 2 diabetes mellitus with foot ulcer (principal); L97.812 Non-pressure chronic ulcer of other part of right lower leg with fat layer exposed; I25.10 Atherosclerotic heart disease of native coronary artery without angina pectoris; I10 Essential (primary) hypertension; E78.5 Hyperlipidemia, unspecified; I25.2 Old myocardial infarction; Z79.899 Other long term (current) drug therapy; Z79.82 Long term (current) use of aspirin; Z79.84 Long term (current) use of oral hypoglycemic drugs; Z79.01 Long term (current) use of anticoagulants; F17.200 Nicotine dependence, unspecified, uncomplicated
CPT/HCPCS: 11042; 99213; G0463

== ENCOUNTER → 2020-10-26 09:38 | Outpatient (CLI) | payer OTHER, SELFPAY ==
[2020-10-26 09:42] LABS: Bacteria 0 SEEN /hpf (None Seen); Mucous, Urine 0 SEEN /hpf (<or=2+); Red Blood Cells-Urine 0 SEEN /hpf (0-5); Squamous Epithelial Cells - UA 0 SEEN /hpf (0-5)
[2020-10-26 12:23] LABS: Color, Urine Yellow (Yellow); Glucose, Dipstick 1000 mg/dl (Normal); Ketone-Dipstick 5 mg/dl (Negative); Leukocyte Esterase-Dipstick Negative /ul (Negative); Nitrite-Dipstick Negative (Negative); Occult Blood-Urine 10 /ul (Negative); Protein-Dipstick Negative (Negative); Urine Bilirubin Dipstick Negative (Negative); Urine Clarity Clear (Clear); Urine Urobilinogen Normal (Normal)
[2020-10-26 12:29] LABS: White Blood Cells 0-5 SEEN /hpf (0-5)
[2020-10-26 12:42] LABS: Microalbumin,Random Urine 17.1 mg/L (NO RANGE EST.)
[2020-10-26 12:45] LABS: Anion Gap 7 (5-15); BUN 12 mg/dL (7-18); Calcium,Total 9.4 mg/dL (8.5-10.1); Chloride 108 mmol/L (98-107); Cholesterol 107 mg/dL (200); Creatinine, Serum 0.86 mg/dL (0.70-1.30); EST Glomerular Filtration Rate 94 mL/min (>60); Est Glom Filt Rate - Afr Amer 113 mL/min (>60); Glucose 97 mg/dL (74-106); High Density Lipoprotein 43 mg/dL; PSA,Total - Annual Screen 3.25 ng/mL (0.00-4.00); Potassium 4.2 mmol/L (3.5-5.1); Sodium Level 139 mmol/L (136-145); Triglycerides 64 mg/dL; Very Low Density Lipoprotein 13 mg/dL (5-40)
== END ==
PROVIDERS: PCP Family Medicine; Referring Provider Family Medicine; Visit Provider Family Medicine
DX: Z00.00 Encounter for general adult medical examination without abnormal findings (principal); E11.9 Type 2 diabetes mellitus without complications
CPT/HCPCS: 36415; 80048; 80061; 81001; 82043; 82570; 84153; G0103

== ENCOUNTER 2021-12-17 15:47 | Emergency (ER) | payer OTHER, SELFPAY ==
[2021-12-17 15:48] VITALS: BP 123/74; PULSE 100; RESP 18; TEMP 36.4; O2SAT 100; BMI 25.8
[2021-12-17 15:51] VITALS: BP 123/74; PULSE 100; RESP 18; TEMP 36.4; O2SAT 100
--- NOTE | 2021-12-17 16:57 | EX.ED.UPPERE ---
HPI History of Present Illness HPI Narrative: Patient presents with a laceration to his right wrist that occurred today. Patient states he cut his wrist on hedge trimmers. Patient is unsure of his last tetanus. Patient states the bleeding has improved after several minutes of pressure. Patient denies any pulsatile bleeding initially. Patient denies any paresthesias or weakness. Patient denies any other injuries. Chief Complaint: Laceration Informant: patient Occured/Mechanism Comment: Cut on hedge trimmers Onset/Context/Timing Onset: Today Context: Sudden Onset Timing: Continuous Location: Right wrist Worsened by: Nothing Relieved by: Pressure Associated Symptoms Associated Symptoms: Negative for Parasthesia, Weakness or Loss of Funtion Narrative Tetanus Immunization: Unknown [facility] Medical History CAD (coronary artery disease) Diabetes GERD (gastroesophageal reflux disease) Heart disease HTN (hypertension) Umbilical hernia Home Medications aspirin 81 mg tablet,delayed release 81 mg PO DAILY@0800 blood thinner 02/23/15 [History Last Taken 07/04/19 08:00] atorvastatin 40 mg tablet 40 mg PO QHS cholesterol 02/23/15 [History Last Taken 07/03/19 22:00] metformin 1,000 mg tablet 1,000 mg PO BID blood sugar 02/23/15 [History Last Taken 07/04/19 10:00] metoprolol succinate 25 mg tablet,extended release 24 hr 25 mg PO DAILY BP 02/23/15 [History Last Taken 07/04/19 10:00] pantoprazole 40 mg tablet,delayed release 40 mg PO DAILY PPI 08/16/16 [History Last Taken 07/04/19 10:00] cinnamon bark 500 mg capsule (Cinnamon) 2,000 mg PO BID blood sugar 08/07/17 [History Last Taken 07/04/19 08:00] omega-3 fatty acids-fish oil 340 mg-1,000 mg capsule 2 ea PO QHS SUPPLEMENT 07/04/19 [History Last Taken 07/03/19 22:00] empagliflozin 10 mg tablet 10 mg PO DAILY 08/25/20 [History Last Taken Unknown] rivaroxaban 20 mg tablet 20 mg PO DAILY 08/25/20 [History Last Taken Unknown] cephalexin 500 mg capsule 500 mg PO Q6 #40 CAPSULES 12/17/21 [Rx Last Taken Unknown] Allergy/AdvReac Type Severity Reaction Status Date / Time No Known Allergies Allergy Verified 12/17/21 15:48 Family History Father Diabetes Heart disease Surgical History H/O heart artery stent History of back surgery History of colonoscopy History of eye surgery Social History Smoking Status: Current every day smoker tobacco type: cigarettes alcohol intake: current alcohol intake frequency: holidays/special occasions only ROS ROS ED Constitutional Constitutional ED: Denies chills or fever(s) Eyes Eyes: Denies blurry vision or change in vision ENT ENT ED: Denies rhinorrhea or sore throat Cardiovascular Cardiovascular: Denies chest pain or palpitations Respiratory/Chest Respiratory/Chest: Denies cough or dyspnea Gastrointestinal Gastrointestinal: Denies nausea or vomiting Genitourinary Genitourinary ED: Denies dysuria or hematuria Musculoskeletal Musculoskeletal: Denies back pain or neck pain Integumentary Denies abscess or rash Neurologic Neurologic: Denies headache(s) or weakness Allergic/Immunologic Allergic/Immunologic ED: Denies mouth swelling or urticaria EXAM Physical Exam Const Vital Signs: 12/17/21 15:48 12/17/21 15:51 Temperature 97.5 F L 97.5 F L Temperature Source Oral Oral Pulse Rate 100 100 Respiratory Rate 18 18 Blood Pressure 123/74 H 123/74 H Blood Pressure Mean 90 90 Pulse Ox 100 100 Oxygen Delivery Method Room Air Room Air Positive well nourished and well developed General Appearance ED: well developed and NAD HEENT Reports moist mucous membranes Neck full ROM Extremity Extremity Narrative: There is a 3.5 cm full-thickness linear laceration on the volar aspect of the right wrist over the distal ulna. There is mild gapping of the wound margins. There are no foreign bodies noted. There is no active bleeding noted. Sensation was intact to light touch in the radial, median, and ulnar areas. Strength is 5/5 in the radial, median, and ulnar areas. Capillary refill was less than 2 seconds in all digits. Neuro oriented x3, CN's II-XII intact bilaterally, moves all extremities, no focal motor deficits and no sensory deficits noted Sensorium / Orientation: alert Motor Exam: strength 5/5 throughout Psych mental status grossly normal MDM MDM MDM Narrative Medical decision making narrative: The wound was cleaned and irrigated with copious amounts of normal saline. The wound was anesthetized with 1% plain lidocaine locally. The wound was closed with 5 simple interrupted #4-0 nylon sutures under sterile technique. Patient tolerated the procedure well. Bacitracin dressing was applied. Patient was given a dose of Keflex here. Patient was given a tetanus booster. Patient was given a prescription for Keflex. Patient was instructed to keep the wound clean and dry. Patient was instructed to follow-up with his primary care physician in 5 to 7 days. Patient understood and was agreeable with the plan. All questions were answered. Procedures Lacerations Right wrist: Length: 3.5 cm Depth: Sub Q Shape: Linear Prep: Sterile Conditions and Chlorhexadine Laceration repair: Irrigated, Local and Wound explored Irrigated (ml): 100 Number of Sutures/Jovi: 5 Suture Information: Ethilon, Simple and 4-0 Discharge Plan Triage Chief Complaint: Laceration ED Provider: Candelario Anderson Dx/Rx/DC Orders Clinical Impression: Laceration of right wrist, Tobacco abuse, History of ND (myocardial infarction) Instructions: ED Laceration: All Closures Prescriptions: New cephalexin [cephalexin] 500 mg capsule 500 mg PO Q6 Qty: 40 0RF No Action cinnamon bark [Cinnamon] 500 mg capsule 2,000 mg PO BID atorvastatin 40 MG tablet 40 mg PO QHS aspirin 81 MG tablet 81 mg PO DAILY@0800 metformin 1,000 MG tablet 1,000 mg PO BID metoprolol succinate 25 MG tablet 25 mg PO DAILY pantoprazole 40 MG tablet 40 mg PO DAILY omega-3 fatty acids-fish oil 1 EACH capsule 2 ea PO QHS rivaroxaban 20 MG tablet 20 mg PO DAILY empagliflozin 10 MG tablet 10 mg PO DAILY Primary Care Provider: Christophe Dexter Referrals: Christophe Dexter MD [Primary Care Provider] - 7 Days for suture removal Disposition Disposition: Home, Self Care
[2021-12-17 17:33] VITALS: RESP 18
[2021-12-17] MEDS: Lidocaine 1% (20 ml mdv) 20 ML Vial INFILT (17:40)
[2021-12-17] MEDS: Cephalexin 500 MG Capsule PO (17:40)
[2021-12-17] MEDS: Diphth,Pertuss(Acell),Tet Vac 0.5 ML Vial IM (17:40)
== END 2021-12-17 17:48 | disposition home or self-care (01) ==
LOC: ED 17:05
PROVIDERS: Emergency Provider Emergency Medicine; PCP Family Medicine; Visit Provider Emergency Medicine
DX: S61.511A Laceration without foreign body of right wrist, initial encounter (principal); I25.10 Atherosclerotic heart disease of native coronary artery without angina pectoris; F17.290 Nicotine dependence, other tobacco product, uncomplicated; I25.2 Old myocardial infarction; Z23 Encounter for immunization; X58.XXXA Exposure to other specified factors, initial encounter
CPT/HCPCS: 12002; 90471; 90715; 99283

== ENCOUNTER → 2022-04-25 | Outpatient (CLI) | payer OTHER, SELFPAY ==
[2022-04-25 15:17] LABS: Anion Gap 10 (5-15); BUN 15 mg/dL (7-18); BUN/Creat Ratio 18.9 RATIO (10-20); Calcium,Total 9.2 mg/dL (8.5-10.1); Chloride 103 mmol/L (98-107); Cholesterol 98 mg/dL (200); Creatinine, Serum 0.79 mg/dL (0.70-1.30); EST Glomerular Filtration Rate 102 mL/min (>60); Est Glom Filt Rate - Afr Amer 124 mL/min (>60); Glucose 75 mg/dL (74-106); High Density Lipoprotein 48 mg/dL; Potassium 4.1 mmol/L (3.5-5.1); Sodium Level 138 mmol/L (136-145); Triglycerides 64 mg/dL; Very Low Density Lipoprotein 13 mg/dL (5-40)
== END | disposition home or self-care (01) ==
LOC: MFPLAB 11:30
PROVIDERS: PCP Family Medicine; Referring Provider Family Medicine; Visit Provider Family Medicine
DX: E11.9 Type 2 diabetes mellitus without complications (principal)
CPT/HCPCS: 36415; 80048; 80061

== ENCOUNTER → 2022-07-30 | Outpatient (CLI) | payer OTHER, SELFPAY ==
--- NOTE | 2022-07-30 07:10 | CDU_ITS ---
Reason For Study: Lightheadedness Rt. Velocities/BP Lt. Velocities/BP Prox CCA 79.6/15.4 cm/sec. Prox CCA 110.7/30.3 cm/sec. Mid CCA 69.2/15.4 cm/sec. Mid CCA 66.7/16.6 cm/sec. Dist CCA 89.4/16.8 cm/sec. Dist CCA 71.4/23.2 cm/sec. Prox ICA 157.2/34.2 cm/sec. Prox ICA 141.7/37.6 cm/sec. Mid ICA 146.2/29.9 cm/sec. Mid ICA 123.5/35.8 cm/sec. Dist ICA 106.7/32.0 cm/sec. Dist ICA 84.7/23.6 cm/sec. Rt. ICA/CCA = 2.3. Lt. ICA/CCA = 2.1. Prox ECA 183.0/27.8 cm/sec. Prox ECA 271.7/39.9 cm/sec. Rt. Vert. 57.8/13.8 cm/sec. Lt. Vert. 51.6/16.6 cm/sec. Right Extracranial There is homogeneous, smooth atherosclerotic plaque noted in the right common carotid artery. There is heterogeneous, irregular atherosclerotic plaque noted in the right internal carotid artery. The atherosclerotic plaque causes acoustic shadowing. There is heterogeneous, irregular atherosclerotic plaque noted in the right external carotid artery. Antegrade flow is noted in the right vertebral artery. Left Extracranial There is homogeneous, smooth atherosclerotic plaque noted in the left common carotid artery. There is heterogeneous, irregular atherosclerotic plaque noted in the left internal carotid artery. The atherosclerotic plaque causes acoustic shadowing. There is heterogeneous, irregular atherosclerotic plaque noted in the left external carotid artery. Antegrade flow is noted in the left vertebral artery. Procedure Carotid Duplex [id number]. This is a Carotid Duplex examination using B-mode, color flow and specral Doppler. The exam was diagnostic. Exam performed in department. VL/Carotid Duplex Ultrasound Interpretation Summary Moderate (50-69%) stenosis right extracranial internal carotid. Moderate (50-69%) stenosis left extracranial internal carotid. Patent and antegrade vertebrals bilaterally. Limited by calcific shadowing bilateral. Ordering Physician: Christophe Dexter Referring Physician: Christophe Dexter Performed By: Cricket Brooke RVT
--- NOTE | 2022-07-30 12:44 | STRESSREP ---
Stress Test Report Exercise myocardial perfusion stress test. 71-year-old man with a history of dyspnea on exertion Stress protocol: Resting EKG demonstrates atrial fibrillation with a rate of 78 bpm resting blood pressure is 140/78 mmHg. The patient exercised according to the regular Jaswinder protocol for a total duration of 3 minutes and 31 seconds attaining a maximum heart rate of 173 bpm which was 116% of maximum predicted heart rate; the maximum workload was 5.8 metabolic equivalents. At rest there were no ST or T wave changes noted to suggest ischemia and at peak exercise [address] depression noted in lead II and V6 and 1.[address] depression noted in V5 and lead III which was suggestive but not diagnostic of ischemia. The patient did experience mild to moderate shortness of breath. No clinical angina was noted the test was terminated due to the target heart rate being achieved/fatigue. The peak blood pressure was 150/68 mmHg. Rate-pressure product was 20,300. Myocardial perfusion protocol. 12.0 mCi of technetium 99m sestamibi was injected at rest. The patient exercised according to regular Jaswinder protocol for total duration of 3 minutes and 31 seconds and at peak exercise 34.8 mCi of technetium 99m sestamibi was injected stress images were obtained stress and rest images were reconstructed in comparing the short axis vertical long and horizontal long axis. Gated images were also obtained. Perfusion SPECT analysis: Review of the stress images demonstrate normal uptake of tracer noted in all areas of the myocardium. There is a fair amount of GI uptake noted. The resting images similarly demonstrate normal uptake of tracer noted in all areas of the myocardium. No areas of reversibility are noted to suggest ischemia no previous infarct was noted. Gated SPECT analysis: The gated ejection fraction is 69%. Conclusion: Normal exercise myocardial perfusion stress test at a low to moderate workload which could affect sensitivity for detection of ischemia Preserved ejection fraction.
== END | disposition home or self-care (01) ==
PROVIDERS: PCP Family Medicine; Referring Provider Family Medicine; Visit Provider Family Medicine
DX: R42 Dizziness and giddiness (principal); R06.02 Shortness of breath
CPT/HCPCS: 78452; 93017; 93880; A9500

== ENCOUNTER → 2022-11-18 | Outpatient (CLI) | payer OTHER, SELFPAY ==
--- NOTE | 2022-11-18 17:02 | CT_ITS ---
STUDY: LOW DOSE CT LUNG CANCER SCREENING REASON FOR EXAM: Male, 71 years old. SMOKING. 60 pack year history. RADIATION DOSAGE (If Supplied By Facility): CTDIvol = ( 3.02 ) mGy, DLP = ( 116.26 ) mGycm TECHNIQUE: No contrast was administered. Low dose technique was utilized (average mAS-38 and kVp 120). 1.25 mm axial source images with a slice interval of 1.25-mm were reconstructed in lung windows with 1.25 coronal and sagittal reformats COMPARISON: No relevant prior comparison study available NODULES: Nodule #: 1 Density: Solid Lung location: Lateral left lower lobe: 0.4cm from pleura Location in series: Series Number: 2 Image: 213 Size - D1 x D2 mm: 2.5 x 4.5 mm: 4mm average diameter Margin: Circumscribed Shape: [oval Calcification: none Fat: none Nodule #: 2 Density: Solid Lung location: Posterior left upper lobe: bordering pleura Location in series: Series Number: 2 Image: 46 Size - D1 x D2 mm: 1 x 3 mm: 2mm average diameter Margin: Circumscribed Shape: [oval Calcification: none Fat: none Nodule #: 3 Density: Solid Lung location: Posterior right upper lobe: bordering pleura Location in series: Series Number: 2 Image: 71 Size - D1 x D2 mm: 1 x 1 mm: 1mm average diameter Margin: Circumscribed Shape: [Round Calcification: none Fat: none Nodule #: 4 Density: Solid Lung location: Anterior right lower lobe: bordering pleura Location in series: Series Number: 2 Image: 141 Size - D1 x D2 mm: 2 x 4 mm: 3mm average diameter Margin: Circumscribed Shape: [No Calcification: none Fat: none Nodule #: 5 Density: Solid Lung location: Anterior right upperlobe: 0.8 cm from the pleura Location in series: Series Number: 2 Image: 127 Size - D1 x D2 mm: 2 x 2 mm: 2mm average diameter Margin: Circumscribed Shape: [Round Calcification: none Fat: none Total lung nodules (excluding granulomas): 5 Parenchyma: No airspace consolidation, effusion, or pneumothorax. Mild apical scarring. Endobronchial lesion: No endobronchial lesion. Mild bilateral peribronchial thickening. Aorta: Enteric atherosclerosis without ectasia. CORONARY ARTERIES: Severe multivessel coronary atherosclerosis. Heart: No cardiomegaly or pericardial effusion. Pulmonary artery: No main pulmonary arterial enlargement relative to aorta. Mediastinal nodes: No mediastinal or hilar adenopathy. Other chest and abdominal findings: Unremarkable thyroid, esophagus, and upper abdomen . No acute osseous finding. CT/Low Dose CT Lung Screening IMPRESSION: Multiple pulmonary nodules up to 4 mm in average diameter Severe multivessel coronary atherosclerosis. Lung-RADS category 2 - Continue annual screening with LDCT in 12 months. IMPORTANT NOTES FOR USE: ACR Lung-RADS Version 1.1 Assessment Categories Release Date: 2018 Category: Coded 0-4 bases on nodule(s) with highest degree of suspicion. Negative screen is defined as categories 1 and 2; a positive screen is defined as categories 3 and 4. Category 3 and 4A nodules that are unchanged on interval CT should be coded as category 2, and individuals returned to screening in 12 months. Category 4X: Category 3 or 4 nodules with additional imaging findings that increase the suspicion of lung cancer, such as spiculation, GGN that doubles in size in 1 year, enlarged lymph notes, etc. Category Modifiers: S (significant finding unrelated to lung cancer) Electronically Signed: Wilman Sosa MD at 11:30 EDT ,
== END | disposition home or self-care (01) ==
LOC: CT 16:51
PROVIDERS: PCP Family Medicine; Referring Provider Family Medicine; Visit Provider Family Medicine
DX: Z12.2 Encounter for screening for malignant neoplasm of respiratory organs (principal); F17.210 Nicotine dependence, cigarettes, uncomplicated
CPT/HCPCS: 71271

== ENCOUNTER → 2023-01-17 | Outpatient (CLI) | payer OTHER, SELFPAY ==
[2023-01-17 13:04] LABS: Microalbumin,Random Urine 6.5 mg/L (NO RANGE EST.); Microalbumin:Creatinine Ratio 9.5 mg/g CRE (<30 mg/g CRE)
[2023-01-17 13:06] LABS: Anion Gap 7 (5-15); BUN 16 mg/dL (7-18); BUN/Creat Ratio 21.4 RATIO (10-20); Calcium,Total 9.6 mg/dL (8.5-10.1); Chloride 106 mmol/L (98-107); Cholesterol 95 mg/dL (200); Creatinine, Serum 0.75 mg/dL (0.70-1.30); EST Glomerular Filtration Rate 109 mL/min (>60); Est Glom Filt Rate - Afr Amer 132 mL/min (>60); Glucose 111 mg/dL (74-106); High Density Lipoprotein 51 mg/dL; PSA,Total - Annual Screen 3.75 ng/mL (0.00-4.00); Potassium 4.1 mmol/L (3.5-5.1); Sodium Level 138 mmol/L (136-145); Triglycerides 71 mg/dL; Very Low Density Lipoprotein 14 mg/dL (5-40)
== END | disposition home or self-care (01) ==
LOC: MFPLAB 11:12
PROVIDERS: PCP Family Medicine; Visit Provider Family Medicine
DX: Z00.00 Encounter for general adult medical examination without abnormal findings (principal); E11.9 Type 2 diabetes mellitus without complications
CPT/HCPCS: 36415; 80048; 80061; 82043; 82570; 84153; G0103

== ENCOUNTER 2023-02-19 06:22 | Day surgery (SDC) | payer OTHER, SELFPAY ==
[2023-02-19] VITALS (8 sets, daily range): BP systolic 84–141; BP diastolic 48–70; PULSE 71–108; RESP 14–17; TEMP 36.2–36.7; O2SAT 93–98; BMI 22.7
--- NOTE | 2023-02-19 | COLBX_PTH ---
PATIENT: ROBERT CRISTINA LOC: EN U#:[id number] AGE/SX: 72/M ROOM: RE02/19/[address]: Dr. Lisa Remy MD : 1950 BED: DIS: 02/19/2023 SPEC #: [id number] RECD: 02/19/23 12:06 STATUS: LUKE VITA #: [id number] JANEY: 02/19/23 00:[address]: Lisa Remy DEPT: SURGICAL PATHOLOGY RECD BY: Robe Hernandez ENTERED: 02/19/23 13:16 SP TYPE: COLON BX OT DR: Dr. Christophe Dexter MD Tissues: A - Ascending colon B - Sigmoid colon biopsy Procedures: Surgery Specimen Level IV HEADER OPERATION: Colonoscopy with biopsy PRE-OP DIAGNOSIS: Positive Cologuard test TISSUE SUBMITTED: A - Ascending colon x3, B - Sigmoid colon MICROSCOPIC DIAGNOSIS A. Ascending colon, biopsy: Fragments of tubular adenoma. B. Sigmoid colon, biopsy: No pathologic change. AM:brian 02/20/2023 MICROSCOPIC DESCRIPTION Slides are reviewed. GROSS DESCRIPTION A - Received in fixative is one container labeled with the patient's name and designated ascending colon. The specimen consists of multiple irregular fragments of light champion soft tissue that in aggregate measure 1.2 x 0.3 x 0.1 cm. The specimen is totally submitted in one cassette. B - Received in fixative is one container labeled with the patient's name and designated sigmoid colon. The specimen consists of multiple irregular fragments of light champion soft tissue that in aggregate measure 0.8 x 0.6 x 0.1 cm. The specimen is totally submitted in one cassette. / AM:brian 02/19/2023 TC:5 CPT: 93009 x2
[2023-02-19] MEDS: Lactated Ringers 1,000 ML 15 ML IV (06:47)
--- NOTE | 2023-02-19 07:16 | HP.PCM_ITS ---
HPI - General General Date of Service: 02/19/23 [facility] Narrative ROBERT CRISTINA, is a 72 M who presents for colonoscopy due to positive Cologuard. Patient denies any current abdominal pain/nausea/vomiting/reflux. Patient denies any blood in stool. Patient never had previous colonoscopy. office visit 01/09/23 [facility] HPI: 72-year-old male presents due to positive Cologuard. Patient never had previous colonoscopy. Patient denies any family history of colon cancer. Patient has bowel movements daily denies any blood. Patient denies any chronic abdominal pain/nausea/vomiting/reflux. Patient is on aspirin as well as Xarelto due to previous cardiac stent. [facility] Medical History (Updated 02/13/23 @ 13:16 by Alexa Grullon) CAD (coronary artery disease) Cardiology follow-up encounter Diabetes Difficulty swallowing Easy bruising Excessive bleeding GERD (gastroesophageal reflux disease) Heart disease High cholesterol History of atrial fibrillation History of echocardiogram History of stress test History of ulceration HTN (hypertension) Smoker Umbilical hernia Wears glasses Home Medications aspirin 81 mg tablet,delayed release 81 mg PO DAILY@0800 blood thinner 02/23/15 [History Last Taken 07/04/19 08:00] atorvastatin 40 mg tablet 20 mg PO QHS cholesterol 02/23/15 [History Last Taken 07/03/19 22:00] metformin 1,000 mg tablet 1,000 mg PO BID blood sugar 02/23/15 [History Last Taken 07/04/19 10:00] pantoprazole 40 mg tablet,delayed release 40 mg PO DAILY PPI 08/16/16 [History Last Taken 07/04/19 10:00] rivaroxaban 10 mg tablet (Xarelto) 20 mg PO DAILY 01/09/23 [History Last Taken Unknown] cinnamon bark 500 mg capsule (Cinnamon) 500 mg PO DAILY 02/13/23 [History Last Taken Unknown] empagliflozin 10 mg tablet (Jardiance) 10 mg PO DAILY 02/13/23 [History Last Taken Unknown] lisinopril 5 mg tablet 5 mg PO DAILY 02/13/23 [History Last Taken Unknown] omega 0-sku-ppc-fish oil 60 mg-90 mg-500 mg capsule (Fish Oil) 1 cap PO DAILY 02/13/23 [History Last Taken Unknown] Allergy/AdvReac Type Severity Reaction Status Date / Time No Known Allergies Allergy Verified 02/13/23 13:02 Family History (Updated 01/09/23 @ 09:43 by Jaylyn Catherine) Father Diabetes Heart disease Brother Diabetes Mother CVA (cerebral vascular accident) Surgical History (Updated 02/13/23 @ 13:16 by Alexa Grullon) H/O heart artery stent History of back surgery History of cardiac catheterization History of colonoscopy Hx of left cataract extraction Hx of right cataract extraction Social History (Updated 01/09/23 @ 09:44 by Jaylyn Catherine) Smoking Status: Current every day smoker tobacco type: cigarettes alcohol intake: current alcohol intake frequency: holidays/special occasions only substance use type: does not use Past Medical/Surgical History Planned Operation Planned Operative Procedure/s: COLONOSCOPY S.O.S: No Previous Hospitalizations/Surgeries HX Hospitalizations: No HX of Surgeries: BACK SURGERY HEART CATH W/ STENTS Any Problems With Anesthesia: No You/Your Family Experience Fever (Hyperthermia) With Anes: No Cholinesterase deficiency: No Cardiovascular Hx Chest Pain within Last 2 months: No Hx of Irregular Heartbeat and/or Afib: No Hx Heart Attack: Yes Hx Congestive Heart Failure: No Hx Rheumatic Fever: No Hx Hypertension: Yes (CONTROLED ON MED) Hx Internal Defibrillator: No Hx Pacemaker: No Hx Cardiac Catheterization: Yes What facility was last heart cath performed: - Date of last Heart Cath: - Hx Cardiac Surgery/Stents/Etc.: Yes (2002, DR. GODOY) Hx Stress Test: Yes (2011) Hx Pain in Legs when Walking/Leg Cramps: No Respiratory Chronic Cough: No HX of Shortness of Breath: No (CAN CLIMB 2 FLIGHTS OF STAIRS WITHOUT SOB) Hoarseness: No Hx Chronic Obstructive Pulmonary Disease (COPD): No Hx Asthma: No Hx Emphysema: No Hx Sleep Apnea: No Hx Respiratory Tract Infection/Cold (presently): No Do You Snore Loudly (louder than talking or can be heard): Yes Do You Often Feel Tired/ Fatigued/ Sleepy Dring Daytime?: No Has Anyone Observed You Stop Breathing During Sleep?: No Result (for STOP score): Positive Hx Smoking: Yes Smoking Status: Current every day smoker Gastrointestinal Hx Gastroesophageal Reflux: No Controlled With Meds: Yes Hx Gastrointestinal Disorders: Yes (DIVERTICULITIS) Hx Gastrointestinal Bleed: Yes Hx Ulcer: Yes Hx Hiatal Hernia: No Difficulty Chewing/Swallowing: No Special diet followed at home: No Hx Unplanned Weight Loss of 20#: No HX Unplanned Weight Gain of 20#: No Neurological Hx Seizures: No HX Syncope/Blackout Spells/Unconsciousness: No Hx Transient Ischemic Attacks (TIA): No Hx Multiple Sclerosis: No Hx Parkinson's Disease: No Hx Head/Neck Injury: No Hx Headaches: No Hx Back Injury/Pain: Yes Recent Onset of Speech Difficulty: No Restless Legs: No Does patient have nerve stimulator: No Blood Disorder Hx Leukemia: No Bleeding Tendencies: No Hx Deep Vein Thrombosis: No Hx High Cholesterol: Yes Blood Transmitted Disease: No Hx Hepatitis: No Hx Cirrhosis: No Hx Anemia: No Hx Blood Disorders: No Genitourinary Hx Renal Disease: No Hx Dialysis: No Musculoskeletal Hx Arthritis: No Hx Rheumatoid Arthritis: No Hx Gout: Yes (R KNEE) Recent Onset of an Orthopedic Problem: No Endocrine Hx Diabetes: Yes Insulin: No Thyroid Disease: No Hx Steroid Therapy: Yes (EYE DROPS) Psycho/Social Hx Substance Use: No Hx Alcohol Use: No Hx Anxiety: No Hx Depression: No Mental Illness: No Hx Dementia: No Miscellaneous Hx Cancer: No Recent Exposure to Contagious Disease: No Hx of C-Diff: No Any Loose Teeth: No Allergies No Known Allergies Allergy (Verified 02/13/23 13:02) Paternal: Family History (Updated 01/09/23 @ 09:43 by Jaylyn Catherine) Father Diabetes Heart disease Brother Diabetes Mother CVA (cerebral vascular accident) - (Patient's father age of 80 with a history of heart disease. Patient's mother at the age of 80, suffering from dementia.) Discharge Is Pt Admitted From a Long Term, or a Care Home: No After D/C, Where Do you Plan to Go: Return Home From the PAT History Number of Risk Factors: 3 Vital Signs Vital Signs Vital Signs: 02/19/23 06:48 02/19/23 06:48 Temperature 98.1 F Temperature Source Temporal Pulse Rate 108 H Respiratory Rate 17 Respiratory Pattern Normal Blood Pressure 141/70 H Blood Pressure Mean 93 Blood Pressure Source Monitor Blood Pressure Position Semi-Fowlers Blood Pressure Location Right Arm Pulse Ox 97 Oxygen Delivery Method Room Air Weight Weight: 158 lb 11.725 oz Body Mass Index (BMI) 22.7 Physical Exam Const alert, oriented x3 and no apparent distress HEENT normocephalic and head/scalp atraumatic Resp normal respiratory effort Cardio regular rate GI soft to palpation and non-tender; Negative for non-distended Palpation: Negative for guarding Extremity no clubbing, cyanosis or edema Neuro CN's II-XII intact bilaterally Psych mental status grossly normal Assessment & Plan Assessment/Plan (1) Positive colorectal cancer screening using Cologuard test: Surgery Risks - Colonoscopy I discussed with the patient the risks of the procedure: Yes Risks Include but are not Limited To: Risks include but are not limited to: Bleeding, perforation requiring further surgery, inability to complete colonoscopy requiring barium enema.
--- NOTE | 2023-02-19 08:05 | OP.COLON_ITS ---
Patient Name: Cristofer Hancock Procedure Date: 02/19/2023 7:10 AM Date of : 1950 Age: 72 Procedure: Colonoscopy Indications: Positive Cologuard test Providers: Lisa Remy MD Referring MD: Christophe Dexter MD Medicines: Monitored Anesthesia Care Patient Profile: Last Colonoscopy: none. The patient's first colonoscopy is today. Complications: No immediate complications. Procedure: Pre-Anesthesia Assessment: - Prior to the procedure, a History and Physical was performed, and patient medications and allergies were reviewed. The patient's tolerance of previous anesthesia was also reviewed. The risks and benefits of the procedure and the sedation options and risks were discussed with the patient. All questions were answered, and informed consent was obtained. Prior Anticoagulants: The patient has taken Xarelto (rivaroxaban), last dose was 3 days prior to procedure. ASA Grade Assessment: Per anesthesia. After reviewing the risks and benefits, the patient was deemed in satisfactory condition to undergo the procedure. After I obtained informed consent, the scope was passed under direct vision. Throughout the procedure, the patient's blood pressure, pulse, and oxygen saturations were monitored continuously. The Colonoscope was introduced through the anus and advanced to the cecum, identified by the appendiceal orifice, ileocecal valve and palpation. The colonoscopy was performed without difficulty. The patient tolerated the procedure well. The quality of the bowel preparation was good. Scope In: 7:29:59 AM Scope Withdrawal Time 0 hours 15 minutes 1 second Scope Out: 7:52:04 AM Total Procedure Duration Time 0 hours 22 minutes 5 seconds Findings: The perianal and digital rectal examinations were normal. Three sessile polyps were found in the sigmoid colon and ascending colon. The polyps were less than 5 mm in size. These polyps were removed with a cold biopsy forceps. Resection and retrieval were complete. Multiple medium-mouthed diverticula were found in the sigmoid colon. The exam was otherwise without abnormality on direct and retroflexion views. Impression: - Three less than 5 mm polyps in the sigmoid colon and in the ascending colon, removed with a cold biopsy forceps. Resected and retrieved. - Diverticulosis in the sigmoid colon. - The examination was otherwise normal on direct and retroflexion views. Recommendation: - Discharge patient to home. - High fiber diet. - Continue present medications. - Await pathology results. - Repeat colonoscopy in 5 years for surveillance based on pathology results. - Resume Xarelto (rivaroxaban) at prior dose tomorrow. Procedure Code(s): --- Professional --- 01940, Colonoscopy, flexible; with biopsy, single or multiple Diagnosis Code(s): --- Professional --- D12.5, Benign neoplasm of sigmoid colon D12.2, Benign neoplasm of ascending colon R19.5, Other fecal abnormalities K57.30, Diverticulosis of large intestine without perforation or abscess without bleeding CPT copyright 2021 [employer]. All rights reserved. The codes documented in this report are preliminary and upon furnace worker review may be revised to meet current compliance requirements. MD Lisa Kaye MD 02/19/2023 8:05:10 AM This report has been signed electronically. Number of Addenda: 0 Note Initiated On: 02/19/2023 7:10 AM
--- NOTE | 2023-02-19 08:05 | OP.CCLET_ITS ---
02/19/2023 Christophe Dexter MD [address] [place] [address] Re : [facility] Dexter This procedure was performed on Sunday, February 19, 2023. My impressions and recommendations are as follows: Impressions : - Three less than 5 mm polyps in the sigmoid colon and in the ascending colon, removed with a cold biopsy forceps. Resected and retrieved. - Diverticulosis in the sigmoid colon. - The examination was otherwise normal on direct and retroflexion views. Recommendations : - Discharge patient to home. - High fiber diet. - Continue present medications. - Await pathology results. - Repeat colonoscopy in 5 years for surveillance based on pathology results. - Resume Xarelto (rivaroxaban) at prior dose tomorrow. My findings are described in the full procedure note, which is enclosed. If I can be of further assistance, please feel free to contact me at Doctor phone number(s): , Work: . Sincerely, MD Lisa Kaye MD 02/19/2023 8:05:10 AM This report has been signed electronically.
[2023-02-19 08:24] LABS: Bedside Glucose 88 mg/dL (74-106)
== END 2023-02-19 08:52 | disposition home or self-care (01) ==
LOC: EN 06:22 → AC 06:23
PROVIDERS: PCP Family Medicine; Referring Provider Family Medicine; Visit Provider Surgery
PROC: 0DJD8ZZ Inspection of Lower Intestinal Tract, Via Natural or Artificial Opening Endoscopic (ICD-10-PCS; CPT 45378; principal; 2023-02-19 07:25)
DX: D12.2 Benign neoplasm of ascending colon (principal); E11.9 Type 2 diabetes mellitus without complications; R19.5 Other fecal abnormalities; K57.30 Diverticulosis of large intestine without perforation or abscess without bleeding; F17.210 Nicotine dependence, cigarettes, uncomplicated; I10 Essential (primary) hypertension; E78.00 Pure hypercholesterolemia, unspecified; I25.10 Atherosclerotic heart disease of native coronary artery without angina pectoris; Z79.82 Long term (current) use of aspirin; Z79.84 Long term (current) use of oral hypoglycemic drugs; Z79.01 Long term (current) use of anticoagulants; Z79.899 Other long term (current) drug therapy; Z95.5 Presence of coronary angioplasty implant and graft
CPT/HCPCS: 45380; 82962; 88305; J7120; J2405

== ENCOUNTER → 2023-04-18 | Outpatient (CLI) | payer OTHER, SELFPAY ==
[2023-04-18 14:33] LABS: Free T3 16.1 pg/mL (2.18-3.98); Thyroid Stim Hormone (TSH) < 0.01 uIU/mL (0.358-3.74)
== END | disposition home or self-care (01) ==
LOC: MFPLAB 10:59
PROVIDERS: PCP Family Medicine; Visit Provider Family Medicine
DX: R63.4 Abnormal weight loss (principal)
CPT/HCPCS: 36415; 84443; 84481

== ENCOUNTER → 2023-04-25 | Outpatient (CLI) | payer OTHER, SELFPAY ==
--- NOTE | 2023-04-25 11:40 | US_ITS ---
INDICATION: hyperthyroid state EXAMINATION: Ultrasound US Thyroid (eg thyroid, parathyroid, parotid) TECHNIQUE: Hairston scale and color doppler imaging was performed of the thyroid gland. COMPARISON: None. FINDINGS: RIGHT THYROID LOBE: 4.7 x 2.2 x 2.1 cm. Heterogenous echotexture with normal vascularity. [No thyroid nodules are present. LEFT THYROID LOBE: 4.5 x 2.6 x 2.2 cm. Heterogenous echotexture with normal vascularity. [Single nodule present in the upper pole measures 1.3 x 1.1 x 0.6 cm. Nodule is solid, mildly hypoechoic with regular margins, wider than tall, no associated shadowing echogenic foci, TI RADS level 4 or moderately suspicious. ISTHMUS: 5 mm. No thyroid nodules are present. US/Thyroid IMPRESSION: Heterogenous thyroid parenchyma with single nodule left lobe which is moderately suspicious by TI RADS category is a. Recommend follow-up at one, 2, 3 and 5 year intervals. Electronically Signed: Chad Gramajo MD at 20:16 EST ,
== END | disposition home or self-care (01) ==
LOC: US 11:38
PROVIDERS: PCP Family Medicine; Referring Provider Family Medicine; Visit Provider Family Medicine
DX: E05.91 Thyrotoxicosis, unspecified with thyrotoxic crisis or storm (principal)
CPT/HCPCS: 76536

== ENCOUNTER → 2023-04-29 | Outpatient (CLI) | payer OTHER, SELFPAY ==
--- NOTE | 2023-04-29 07:52 | NM_ITS ---
CLINICAL: 72-year-old male with history of clinical thyrotoxicosis. I-123 THYROID UPTAKE COMPARISON: None available FINDINGS: The patient was administered a 303 uCi I-123 capsule by mouth. The 4-hour I-123 radioactive iodine thyroidal uptake was calculated to be 49.8 % (normal 5 to 25 %). The 24-hour I-123 radioactive iodine thyroidal uptake was calculated to be 105.5 % (normal 5 to 40 %). The I-123 thyroid scan was not obtained. NM/Thyroid Uptake Single or Mult IMPRESSION: 1. ABNORMAL ELEVATED 4- and 24-hour I-123 radioactive iodine thyroidal uptakes consistent with presenting hyperthyroidism.. 2. The I-123 thyroid scan was not acquired. Electronically Signed: Dane Agustin DO at 10:06 EST ,
== END | disposition home or self-care (01) ==
LOC: NM 07:51
PROVIDERS: PCP Family Medicine; Referring Provider Family Medicine; Visit Provider Family Medicine
DX: E05.91 Thyrotoxicosis, unspecified with thyrotoxic crisis or storm (principal)
CPT/HCPCS: 78012; A9516

== ENCOUNTER → 2023-05-21 | Outpatient (CLI) | payer OTHER, SELFPAY ==
--- OUTSIDE RECORDS SUMMARY | 2023-05-21 12:01 | XMS RPT_ITS | CCD ---
Author Name Unknown Address [address] [place] [address] Organization [facility] Care Team Providers Care Transportation Mechanic Name Role Phone Jeri Armstrong LPN Unavailable UnavailJaswinder Silva Unavailable Unavailable Jaswinder Del Rio Unavailable Unavailable Frances, Dulce Maria Mauricio Unavailable Christophe Corral Unavailable JASWINDER DEL RIO Unavailable Unavailable JASWINDER DEL RIO Unavailable Unavailable CHRISTOPHE CORRAL Unavailable Unavailable Frances, Dulce Maria Mauricio Unavailable Christophe Corral Primary Care Provider Jeri Armstrong LPN Unavailable Unavailab Christophe De Primary Care Provider Frances VILLATORO Dulce Maria Mauricio Unavailable Christophe Corral MD Primary Care Provider Frances VILLATORO Dulce Maria Mauricio Unavailable Christophe Corral MD Primary Care Provider Christophe Corral MD Primary Care Provider JASWINDER DEL RIO Attending Unavailable JASWINDER DEL RIO Admitting Unavailable CHRISTOPHE CORRAL Referring Unavailable CHRISTOPHE CORRAL Primary Care Unavailable Frances VILLATORO Dulce Maria [place] Unavailable Christophe Corral MD Primary Care Provider Medications Current Medications Medication Drug Class(es) Dates Sig (Normalized) Sig (Original) DOCOSAHEXANOIC ACID/EPA (FISH OIL ORAL) (12 sources) DOCOSAHEXANOIC A SHELLEY/EPA (FISH OIL ORAL) Take by mouth. 0 Active Completed/Discontinued Medications Medication Drug Class(es) Dates Sig (Normalized) Sig (Original) ALPRAZolam 0.25 mg oral tablet (1 source) Benzodiazepine Start: 04-23-2018 End: 04-23-2018 take 1 tablet by mouth every eight hours as needed 0.25 mg, Oral, Every 8 hours PRN, anxiety, Starting Dari 04/23/18 at 0852 May repeat x1 in 30 minutes if still anxious. aluminum hydroxide 40 mg/ml / magnesium hydroxide 40 mg/ml / simethicone 4 mg/ml oral suspension (1 source) Start: 04-23-2018 End: 04-23-2018 take 30 mL by mouth every four hours as needed 30 mL, Oral, Every 4 hours PRN, indigestion, Starting Dari 04/23/18 at 0852 amLODIPine 5 mg oral tablet (14 sources) Dihydropyridine Calcium Channel Paulie Start: 09-28-2014 take 1 tablet by mouth once daily AMLODIPINE BESYLATE 5 MG TABS One tablet by mouth daily AMLODIPINE BESYLATE [id number] Samuel Marx MD AMLODIPINE-ATORVAS TATIN (2 sources) Dihydropyridine Calcium Channel Paulie, HMG-CoA Reductase Inhibitor Start: 09-27-2014 take 1 tablet by mouth once daily CADUET 5-40 MG TABS One tablet by mouth daily AMLODIPINE-ATORVA STATIN [id number] Ruma Nair RN Problems Active Problems Problem Classification Problem Date Documented Date Episodic/Chronic Acute myocardial infarction (2 sources) Myocardial infarction; Translations: [ST elevation (STEMI) myocardial infarction of unspecified site] Onset: 09-27-2014 09-27-2014 Chronic Cardiac dysrhythmias (20 sources) Longstanding persistent atrial fibrillation; Translations: [Atrial fibrillation] Onset: 10-25-2019 10-25-2019 Chronic Coronary atherosclerosis and other heart disease (20 sources) Atherosclerotic heart disease of [place] coronary artery without angina pectoris; Translations: [Old myocardial infarction] Onset: 09-27-2014 09-27-2014 Chronic Diabetes mellitus without complication (2 sources) Diabetes mellitus; Translations: [Type 2 diabetes mellitus without complications] Onset: 09-27-2014 09-27-2014 Chronic Disorders of lipid metabolism (16 sources) Hypercholesterolemia; Translations: [Hyperlipidemia] Onset: 09-27-2014 09-27-2014 Chronic Essential hypertension (2 sources) Hypertensive disorder; Translations: [Essential (primary) hypertension] Onset: 09-27-2014 09-27-2014 Chronic Other nutritional; endocrine; and metabolic disorders (2 sources) Body mass index (BMI) 31.0-31.9, adult; Translations: [Body mass index (BMI) 31.0-31.9, adult] Onset: 04-11-2015 04-11-2015 Chronic Substance-related disorders (3 sources) Smoker; Translations: [Tobacco dependence syndrome] Onset: 09-27-2014 09-28-2016 Chronic Substance-related disorders (1 source) Tobacco dependence syndrome; Translations: [Nicotine dependence, unspecified, uncomplicated] Onset: 09-27-2014 09-27-2014 Chronic Unclassified (1 source) Percutaneous transluminal coronary angioplasty ; Translations: [Coronary angioplasty status] Onset: 09-27-2014 09-27-2014 Unclassified (2 sources) Long-term drug therapy; Translations: [Long-term (current) use of other medications] Onset: 09-27-2014 09-27-2014 Past or Other Problems Problem Classification Problem Date Documented Da te Episodic/Chronic Gastrointestinal hemorrhage (12 sources) Gastrointestinal hemorrhage; Translations: [Gastrointestinal hemorrhage, unspecified] Onset: 7 08-19-2016 Episodic Other aftercare (2 sources) Other mold checker (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; Translations: [Long-term (current) use of other medications] Onset: 5 04-11-2015 Episodic Other lower respiratory disease (2 sources) Cough; Translations: [Cough] Onset: 7 09-28-2016 Episodic Other upper respiratory infections (2 sources) Upper respiratory infection; Translations: [Acute upper respiratory infection, unspecified] Onset: 7 09-28-2016 Episodic Residual codes; unclassified (2 sources) FH: Hypertension; Translations: [Family history of ischemic heart disease and other diseases of the circulatory system] 09-27-2014 Episodic Results Test Name Value Interpretation Reference Range Facil ity Vital Signs Date Time Vital Sign Value Performing Clinician Facility 12-31-2021 11:47-0400 Diastolic blood pressure 84 mm[Hg] Jaswinder Del Rio MD Work Phone: [facility] 12-31-2021 11:47-0400 Systolic blood pressure 158 mm[Hg] Jaswinder Del Rio MD Work Phone: [facility] 12-31-2021 11:42-0400 Body height 180.3 cm Jaswinder Del Rio MD Work Phone: [facility] 12-31-2021 11:42-0400 Body mass index (BMI) [Ratio] 24.27 kg/m2 Jaswinder Del Rio MD Work Phone: [facility] 12-31-2021 11:42-0400 Body weight 78.93 kg Jaswinder Del Rio MD Work Phone: [facility] 12-31-2021 11:42-0400 Heart rate 79 /min Jaswinder Del Rio MD Work Phone: [facility] 11-27-2020 14:00-0400 Body height 180.3 cm Jaswinder Del Rio MD Work Phone: [facility] 11-27-2020 14:00-0400 Body mass index (BMI) [Ratio] 24.83 kg/m2 Jaswinder Del Rio MD Work Phone: [facility] 11-27-2020 14:00-0400 Body weight 80.74 kg Jaswinder Del Rio MD Work Phone: [facility] 11-27-2020 14:00-0400 Diastolic blood pressure 72 mm[Hg] Jaswinder Del Rio MD Work Phone: [facility] 11-27-2020 14:00-0400 Heart rate 75 /min Jaswinder Del Rio MD Work Phone: [facility] 11-27-2020 14:00-0400 SaO2% (BldA) [Mass fraction] 95 % Jaswinder Del Rio MD Work Phone: [facility] 11-27-2020 14:00-0400 Systolic blood pressure 119 mm[Hg] Jaswinder Del Rio MD Work Phone: [facility] 10-25-2019 13:36-0400 BMI (Body Mass Index) 27.67 kg/m2 Jaswinder Del Rio [facility] 10-25-2019 13:36-0400 Body weight 89.99 kg Jaswinder [facility] 10-25-2019 13:36-0400 BP Diastolic 86 mm[Hg] [facility] 10-25-2019 13:36-0400 BP Systolic 130 mm[Hg] [facility] 10-25-2019 13:36-0400 Height 180.3 cm Jaswinder [facility] 10-25-2019 13:36-0400 Pulse (Heart Rate) 76 /min Jaswinder [facility] 10-25-2019 13:36-0400 Pulse Oximetry 96 % Jaswinder [facility] 04-23-2018 09:15-0500 BP Diastolic 70 mm[Hg] Jaswinder [facility] 04-23-2018 09:15-0500 BP Systolic 123 mm[Hg] Jaswinder [facility] 04-23-2018 09:15-0500 Pulse (Heart Rate) 77 /min Jaswinder [facility] 04-23-2018 09:15-0500 Pulse Oximetry 97 % Jaswinder [facility] 04-23-2018 09:15-0500 Respiratory Rate 17 /min [facility] 04-23-2018 07:32-0500 BMI (Body Mass Index) 27.89 kg/m2 [facility] 04-23-2018 07:32-0500 Body Temperature 97.59 [degF] Jaswinder [facility] 04-23-2018 07:32-0500 Height 180.3 cm [facility] 04-23-2018 07:32-0500 Weight 90.72 kg [facility] 09-28-2016 10:45-0400 BMI (Body Mass Index) 31.94 kg/m2 Jeri Nathaniel OLMOS [facility] Work Phone: 09-28-2016 10:45-0400 Body Temperature 97.7 [degF] Jeri Armstrong LPN [facility] divya Work Phone: 09-28-2016 10:45-0400 Body weight 103.87 kg Jeri Nathaniel OLMOS [facility] Work Phone: 09-28-2016 10:45-0400 BP Diastolic 82 mm[Hg] Jeri Armstrong LPN [facility] Work Phone: 09-28-2016 10:45-0400 BP Systolic 142 mm[Hg] Jeri Armstrong LPN [facility] Work Phone: 09-28-2016 10:45-0400 Height 180.34 cm Jeri Armstrong LPN [facility] Work Phone: 09-28-2016 10:45-0400 Pulse (Heart Rate) 93 /min Jeri Armstrong LPN [facility] Work Phone: 09-28-2016 10:45-0400 Pulse Oximetry 98 % Jeri Armstrong LPN [facility] Work Phone: 09-28-2016 10:45-0400 Respiratory Rate 14 /min Jeri Armstrong LPN [facility] Work Phone: 09-28-2016 10:45-0400 Weight 103.87 kg Jeri Armstrong LPN [facility] Work Phone: 04-11-2015 08:30-0500 BSA (Body Surface Area) 2.23 m2 Jeri Armstrong LPN [facility] Work Phone: 09-28-2014 09:55-0400 Heart rate 80 /min Jeri Armstrong LPN [facility] Work Phone: Encounters Encounter Date Encounter Type Care Provider Facility Start: 01-28-2023 Refill Jaswinder kiran MD Work Phone: [facility] Procedures Date Procedure Procedure Detail Performing Clinician Start: 11-27-2020 Ecg routine ecg w/least 12 lds w/i&r Jaswinder Del Rio MD Work Phone: Start: 10-25-2019 12 lead ECG Jaswinder Del Rio Work Phone: Start: 04-23-2018 End: 04-23-2018 Cardiac catheterization Jaswinder morgan Work Phone: Start: 09-28-2016 End: 09-28-2016 Documentation of current medications Jeri Armstrong LPN Start: 09-28-2016 End: 09-28-2016 Smoking cessation education Jeri Armstrong LPN Start: 04-11-2015 End: 04-11-2015 [employer] Danielle Carvalho PA-C Work Phone: Start: 04-11-2015 End: 04-11-2015 Follow Up Appt 6 months Danielle echavarria PA-C Work Phone: Start: 09-28-2014 End: 09-28-2014 Electrocardiogram, complete Samuel Marx MD Start: 09-28-2014 End: 09-28-2014 Follow Up Appt 6 months Chelsie Thomas Start: 09-28-2014 End: 09-28-2014 MMM Samuel Marx MD Start: 09-27-2014 Percutaneous transluminal coronary angioplasty Percutaneous transluminal coronary angioplasty Jeri Armstrong LPN Plan of Treatment Date Care Activity Detail Author Start: 12-18-2031 Tetanus vaccination Tetanus: Every 10yrs [facility] Start: 11-18-2025 Tetanus vaccination [facility] Start: 01-10-2023 Influenza vaccination Sequential Influenza Vaccine (#1) [facility] Start: 01-10-2022 Influenza vaccination [facility] Start: 12-31-2021 End: 12-31-2021 Patient encounter procedure 12/31/2021 Office Visit Cardiology Jaswinder Del Rio MD [address] [address] [facility] Start: 01-10-2021 Influenza vaccination [facility] Start: 11-27-2020 End: 11-27-2020 Patient encounter procedure 11/27/2020 Office Visit Cardiology Jaswinder Del Rio MD [address] [address] [phone] [facility] Office Start: 09-14-2020 COVID-19 Vaccine (2 - Booster for Hilary series) COVID-19 Vaccine (2 - Booster for Hilary series) [facility] Start: 01-11-2020 Influenza vaccination given [facility] Start: 01-10-2018 Influenza vaccination SEQUENTIAL INFLUENZA VACCINE (#1) [facility] Start: 09-28-2016 End: 09-28-2016 Appointment Appointment [facility] Work Phone: Start: 12-11-2015 Fall risk assessment Falls Risk Assessment [facility] Start: 12-11-2015 Pneumococcal vaccination PNEUMOCOCCAL VACCINE AGE 65+ (1 of 2 - PCV13) [facility] Start: 12-11-2015 Pneumococcal Vaccine: Age 65+ (2 of 2 - PPSV23) Pneumococcal Vaccine: Age 65+ (2 of 2 - PPSV23) [facility] Start: 12-11-2015 US scan of abdominal aorta ABDOMINAL AORTIC ULTRASOUND [facility] Start: 04-11-2015 End: 04-11-2015 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 [facility] Work Phone: Start: 04-11-2015 End: 04-11-2015 Follow Up Appt 6 months Follow Up Appt 6 months [facility] Work Phone: Start: 09-28-2014 End: 09-28-2014 Electrocardiogram, complete EKG (In office) [facility] Work Phone: Start: 09-28-2014 End: 09-28-2014 Follow Up Appt 6 months Follow Up Appt 6 months [facility] Work Phone: Start: 09-28-2014 End: 09-28-2014 MMM MMM [facility] Work Phone: Start: 01-19-2009 Pneumococcal Vaccine: Age 65+ (2 - PCV) Pneumococcal Vaccine: Age 65+ (2 - PCV) [facility] Start: 2000 Administration of herpes zoster vaccine Zoster Vaccines (1 of 2) [facility] Start: 2000 Screening for malignant neoplasm of colon [facility] Start: 2000 ZOSTER VACCINES (1 of 2) ZOSTER VACCINES (1 of 2) [facility] Start: 1968 Hepatitis C antibody, confirmatory test Hepatitis C Screening [facility] Start: 1968 Hepatitis C screening Hepatitis C Screening [facility] Start: 1966 COVID-19 Vaccine (1 of 2) COVID-19 Vaccine (1 of 2) [facility] Start: 1962 Adolescent depression screening assessment Depression Screening (PHQ9) [facility] Start: 1962 COVID-19 Vaccine (1) COVID-19 Vaccine (1) [facility] Start: 1962 Depression screening using PHQ-9 (Patient Health Questionnaire 9) score [facility] Start: 1960 Diabetic foot examination Foot Exam [facility] Start: 1960 Glaucoma screening [facility] Start: 1960 Microalbumin measurement, urine, quantitative Urine Microalbumin [facility] Start: 1960 Ophthalmic examination and evaluation Ophthalmology Exam [facility] Start: 1960 Urine screening for protein Urine Microalbumin [facility] Start: 1956 Pneumococcal Vaccine: Age 65+ (1 of 2 - PPSV23) Pneumococcal Vaccine: Age 65+ (1 of 2 - PPSV23) [facility] Start: 1953 History and physical examination, annual for health maintenance Wellness Visit [facility] Start: 1950 Abdominal aortic aneurysm screening Abdominal Aortic Ultrasound [facility] Start: 1950 Fall risk assessment Falls Risk Assessment [facility] Start: 1950 Hemoglobin A1c measurement A1C [facility] Start: 1950 Hepatitis C antibody, confirmatory test Hepatitis C Screening [facility] Start: 1950 Prostate specific antigen measurement PSA Level [facility] Start: 1950 Screening for malignant neoplasm of colon [facility] Start: 1950 US scan of abdominal aorta Abdominal Aortic Ultrasound [facility] Start: 1950 HEPATITIS C SCREENING HEPATITIS C SCREENING [facility] Start: 1950 Screening colonoscopy COLONOSCOPY [facility] End: 11-27-2021 12 lead ECG ECG 12 Lead ECG Routine Coronary artery disease, angina presence unspecified, unspecified vessel or lesion type, unspecified whether [place] or transplanted heart 1 Occurrences starting 11/27/2020 until 11/27/2021 [facility] Payers Date Payer Category Payer Unknown [id number] 2015 Unknown [employer] PPO xxxxxxxxxxxx 2015-Present xxxxxxxxxxxx [id number] 2015 Unknown [employer] PPO [id number] 2015-Present [id number] 2015 Unknown [employer] PPO [id number] 2015-Present [phone] [address] [place] [address] [id number] 1950 Unknown [id number] 1950 Unknown [id number] Social History Date Type Detail Facility Start: 04-23-2018 End: 12-31-2021 Tobacco smoking status CAIS Current every day smoker [facility] Start: 04-23-2018 End: 12-31-2021 Cigarettes smoked current (pack per day) - Reported [facility] Start: 1950 Sex Assigned At Not on file [facility] Start: 10-25-2019 End: 12-31-2021 Alcohol intake Current non-drinker of alcohol (finding) [facility] Start: 04-23-2018 Alcohol Comment occasional [facility] Start: 12-21-2021 End: 12-31-2021 Exposure to SARS-CoV-2 (event) Not sure [facility] Start: 10-25-2019 End: 12-31-2021 Tobacco use and exposure Never used [facility] History of tobacco use Cigarette Smoker [facility] Start: 12-31-2021 Tobacco use panel [facility] Start: 04-20-2018 Gender identity Identifies as male gender (finding) [facility] Start: 04-20-2018 Sexual orientation Choose not to dis close [facility] Clinical Notes 11-02-2020 to 12-31-2021 Jaswinder Del Rio MD - 12/31/2021 12:01 PM EDTAssessment & Plan Note - Jaswinder Del Rio MD - 12/31/2021 11:55 AM EDTTelephone Encounter - Heather Matos MA - 11/08/2021 2:39 PM EDT Note Date & Type Note Facility 12-31-2021 History of Presen t illness Narrative Patient Name: Cristofer Hancock [facility] MR #: [id number] Interventional Cardiology Jaswinder Del Rio MD, [facility] 12/31/21 Dear Christophe Corral MD, Cristofer Hancock was seen in follow up for : Problem Atrial Fibrillation (Hcc) Told he had afib since july when hosp for leg infection [id number] xarelto Cad (Coronary Artery Disease) 2002- [place] stent 1998[place]-- stent- LAD 2017- pat stents 50-60 mid lad, occluded rca with excellent collaterals Assessment and Plan Atrial fibrillation (HCC) Doing well, Medications reviewed and recommended to continue xarelto Followup 1 year CAD (coronary artery disease) No angina,staying active-Doing well, Medications reviewed and recommended to continue asa/metoprolol Followup 1 year Thank you or allowing me to participate in the care of your patients. No orders of the defined types were placed in this encounter. Return in about 1 year (around 12/31/2022). EKG:not done Subjective: Cristofer Hancock is a 71 y.o. y/o male : no complaints Denies chest discomfort, sob, palpitations, pnd, orthopnea,edema or syncope. 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 HEENT: Normocephalic, Neck: Supple, no gross thyromegaly,no palpable neck adenopathy Cardiovascular: irregular rate and rhythm. no murmurs, .No JVD, No Carotid Bruits, no LE edema :Respiratory: Clear to auscultation bilaterally without wheezes, rhonchi, or rales Abdominal: soft, nontender, nondistended,no gross HSM or masses noted. Home Medications: Patient's Medications New Prescriptions No medications on file Previous Medications AMLODIPINE (NORVASC) 5 MG TABLET Take 5 mg by mouth daily. ASPIRIN 81 MG EC TABLET Take 81 mg by mouth daily. ATORVASTATIN (LIPITOR) 40 MG TABLET Take 40 mg by mouth daily. CINNAMON BARK 500 MG CAPSULE Take 2,000 mg by mouth daily . DOCOSAHEXANOIC ACID/EPA (FISH OIL ORAL) Take by mouth. EMPAGLIFLOZIN 10 MG TAB Take 10 mg by mouth daily . GLIMEPIRIDE (AMARYL) 2 MG TABLET Take 2 mg by mouth every morning before breakfast . METFORMIN (GLUCOPHAGE) 1000 MG TABLET Take 1,000 mg by mouth 2 (two) times a day with meals . METOPROLOL SUCCINATE (TOPROL-XL) 25 MG 24 HR TABLET Take 25 mg by mouth daily. PANTOPRAZOLE (PROTONIX) 40 MG TABLET Take 40 mg by mouth daily . Modified Medications Modified Medication Previous Medication RIVAROXABAN (XARELTO) 20 MG TAB rivaroxaban (Xarelto) 20 mg Tab Take 1 (one) tablet (20 mg total) by mouth daily . Take 1 (one) tablet (20 mg total) by mouth daily . Discontinued Medications No medications on file documented in this encounter [facility] 12-31-2021 Evaluation + Plan note Associ ated Problem(s): CAD (coronary artery disease) No angina,staying active-Doing well, Medications reviewed and recommended to continue asa/metoprolol Followup 1 year [facility] 12-31-2021 Evaluation + Plan note Associ ated Problem(s): Atrial fibrillation (HCC) Doing well, Medications reviewed and recommended to continue xarelto Followup 1 year [facility] 12-31-2021 Miscellaneous Notes Associate d Problem(s): CAD (coronary artery disease) No angina,staying active-Doing well, Medications reviewed and recommended to continue asa/metoprolol Followup 1 year Associated Problem(s): Atrial fibrillation (HCC) Doing well, Medications reviewed and recommended to continue xarelto Followup 1 year documented in this encounter [facility] 11-08-2021 Telephone encounter Note Form atting of this note might be different from the original. Received refill request for rivaroxaban (Xarelto) 20 mg Tab. Pt's last OV was 11/27/1920. Follow up is scheduled 12/31/2021. Thank you. [facility] 11-08-2021 Miscellaneous Notes Formattin g of this note might be different from the original. Received refill request for rivaroxaban (Xarelto) 20 mg Tab. Pt's last OV was 11/27/1920. Follow up is scheduled 12/31/2021. Thank you. documented in this encounter [facility] 05-01-2021 Miscellaneous Notes Received refill request for rivaroxaban (Xarelto) 20 mg Tab. Pt's last OV was 11/27/2020. Follow up is due around 11/27/2021. Thank you. documented in this encounter [facility] 11-27-2020 History of Presen t illness Narrative Patient Name: Cristofer Hancock MR #: [id number] Interventional Cardiology Jaswinder Del Rio MD, [facility] 11/27/20 Dear Christophe Corral MD, Cristofer Hancock was seen in follow up for : Problem Atrial Fibrillation (Hcc) Told he had afib since july when hosp for leg infection [id number] xarelto Cad (Coronary Artery Disease) 2003- [place]-- stent- LAD 2018- pat stents 50-60 mid lad, occluded rca with excellent collaterals Assessment and Plan Atrial fibrillation (HCC) Doing well, Medications reviewed and recommended to continue toprol-- only 25 mg and xarelto Followup 1 year CAD (coronary artery disease) No angina, Doing well, Medications reviewed and recommended to continue asa Followup 1 year Still smoking 1 ppd Thank you or allowing me to participate in the care of your patients. No orders of the defined types were placed in this encounter. Return in about 1 year (around 11/27/2021). EKG:Atrial Fibrillation with controlled rate. Subjective: Cristofer Hancock is a 69 y.o. y/o male : Active without issues Denies chest discomfort, sob, palpitations, pnd, orthopnea,edema or syncope. 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 HEENT: Normocephalic, nl conjunctiva Neck: Supple, no gross thyromegaly,no palpable neck adenopathy Cardiovascular: irregular rate and rhythm. no murmurs, .No JVD, No Carotid Bruits, no LE edema :Respiratory: Clear to auscultation bilaterally without wheezes, rhonchi, or rales Abdominal: soft, nontender, nondistended,no gross HSM or masses noted. Skin: Normal turgor,no major peripheral rashes noted. Extremities : No clubbing, cyanosis Neurological: Cranial nerves 2 through 12 intact [...] ACID/EPA (FISH OIL ORAL) Take by mouth. EMPAGLIFLOZIN (JARDIANCE) 10 MG TAB Take 10 mg by mouth daily . GLIMEPIRIDE (AMARYL) 2 MG TABLET Take 2 mg by mouth every morning before breakfast . METFORMIN (GLUCOPHAGE) 1000 MG TABLET Take 1,000 mg by mouth 2 (two) times a day with meals . METOPROLOL SUCCINATE (TOPROL-XL) 25 MG 24 HR TABLET Take 25 mg by mouth daily. PANTOPRAZOLE (PROTONIX) 40 MG TABLET Take 40 mg by mouth daily . RIVAROXABAN (XARELTO) 20 MG TAB Take 1 (one) tablet (20 mg total) by mouth daily . Modified Medications No medications on file Discontinued Medications No medications on file Review of Systems Constitutional: Negative for diaphoresis, malaise/fatigue, weight gain and weight loss. HENT: Negative for hearing loss, nosebleeds and tinnitus. Eyes: Negative for blurred vision and visual disturbance. Cardiovascular: Negative for chest pain, claudication, cyanosis, dyspnea on exertion, irregular heartbeat, leg swelling, near-syncope, orthopnea, palpitations, paroxysmal nocturnal dyspnea and syncope. Respiratory: Negative for hemoptysis, shortness of breath and snoring. Endocrine: Negative for cold intolerance and heat intolerance. Hematologic/Lymphatic: Does not bruise/bleed easily. Skin: Negative for flushing, poor wound healing and rash. Musculoskeletal: Negative for back pain, muscle weakness and myalgias. Gastrointestinal: Negative for abdominal pain, change in bowel habit, melena, nausea and vomiting. Genitourinary: Negative for decreased libido and hematuria. Neurological: Negative for loss of balance and numbness. Psychiatric/Behavioral: Negative for memory loss. The patient is not nervous/anxious. documented in this encounter [facility] 11-27-2020 Miscellaneous Notes Associated Problem(s): CAD (coronary artery disease) No angina, Doing well, Medications reviewed and recommended to continue asa Followup 1 year Still smoking 1 ppd Associated Problem(s): Atrial fibrillation (HCC) Doing well, Medications reviewed and recommended to continue toprol-- only 25 mg and xarelto Followup 1 year documented in this encounter [facility] 11-27-2020 Instructions Alisson Cobb MA - 11/27/2020 2:00 PM EDT How to contact your Care Team: Provider: Dr. Del Rio Nurse: Jaylyn Mar RN In case of an emergency please call 911. REFILLS: When in need for refills please call your care team or the office at [phone]. Please include medication name, pharmacy name, and specify 30-day or 90-day supply. Please check with your pharmacy within 24 hours of request for your refill. You must follow up as directed to continue current refills. Thank you! documented in this encounter [facility] 11-02-2020 Miscellaneous Notes Pt needs a refill of Xarelto HIs last appt was 10/25/2019 and his next appt is 11/27/2020 documented in this encounter [facility] Coronary artery disease, angina presence unspecified, unspecified vessel or lesion type, unspecified whether [place] or transplanted heart- Primary [facility] Diagnosis Coronary artery disease, angina presence unspecified, unspecified vessel or lesion type, unspecified whether [place] or transplanted heart Longstanding persistent atrial fibrillation (HCC) Coronary artery disease involving [place] coronary artery of [place] heart without angina pectoris documented in this encounter [facility] note* Diagnosis Longstanding persistent atrial fibrillation (HCC) documented in this encounter [facility] note* Diagnosis Atrial fibrillation, unspecified type (HCC)- Primary documented in this encounter [facility] note* Diagnosis Longstanding persistent atrial fibrillation (HCC) documented in this encounter [facility] note* Diagnosis Atrial fibrillation, unspecified type (HCC) Coronary artery disease involving [place] coronary artery of [place] heart without angina pectoris Longstanding persistent atrial fibrillation (HCC) documented in this encounter [facility] note* Diagnosis Longstanding persistent atrial fibrillation (HCC) documented in this encounter [facility] Summary Purpose Family History No Family History Records FoundNo Family History Records FoundNo Family History Records FoundNo Family History Records Found Advance Directives Documents on File Type Date 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 Advance Directives and Livin g Will 04/23/2018 6:57 AM Latest Code Status on File Code Status Date Activated Date Inactivated Comments Full Code 04/23/2018 8:49 AM Full Code 04/21/2018 3:09 PM 04/23/2018 6:57 AM Documents on File Type Date Recorded 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 Advance Directives and Livin g Will 04/23/2018 6:57 AM Latest Code Status on File Code Status Date Activated Date Inactivated Comments Full Code 04/23/2018 8:49 AM Full Code 04/21/2018 3:09 PM 04/23/2018 6:57 AM Latest Code Status on File Date Activated Date Inactivated Comments 04/23/2018 8:49 AM Full Code Date Activated Date Inactivated Comments 04/21/2018 3:09 PM 04/23/2018 6:57 AM Latest Code Status on File Code Status Date Activated Date Inactivated Comments Full Code 04/23/2018 8:49 AM Code Status History Code Status Date Activated Date Inactivated Comments Full Code 04/21/2018 3:09 PM 04/23/2018 6:57 AM Discharge Instructions * Discharge Instr - Other Orders - Ellie Harris RN - 04/23/2018 10:33 AM EST Continue your home medications. Remember to hold your metformin until Mon. On Fri. Go and have lab work done, continue to hold office will call you and tell you when ok to restart. Follow up with your family doctor. And follow up with Dr. Del Rio in about a year. The following attachments cannot be sent through Care Everywhere. * CORONARY ANGIOGRAM: POST-OP (LAO) in this encounter Assessments Diagnosis Coronary artery disease invo lving [place] coronary artery of [place] heart, angina presence unspecified Diagnosis Coronary artery disease, angina presence unspecified, unspecified vessel or lesion type, unspecified whether [place] or transplanted heart Longstanding persistent atrial fibrillation Mixed hyperlipidemia Instructions * Patient Instructions* Alisson Cobb MA - 10/25/2019 1:30 PM EDT How to contact your Care Team: Provider: Dr. Del Rio Nurse: Jaylyn Mar RN In case of an emergency please call 911. REFILLS: When in need for refills please call your care team or the office at [phone]. Please include medication name, pharmacy name, and specify 30-day or 90-day supply. Please check with your pharmacy within 24 hours of request for your refill. You must follow up as directed to continue current refills. Thank you! documented in this encounter History of Present Illness * Jaswinder Del Rio MD - 10/25/2019 1:50 PM EDT Patient Name: Cristofer Hancock MR #: [id number] Interventional Cardiology Jaswinder Del Rio MD, [facility] 10/25/19 Dear Christophe Corral MD, Cristofer Hancock was seen in follow up for : Problem Atrial Fibrillation (Hcc) Told he had afib since july when hosp for leg infection [id number] xarelto Hld (Hyperlipidemia) Per Dr Light Cad (Coronary Artery Disease) 2003- [place] stent 1998[place]-- stent- LAD 2018- pat stents 50-60 mid lad, occluded rca with excellent collaterals Assessment and Plan Atrial fibrillation (HCC) Avoided appointments due to COVID and comes in now with Afib, presumed persistent since hospitalization Start Xarelto, rate controlled, CAD (coronary artery disease) Has been of plavix, very active--Doing well, Medications reviewed and will continue current meds Followup 1 year--discussed continuing baby asa Thank you or allowing me to participate in the care of your patients. No orders of the defined types were placed in this encounter. Return in about 1 year (around 10/24/2020). EKG:Atrial Fibrillation with controlled rate. 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 Has not come in due to COVID Denies chest discomfort, sob, palpitations, pnd, orthopnea,edema or syncope. 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 HEENT: Normocephalic, normal oral mucosa, nl conjunctiva Neck: Supple, no gross thyromegaly,no palpable adenopathy Cardiovascular: Irregular rate and rhythm. no murmurs, .No JVD, No Carotid Bruits, no LE edema :Respiratory: Clear to auscultation bilaterally without wheezes, rhonchi, or rales Abdominal: obese, nontender, nondistended,no gross HSM or masses noted. Skin: Normal turgor, well-hydrated,black, pitting circular lesions on anter l lower leg Extremities : No clubbing cyanosis Neurological: Cranial nerves 2 through 12 intact grossly. No focal neurological deficits noted. Psych: Normal mood and affect. ROS/MA were reviewed Home Medications: Patient's Medications New Prescriptions RIVAROXABAN (XARELTO) 20 MG TAB Take 1 (one) tablet (20 mg total) by mouth daily . Previous Medications AMLODIPINE (NORVASC) 5 MG TABLET Take 5 mg by mouth daily. ASPIRIN 81 MG EC TABLET Take 81 mg by mouth daily. ATORVASTATIN (LIPITOR) 40 MG TABLET Take 40 mg by mouth daily. CINNAMON BARK (CINNAMON) 500 MG CAPSULE Take 2,000 mg by mouth daily . DOCOSAHEXANOIC ACID/EPA (FISH OIL ORAL) Take by mouth. EMPAGLIFLOZIN (JARDIANCE) 10 MG TAB Take 10 mg by mouth daily . GLIMEPIRIDE (AMARYL) 2 MG TABLET Take 2 mg by mouth every morning before breakfast . METFORMIN (GLUCOPHAGE) 1000 MG TABLET Take 1,000 mg by mouth 2 (two) times a day with meals . METOPROLOL SUCCINATE (TOPROL-XL) 25 MG 24 HR TABLET Take 25 mg by mouth daily. PANTOPRAZOLE (PROTONIX) 40 MG TABLET Take 40 mg by mouth daily . Modified Medications No medications on file Discontinued Medications FARXIGA (SAMPLE) 5 MG TABLET Take 10 mg by mouth daily . NITROGLYCERIN (NITROSTAT) 0.[address] 1 tablet (0.4 mg total) under the tongue every 5 (five) minutes as needed for chest pain , if no relief after 3rd dose call 911 . * Alisson Cobb MA - 10/25/2019 1:36 PM EDT Review of Systems Constitution: Negative for diaphoresis, malaise/fatigue, weight gain and weight loss. HENT: Negative for hearing loss, nosebleeds and tinnitus. Eyes: Negative for blurred vision and visual disturbance. Cardiovascular: Negative for chest pain, claudication, cyanosis, dyspnea on exertion, irregular heartbeat, leg swelling, near-syncope, orthopnea, palpitations, paroxysmal nocturnal dyspnea and syncope. Respiratory: Negative for hemoptysis, shortness of breath and snoring. Endocrine: Negative for cold intolerance and heat intolerance. Hematologic/Lymphatic: Does not bruise/bleed easily. Skin: Negative for flushing, poor wound healing and rash. Musculoskeletal: Negative for back pain, muscle weakness and myalgias. Gastrointestinal: Negative for abdominal pain, change in bowel habit, melena, nausea and vomiting. Genitourinary: Negative for decreased libido and hematuria. Neurological: Negative for loss of balance and numbness. Psychiatric/Behavioral: Negative for memory loss. The patient is not nervous/anxious. documented in this encounter Reason for Referral Status Reason Specialty Diagnoses / Procedures Referred By Contact Referred To Contact Authorized Cardiology Diagnoses Coronary artery disease, angina presence unspecified, unspecified vessel or lesion type, unspecified whether [place] or transplanted heart Procedures ECG 12 [place] [address] [place] [address] Specialty Diagnoses / Procedures Referred By Babar t Referred To Contact Cardiology Diagnoses Atrial fibrillation, unspecified type (HCC) Christophe Corral MD [address] [phone] Jaswinder Del Rio MD [address] [place] [address] Referral ID Status Reason Start Date Expiration Date Visits Requested Visits Authorized [id number] Authorized Specialty Services Required/Pat ient's Best Interest 10/10/2021 10/10/2022 1 1 Additional Source Comments (unrecognized sect ion and content) No Status Records FoundNo Status Records FoundNo Status Records FoundNo Status Records Found INFORMATION SOURCE (unrecogn ized section and content) DATE CREATED AUTHOR AUTHOR'S ORGANIZ ATION 04/25/2018 [facility] DATE CREATED AUTHOR AUTHOR'S ORGANIZ ATION 08/02/2019 [facility] DATE CREATED AUTHOR AUTHOR'S ORGANIZ ATION 01/04/2022 [facility] Reason for Visit (unrecogniz ed section and content) Reason Comments Annual Exam no complaints. medic ations reviewed- PCP manages refills Reason Onset Date Comments Medication Refill 11/02/2020 Xarelto Reason Comments Annual Exam Reason Onset Date Comments Medication Refill 05/01/2021 Reason Onset Date Comments Medication Refill 11/08/2021 Reason Comments Follow-up Specialty Diagnoses / Procedures Referred By Babar messina Referred To Contact Cardiology Diagnoses Atrial fibrillation, unspecified type (HCC) Christophe Corral MD [address] [place] [phone] Jaswinder Del Rio MD [address] [place] [address] Referral ID Status Reason Start Date Expiration Date V isits Requested Visits Authorized [id number] Closed Specialty Services Required/Maria D ent's Best Interest 10/10/2021 10/10/2022 1 1 Reason Comments Medication Refill Jaswinder Del Rio MD - 04/23/2018 7:31 AM Jaswinder Mcdowell MD - 04/20/2018 1:39 PM EST H&P Notes (unrecognized sect ion and content) INTERVAL HISTORY AND PHYSICAL Patient Name: Cristofer Hancock Admit Date: [id number] MR #: [id number] : 1950 The H&P has been reviewed and the patient has been examined. I concur with the findings of the H&P. There are no significant changes. It is appropriate to proceed with the planned procedure. Sedation Plan: Moderate ASA Classification: 2 - Patient with mild systemic disease Mallampati Score: II Jsawinder Del Rio MD 04/23/2018 7:31 AM Formatting of this note may be different from the original. Patient Name: Cristofer Hancock MR #: [id number] 04/20/18 Dear Christophe Corral MD, Cristofer Hancock was seen in follow up for : Problem Cad (Coronary Artery Disease) 2002- [place] stent 1998[place]-- stent- unk Assessment and Plan CAD (coronary artery disease) Worrisome symptoms and with abnormal stress will follow with cardiac cath Thank you or allowing me to participate in the care of your patients. 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 The Friday before he aspirated something and had a horrible coughing spell. Since then he has been feeling fatigued lightheaded numbness feelings under his eyes occasionally and exertional burning across the chest. The burning though and soreness may last an hour to an hour and a half. He in general just has lost his energy and feeling lousy. He summary that never really complaints. He had an abnormal EKG and was sent to [facility] for a stress Cardiolite. He had decent exercise tolerance of 7-1/2 minutes and did not really have any discomfort however he did have a moderate area of inferior ischemia. He now presents for further evaluation. He has a h/o GIB unknown-- but reportedly Hb was ok Denies , palpitations, pnd, orthopnea,edema or syncope. 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 in this encounter Assessment & Plan Note - Jaswinder Del Rio MD - 10/25/2019 1:46 PM EDTAssessment & Plan Note - Jaswinder Del Rio MD - 10/25/2019 1:45 PM EDT Miscellaneous Notes (unrecog nized section and content) Associated Problem(s): CAD (coronary artery disease) Has been of plavix, very active--Doing well, Medications reviewed and will continue current meds Followup 1 year--discussed continuing baby asa Associated Problem(s): Atrial fibrillation (HCC) Avoided appointments due to COVID and comes in now with Afib, presumed persistent since hospitalization Start Xarelto, rate controlled, documented in this encounter Care Teams (unrecognized sec tion and content) Transportation Mechanic Relationship Specialty Start Date End Date Christophe Corral MD [address] [facility] [address] [place] [address] PCP - General Family Medicine 04/20/18 Dulce Maria Daniels MD [address] [facility] [address] [place] [address] Internal Medicine 11/07/15 Transportation Mechanic Relationship Specialty Start Date End Date Christophe Corral MD [address] [facility] [address] [place] [address] PCP - General Family Medicine 04/20/18 Dulce Maria Daniels MD [address] [facility] [address] [place] [address] Internal Medicine 11/07/15 Transportation Mechanic Relationship Specialty Start Date End Date Christophe Corral MD [address] [facility] [address] [place] [address] PCP - General Family Medicine 04/20/18 Dulce Maria Daniels MD [address] [facility] [address] [place] [address] Internal Medicine 11/07/15 Transportation Mechanic Relationship Specialty Start Date End Date Christophe Corral MD [address] [place], [place] [phone] PCP - General Family Medicine 04/20/18 Dulce Maria Daniels MD [address] [place] [address] Internal Medicine 11/07/15 FOR RECORDS PERTAINING TO PATIENTS WHO ARE OR HAVE BEEN ENROLLED IN A CHEMICAL DEPENDENCY/SUBSTANCEABUSE PROGRAM, SOME INFORMATION MAY BE OMITTED. This clinical summary was aggregated from multiple sources. Caution should be exercised in using it in the provision of clinical care. This summary normalizes information from multiple sources, and as a consequence, information in this document may materially change the coding, format and clinical context of patient data. In addition, data may be omitted in some cases. CLINICAL DECISIONS SHOULD BE BASED ON THE PRIMARY CLINICAL RECORDS. [employer] [facility]. provides no warranty or guarantee of the accuracy or completeness of information in this document.
== END | disposition home or self-care (01) ==
LOC: LAB 11:34
PROVIDERS: PCP Family Medicine; Referring Provider Internal Medicine Endocrinology, Diabetes & Metabolism; Visit Provider Internal Medicine Endocrinology, Diabetes & Metabolism
DX: E05.00 Thyrotoxicosis with diffuse goiter without thyrotoxic crisis or storm (principal)
CPT/HCPCS: 36415; 84439; 84481

== ENCOUNTER → 2023-06-18 | Outpatient (CLI) | payer OTHER, SELFPAY ==
[2023-06-18 13:45] LABS: Absolute Lymphocyte Count 2.33 X10^3/uL (0.83-4.51); Basophil# 0.03 X10^3/uL; Basophil% 0.4 % (0-1); Eosinophil# 0.07 X10^3/uL; Hematocrit 46.4 % (40-54); Hemoglobin 14.4 g/dL (13.0-16.5); Lymphocyte # 2.33 X10^3/ul (0.83-4.51); Lymphocyte % 31.8 % (19-41); Mean Corpuscular Hgb 26.2 pg (27.0-32.0); Mean Corpuscular Volume 84.5 fL (80-94); Mean Platelet Vol. 10.6 fl (6.2-12.0); Monocyte# 0.85 X10^3/uL; Monocyte% 11.6 % (0-10); NRBC Flagged by Analyzer 0 % (0-5); Neutrophil # 4.03 X10^3/uL (2.7-7.7); Neutrophil % 54.9 % (47-70); Platelet Count 200 K/mm3 (150-450); RBC Distribution Width CV 15.9 % (11.6-14.6); RBC Distribution Width SD 48.8 fl (35.1-43.9); Red Blood Count 5.49 M/mm3 (4.6-6.2); White Blood Count 7.3 K/mm3 (4.4-11.0)
[2023-06-18 14:39] LABS: ALB/GLOB Ratio 0.8 RATIO (0.9-2.4); AST(SGOT) 22 U/L (15-37); Alanine Aminotransfer ALT/SGPT 25 U/L (16-61); Albumin, Serum 3.4 g/dL (3.2-5.0); Alkaline Phosphatase 156 U/L (45-117); Anion Gap 8 (5-15); BUN 11 mg/dL (7-18); BUN/Creat Ratio 11.2 RATIO (10-20); Calcium,Total 8.7 mg/dL (8.5-10.1); Chloride 104 mmol/L (98-107); Creatinine, Serum 0.98 mg/dL (0.70-1.30); EST Glomerular Filtration Rate 80 mL/min (>60); Est Glom Filt Rate - Afr Amer 96 mL/min (>60); Globulin 4.1 g/dL (2.2-4.2); Glucose 141 mg/dL (74-106); Potassium 4.1 mmol/L (3.5-5.1); Protein, Total 7.5 g/dL (6.4-8.2); Sodium Level 137 mmol/L (136-145); T4 Free Direct 0.56 ng/dL (0.76-1.46); Thyroid Stim Hormone (TSH) < 0.01 uIU/mL (0.358-3.74)
--- OUTSIDE RECORDS SUMMARY | 2023-06-18 16:34 | XMS RPT_ITS | CCD ---
Author Name Unknown Address [address] [place] [address] Organization [facility] Care Team Providers Care Recreational Facilities Motel Manager Name Role Phone Jeri Armstrong LPN Unavailable [...] Primary Care Unavailable Frances VILLATORO Dulce Maria Beecher Unavailable Christophe Corral MD Primary Care Provider [...] One tablet by mouth daily AMLODIPINE BESYLATE [id number] Samuel Marx MD AMLODIPINE-ATORVAS TATIN (2 sources) Dihydropyridine Calcium Channel Paulie, HMG-CoA Reductase Inhibitor Start: 09-27-2014 take 1 tablet by mouth once daily CADUET 5-40 MG TABS One tablet by mouth daily AMLODIPINE-ATORVA STATIN [id number] Ruma Nair RN Problems Active Problems Problem Classification Problem Date Documented Date Episodic/Chronic Acute myocardial infarction (2 sources) Myocardial infarction; Translations: [ST elevation (STEMI) myocardial infarction of unspecified site] Onset: 09-27-2014 09-27-2014 Chronic Cardiac dysrhythmias (20 sources) Longstanding persistent atrial fibrillation; Translations: [Atrial fibrillation] Onset: 10-25-2019 10-25-2019 Chronic Coronary atherosclerosis and other heart disease (20 sources) Atherosclerotic heart disease of rincon coronary artery without angina pectoris; Translations: [Old [...] 08-19-2016 Episodic Other aftercare (2 sources) 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 terminal manager (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; Translations: [Long-term (current) use [...] mm[Hg] Jaswinder Del Rio MD Work Phone: [facility] 12-31-2021 11:47-0400 Systolic blood pressure 158 mm[Hg] Jaswinder Del Rio MD Work Phone: [facility] 12-31-2021 11:42-0400 Body height 180.3 cm Jaswinder Del Rio MD Work Phone: [facility] 12-31-2021 11:42-0400 Body mass index (BMI) [Ratio] 24.27 kg/m2 Jaswinder Del Rio MD Work Phone: [facility] 12-31-2021 11:42-0400 Body weight 78.93 kg Jaswinder Del Rio MD Work Phone: [facility] 12-31-2021 11:42-0400 Heart rate 79 /min Jaswinder Del Rio MD Work Phone: [facility] 11-27-2020 14:00-0400 Body height 180.3 cm Jaswinder Del Rio MD Work Phone: [facility] 11-27-2020 14:00-0400 Body mass index (BMI) [Ratio] 24.83 kg/m2 Jaswinder Del Rio MD Work Phone: [facility] 11-27-2020 14:00-0400 Body weight 80.74 kg Jaswinder Del Rio MD Work Phone: [facility] 11-27-2020 14:00-0400 Diastolic blood pressure 72 mm[Hg] Jaswinder Del Rio MD Work Phone: [facility] 11-27-2020 14:00-0400 Heart rate 75 /min Jaswinder Del Rio MD Work Phone: [facility] 11-27-2020 14:00-0400 SaO2% (BldA) [Mass fraction] 95 % Jaswinder Del Rio MD Work Phone: [facility] 11-27-2020 14:00-0400 Systolic blood pressure 119 mm[Hg] Jaswinder Del Rio MD Work Phone: [facility] 10-25-2019 13:36-0400 BMI (Body Mass Index) 27.67 kg/m2 Jaswinder Del Rio [facility] 10-25-2019 13:36-0400 Body weight 89.99 kg Jaswinder [facility] 10-25-2019 13:36-0400 BP Diastolic 86 mm[Hg] [facility] 10-25-2019 13:36-0400 BP Systolic 130 mm[Hg] [facility] 10-25-2019 13:36-0400 Height 180.3 cm Jaswinder [facility] 10-25-2019 13:36-0400 Pulse (Heart Rate) 76 /min Jaswinder [facility] 10-25-2019 13:36-0400 Pulse Oximetry 96 % Jaswinder [facility] 04-23-2018 09:15-0500 BP Diastolic 70 mm[Hg] Jaswinder [facility] 04-23-2018 09:15-0500 BP Systolic 123 mm[Hg] Jaswinder [facility] 04-23-2018 09:15-0500 Pulse (Heart Rate) 77 /min Jaswinder [facility] 04-23-2018 09:15-0500 Pulse Oximetry 97 % Jaswinder [facility] 04-23-2018 09:15-0500 Respiratory Rate 17 /min [facility] 04-23-2018 07:32-0500 BMI (Body Mass Index) 27.89 kg/m2 [facility] 04-23-2018 07:32-0500 Body Temperature 97.59 [degF] Jaswinder [facility] 04-23-2018 07:32-0500 Height 180.3 cm [facility] 04-23-2018 07:32-0500 Weight 90.72 kg [facility] 09-28-2016 10:45-0400 BMI (Body Mass Index) 31.94 kg/m2 Jeri Nathaniel OLMOS [facility] Work Phone: 09-28-2016 10:45-0400 Body Temperature 97.7 [degF] Jeri Armstrong LPN [facility]ya Work Phone: 09-28-2016 10:45-0400 Body weight 103.87 kg Jeri Nathaniel OLMOS [facility] Work Phone: 09-28-2016 10:45-0400 BP Diastolic 82 mm[Hg] Jeri Armstrong LPN [facility] Work Phone: 09-28-2016 10:45-0400 BP Systolic 142 mm[Hg] Jeri Armstrong LPN [facility] Work Phone: 09-28-2016 10:45-0400 Height 180.34 cm Jeri Armstrong LPN [facility] Work Phone: 09-28-2016 10:45-0400 Pulse (Heart Rate) 93 /min Jeri Armstrong LPN [facility] Work Phone: 09-28-2016 10:45-0400 Pulse Oximetry 98 % Jeri Armstrong LPN [facility] Work Phone: 09-28-2016 10:45-0400 Respiratory Rate 14 /min Jeri Armstrong LPN [facility] Work Phone: 09-28-2016 10:45-0400 Weight 103.87 kg Jeri Armstrong LPN [facility] Work Phone: 04-11-2015 08:30-0500 BSA (Body Surface Area) 2.23 m2 Jeri Armstrong LPN [facility] Work Phone: 09-28-2014 09:55-0400 Heart rate 80 /min Jeri Armstrong LPN [facility] Work Phone: Encounters Encounter Date Encounter Type Care Provider Facility Start: 01-28-2023 Refill Jaswinder kiran MD Work Phone: [facility] Procedures Date Procedure [...] Jeri Armstrong LPN Start: 04-11-2015 End: 04-11-2015 TOGGLER Danielle Carvalho PA-C Work Phone: Start: 04-11-2015 [...] Start: 12-18-2031 Tetanus vaccination Tetanus: Every 10yrs [facility] Start: 11-18-2025 Tetanus vaccination [facility] Start: 01-10-2023 Influenza vaccination Sequential Influenza Vaccine (#1) [facility] Start: 01-10-2022 Influenza vaccination [facility] Start: 12-31-2021 End: 12-31-2021 Patient encounter procedure 12/31/2021 Office Visit Cardiology Jaswinder Del Rio MD [address] [address] [facility] Start: 01-10-2021 Influenza vaccination [facility] Start: 11-27-2020 End: 11-27-2020 Patient encounter procedure 11/27/2020 Office Visit Cardiology Jaswinder Del Rio MD [address] [address] [phone] [facility] Office Start: 09-14-2020 COVID-19 Vaccine (2 - Booster for Hilary series) COVID-19 Vaccine (2 - Booster for Hilary series) [facility] Start: 01-11-2020 Influenza vaccination given [facility] Start: 01-10-2018 Influenza vaccination SEQUENTIAL INFLUENZA VACCINE (#1) [facility] Start: 09-28-2016 End: 09-28-2016 Appointment Appointment [facility] Work Phone: Start: 12-11-2015 Fall risk assessment Falls Risk Assessment [facility] Start: 12-11-2015 Pneumococcal vaccination PNEUMOCOCCAL VACCINE AGE 65+ (1 of 2 - PCV13) [facility] Start: 12-11-2015 Pneumococcal Vaccine: Age 65+ (2 of 2 - PPSV23) Pneumococcal Vaccine: Age 65+ (2 of 2 - PPSV23) [facility] Start: 12-11-2015 US scan of abdominal aorta ABDOMINAL AORTIC ULTRASOUND [facility] Start: 04-11-2015 End: 04-11-2015 TOGGLER TOGGLER [facility] Work Phone: Start: 04-11-2015 End: 04-11-2015 Follow Up Appt 6 months Follow Up Appt 6 months [facility] Work Phone: Start: 09-28-2014 End: 09-28-2014 Electrocardiogram, complete EKG (In office) [facility] Work Phone: Start: 09-28-2014 End: 09-28-2014 Follow Up Appt 6 months Follow Up Appt 6 months [facility] Work Phone: Start: 09-28-2014 End: 09-28-2014 MMM MMM [facility] Work Phone: Start: 01-19-2009 Pneumococcal Vaccine: Age 65+ (2 - PCV) Pneumococcal Vaccine: Age 65+ (2 - PCV) [facility] Start: 2000 Administration of herpes zoster vaccine Zoster Vaccines (1 of 2) [facility] Start: 2000 Screening for malignant neoplasm of colon [facility] Start: 2000 ZOSTER VACCINES (1 of 2) ZOSTER VACCINES (1 of 2) [facility] Start: 1968 Hepatitis C antibody, confirmatory test Hepatitis C Screening [facility] Start: 1968 Hepatitis C screening Hepatitis C Screening [facility] Start: 1966 COVID-19 Vaccine (1 of 2) COVID-19 Vaccine (1 of 2) [facility] Start: 1962 Adolescent depression screening assessment Depression Screening (PHQ9) [facility] Start: 1962 COVID-19 Vaccine (1) COVID-19 Vaccine (1) [facility] Start: 1962 Depression screening using PHQ-9 (Patient Health Questionnaire 9) score [facility] Start: 1960 Diabetic foot examination Foot Exam [facility] Start: 1960 Glaucoma screening [facility] Start: 1960 Microalbumin measurement, urine, quantitative Urine Microalbumin [facility] Start: 1960 Ophthalmic examination and evaluation Ophthalmology Exam [facility] Start: 1960 Urine screening for protein Urine Microalbumin [facility] Start: 1956 Pneumococcal Vaccine: Age 65+ (1 of 2 - PPSV23) Pneumococcal Vaccine: Age 65+ (1 of 2 - PPSV23) [facility] Start: 1953 History and physical examination, annual for health maintenance Wellness Visit [facility] Start: 1950 Abdominal aortic aneurysm screening Abdominal Aortic Ultrasound [facility] Start: 1950 Fall risk assessment Falls Risk Assessment [facility] Start: 1950 Hemoglobin A1c measurement A1C [facility] Start: 1950 Hepatitis C antibody, confirmatory test Hepatitis C Screening [facility] Start: 1950 Prostate specific antigen measurement PSA Level [facility] Start: 1950 Screening for malignant neoplasm of colon [facility] Start: 1950 US scan of abdominal aorta Abdominal Aortic Ultrasound [facility] Start: 1950 HEPATITIS C SCREENING HEPATITIS C SCREENING [facility] Start: 1950 Screening colonoscopy COLONOSCOPY [facility] End: 11-27-2021 12 lead ECG ECG 12 Lead ECG Routine Coronary artery disease, angina presence unspecified, unspecified vessel or lesion type, unspecified whether rincon or transplanted heart 1 Occurrences starting 11/27/2020 until 11/27/2021 [facility] Payers Date Payer Category Payer Unknown [id number] 2015 Unknown [employer] PPO xxxxxxxxxxxx 2015-Present xxxxxxxxxxxx [id number] 2015 Unknown [employer] PPO [id number] 2015-Present [id number] 2015 Unknown [employer] PPO [id number] 2015-Present [phone] [address] [place] [address] [id number] 1950 Unknown [id number] 1950 Unknown [id number] Social History Date Type Detail Facility Start: 04-23-2018 End: 12-31-2021 Tobacco smoking status TXIS Current every day smoker [facility] Start: 04-23-2018 End: 12-31-2021 Cigarettes smoked current (pack per day) - Reported [facility] Start: 1950 Sex Assigned At Not on file [facility] Start: 10-25-2019 End: 12-31-2021 Alcohol intake Current non-drinker of alcohol (finding) [facility] Start: 04-23-2018 Alcohol Comment occasional [facility] Start: 12-21-2021 End: 12-31-2021 Exposure to SARS-CoV-2 (event) Not sure [facility] Start: 10-25-2019 End: 12-31-2021 Tobacco use and exposure Never used [facility] History of tobacco use Cigarette Smoker [facility] Start: 12-31-[address] [facility] Start: 04-20-2018 Gender identity Identifies as male gender (finding) [facility] Start: 04-20-2018 Sexual orientation Choose not to dis close [facility] Clinical Notes 11-02-2020 to 12-31-2021 Jaswinder Del Rio MD - 12/31/2021 12:01 PM EDTAssessment & Plan Note - Jaswinder Del Rio MD - 12/31/2021 11:55 AM EDTTelephone Encounter - Heather Matos MA - 11/08/2021 2:39 PM EDT Note Date & Type Note Facility 12-31-2021 History of Presen t illness Narrative Patient Name: Cristofer Hancock [facility] MR #: [id number] Interventional Cardiology Jaswinder Del Rio MD, [facility] 12/31/21 Dear Christophe Corral MD, Cristofer Hancock was seen in follow up for : Problem Atrial Fibrillation (Hcc) Told he had afib since july when hosp for leg infection [id number] xarelto Cad (Coronary Artery Disease) 2002- OM stent 1998-[place]-- stent- LAD 2017- pat stents 50-60 mid [...] medications on file documented in this encounter [facility] 12-31-2021 Evaluation + Plan note Associ ated Problem(s): CAD (coronary artery disease) No angina,staying active-Doing well, Medications reviewed and recommended to continue asa/metoprolol Followup 1 year [facility] 12-31-2021 Evaluation + Plan note Associ ated Problem(s): Atrial fibrillation (HCC) Doing well, Medications reviewed and recommended to continue xarelto Followup 1 year [facility] 12-31-2021 Miscellaneous Notes Associate d Problem(s): CAD (coronary artery disease) No angina,staying active-Doing well, Medications reviewed and recommended to continue asa/metoprolol Followup 1 year Associated Problem(s): Atrial fibrillation (HCC) Doing well, Medications reviewed and recommended to continue xarelto Followup 1 year documented in this encounter [facility] 11-08-2021 Telephone encounter Note Form atting of this note might be different from the original. Received refill request for rivaroxaban (Xarelto) 20 mg Tab. Pt's last OV was 11/27/1920. Follow up is scheduled 12/31/2021. Thank you. [facility] 11-08-2021 Miscellaneous Notes Formattin g of this note might be different from the original. Received refill request for rivaroxaban (Xarelto) 20 mg Tab. Pt's last OV was 11/27/1920. Follow up is scheduled 12/31/2021. Thank you. documented in this encounter [facility] 05-01-2021 Miscellaneous Notes Received refill request for rivaroxaban (Xarelto) 20 mg Tab. Pt's last OV was 11/27/2020. Follow up is due around 11/27/2021. Thank you. documented in this encounter [facility] 11-27-2020 History of Presen t illness Narrative Patient Name: Cristofer Hancock MR #: [id number] Interventional Cardiology Jaswinder Del Rio MD, [facility] 11/27/20 Dear Christophe Corral MD, Cristofer Hancock was seen in follow up for : Problem Atrial Fibrillation (Hcc) Told he had afib since july when hosp for leg infection [id number] xarelto Cad (Coronary Artery Disease) 2003- OM stent 1998-[place]-- stent- LAD 2018- pat stents 50-60 mid [...] is not nervous/anxious. documented in this encounter [facility] 11-27-2020 Miscellaneous Notes Associated Problem(s): CAD (coronary artery disease) No angina, Doing well, Medications reviewed and recommended to continue asa Followup 1 year Still smoking 1 ppd Associated Problem(s): Atrial fibrillation (HCC) Doing well, Medications reviewed and recommended to continue toprol-- only 25 mg and xarelto Followup 1 year documented in this encounter [facility] 11-27-2020 Instructions Alisson Cobb MA - 11/27/2020 2:00 PM EDT How to contact your Care Team: Provider: Dr. Del Rio Nurse: Jaylyn Mar RN In case of an emergency please call 911. REFILLS: When in need for refills please call your care team or the office at [phone]. Please include medication name, pharmacy name, and specify 30-day or 90-day supply. Please check with your pharmacy within 24 hours of request for your refill. You must follow up as directed to continue current refills. Thank you! documented in this encounter [facility] 11-02-2020 Miscellaneous Notes Pt needs a refill of Xarelto HIs last appt was 10/25/2019 and his next appt is 11/27/2020 documented in this encounter [facility] Diagnosis Coronary artery disease, angina presence unspecified, unspecified vessel or lesion type, unspecified whether rincon or transplanted heart- [facility] Coronary artery disease, angina presence unspecified, unspecified vessel or lesion type, unspecified whether rincon or transplanted heart Longstanding persistent atrial fibrillation (HCC) Coronary artery disease involving rincon coronary artery of rincon heart without angina pectoris documented in this encounter [facility] note* Diagnosis Longstanding persistent atrial fibrillation (HCC) documented in this encounter [facility] note* Diagnosis Atrial fibrillation, unspecified type (HCC)- Primary documented in this encounter [facility] note* Diagnosis Longstanding persistent atrial fibrillation (HCC) documented in this encounter [facility] note* Diagnosis Atrial fibrillation, unspecified type (HCC) Coronary artery disease involving rincon coronary artery of rincon heart without angina pectoris Longstanding persistent atrial fibrillation (HCC) documented in this encounter [facility] note* Diagnosis Longstanding persistent atrial fibrillation (HCC) documented in this encounter [facility] Summary Purpose Family History No Family History Records FoundNo Family History Records FoundNo Family History Records FoundNo Family History Records Found Advance Directives Documents on File Type Date Recorded Patient Screen Printing Inspector Expl anation Advance Directives and Livin g Will 04/23/2018 6:57 AM Latest Code Status on File Code Status Date Activated Date Inactivated Comments Full Code 04/23/2018 8:49 AM Full Code 04/21/2018 3:09 PM 04/23/2018 6:57 AM Documents on File Type Date Recorded Patient Screen Printing Inspector Expl anation Advance Directives and Livin g [...] through Care Everywhere. * CORONARY ANGIOGRAM: POST-OP (DIVEHI) in this encounter Assessments Diagnosis Coronary artery disease invo lving rincon coronary artery of rincon heart, angina presence unspecified Diagnosis Coronary artery disease, angina presence unspecified, unspecified vessel or lesion type, unspecified whether rincon or transplanted heart Longstanding persistent atrial fibrillation Mixed hyperlipidemia Instructions * Patient Instructions* Alisson Cobb MA - 10/25/2019 1:30 PM EDT How to contact your Care Team: Provider: Dr. Del Rio Nurse: Jaylyn Mar RN In case of an emergency please call 911. REFILLS: When in need for refills please call your care team or the office at [phone]. Please include medication name, pharmacy name, and specify 30-day or 90-day supply. Please check with your pharmacy within 24 hours of request for your refill. You must follow up as directed to continue current refills. Thank you! documented in this encounter History of Present Illness * Jaswinder Del Rio MD - 10/25/2019 1:50 PM EDT Patient Name: Cristofer Hancock MR #: [id number] Interventional Cardiology Jaswinder Del Rio MD, [facility] 10/25/19 Dear Christophe Corral MD, Cristofer Hancock was seen in follow up for : Problem Atrial Fibrillation (Hcc) Told he had afib since july when hosp for leg infection [id number] xarelto Hld (Hyperlipidemia) Per Dr Light Cad (Coronary Artery Disease) 2003- OM stent 1998-[place]-- stent- LAD 2018- pat stents 50-60 mid [...] unspecified vessel or lesion type, unspecified whether rincon or transplanted heart Procedures ECG 12 [place] [address] [place] [address] Specialty Diagnoses / Procedures Referred By Babar t Referred To Contact Cardiology Diagnoses Atrial fibrillation, unspecified type (HCC) Christophe Corral MD [address] [id number] Jaswinder Del Rio MD [address] [place] [address] Referral ID Status Reason Start Date Expiration Date Visits Requested Visits Authorized [id number] Authorized Specialty Services Required/Pat ient's Best Interest 10/10/2021 10/10/2022 1 1 Additional Source Comments (unrecognized sect ion and content) No Status Records FoundNo Status Records FoundNo Status Records FoundNo Status Records Found INFORMATION SOURCE (unrecogn ized section and content) DATE CREATED AUTHOR AUTHOR'S ORGANIZ ATION 04/25/2018 [facility] DATE CREATED AUTHOR AUTHOR'S ORGANIZ ATION 08/02/2019 [facility] DATE CREATED AUTHOR AUTHOR'S ORGANIZ ATION 01/04/2022 [facility] Reason for Visit (unrecogniz ed section and [...] type (HCC) Christophe Corral MD [address] [id number] Jaswinder Del Rio MD [address] [place] [address] Referral ID Status Reason Start Date Expiration Date V isits Requested Visits Authorized [id number] Closed Specialty Services Required/Maria D ent's Best Interest 10/10/2021 10/10/2022 1 1 Reason Comments Medication Refill Jaswinder Del Rio MD - 04/23/2018 7:31 AM Jaswinder Mcdowell MD - 04/20/2018 1:39 PM EST H&P Notes (unrecognized sect ion and content) INTERVAL HISTORY AND PHYSICAL Patient Name: Cristofer Hancock Admit Date: [id number] MR #: [id number] : 1950 The H&P has been reviewed and the patient has been examined. I concur with the findings of the H&P. There are no significant changes. It is appropriate to proceed with the planned procedure. Sedation Plan: Moderate ASA Classification: 2 - Patient with mild systemic disease Mallampati Score: II Jaswinder Del Rio MD 04/23/2018 7:31 AM Formatting of this note may be different from the original. Patient Name: Cristofer Hancock MR #: [id number] 04/20/18 Dear Christophe Corral MD, Cristofer Hancock was seen in follow up for : Problem Cad (Coronary Artery Disease) 2002- OM stent 1998-[place]-- stent- unk Assessment and Plan CAD (coronary artery disease) Worrisome symptoms and with abnormal stress will follow with cardiac cath Thank you or allowing me to participate in the care of your patients. Orders Placed This Encounter Procedures Basic Metabolic Panel CBC and Differential ECG 12 Lead Case Request Dynamo Repairer: Left Heart Cath Possible PTCA/Stent EKG:not done [...] an abnormal EKG and was sent to [facility] for a stress Cardiolite. He had [...] Care Teams (unrecognized sec tion and content) [employer] Relationship Specialty Start Date End Date Christophe Corral MD [address] [facility] [address] [place] [address] PCP - General Family Medicine 04/20/18 Dulce Maria Daniels MD [address] [facility] [address] [place] [address] Internal Medicine 11/07/15 [employer] Relationship Specialty Start Date End Date Christophe Corral MD [address] [facility] [address] [place] [address] PCP - General Family Medicine 04/20/18 Dulce Maria Daniels MD [address] [facility] [address] [place] [address] Internal Medicine 11/07/15 [employer] Relationship Specialty Start Date End Date Christophe Corral MD [address] [facility] [address] [place] [address] PCP - General Family Medicine 04/20/18 Dulce Maria Daniels MD [address] [facility] [address] [place] [address] Internal Medicine 11/07/15 [employer] Relationship Specialty Start Date End Date Christophe Corral MD [address] [place], [place] [id number] PCP - General Family Medicine 04/20/18 Dulce Maria Daniels MD [address] [place] [address] Internal Medicine 11/07/15 FOR RECORDS PERTAINING TO [...] BE BASED ON THE PRIMARY CLINICAL RECORDS. [employer] [facility] provides no warranty or guarantee of the accuracy or completeness of information in this document.
== END | disposition home or self-care (01) ==
LOC: LAB 11:59
PROVIDERS: PCP Family Medicine; Referring Provider Internal Medicine Endocrinology, Diabetes & Metabolism; Visit Provider Internal Medicine Endocrinology, Diabetes & Metabolism
DX: E05.00 Thyrotoxicosis with diffuse goiter without thyrotoxic crisis or storm (principal)
CPT/HCPCS: 36415; 80053; 84439; 84443; 84481; 85025

== ENCOUNTER → 2023-07-17 | Outpatient (CLI) | payer OTHER, SELFPAY ==
--- OUTSIDE RECORDS SUMMARY | 2023-07-17 11:51 | XMS RPT_ITS | CCD ---
Author Name Unknown Address [address] [place] [address] Organization [facility] Care Team Providers Care Jail Manager Name Role Phone Jeri Armstrong LPN Unavailable UnavailJaswinder Silva Unavailable Unavailable Jaswinder Del Rio Unavailable Unavailable Frances, Dulce Maria Houston Unavailable Christophe Corral Unavailable JASWINDER DEL RIO Unavailable Unavailable JASWINDER DEL RIO Unavailable Unavailable CHRISTOPHE CORRAL Unavailable Unavailable Frances, Dulce Maria Houston Unavailable Christophe Corral Primary Care Provider Jeri Armstrong LPN Unavailable Unavailab Christophe De Primary Care Provider Frances VILLATORO Dulce Maria Mauricio Unavailable Christophe Corral MD Primary Care Provider Frances VILLATORO Dulce Maria Mauricio Unavailable Christophe Corral MD Primary Care Provider Christophe Corral MD Primary Care Provider [phone] JASWINDER DEL RIO Attending Unavailable JASWINDER DEL RIO Admitting Unavailable CHRISTOPHE CORRAL Referring Unavailable CHRISTOPHE CORRAL Primary Care Unavailable Frances VILLATORO Dulce Maria Mauricio Unavailable Christophe [...] One tablet by mouth daily AMLODIPINE BESYLATE [id number] Samuel Marx MD AMLODIPINE-ATORVAS TATIN (2 sources) Dihydropyridine Calcium Channel Paulie, HMG-CoA Reductase Inhibitor Start: 09-27-2014 take 1 tablet by mouth once daily CADUET 5-40 MG TABS One tablet by mouth daily AMLODIPINE-ATORVA STATIN [id number] Ruma Nair RN Problems Active Problems Problem Classification Problem Date Documented Date Episodic/Chronic Acute myocardial infarction (2 sources) Myocardial infarction; Translations: [ST elevation (STEMI) myocardial infarction of unspecified site] Onset: 09-27-2014 09-27-2014 Chronic Cardiac dysrhythmias (20 sources) Longstanding persistent atrial fibrillation; Translations: [Atrial fibrillation] Onset: 10-25-2019 10-25-2019 Chronic Coronary atherosclerosis and other heart disease (20 sources) Atherosclerotic heart disease of [place] coronary artery without angina pectoris; Translations: [Old [...] 08-19-2016 Episodic Other aftercare (2 sources) Other retirement (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; Translations: [Long-term (current) use [...] mm[Hg] Jaswinder Del Rio MD Work Phone: [facility] 12-31-2021 11:47-0400 Systolic blood pressure 158 mm[Hg] Jaswinder Del Rio MD Work Phone: [facility] 12-31-2021 11:42-0400 Body height 180.3 cm Jaswinder Del Rio MD Work Phone: [facility] 12-31-2021 11:42-0400 Body mass index (BMI) [Ratio] 24.27 kg/m2 Jaswinder Del Rio MD Work Phone: [facility] 12-31-2021 11:42-0400 Body weight 78.93 kg Jaswinder Del Rio MD Work Phone: [facility] 12-31-2021 11:42-0400 Heart rate 79 /min Jaswinder Del Rio MD Work Phone: [facility] 11-27-2020 14:00-0400 Body height 180.3 cm Jaswinder Del Rio MD Work Phone: [facility] 11-27-2020 14:00-0400 Body mass index (BMI) [Ratio] 24.83 kg/m2 Jaswinder Del Rio MD Work Phone: [facility] 11-27-2020 14:00-0400 Body weight 80.74 kg Jaswinder Del Rio MD Work Phone: [facility] 11-27-2020 14:00-0400 Diastolic blood pressure 72 mm[Hg] Jaswinder Del Rio MD Work Phone: [facility] 11-27-2020 14:00-0400 Heart rate 75 /min Jaswinder Del Rio MD Work Phone: [facility] 11-27-2020 14:00-0400 SaO2% (BldA) [Mass fraction] 95 % Jaswinder Del Rio MD Work Phone: [facility] 11-27-2020 14:00-0400 Systolic blood pressure 119 mm[Hg] Jaswinder Del Rio MD Work Phone: [facility] 10-25-2019 13:36-0400 BMI (Body Mass Index) 27.67 kg/m2 Jaswinder Del Rio [facility] 10-25-2019 13:36-0400 Body weight 89.99 kg Jaswinder [facility] 10-25-2019 13:36-0400 BP Diastolic 86 mm[Hg] [facility]-25-2019 13:36-0400 BP Systolic 130 mm[Hg] [facility] 10-25-2019 13:36-0400 Height 180.3 cm Jaswinder [facility] 10-25-2019 13:36-0400 Pulse (Heart Rate) 76 /min Jaswinder [facility] 10-25-2019 13:36-0400 Pulse Oximetry 96 % Jaswinder [facility] 04-23-2018 09:15-0500 BP Diastolic 70 mm[Hg] Jaswinder [facility] 04-23-2018 09:15-0500 BP Systolic 123 mm[Hg] Jaswinder [facility] 04-23-2018 09:15-0500 Pulse (Heart Rate) 77 /min Jaswinder [facility] 04-23-2018 09:15-0500 Pulse Oximetry 97 % Jaswinder [facility] 04-23-2018 09:15-0500 Respiratory Rate 17 /min [facility] 04-23-2018 07:32-0500 BMI (Body Mass Index) 27.89 kg/m2 [facility] 04-23-2018 07:32-0500 Body Temperature 97.59 [degF] Jaswinder [facility] 04-23-2018 07:32-0500 Height 180.3 cm [facility] 04-23-2018 07:32-0500 Weight 90.72 kg [facility] 09-28-2016 10:45-0400 BMI (Body Mass Index) 31.94 kg/m2 Jeri Nathaniel OLMOS [facility] Work Phone: 09-28-2016 10:45-0400 Body Temperature 97.7 [degF] Jeri Armstrong LPN [facility] Work Phone: 09-28-2016 10:45-0400 Body weight 103.87 kg Jeri Nathaniel OLMOS [facility] Work Phone: 09-28-2016 10:45-0400 BP Diastolic 82 mm[Hg] Jeri Armstrong LPN [facility] Work Phone: 09-28-2016 10:45-0400 BP Systolic 142 mm[Hg] Jeri Armstrong LPN [facility] Work Phone: 09-28-2016 10:45-0400 Height 180.34 cm Jeri Armstrong LPN [facility] Work Phone: 09-28-2016 10:45-0400 Pulse (Heart Rate) 93 /min Jeri Armstrong LPN [facility] Work Phone: 09-28-2016 10:45-0400 Pulse Oximetry 98 % Jeri Armstrong LPN [facility] Work Phone: 09-28-2016 10:45-0400 Respiratory Rate 14 /min Jeri Armstrong LPN [facility] Work Phone: 09-28-2016 10:45-0400 Weight 103.87 kg Jeri Armstrong LPN [facility] Work Phone: 04-11-2015 08:30-0500 BSA (Body Surface Area) 2.23 m2 Jeri Armstrong LPN [facility] Work Phone: 09-28-2014 09:55-0400 Heart rate 80 /min Jeri Armstrong LPN [facility] Work Phone: Encounters Encounter Date Encounter Type Care Provider Facility Start: 01-28-2023 Refill Jaswinder kiran MD Work Phone: [facility] Procedures Date [...] Jeri Armstrong LPN Start: 04-11-2015 End: 04-11-2015 ORDNANCE KEEPER Danielle Carvalho PA-C Work Phone: Start: 04-11-2015 [...] Start: 12-18-2031 Tetanus vaccination Tetanus: Every 10yrs [facility] Start: 11-18-[address] [facility] Start: 01-10-2023 Influenza vaccination Sequential Influenza Vaccine (#1) [facility] Start: 01-10-[address] [facility] Start: 12-31-2021 End: 12-31-2021 Patient encounter procedure 12/31/2021 Office Visit Cardiology Jaswinder Del Rio MD [address] [address] [facility] Start: 01-10-[address] [facility] Start: 11-27-2020 End: 11-27-2020 Patient encounter procedure 11/27/2020 Office Visit Cardiology Jaswinder Del Rio MD [address] [address] [phone] [facility] Office Start: 09-14-2020 COVID-19 Vaccine (2 - Booster for Hilary series) COVID-19 Vaccine (2 - Booster for Hilary series) [facility] Start: 01-11-[address] [facility] Start: 01-10-2018 Influenza vaccination SEQUENTIAL INFLUENZA VACCINE (#1) [facility] Start: 09-28-2016 End: 09-28-2016 Appointment Appointment [facility] Work Phone: Start: 12-11-2015 Fall risk assessment Falls Risk Assessment [facility] Start: 12-11-2015 Pneumococcal vaccination PNEUMOCOCCAL VACCINE AGE 65+ (1 of 2 - PCV13) [facility] Start: 12-11-2015 Pneumococcal Vaccine: Age 65+ (2 of 2 - PPSV23) Pneumococcal Vaccine: Age 65+ (2 of 2 - PPSV23) [facility] Start: 12-11-2015 US scan of abdominal aorta ABDOMINAL AORTIC ULTRASOUND [facility] Start: 04-11-2015 End: 04-11-2015 ORDNANCE KEEPER ORDNANCE KEEPER [facility] Work Phone: Start: 04-11-2015 End: 04-11-2015 Follow Up Appt 6 months Follow Up Appt 6 months [facility] Work Phone: Start: 09-28-2014 End: 09-28-2014 Electrocardiogram, complete EKG (In office) [facility] Work Phone: Start: 09-28-2014 End: 09-28-2014 Follow Up Appt 6 months Follow Up Appt 6 months [facility] Work Phone: Start: 09-28-2014 End: 09-28-2014 MMM MMM [facility] Work Phone: Start: 01-19-2009 Pneumococcal Vaccine: Age 65+ (2 - PCV) Pneumococcal Vaccine: Age 65+ (2 - PCV) [facility] Start: 2000 Administration of herpes zoster vaccine Zoster Vaccines (1 of 2) [facility] Start: 2000 Screening for malignant neoplasm of colon [facility] Start: 2000 ZOSTER VACCINES (1 of 2) ZOSTER VACCINES (1 of 2) [facility] Start: 1968 Hepatitis C antibody, confirmatory test Hepatitis C Screening [facility] Start: 1968 Hepatitis C screening Hepatitis C Screening [facility] Start: 1966 COVID-19 Vaccine (1 of 2) COVID-19 Vaccine (1 of 2) [facility] Start: 1962 Adolescent depression screening assessment Depression Screening (PHQ9) [facility] Start: 1962 COVID-19 Vaccine (1) COVID-19 Vaccine (1) [facility] Start: 1962 Depression screening using PHQ-9 (Patient Health Questionnaire 9) score [facility] Start: 1960 Diabetic foot examination Foot Exam [facility] Start: [address] [facility] Start: 1960 Microalbumin measurement, urine, quantitative Urine Microalbumin [facility] Start: 1960 Ophthalmic examination and evaluation Ophthalmology Exam [facility] Start: 1960 Urine screening for protein Urine Microalbumin [facility] Start: 1956 Pneumococcal Vaccine: Age 65+ (1 of 2 - PPSV23) Pneumococcal Vaccine: Age 65+ (1 of 2 - PPSV23) [facility] Start: 1953 History and physical examination, annual for health maintenance Wellness Visit [facility] Start: 1950 Abdominal aortic aneurysm screening Abdominal Aortic Ultrasound [facility] Start: 1950 Fall risk assessment Falls Risk Assessment [facility] Start: 1950 Hemoglobin A1c measurement A1C [facility] Start: 1950 Hepatitis C antibody, confirmatory test Hepatitis C Screening [facility] Start: 1950 Prostate specific antigen measurement PSA Level [facility] Start: 1950 Screening for malignant neoplasm of colon [facility] Start: 1950 US scan of abdominal aorta Abdominal Aortic Ultrasound [facility] Start: 1950 HEPATITIS C SCREENING HEPATITIS C SCREENING [facility] Start: 1950 Screening colonoscopy [address]ONOSCOPY [facility] End: 11-27-2021 12 lead ECG ECG 12 Lead ECG Routine Coronary artery disease, angina presence unspecified, unspecified vessel or lesion type, unspecified whether [place] or transplanted heart 1 Occurrences starting 11/27/2020 until 11/27/2021 [facility] Payers Date Payer Category Payer Unknown [id number] 2015 Unknown [employer] PPO xxxxxxxxxxxx 2015-Present xxxxxxxxxxxx [id number] 2015 Unknown [employer] PPO [id number] 2015-Present [id number] 2015 Unknown [employer] PPO [id number] 2015-Present [phone] [address] [place] [address] [id number] 1950 Unknown [id number] 1950 Unknown [id number] Social History Date Type Detail Facility Start: 04-23-2018 End: 12-31-2021 Tobacco smoking status KSIS Current every day smoker [facility] Start: 04-23-2018 End: 12-31-2021 Cigarettes smoked current (pack per day) - Reported [facility] Start: 1950 Sex Assigned At Not on file [facility] Start: 10-25-2019 End: 12-31-2021 Alcohol intake Current non-drinker of alcohol (finding) [facility] Start: 04-23-2018 Alcohol Comment occasional [facility] Start: 12-21-2021 End: 12-31-2021 Exposure to SARS-CoV-2 (event) Not sure [facility] Start: 10-25-2019 End: 12-31-2021 Tobacco use and exposure Never used [facility] History of tobacco use Cigarette Smoker [facility] Start: 12-31-2021 Tobacco use panel [facility] Start: 04-20-2018 Gender identity Identifies as male gender (finding) [facility] Start: 04-20-2018 Sexual orientation Choose not to dis close [facility] Clinical Notes 11-02-2020 to 12-31-2021 Jaswinder Del Rio MD - 12/31/2021 12:01 PM EDTAssessment & Plan Note - Jaswinder Del Rio MD - 12/31/2021 11:55 AM EDTTelephone Encounter - Heather Matos MA - 11/08/2021 2:39 PM EDT Note Date & Type Note Facility 12-31-2021 History of Presen t illness Narrative Patient Name: Cristofer Hancock [facility] MR #: [id number] Interventional Cardiology Jaswinder Del Rio MD, [facility] 12/31/21 Dear Christophe Corral MD, Cristofer Hancock was seen in follow up for : Problem Atrial Fibrillation (Hcc) Told he had afib since july when hosp for leg infection [id number] xarelto Cad (Coronary Artery Disease) 2002- [place] 1998[place]-- stent- LAD 2017- pat stents 50-60 mid [...] medications on file documented in this encounter [facility] 12-31-2021 Evaluation + Plan note Associ ated Problem(s): CAD (coronary artery disease) No angina,staying active-Doing well, Medications reviewed and recommended to continue asa/metoprolol Followup [address] [facility] 12-31-2021 Evaluation + Plan note Associ ated Problem(s): Atrial fibrillation (HCC) Doing well, Medications reviewed and recommended to continue xarelto Followup [address] [facility] 12-31-2021 Miscellaneous Notes Associate d Problem(s): CAD (coronary artery disease) No angina,staying active-Doing well, Medications reviewed and recommended to continue asa/metoprolol Followup 1 year Associated Problem(s): Atrial fibrillation (HCC) Doing well, Medications reviewed and recommended to continue xarelto Followup 1 year documented in this encounter [facility] 11-08-2021 Telephone encounter Note Form atting of this note might be different from the original. Received refill request for rivaroxaban (Xarelto) 20 mg Tab. Pt's last OV was 11/27/1920. Follow up is scheduled 12/31/2021. Thank you. [facility] 11-08-2021 Miscellaneous Notes Formattin g of this note might be different from the original. Received refill request for rivaroxaban (Xarelto) 20 mg Tab. Pt's last OV was 11/27/1920. Follow up is scheduled 12/31/2021. Thank you. documented in this encounter [facility] 05-01-2021 Miscellaneous Notes Received refill request for rivaroxaban (Xarelto) 20 mg Tab. Pt's last OV was 11/27/2020. Follow up is due around 11/27/2021. Thank you. documented in this encounter [facility] 11-27-2020 History of Presen t illness Narrative Patient Name: Cristofer Hancock MR #: [id number] Interventional Cardiology Jaswinder Del Rio MD, [facility] 11/27/20 Dear Christophe Corral MD, Cristofer Hancock was seen in follow up for : Problem Atrial Fibrillation (Hcc) Told he had afib since july when hosp for leg infection [id number] xarelto Cad (Coronary Artery Disease) 2003- [place] stent 1998[place]-- stent- LAD 2018- pat stents 50-60 mid [...] is not nervous/anxious. documented in this encounter [facility] 11-27-2020 Miscellaneous Notes Associated Problem(s): CAD (coronary artery disease) No angina, Doing well, Medications reviewed and recommended to continue asa Followup 1 year Still smoking 1 ppd Associated Problem(s): Atrial fibrillation (HCC) Doing well, Medications reviewed and recommended to continue toprol-- only 25 mg and xarelto Followup 1 year documented in this encounter [facility] 11-27-2020 Instructions Alisson oCbb MA - 11/27/2020 2:00 PM EDT How to contact your Care Team: Provider: Dr. Del Rio Nurse: Jaylyn Mar RN In case of an emergency please call 911. REFILLS: When in need for refills please call your care team or the office at [phone]. Please include medication name, pharmacy name, and specify 30-day or 90-day supply. Please check with your pharmacy within 24 hours of request for your refill. You must follow up as directed to continue current refills. Thank you! documented in this encounter [facility] 11-02-2020 Miscellaneous Notes Pt needs a refill of Xarelto HIs last appt was 10/25/2019 and his next appt is 11/27/[address] [facility] Diagnosis Coronary artery disease, angina presence unspecified, unspecified vessel or lesion type, unspecified whether [place] or transplanted heart- [facility] Coronary artery disease, angina presence unspecified, unspecified vessel or lesion type, unspecified whether [place] or transplanted heart Longstanding persistent atrial fibrillation (HCC) Coronary artery disease involving [place] coronary artery of [place] heart without angina pectoris documented in this encounter [facility] note* Diagnosis Longstanding persistent atrial fibrillation (HCC) documented in this encounter [facility] note* Diagnosis Atrial fibrillation, unspecified type (HCC)- Primary documented in this encounter [facility] note* Diagnosis Longstanding persistent atrial fibrillation (HCC) documented in this encounter [facility] note* Diagnosis Atrial fibrillation, unspecified type (HCC) Coronary artery disease involving [place] coronary artery of [place] heart without angina pectoris Longstanding persistent atrial fibrillation (HCC) documented in this encounter [facility] note* Diagnosis Longstanding persistent atrial fibrillation (HCC) documented in this encounter [facility] Summary Purpose Family History No Family History Records FoundNo Family History Records FoundNo Family History Records FoundNo Family History Records Found Advance Directives Documents on File Type Date Recorded Patient Seo Engineer Expl anation Advance Directives and Livin g Will 04/23/2018 6:57 AM Latest Code Status on File Code Status Date Activated Date Inactivated Comments Full Code 04/23/2018 8:49 AM Full Code 04/21/2018 3:09 PM 04/23/2018 6:57 AM Documents on File Type Date Recorded Patient Seo Engineer Expl anation Advance Directives and Livin g [...] through Care Everywhere. * CORONARY ANGIOGRAM: POST-OP (HEBREW) in this encounter Assessments Diagnosis Coronary artery disease invo lving [place] coronary artery of [place] heart, angina presence unspecified Diagnosis Coronary artery disease, angina presence unspecified, unspecified vessel or lesion type, unspecified whether [place] or transplanted heart Longstanding persistent atrial fibrillation Mixed hyperlipidemia Instructions * Patient Instructions* Alisson Cobb MA - 10/25/2019 1:30 PM EDT How to contact your Care Team: Provider: Dr. Del Rio Nurse: Jaylyn Mar RN In case of an emergency please call 911. REFILLS: When in need for refills please call your care team or the office at [phone]. Please include medication name, pharmacy name, and specify 30-day or 90-day supply. Please check with your pharmacy within 24 hours of request for your refill. You must follow up as directed to continue current refills. Thank you! documented in this encounter History of Present Illness * Jaswinder Del Rio MD - 10/25/2019 1:50 PM EDT Patient Name: Cristofer Hancock MR #: [id number] Interventional Cardiology Jaswinder Del Rio MD, [facility] 10/25/19 Dear Christophe Corral MD, Cristofer Hancock was seen in follow up for : Problem Atrial Fibrillation (Hcc) Told he had afib since july when hosp for leg infection [id number] xarelto Hld (Hyperlipidemia) Per Dr Light Cad (Coronary Artery Disease) 2003- [place] stent 1998[place]-- stent- LAD 2018- pat stents 50-60 mid [...] unspecified vessel or lesion type, unspecified whether [place] or transplanted heart Procedures ECG 12 [place] [address] [place] [address] Specialty Diagnoses / Procedures Referred By Babar t Referred To Contact Cardiology Diagnoses Atrial fibrillation, unspecified type (HCC) Christophe Corral MD [address] [id number] Jaswinder Del Rio MD [address] [place] [address] Referral ID Status Reason Start Date Expiration Date Visits Requested Visits Authorized [id number] Authorized Specialty Services Required/Pat ient's Best Interest 10/10/2021 10/10/2022 1 1 Additional Source Comments (unrecognized sect ion and content) No Status Records FoundNo Status Records FoundNo Status Records FoundNo Status Records Found INFORMATION SOURCE (unrecogn ized section and content) DATE CREATED AUTHOR AUTHOR'S ORGANIZ ATION 04/25/2018 [facility] DATE CREATED AUTHOR AUTHOR'S ORGANIZ ATION 08/02/2019 [facility] DATE CREATED AUTHOR AUTHOR'S ORGANIZ ATION 01/04/2022 [facility] Reason for Visit (unrecogniz ed section [...] type (HCC) Christophe Corral MD [address] [phone] Jaswinder Del Rio MD [address] [place] [address] Referral ID Status Reason Start Date Expiration Date V isits Requested Visits Authorized [id number] Closed Specialty Services Required/Maria D ent's Best Interest 10/10/2021 10/10/2022 1 1 Reason Comments Medication Refill Jaswinder Del Rio MD - 04/23/2018 7:31 AM Jaswinder Mcdowell MD - 04/20/2018 1:39 PM EST H&P Notes (unrecognized sect ion and content) INTERVAL HISTORY AND PHYSICAL Patient Name: Cristofer Hancock Admit Date: [id number] MR #: [id number] : 1950 The H&P has been reviewed [...] original. Patient Name: Cristofer Hancock MR #: [id number] 04/20/18 Dear Christophe Corral MD, Cristofer Hancock was seen in follow up for : Problem Cad (Coronary Artery Disease) 2002- [place] stent 1998[place] stent- unk Assessment and Plan CAD (coronary artery disease) Worrisome symptoms and with abnormal stress will follow with cardiac cath Thank you or allowing me to participate in the care of your patients. Orders Placed This Encounter Procedures Basic Metabolic Panel CBC and Differential ECG 12 Lead Case Request Visual Specialist: Left Heart Cath Possible PTCA/Stent EKG:not done [...] an abnormal EKG and was sent to [facility] for a stress Cardiolite. He had [...] Care Teams (unrecognized sec tion and content) Jail Manager Relationship Specialty Start Date End Date Christophe Corral MD [address] [facility] [address] [place] [address] PCP - General Family Medicine 04/20/18 Dulce Maria Daniels MD [address] [facility] [address] [place] [address] Internal Medicine 11/07/15 Jail Manager Relationship Specialty Start Date End Date Christophe Corral MD [address] [facility] [address] [place] [address] PCP - General Family Medicine 04/20/18 Dulce Maria Daniels MD [address] [facility] [address] [place] [address] Internal Medicine 11/07/15 Jail Manager Relationship Specialty Start Date End Date Christophe Corral MD [address] [facility] [address] [place] [address] PCP - General Family Medicine 04/20/18 Dulce Maria Daniels MD [address] [facility] [address] [place] [address] Internal Medicine 11/07/15 Jail Manager Relationship Specialty Start Date End Date Christophe Corral MD [address] [place], [place] [id number] PCP - General Family Medicine 04/20/18 Dulce Maria Daniels MD [address] [place] [address] Internal Medicine 11/07/15 FOR RECORDS PERTAINING TO [...] BE BASED ON THE PRIMARY CLINICAL RECORDS. [employer] [facility]. provides no warranty or guarantee of the accuracy or completeness of information in this document.
[2023-07-17 12:52] LABS: Free T3 1.2 pg/mL (2.18-3.98); T4 Free Direct 0.31 ng/dL (0.76-1.46)
== END | disposition home or self-care (01) ==
LOC: LAB 11:22
PROVIDERS: PCP Family Medicine; Referring Provider Internal Medicine Endocrinology, Diabetes & Metabolism; Visit Provider Internal Medicine Endocrinology, Diabetes & Metabolism
DX: E05.00 Thyrotoxicosis with diffuse goiter without thyrotoxic crisis or storm (principal)
CPT/HCPCS: 36415; 84439; 84481

== ENCOUNTER → 2023-08-08 | Outpatient (CLI) | payer OTHER, SELFPAY ==
[2023-08-08 21:20] LABS: Free T3 1.2 pg/mL (2.18-3.98); T4 Free Direct 0.23 ng/dL (0.76-1.46)
== END | disposition home or self-care (01) ==
LOC: LAB 13:18
PROVIDERS: PCP Family Medicine; Referring Provider Internal Medicine Endocrinology, Diabetes & Metabolism; Visit Provider Internal Medicine Endocrinology, Diabetes & Metabolism
DX: E05.00 Thyrotoxicosis with diffuse goiter without thyrotoxic crisis or storm (principal)
CPT/HCPCS: 36415; 84439; 84481

== ENCOUNTER → 2023-09-18 | Outpatient (CLI) | payer OTHER, SELFPAY ==
--- NOTE | 2023-09-18 12:06 | US_ITS ---
STUDY: THYROID ULTRASOUND REASON FOR EXAM: Male, 72 years old. 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 COMPARISON: 04/25/2023 FINDINGS: RIGHT LOBE: The right lobe of the thyroid gland measures 4.2 x 2.4 x 2.2 cm. There is a heterogeneous echotexture. There are no demonstrated solid, cystic or complex lesions. LEFT LOBE: The left lobe of the thyroid gland measures 4.7 x 1.8 x 2.7 cm. There is a heterogeneous echotexture. There are no demonstrated solid, cystic or complex lesions. Previously described nodule in the left lobe is not clearly visualized. ISTHMUS: The isthmus measures 4 mm thick. . The regional lymph nodes are normal. US/Thyroid IMPRESSION: Thyroiditis but no dominant nodule. Electronically Signed: Dane Machado MD at 0:07 EDT ,
[2023-09-18 13:42] LABS: ALB/GLOB Ratio 0.9 RATIO (0.9-2.4); AST(SGOT) 28 U/L (15-37); Alanine Aminotransfer ALT/SGPT 29 U/L (16-61); Albumin, Serum 3.5 g/dL (3.2-5.0); Alkaline Phosphatase 95 U/L (45-117); Anion Gap 7 (5-15); BUN 13 mg/dL (7-18); BUN/Creat Ratio 13.7 RATIO (10-20); Calcium,Total 8.6 mg/dL (8.5-10.1); Chloride 108 mmol/L (98-107); Creatinine, Serum 0.95 mg/dL (0.70-1.30); EST Glomerular Filtration Rate 83 mL/min (>60); Est Glom Filt Rate - Afr Amer 100 mL/min (>60); Free T3 4.7 pg/mL (2.18-3.98); Globulin 3.8 g/dL (2.2-4.2); Glucose 92 mg/dL (74-106); Potassium 4.1 mmol/L (3.5-5.1); Protein, Total 7.3 g/dL (6.4-8.2); Sodium Level 140 mmol/L (136-145); T4 Free Direct 1.55 ng/dL (0.76-1.46); Thyroid Stim Hormone (TSH) 0.01 uIU/mL (0.358-3.74)
== END | disposition home or self-care (01) ==
LOC: US 11:54
PROVIDERS: PCP Family Medicine; Referring Provider Internal Medicine Endocrinology, Diabetes & Metabolism; Visit Provider Internal Medicine Endocrinology, Diabetes & Metabolism
DX: E05.00 Thyrotoxicosis with diffuse goiter without thyrotoxic crisis or storm (principal)
CPT/HCPCS: 36415; 76536; 80053; 84439; 84443; 84481

== ENCOUNTER → 2023-10-07 | Outpatient (CLI) | payer OTHER, SELFPAY ==
[2023-10-07 14:24] LABS: Free T3 2.4 pg/mL (2.18-3.98); T4 Free Direct 0.92 ng/dL (0.76-1.46)
== END | disposition home or self-care (01) ==
PROVIDERS: PCP Family Medicine; Referring Provider Internal Medicine Endocrinology, Diabetes & Metabolism; Visit Provider Internal Medicine Endocrinology, Diabetes & Metabolism
DX: E05.00 Thyrotoxicosis with diffuse goiter without thyrotoxic crisis or storm (principal)
CPT/HCPCS: 36415; 84439; 84481

== ENCOUNTER → 2023-10-29 | Outpatient (CLI) | payer OTHER, SELFPAY ==
--- NOTE | 2023-10-29 12:03 | NEURO ---
NCS and/or EMG Patient Report Ordering Doctor: Chalo Valles DATE OF SERVICE: 10/29/23 Edward presents with pain, numbness and tingling in the right hand. He reports waking up multiple times at night with right hand pain. Electrodiagnostic findings: Right median motor nerve demonstrates prolonged latency with normal amplitude and reduced conduction velocity. Right ulnar motor responses within normal limits. Right median F?wave. Prolonged right median sensory latency at the wrist. Normal right ulnar and radial sensory responses. Needle EMG testing was performed the right upper limb all muscles tested showed no evidence of denervation with normal motor unit action potentials. Electrodiagnostic impression: This is an abnormal study in the right upper limb. 1. Electrodiagnostic findings suggestive of right-sided median mononeuropathy. This consistent with a moderate right carpal tunnel syndrome Multi Select Codes Neurology Neurology Interp Codes: 80245-00 Musc test done w/n test comp (interp) and 98443-83 Nrv cndj tst 5-6 studies (interp)
== END | disposition home or self-care (01) ==
PROVIDERS: PCP Family Medicine; Referring Provider Specialist; Visit Provider Specialist
DX: M79.604 Pain in right leg (principal); G56.01 Carpal tunnel syndrome, right upper limb
CPT/HCPCS: 95886; 95909

== ENCOUNTER → 2023-11-03 | Outpatient (CLI) | payer OTHER, SELFPAY ==
[2023-11-03 11:29] LABS: Absolute Lymphocyte Count 2.83 X10^3/uL (0.83-4.51); Absolute Neutrophil Count 5.1 X10^3/uL (2.0-7.7); Basophil# 0.04 X10^3/uL; Basophil% 0.5 % (0-1); Eosinophil# 0.07 X10^3/uL; Eosinophils% 0.8 % (0-5); Hematocrit 41.8 % (40-54); Hemoglobin 13.3 g/dL (13.0-16.5); Lymphocyte # 2.83 X10^3/ul (0.83-4.51); Lymphocyte % 32.6 % (19-41); Mean Corp Hgb Conc 31.8 g/dL (32-36); Mean Corpuscular Hgb 28.9 pg (27.0-32.0); Mean Corpuscular Volume 90.7 fL (80-94); Mean Platelet Vol. 10.6 fl (6.2-12.0); Monocyte# 0.67 X10^3/uL; Monocyte% 7.7 % (0-10); NRBC Flagged by Analyzer 0 % (0-5); Neutrophil # 5.05 X10^3/uL (2.7-7.7); Neutrophil % 58.1 % (47-70); Platelet Count 162 K/mm3 (150-450); RBC Distribution Width CV 14.6 % (11.6-14.6); RBC Distribution Width SD 48.7 fl (35.1-43.9); Red Blood Count 4.61 M/mm3 (4.6-6.2); White Blood Count 8.7 K/mm3 (4.4-11.0)
[2023-11-03 12:05] LABS: AST(SGOT) 19 U/L (15-37); Alanine Aminotransfer ALT/SGPT 16 U/L (16-61); Albumin, Serum 3.3 g/dL (3.2-5.0); Alkaline Phosphatase 70 U/L (45-117); Anion Gap 8 (5-15); BUN 16 mg/dL (7-18); BUN/Creat Ratio 15.7 RATIO (10-20); Calcium,Total 8.5 mg/dL (8.5-10.1); Chloride 105 mmol/L (98-107); Cholesterol 111 mg/dL (200); Creatinine, Serum 1.02 mg/dL (0.70-1.30); EST Glomerular Filtration Rate 76 mL/min (>60); Est Glom Filt Rate - Afr Amer 92 mL/min (>60); Free T3 2.2 pg/mL (2.18-3.98); Globulin 3.4 g/dL (2.2-4.2); Glucose 123 mg/dL (74-106); High Density Lipoprotein 56 mg/dL; Potassium 3.5 mmol/L (3.5-5.1); Protein, Total 6.7 g/dL (6.4-8.2); Sodium Level 138 mmol/L (136-145); T4 Free Direct 0.84 ng/dL (0.76-1.46); Thyroid Stim Hormone (TSH) 2.79 uIU/mL (0.358-3.74); Triglycerides 57 mg/dL; Very Low Density Lipoprotein 11 mg/dL (5-40)
== END | disposition home or self-care (01) ==
LOC: LAB 10:52
PROVIDERS: PCP Family Medicine; Referring Provider Internal Medicine Endocrinology, Diabetes & Metabolism; Visit Provider Internal Medicine Endocrinology, Diabetes & Metabolism
DX: E05.00 Thyrotoxicosis with diffuse goiter without thyrotoxic crisis or storm (principal); E11.9 Type 2 diabetes mellitus without complications; G56.00 Carpal tunnel syndrome, unspecified upper limb
CPT/HCPCS: 36415; 80053; 80061; 83036; 84439; 84443; 84481; 85025

== ENCOUNTER 2023-11-17 06:04 | Day surgery (SDC) | payer OTHER, SELFPAY ==
--- NOTE | 2023-11-06 12:33 | PCM.HP.BLA ---
History and Physical History and Physical Patient Name: Cristofer Hancock : 1950From:? IVORY MENDEZ PA-C DATE OF PRE-OPERATIVE EXAM: 11/05/2023 DATE OF SURGERY:? 11/17/2023 SCHEDULED PROCEDURE:? Right carpal tunnel release HISTORY OF PRESENT ILLNESS: Preoperative history and physical exam was performed on November 05, 2023.? This is a 72-year-old male who is had ongoing right hand pain and paresthesia for several years.? He does feel the symptoms have been progressively getting worse.? He does get increased numbness at nighttime.? It does awaken him at nighttime.? His pain is currently 2/10.? He has intermittent numbness and tingling in all 5 fingers.? He has attempted bracing in the past with minimal relief.? He does feel with activities of daily living including driving or doing yardwork increases the numbness and tingling.? He has had a previous EMG nerve conduction study exam which did reveal moderate right carpal tunnel syndrome.? Patient has obtain surgical clearance from the primary care provider Dr. Dexter.? He is currently on Rivaroxaban due to history of atrial fibrillation.? PCP has recommended he stop these are all to 2 days prior to surgery.? He will resume this on postoperative day #1.? Patient denies any recent chest pain, shortness of breath, fevers chills or recent infections.? Patient has medical history pertinent for type 2 diabetes mellitus, thyroid disease, gastroesophageal reflux disease, hypertension, atrial fibrillation, coronary artery disease with previous heart stents.? After failing conservative measures and discussing all treatment options was Dr. Chalo Valles, the patient does wish to proceed with a right carpal tunnel release. REVIEW OF SYSTEMS: Review Of Systems: Constitutional: Denies change in appetite, fever and weight change. Cardiovasular: Denies chest pain, heart murmur and irregular heartbeat. Respiratory: Denies cough, pneumonia, shortness of breath, tuberculosis and wheezing. Gastrointestinal: Denies constipation, diarrhea, heartburn, nausea, rectal itching, bloody stools and vomiting. Musculoskeletal: Reports leg swelling, but denies pain, trouble walking and weakness. Skin: Denies Raynaud's, history of shingles and tattoo. Neurological: Denies ambulatory dysfunction, dizziness, numbness/tingling and tremor. Psychiatric: Denies anxiety, insomnia and stress. Hematologic/Lymphatic: Denies anemia, bleeding/bruising tendency and past transfusion. Reviewed and updated. PAST MEDICAL HISTORY: Advance Care Plan: No Advance Directives Effective Date: 10/08/2023 Past Medical History: Medical Problems: Diabetes, Heart Attack, Thyroid Disease, Acid Reflux, High Blood Pressure, Afib, Coronary Artery Disease (CAD) Covid- 19 - (08/2023) Covid-19 Vaccine Accidents: None Surgical Hx: Cataracts - (2023) [facility] Heart Stent - 1999 & 2001, [facility] Anesthesia Complications: None Assistive Devices: Glasses Reviewed and updated. SOCIAL HISTORY: Social History: Marital: .Occupation: Retired.Work Status: Retired.Hand Dominance: Right-handed. Personal Habits:? Cigarette Use: Heavy tobacco smoker (more than 10 cigarettes/day).Smokeless Tobacco: Never Used Smokeless Tobacco.E-Cigarette Use: Never used.Alcohol: Occasionally.Drug Use: Denies Use.Enjoy Exercising: Never Exercises. Reviewed and updated. VITALS: Ht: 69 Wt: 179lb 8oz Wt k.421 BMI: 26.5 BP: 126/62 Pulse: 83 Resp: 14 T: 97.9 T: 36.6C Pain Level: 2 O2SatR: 99 ALLERGIES: No Known Drug Allergy MEDICATIONS: Ecotrin Low Strength 81 mg daily@0800, Lipitor 40 mg at bedtime, Jardiance 10 mg 1 by mouth every day, Pantoprazole Sodium 40 mg 1 by mouth every day, Lisinopril 5 mg 1 by mouth every day, Metoprolol Succinate ER 50 mg 1 by mouth twice a day, Xarelto 20 mg 1 by mouth every day, Metformin HCL ER (Mod) 1000 mg 2x daily, Methimazole 5 mg 1 by mouth every day, Cinnamon 500 mg 4 tablets (1999), Fish Oil 1000 mg PRE-OP EXAM: General appearance:NORMAL? Other: Eyes: Conjunctivae and lids: NORMAL? Pupils: ERR Ears, Nose, Mouth, and Throat: NORMAL? Other: Inspection of lips, teeth and gums: NORMAL?? Other: Neck: Examination of neck: no masses noted. Respiratory: Assessment of respiratory effort: NORMAL?? Other: ? Auscultation of lungs: clear to auscultation no wheezes, rhonchi or rales. Cardiovascular:? Auscultation of heart: irregularly irregular PHYSICAL EXAMINATION: Patient's right hand is without erythema or signs of infection.? He has full composite fist and full extension fingers.? He does have some mild thenar atrophy on the right.? Special tests: Positive Phalen's on the right, positive carpal compression exam on the right, positive Tinel's on the right.? Sensation grossly intact to light touch axillary, radial, median, ulnar nerve distribution.? Capillary refills less than 2 seconds. IMAGING STUDIES: Previous EMG nerve conduction study exam from [facility] on October 29, 2023 revealed moderate right carpal tunnel syndrome IMPRESSION: 1.? Right carpal tunnel syndrome 2.? Hypertension 3.? Coronary artery disease 4.? History of myocardial infarction 5.? Type 2 diabetes mellitus 6.? Gastroesophageal reflux disease 7.? History of atrial fibrillation currently on Rivaroxaban 8.? Overweight with BMI 26.5 PLAN: Dr. Chalo Valles did discuss and review with the patient all treatment options including surgical versus nonsurgical options.? Patient does wish to proceed with the above-stated procedure.? Potential risks, benefits, and complications of the procedure were discussed in detail including but not limited to , infection, nerve and blood vessel damage, persistent pain, numbness, tingling, paresthesias, blood clot, pulmonary embolism, and requirement for possible further surgery.? The patient expressed full understanding and has no further questions for the doctor.? Patient does agree to proceed with the above-stated procedure and has signed the surgery consent form. POST-OP MEDICATION PLAN: Pain Medications:? Patient will use extra strength Tylenol 500 mg 2 tablets 3 times daily for primary pain control.? Patient was offered narcotic in which he would prefer not to use.? He was instructed to contact our office if Tylenol is not sufficient for the pain.? He voiced understanding.? Primary care physician also gave recommendations stopping these are all to 2 days prior to surgery.? He will resume this on postoperative day #1 November 18, 2023. This dictation was created using voice recognition software. Phonetic and/or grammatical errors may exist. ___? I have re-examined the patient.? There are no clinical changes since date of exam. ___? See progress notes for changes. ___? Dictated on admission Date: ? Time: Signature:
[2023-11-17] VITALS (8 sets, daily range): BP systolic 124–160; BP diastolic 67–83; PULSE 48–70; RESP 14–16; TEMP 35.7–36.1; O2SAT 91–97; BMI 26.9
[2023-11-17] MEDS: Lactated Ringers 1,000 ML 15 ML IV (06:46)
--- NOTE | 2023-11-17 06:58 | PRE.ANES_ITS ---
ASA Classification* ASA Classification ASA Classification: 3 Assessment & Plan Anesthesia* Anesthesia Assessment Anesthesia Assessment: Discussed sedation and/or anesthesia options, risks, benefits, and alternatives with patient/parents/legal guardian/POA. Questions invited. The patient/parents/legal guardian/POA seems to understand and agrees to proceed with anesthesia plan. Reviewed the physical assessment, medical history, allergy history and patient home medications list prior to surgery/procedure/anesthetic and documented any changes. Performed airway and anesthesia risk assessments. Anesthesia Type Anesthesia Type: MAC Anesthesia Focused Assessment* Temperature: 96.9 F Pulse Rate: 70 Blood Pressure: 160/83 Respiratory Rate: 16 Pulse Ox: 97 Airway Assessment Mouth opens: >3 cm Mallampati Score: II Focused Labs Anesthesia Preop lab: CBC WBC 8.7 K/mm3 (4.4-11.0) 11/03/23 10:59 RBC 4.61 M/mm3 (4.6-6.2) 11/03/23 10:59 Hgb 13.3 g/dL (13.0-16.5) 11/03/23 10:59 Hct 41.8 % (40-54) 11/03/23 10:59 Plt Count 162 K/mm3 (150-450) 11/03/23 10:59 CHEMISTRY Potassium 3.5 mmol/L (3.5-5.1) 11/03/23 10:59 Sodium 138 mmol/L (136-145) 11/03/23 10:59 BUN 16 mg/dL (7-18) 11/03/23 10:59 Creatinine 1.02 mg/dL (0.70-1.30) 11/03/23 10:59 Glucose 123 mg/dL (74-106) H 11/03/23 10:59 POC Glucose 88 mg/dL (74-106) 02/19/23 06:46 TSH 2.79 uIU/mL (0.358-3.74) 11/03/23 10:59 COAG Pre-Assessment Diagnosis/Proposed Procedure Planned Operative Procedure(s): RIGHT CARPAL TUNNEL RELEASE Anesthesia History 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 When Was Last Pacemaker Check QUESTION #4 FULL TEXT: You/Your Family Experience fever (hyperthermia) with Anesthesia Last Oral Intake Last Oral intake: Last Oral Intake NPO since 22:00 11/17/23 06:33 Meds taken in AM with sips of water? Meds patient instructed to take am of surgery PONV PONV - printing plate clerk: PONV - printing plate clerk Female No 11/10/23 10:12 HX of Motion Sickness Yes 11/10/23 10:12 HX of N/V After Surgery No 11/10/23 10:12 Non-Smoker Yes 11/10/23 10:12 Duration of Surgery greater No 11/10/23 10:12 than 60 minutes Number of Risk Factors 2 11/10/23 10:12 PONV Score Moderate Risk 11/10/23 10:12 Height & Weight Height & Weight: Anesthesia: Height & Weight Height 5 ft 9 in 11/17/23 06:33 Weight: 82.8 kg 11/17/23 06:33 Body Mass Index (BMI) 26.9 11/17/23 06:33 Respiratory Assessment Respiratory Assessment - printing plate clerk: Respiratory Tract Infection Hx - printing plate clerk Hx Respiratory Tract Infection No 11/10/23 10:12 STOP Sleep Apnea STOP Sleep Apnea - printing plate clerk: STOP Sleep Apnea - printing plate clerk Hx Hypertension Yes: CONTROLLED WITH MED 11/10/23 10:12 Hx Sleep Apnea No 11/10/23 10:12 CPAP BIPAP Do you snore loudly (louder Yes 11/10/23 10:12 than talking or can be heard Do you often feel tired/ No 11/10/23 10:12 fatigued/ sleepy during daytime? Has anyone observed you stop No 11/10/23 10:12 breathing during sleep? STOP Results Positive 11/10/23 10:12 QUESTION #5 FULL TEXT : Do you snore loudly (louder than talking or can be heard through closed doors)? 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 Specify any problems Hx of Preganancy in last 3 N/A 11/10/23 10:12 Months Nurse Filling Out Transfusion DSCHRIBER 11/10/23 10:12 & Questions: Date: 11/10/23 11/10/23 10:12 Time: 10:13 11/10/23 10:12 Patient unable to answer at this time (ie. confused, unrespo /Reproduction History /Reproductive History - printing plate clerk: /Reproductive Hx- printing plate clerk Hx Now No 11/10/23 10:12 Gestational Age (in weeks): EDC: Hx Hx Para Hx Section SAB No 11/10/23 10:12 Active Medications Active Medications: Current Medications Generic Name Dose Route Start Last Admin Trade Name Freq PRN Reason Stop Dose Admin Cefazolin Sodium 1 gm in 50 mls @ 150 mls/hr 11/17/23 07:30 IV 11/17/23 07:49 PREOP ONE Lactated Ringer's 1,000 mls @ 15 mls/hr 11/17/23 06:30 11/17/23 06:46 IV 15 mls/hr .Q48H CARLOS Administration PFSH Medical History (Updated 11/10/23 @ 10:20 by Danielle Holder) Poison matthew Anemia Back pain Dietary restriction Difficulty swallowing History of GI bleed History of edema History of heart attack Hyperthyroidism Carotid artery disease Psoriasis Gout SOB (shortness of breath) on exertion Atrial fibrillation Wears glasses High cholesterol Smoker History of echocardiogram History of stress test Cardiology follow-up encounter History of atrial fibrillation Positive colorectal cancer screening using Cologuard test Bilateral carotid artery stenosis Diabetic ulcer of right dick with fat layer exposed Chronic ulcer of right leg with fat layer exposed Skin necrosis Pyoderma gangrenosum Tobacco abuse counseling Tobacco abuse History of MT (myocardial infarction) Hyperlipidemia Overweight (BMI 25.0-29.9) Umbilical hernia Hypolipidemia Hypertension Diabetes mellitus Coronary artery disease Swelling of right lower extremity Ulcer of right leg CAD (coronary artery disease) GERD (gastroesophageal reflux disease) Diabetes HTN (hypertension) Home Medications ?Medication ?Instructions ?Recorded ?Last Taken ?Type aspirin 81 mg tablet,delayed 81 mg PO DAILY@0800 blood thinner 02/23/15 11/13/23 History release metformin 1,000 mg tablet 1,000 mg PO BID blood sugar 02/23/15 07/04/19 10:00 History pantoprazole 40 mg tablet,delayed 40 mg PO DAILY PPI 08/16/16 11/17/23 History release empagliflozin 10 mg tablet 10 mg PO DAILY 02/13/23 Unknown History (Jardiance) lisinopril 5 mg tablet 5 mg PO DAILY 02/13/23 11/17/23 History atorvastatin 20 mg tablet 20 mg PO QHS 05/08/23 Unknown History cinnamon bark 500 mg capsule 2,000 mg PO BID 05/08/23 Unknown History (Cinnamon) nitroglycerin 0.4 mg sublingual 0.4 mg sublingual Q5-15M PRN chest 05/08/23 Unknown History tablet pain omega 5-fqm-mez-fish oil 60 mg-90 2 cap PO DAILY 05/08/23 Unknown History mg-500 mg capsule (Fish Oil) rivaroxaban 20 mg tablet (Xarelto) 20 mg PO DAILY 05/08/23 11/13/23 History methimazole 10 mg tablet 5 mg PO DAILY 05/29/23 11/17/23 History metoprolol tartrate 25 mg tablet 25 mg PO BID 05/29/23 11/17/23 History Allergy/AdvReac Type Severity Reaction Status Date / Time No Known Allergies Allergy Verified 11/17/23 06:31 Family History Father Diabetes Heart disease CAD (coronary artery disease) Brother Diabetes CAD (coronary artery disease) Mother CVA (cerebral vascular accident) Brother CAD (coronary artery disease) Diabetes Surgical History (Updated 11/10/23 @ 10:20 by Danielle Holder) History of esophagogastroduodenoscopy (EGD) Hx of colonoscopy History of cardiac catheterization Hx of left cataract extraction Hx of right cataract extraction Stented coronary artery History of colonoscopy History of back surgery Social History (Updated 05/29/23 @ 10:44 by Xuan Daniel RN) Smoking Status: Current every day smoker tobacco type: cigarettes alcohol intake: current alcohol intake frequency: holidays/special occasions only substance use type: does not use caffeine: No Review of Systems (Anesthesia) ROS Narrative System reviewed and no additional complaints, except as documented.
[2023-11-17] MEDS: Cefazolin 1 GM/50 ML BAG IV (07:27)
[2023-11-17 07:46] LABS: Bedside Glucose 100 mg/dL (74-106)
--- NOTE | 2023-11-17 07:47 | PCM.POST.ANE ---
Anesthesia: Postop Eval I Current Vital Signs Temperature: 96.9 F Pulse Rate: 48 Blood Pressure: 124/70 Respiratory Rate: 14 Pulse Ox: 94 Oxygen Delivery Method: Nasal Cannula Oxygen Flow Rate (L/min): 2 Assessment Airway patent: Yes Spontaneous unlabored respirations: Yes Mental status: Awake and Calm nausea: No Vomiting: No Anesthesia Complication: No Fluid Hydration Crystalloid volume administer (ml): 500 Total IV fluid infused: 500 Progress Note Anesthesia document: Postop Eval 1 completed: Yes
--- NOTE | 2023-11-17 07:54 | PCM.OPRPT ---
Report of Operation Date of Procedure: 11/17/23 Pre-Operative Diagnosis: Right carpal tunnel syndrome Post-Operative Diagnosis: Right carpal tunnel syndrome Surgery/Procedure Performed:: Right carpal tunnel release Description of Surgical Findings:: complete release transverse carpal ligament Surgeon: Chalo Valles executive compensation analyst: None Type of Anesthesia: Block,Nicky Anesthesiologist: Eloy Aldana Special Medications: Ancef Estimated Blood Loss (mL): 2 Fluids Replaced: 500 mL Description of Procedure: Brief history operative indications: 72-year-old male patient wished to proceed with right open carpal tunnel release. After discussing risks and benefits including but not limited to blood loss, DVTs, PEs, neurovascular damage, infection, hematoma and general risk of anesthesia, the patient demonstrated understanding wish to proceed with right open carpal tunnel release Procedure: On the date of the procedure, the patient's right upper extremity was marked in the preoperative area. Patient was taken back to the operating room, where the tourniquet was placed on the right upper extremity. Patient was given light sedation. All bony prominences are identified well-padded. Anesthesia assumed control C-spine and airway and remained in control throughout the remainder the procedure. [employer] block was administered by anesthesia. The right upper extremity was prepped in sterile fashion. Surgeon then scrub. Upon reentering the room, the right upper extremity was prepped in a standard orthopedic fashion. A timeout was called and everyone agreed upon the side, the site, the procedure to be performed, patient identity and antibiotics given. The incision was marked out. Incision was taken at the skin subtenons tissue fat down to fascia. Fascia was then lightly tethered until the median nerve was visible. A Almont was placed proximally and distally, and then scissors were placed proximally and distally to release the transverse carpal ligament. During the release the others were never completely closed. The Almont was then placed proximally and distally once more to verify the transverse carpal ligament had been adequately released. The wound was then copiously irrigated out with normal saline. Wound was then closed using 3-0 nylon suture. 10 cc of 50-50 mixture of 1% lidocaine and 0.5% Sensorcaine without epinephrine injection was given. Xeroform dressing was placed, sterile dressing was placed, compressive dressing was placed. Tourniquet was let down. Volar splint was placed. Patient was awakened by anesthesia and transferred to the PACU for recovery. Postoperative plan: The patient will follow up in 2 weeks forremoval sutures. Splint can be removed in 5 days at that time if they are doing well they will follow-up as needed. Complications No intraoperative complications Admit VTE Documentation VTE Present on Admission: No VTE Mechan Device Prophylaxis: None VTE Pharm Prophylaxis ordered?: No
[2023-11-17] MEDS: Bupivacaine Mpf 0.5% 30 ML VIAL (07:55)
[2023-11-17] MEDS: Lidocaine 1% (20 ml mdv) 20 ML Vial (07:55)
--- NOTE | 2023-11-17 08:11 | POSTOPAN2_ITS ---
Anesthesia Postop Eval I Sum Postop Eval Completion status Anesthesia document: Postop Eval 1 completed: Yes Anesthesia Postop Eval I Summary Anesthesia Postop Eval I Summary: Anesthesia Postop Eval I: Assessment Summary Airway patent Yes 11/17/23 07:54 [facility]JBL[facility] Spontaneous unlabored Yes 11/17/23 07:54 [facility]ANGELICALOU respirations Mental status Awake,Calm 11/17/23 07:54 [facility]JBL[facility] nausea No 11/17/23 07:54 [facility] Vomiting No 11/17/23 07:54 [facility]JBLOU Anesthesia Postop Eval I: Fluid Summary Crystalloid volume administer 500 11/17/23 07:54 [facility]JBLOU (ml) Colloids volume administered ( ml) Blood Product volume administered (ml) Total IV fluid infused 500 11/17/23 07:54 [facility]ANGELICALOU Anesthesia Postop Eval I: Summary Notes Anesthesia Complication No 11/17/23 07:54 [facility]ROBERT Anesthesia Complication Comment: Post-operative progress note Anesthesia: Postop Eval II Evaluation Mental status: Awake and Calm Pain Level: 0 nausea: No Vomiting: No Complications Anesthesia Complication: No
--- NOTE | 2023-11-17 08:11 | PCM.POSTANE2 ---
Anesthesia Postop Eval I Sum Postop Eval Completion status Anesthesia document: Postop Eval 1 completed: Yes Anesthesia Postop Eval I Summary Anesthesia Postop Eval I Summary: Anesthesia Postop Eval I: Assessment Summary Airway patent Yes 11/17/23 07:54 [employer]IFICIAL BREEDING DISTRIBUTOR.JBLOU Spontaneous unlabored Yes 11/17/23 07:54 ARTIFICIAL BREEDING DISTRIBUTOR.ANGELICALOU respirations Mental status Awake,Calm 11/17/23 07:54 ARTIFICIAL BREEDING DISTRIBUTOR.JBLOU nausea No 11/17/23 07:54 ARTIFICIAL BREEDING DISTRIBUTOR.JBLOU Vomiting No 11/17/23 07:54 ARTIFICIAL BREEDING DISTRIBUTOR.JBLOU Anesthesia Postop Eval I: Fluid Summary Crystalloid volume administer 500 11/17/23 07:54 ARTIFICIAL BREEDING DISTRIBUTOR.JBLOU (ml) Colloids volume administered ( ml) Blood Product volume administered (ml) Total IV fluid infused 500 11/17/23 07:54 ARTIFICIAL BREEDING DISTRIBUTOR.ANGELICALOU Anesthesia Postop Eval I: Summary Notes Anesthesia Complication No 11/17/23 07:54 ARTIFICIAL BREEDING DISTRIBUTOR.ROBERT Anesthesia Complication Comment: Post-operative progress note Anesthesia: Postop Eval II Evaluation Mental status: Awake and Calm Pain Level: 0 nausea: No Vomiting: No Complications Anesthesia Complication: No
[2023-11-17] MEDS: Ketorolac 15 MG/ML Vial IV (08:18)
--- NOTE | 2023-11-18 07:39 | PCM.POSTANE2 ---
Anesthesia Postop Eval I Sum Postop Eval Completion status Anesthesia document: Postop Eval 1 completed: Yes Anesthesia Postop Eval I Summary Anesthesia Postop Eval I Summary: Anesthesia Postop Eval I: Assessment Summary Airway patent Yes 11/17/23 07:54 GALO Spontaneous unlabored Yes 11/17/23 07:54 GALO respirations Mental status Awake,Calm 11/17/23 08:11 nausea No 11/17/23 08:11 Vomiting No 11/17/23 08:11 Anesthesia Postop Eval I: Fluid Summary Crystalloid volume administer 500 11/17/23 07:54 GALO (ml) Colloids volume administered ( ml) Blood Product volume administered (ml) Total IV fluid infused 500 11/17/23 07:54 GALO Anesthesia Postop Eval I: Summary Notes Anesthesia Complication No 11/17/23 08:11 Anesthesia Complication Comment: Post-operative progress note Anesthesia: Postop Eval II Evaluation Mental status: Awake Pain Level: 0 nausea: No Vomiting: No
== END 2023-11-17 09:07 | disposition home or self-care (01) ==
LOC: SDC 06:06 → AC 06:07
PROVIDERS: PCP Family Medicine; Referring Provider Specialist; Visit Provider Specialist
PROC: (CPT 64721; principal; 2023-11-17 07:15)
DX: G56.01 Carpal tunnel syndrome, right upper limb (principal); I48.91 Unspecified atrial fibrillation; E11.9 Type 2 diabetes mellitus without complications; K21.9 Gastro-esophageal reflux disease without esophagitis; I10 Essential (primary) hypertension; Z79.84 Long term (current) use of oral hypoglycemic drugs; F17.210 Nicotine dependence, cigarettes, uncomplicated; I25.10 Atherosclerotic heart disease of native coronary artery without angina pectoris; Z79.01 Long term (current) use of anticoagulants; Z95.5 Presence of coronary angioplasty implant and graft; Z79.899 Other long term (current) drug therapy; E66.3 Overweight; Z68.26 Body mass index [BMI] 26.0-26.9, adult; Z79.82 Long term (current) use of aspirin; E05.90 Thyrotoxicosis, unspecified without thyrotoxic crisis or storm; Z79.890 Hormone replacement therapy; E78.00 Pure hypercholesterolemia, unspecified
CPT/HCPCS: 64721; 01810; 82962; J7120; J2405

== ENCOUNTER → 2023-12-10 | Outpatient (CLI) | payer OTHER, SELFPAY ==
[2023-12-10 11:52] LABS: Free T3 3.4 pg/mL (2.18-3.98); T4 Free Direct 1.18 ng/dL (0.76-1.46)
== END | disposition home or self-care (01) ==
PROVIDERS: PCP Family Medicine; Referring Provider Internal Medicine Endocrinology, Diabetes & Metabolism; Visit Provider Internal Medicine Endocrinology, Diabetes & Metabolism
DX: E05.00 Thyrotoxicosis with diffuse goiter without thyrotoxic crisis or storm (principal)
CPT/HCPCS: 36415; 84439; 84481

== ENCOUNTER → 2024-01-19 | Outpatient (CLI) | payer OTHER, SELFPAY ==
[2024-01-19 12:52] LABS: Free T3 4.3 pg/mL (2.18-3.98); T4 Free Direct 1.66 ng/dL (0.76-1.46); Thyroid Stim Hormone (TSH) 0.007 uIU/mL (0.358-3.740)
== END | disposition home or self-care (01) ==
LOC: LAB 10:43
PROVIDERS: PCP Family Medicine; Referring Provider Internal Medicine Endocrinology, Diabetes & Metabolism; Visit Provider Internal Medicine Endocrinology, Diabetes & Metabolism
DX: E05.00 Thyrotoxicosis with diffuse goiter without thyrotoxic crisis or storm (principal)
CPT/HCPCS: 36415; 84439; 84443; 84481

== ENCOUNTER → 2024-01-26 | Outpatient (CLI) | payer OTHER, SELFPAY ==
[2024-01-26 15:35] LABS: AST(SGOT) 15 U/L (15-37); Alanine Aminotransfer ALT/SGPT 16 U/L (16-61); Albumin, Serum 3.5 g/dL (3.2-5.0); Alkaline Phosphatase 74 U/L (45-117); Anion Gap 5 (5-15); BUN 12 mg/dL (7-18); BUN/Creat Ratio 12.7 RATIO (10-20); Calcium,Total 9.4 mg/dL (8.5-10.1); Chloride 103 mmol/L (98-107); Cholesterol 104 mg/dL (200); Creatinine, Serum 0.95 mg/dL (0.70-1.30); EST Glomerular Filtration Rate 83 mL/min (>60); Est Glom Filt Rate - Afr Amer 100 mL/min (>60); Globulin 3.5 g/dL (2.2-4.2); Glucose 101 mg/dL (74-106); High Density Lipoprotein 57 mg/dL; Potassium 4.2 mmol/L (3.5-5.1); Sodium Level 136 mmol/L (136-145); Triglycerides 49 mg/dL; Very Low Density Lipoprotein 10 mg/dL (5-40)
== END | disposition home or self-care (01) ==
LOC: MFPLAB 11:11
PROVIDERS: PCP Family Medicine; Visit Provider Family Medicine
DX: E11.9 Type 2 diabetes mellitus without complications (principal)
CPT/HCPCS: 36415; 80053; 80061

== ENCOUNTER → 2024-02-02 | Outpatient (CLI) | payer OTHER, SELFPAY ==
--- NOTE | 2024-02-02 10:50 | CDU_ITS ---
Reason For Study: Carotid artery disease Rt. Velocities/BP Lt. Velocities/BP Prox CCA 63.6/19.2 cm/sec. Prox CCA 68.5/14.6 cm/sec. Mid CCA 71.1/18.2 cm/sec. Mid CCA 71.8/20.1 cm/sec. Dist CCA 73/23 cm/sec. Dist CCA 64.1/19 cm/sec. Prox ICA 154/29.8 cm/sec. Prox ICA 134.6/31.4 cm/sec. Mid ICA 132.1/33.4 cm/sec. Mid ICA 81.4/27.4 cm/sec. Dist ICA 75.1/25.6 cm/sec. Dist ICA 72.8/21.2 cm/sec. Rt. ICA/CCA = 2.17. Lt. ICA/CCA = 1.87. Prox ECA 137.5/22.5 cm/sec. Prox ECA 256.3/13.9 cm/sec. Rt. Vert. 52/14.6 cm/sec. Lt. Vert. 58.1/16.3 cm/sec. Right Extracranial There is homogeneous, smooth atherosclerotic plaque noted in the right common carotid artery. There is heterogeneous, irregular atherosclerotic plaque noted in the right internal carotid artery. There is heterogeneous, irregular atherosclerotic plaque noted in the right external carotid artery. Antegrade flow is noted in the right vertebral artery. Left Extracranial There is homogeneous, smooth atherosclerotic plaque noted in the left common carotid artery. There is heterogeneous, irregular atherosclerotic plaque noted in the left internal carotid artery. There is heterogeneous, irregular atherosclerotic plaque noted in the left external carotid artery. Antegrade flow is noted in the left vertebral artery. Procedure This is a Carotid Duplex examination using B-mode, color flow and specral Doppler. Carotid Duplex 29947. Exam performed in department. VL/Carotid Duplex Ultrasound Interpretation Summary Moderate (50-69%) stenosis right extracranial internal carotid. Moderate (50-69%) stenosis left extracranial internal carotid. Patent and antegrade vertebrals bilaterally. Ordering Physician: Christophe Dexter Referring Physician: Christophe Dexter Performed By: Luisa Moss RVT
== END | disposition home or self-care (01) ==
PROVIDERS: PCP Family Medicine; Referring Provider Family Medicine; Visit Provider Family Medicine
DX: I77.9 Disorder of arteries and arterioles, unspecified (principal)
CPT/HCPCS: 93880

== ENCOUNTER → 2024-03-15 | Outpatient (CLI) | payer OTHER, SELFPAY ==
[2024-03-15 11:49] LABS: Free T3 2.4 pg/mL (2.18-3.98); T4 Free Direct 0.71 ng/dL (0.76-1.46)
== END | disposition home or self-care (01) ==
LOC: LAB 10:46
PROVIDERS: PCP Family Medicine; Referring Provider Internal Medicine Endocrinology, Diabetes & Metabolism; Visit Provider Internal Medicine Endocrinology, Diabetes & Metabolism
DX: E05.00 Thyrotoxicosis with diffuse goiter without thyrotoxic crisis or storm (principal)
CPT/HCPCS: 36415; 84439; 84443; 84481

== ENCOUNTER → 2024-05-24 | Outpatient (CLI) | payer OTHER, SELFPAY | END | disposition home or self-care (01) | PROVIDERS: PCP Family Medicine; Referring Provider Internal Medicine Endocrinology, Diabetes & Metabolism; Visit Provider Internal Medicine Endocrinology, Diabetes & Metabolism | DX: E05.00 Thyrotoxicosis with diffuse goiter without thyrotoxic crisis or storm (principal) ==

== ENCOUNTER → 2024-05-25 | Outpatient (CLI) | payer OTHER, SELFPAY ==
[2024-05-25 14:23] LABS: ALB/GLOB Ratio 0.9 RATIO (0.9-2.4); AST(SGOT) 16 U/L (15-37); Alanine Aminotransfer ALT/SGPT 24 U/L (16-61); Albumin, Serum 3.5 g/dL (3.2-5.0); Alkaline Phosphatase 98 U/L (45-117); Anion Gap 9 (5-15); BUN 17 mg/dL (7-18); Calcium,Total 9.2 mg/dL (8.5-10.1); Chloride 104 mmol/L (98-107); EST Glomerular Filtration Rate 78 mL/min (>60); Est Glom Filt Rate - Afr Amer 94 mL/min (>60); Free T3 9.2 pg/mL (2.18-3.98); Glucose 127 mg/dL (74-106); Potassium 4.3 mmol/L (3.5-5.1); Protein, Total 7.5 g/dL (6.4-8.2); Sodium Level 139 mmol/L (136-145); T4 Free Direct 2.23 ng/dL (0.76-1.46); Thyroid Stim Hormone (TSH) < 0.005 uIU/mL (0.358-3.740)
== END | disposition home or self-care (01) ==
LOC: LAB 13:30
PROVIDERS: PCP Family Medicine; Referring Provider Internal Medicine Endocrinology, Diabetes & Metabolism; Visit Provider Internal Medicine Endocrinology, Diabetes & Metabolism
DX: E05.00 Thyrotoxicosis with diffuse goiter without thyrotoxic crisis or storm (principal)
CPT/HCPCS: 80053; 84439; 84443; 84481

== ENCOUNTER → 2024-07-06 | Outpatient (CLI) | payer OTHER, SELFPAY ==
[2024-07-07 03:34] LABS: Free T3 4.3 pg/mL (2.18-3.98); Thyroid Stim Hormone (TSH) < 0.005 uIU/mL (0.300-4.200)
== END | disposition home or self-care (01) ==
LOC: LAB 12:49
PROVIDERS: PCP Family Medicine; Referring Provider Internal Medicine Endocrinology, Diabetes & Metabolism; Visit Provider Internal Medicine Endocrinology, Diabetes & Metabolism
DX: E05.00 Thyrotoxicosis with diffuse goiter without thyrotoxic crisis or storm (principal)
CPT/HCPCS: 36415; 84439; 84443; 84481

== ENCOUNTER → 2024-07-28 | Outpatient (CLI) | payer OTHER, SELFPAY ==
[2024-07-28 17:59] LABS: ALB/GLOB Ratio 1.4 RATIO (0.9-2.4); AST(SGOT) 24 U/L (<=37); Alanine Aminotransfer ALT/SGPT 20 U/L (<=46); Albumin, Serum 3.9 g/dL (3.4-4.8); Alkaline Phosphatase 81 U/L (40-129); Anion Gap 12 (5-15); BUN 10 mg/dL (4-19); BUN/Creat Ratio 10.1 RATIO (10-20); Calcium,Total 8.8 mg/dL (7.6-11.0); Carbon Dioxide 24.2 mmol/L (21.0-32.0); Chloride 102 mmol/L (98-108); Cholesterol 111 mg/dL (<=200); Creatinine, Serum 0.94 mg/dL (0.70-1.20); EST Glomerular Filtration Rate 85 (>60); Globulin 2.8 g/dL (2.2-4.2); Glucose 100 mg/dL (70-99); High Density Lipoprotein 52 mg/dL; Low Density Lipoprotein Calc. 47 mg/dL; Potassium 4.3 mmol/L (3.3-5.1); Protein, Total 6.7 g/dL (5.9-8.4); Sodium Level 139 mmol/L (133-145); Thyroid Stim Hormone (TSH) 0.006 uIU/mL (0.300-4.200); Total Bilirubin 0.62 mg/dL (0.00-1.30); Triglycerides 56 mg/dL; Very Low Density Lipoprotein 11 mg/dL (5-40); cholesterol:hdl ratio screen 2.12
[2024-07-28 23:14] LABS: Hemoglobin A1c 7.1 % (<=5.6)
[2024-07-28 23:35] LABS: Microalbumin,Random Urine 62.6 mg/L (NO RANGE EST.)
[2024-07-29 08:31] LABS: Microalbumin:Creatinine Ratio 642.1 mg/g CRE
== END | disposition home or self-care (01) ==
LOC: MFPLAB 11:12
PROVIDERS: PCP Family Medicine; Referring Provider Family Medicine; Visit Provider Family Medicine
DX: I10 Essential (primary) hypertension (principal); E05.91 Thyrotoxicosis, unspecified with thyrotoxic crisis or storm; R73.09 Other abnormal glucose
CPT/HCPCS: 36415; 80053; 80061; 82043; 82570; 83036; 84443

== ENCOUNTER 2024-08-03 17:59 | Observation (INO) | payer OTHER, MEDICARE, SELFPAY ==
[2024-08-03 18:00] VITALS: BP 156/83; PULSE 67; RESP 16; TEMP 36.5; O2SAT 99; BMI 28.0
[2024-08-03 18:03] VITALS: BMI 28.0
[2024-08-03 18:20] VITALS: O2SAT 97; BMI 28.0
--- NOTE | 2024-08-03 18:20 | EKG12_ITS ---
Test Reason : DYSRHYTHMIA Blood Pressure : */* mmHG Vent. Rate : 58 BPM Atrial Rate : * BPM P-R Int : * ms QRS Dur : 82 ms QT Int : 408 ms P-R-T Axes : * 132 13 degrees QTcB Int : 400 ms Atrial fibrillation with slow ventricular response Right axis deviation Septal infarct , age undetermined Abnormal ECG Confirmed by JASS VILLATORO, GUALBERTO ([id number]), order editor AKOSUA BROOKS ([id number]) on 08/04/2024 8:31:54 AM Referred By: Confirmed By: GUALBERTO REGAN MD
[2024-08-03 18:45] LABS: Absolute Lymphocyte Count 2.88 X10^3/uL (0.83-4.51); Basophil# 0.05 X10^3/uL; Basophil% 0.6 % (0-1); Eosinophil# 0.11 X10^3/uL; Eosinophils% 1.2 % (0-5); Hematocrit 44.3 % (40-54); Hemoglobin 14.3 g/dL (13.0-16.5); Lymphocyte # 2.88 X10^3/ul (0.83-4.51); Mean Corp Hgb Conc 32.3 g/dL (32-36); Mean Corpuscular Hgb 28.4 pg (27.0-32.0); Mean Corpuscular Volume 88.1 fL (80-94); Mean Platelet Vol. 10.2 fl (6.2-12.0); Monocyte# 0.97 X10^3/uL; Monocyte% 10.8 % (0-10); NRBC Flagged by Analyzer 0 % (0-5); Neutrophil # 4.97 X10^3/uL (2.7-7.7); Neutrophil % 55.2 % (47-70); Platelet Count 176 K/mm3 (150-450); RBC Distribution Width CV 17.3 % (11.6-14.6); RBC Distribution Width SD 55.5 fl (35.1-43.9); Red Blood Count 5.03 M/mm3 (4.6-6.2)
[2024-08-03] MEDS: Acetaminophen 500 MG Tablet 1000 MG PO (18:46)
[2024-08-03 18:50] VITALS: BP 144/80; PULSE 59; RESP 17; O2SAT 96
--- NOTE | 2024-08-03 18:53 | RAD_ITS ---
PROCEDURE: CHEST 1 VIEW 08/03/2024 REASON FOR EXAM: NEURO DEFICIT, ACUTE, STROKE SUSPECTED TECHNIQUE: Frontal view of the chest. COMPARISON: Chest x-ray dated 08/03/2024. FINDINGS: The cardiac silhouette is prominent. The right diaphragm is elevated. No focal infiltrate or consolidation is seen within the lungs. There is no pneumothorax. Degenerative changes seen within the bilateral shoulders. RAD/Chest 1 View IMPRESSION: No new infiltrate or consolidation is seen within the lungs. Reading Location: [id number]
[2024-08-03 19:17] LABS: Troponin T High Sensitivity 13 ng/L (<=22)
[2024-08-03 19:25] LABS: Anion Gap 13 (5-15); BUN 10 mg/dL (4-19); BUN/Creat Ratio 12.6 RATIO (10-20); Carbon Dioxide 20.6 mmol/L (21.0-32.0); Chloride 106 mmol/L (98-108); Creatinine, Serum 0.82 mg/dL (0.70-1.20); EST Glomerular Filtration Rate 93 (>60); Estimated Creatinine Clearance 87.18 ml/min (50-250); Glucose 66 mg/dL (70-99); Potassium 4.1 mmol/L (3.3-5.1); Sodium Level 140 mmol/L (133-145)
[2024-08-03 19:31] LABS: Prothrombin Time (Protime)PT. 22.7 SECONDS (11.7-14.9)
[2024-08-03 19:32] LABS: Partial Thromboplast Time 34.4 Seconds (24.1-36.2)
--- NOTE | 2024-08-03 19:50 | CT_ITS ---
EXAM: STROKE BRAIN/HEAD WITHOUT CONT CLINICAL HISTORY: 73 y/o M with NEURO DEFICIT, ACUTE, STROKE SUSPECTED, aphasia, unsteady gait. Symptoms have resolved. COMPARISON: None. TECHNIQUE: Routine CT imaging of the head without IV contrast. Additional multiplanar reformats were obtained. Dose reduction techniques were used including intermediate exposure control (AEC),iterative reconstruction technique, and/or mA and/or KV dose adjustments based on patient's size. FINDINGS: Mild generalized cerebral volume loss with concordant prominence of the ventricles and subarachnoid spaces. Moderate patchy supratentorial white matter hypodensities. The kimble-white matter interfaces are otherwise maintained. No acute intracranial hemorrhage or herniation. The basal cisterns are patent. Mucosal thickening of the left frontal sinus. The visualized paranasal sinuses and mastoids are otherwise unremarkable. No acute calvarial fracture or scalp hematoma. CT/STROKE Brain/Head without Cont IMPRESSION: 1. No acute intracranial abnormality. 2. Findings of chronic microvascular ischemic changes and age-related changes. Reading Location: [id number]
--- NOTE | 2024-08-03 19:50 | CT_ITS ---
EXAM: CTA head and neck with IV contrast. CLINICAL HISTORY: Neuro deficits. COMPARISON: None. TECHNIQUE: CTA head and neck was performed after IV contrast administration. FINDINGS: Limited examination due to technique. CTA head: The anterior and posterior cerebral circulations are patent. Atheromatous calcification is present without hemodynamically significant stenosis. There is no evidence of aneurysmal dilatation or dissection. CTA neck: Extensive atheromatous calcification is present particularly at the carotid bulb resulting in greater than 70% stenosis within the proximal bilateral ICAs. The vertebrobasilar system is preserved. No aneurysmal dilatation or dissection is seen. CT/STROKE CTA Head AND Neck W/Con IMPRESSION: Limited examination due to technique. Greater than 70% stenosis within the bilateral proximal ICA. This is well adva nced for patient's age. Recommend vascular surgery consultation. Reading Location: [id number]
[2024-08-03 20:00] VITALS: BP 129/79; PULSE 55; RESP 16; O2SAT 98
[2024-08-03 20:21] LABS: Bacteria 0 SEEN /hpf (None Seen); Mucous, Urine 0 SEEN /hpf (<or=2+); Squamous Epithelial Cells - UA 0 SEEN /hpf (0-5); White Blood Cells 0 SEEN /hpf (0-5)
--- NOTE | 2024-08-03 20:33 | EX.ED.DYSGE1 ---
HPI History of Present Illness Chief Complaint: Neuro S/Sx Narrative Narrative: Patient is a 73-year-old male with past medical history of atrial fibrillation on Xarelto, hypertension, hyperlipidemia, diabetes, hypercholesteremia, CAD, anemia who presented to the emergency department the chief complaint of altered mental status. According to the patient's significant other bedside he woke up around 5 PM from a nap and appeared to be very confused. at bedside states that he was yelling for her and when she came to the bedside and he was confused as he was on his phone and his states that that was the real odor. They state that they recently sold their house. She states that he cannot remember what her name was either. And she states that he could not get up and ambulate therefore she called EMS. She states that here in the emergency department he is back to his baseline. [facility] Medical History Poison matthew Anemia Back pain Dietary restriction Difficulty swallowing History of GI bleed History of edema History of heart attack Hyperthyroidism Carotid artery disease Psoriasis Gout SOB (shortness of breath) on exertion Atrial fibrillation Wears glasses High cholesterol Smoker History of echocardiogram History of stress test Cardiology follow-up encounter History of atrial fibrillation Positive colorectal cancer screening using Cologuard test Bilateral carotid artery stenosis Diabetic ulcer of right dick with fat layer exposed Chronic ulcer of right leg with fat layer exposed Skin necrosis Pyoderma gangrenosum Tobacco abuse counseling Tobacco abuse History of [place] (myocardial infarction) Hyperlipidemia Overweight (BMI 25.0-29.9) Umbilical hernia Hypolipidemia Hypertension Diabetes mellitus Coronary artery disease Swelling of right lower extremity Ulcer of right leg CAD (coronary artery disease) GERD (gastroesophageal reflux disease) Diabetes HTN (hypertension) Home Medications ?Medication ?Instructions ?Recorded ?Last Taken ?Type aspirin 81 mg tablet,delayed 81 mg PO DAILY blood thinner 02/23/15 08/03/24 History release pantoprazole 40 mg tablet,delayed 40 mg PO DAILY PPI 08/16/16 08/03/24 History release empagliflozin 10 mg tablet 10 mg PO DAILY 02/13/23 08/03/24 History (Jardiance) lisinopril 5 mg tablet 5 mg PO DAILY 02/13/23 08/03/24 History atorvastatin 20 mg tablet 20 mg PO QHS 05/08/23 08/02/24 History cinnamon bark 500 mg capsule 1,000 mg PO BID 05/08/23 08/03/24 History (Cinnamon) nitroglycerin 0.4 mg sublingual 0.4 mg sublingual Q5-15M PRN chest 05/08/23 Unknown History tablet pain omega 9-uhr-hua-fish oil 60 mg-90 2 cap PO DAILY 05/08/23 08/03/24 History mg-500 mg capsule (Fish Oil) rivaroxaban 20 mg tablet (Xarelto) 20 mg PO DAILY 05/08/23 08/03/24 History metoprolol tartrate 25 mg tablet 25 mg PO BID 12/22/23 08/03/24 History metformin 500 mg tablet,extended 500 mg PO BID 08/03/24 08/03/24 History release 24 hr methimazole 5 mg tablet 5 mg PO DAILY 08/03/24 08/03/24 History Allergy/AdvReac Type Severity Reaction Status Date / Time No Known Allergies Allergy Verified 12/22/23 11:30 Family History Father Diabetes Heart disease CAD (coronary artery disease) Brother Diabetes CAD (coronary artery disease) Mother CVA (cerebral vascular accident) Brother CAD (coronary artery disease) Diabetes Surgical History Hx of carpal tunnel repair History of esophagogastroduodenoscopy (EGD) Hx of colonoscopy History of cardiac catheterization Hx of left cataract extraction Hx of right cataract extraction Stented coronary artery History of colonoscopy History of back surgery Social History Smoking Status: Current every day smoker tobacco type: cigarettes alcohol intake: current alcohol intake frequency: holidays/special occasions only substance use type: does not use caffeine: No ROS ROS ED ROS Narrative Constitutional: Complains of headache as noted above denies lightheadedness or dizziness Eyes: Denies change in vision double vision blurry vision Cardiovascular: Denies chest pain Respiratory: Denies coughing wheezing shortness of breath Abdomen: Denies abdominal pain nausea vomit diarrhea : Denies urinary symptoms Neurological: Complains of altered mental status and confusion as noted above is his weakness and inability to get up and ambulate Musculoskeletal: Denies back pain Skin: Denies rashes or lesions EXAM Physical Exam Narrative Exam Narrative: General: Patient was lying in bed rest comfortably did not appear to be in acute distress Head: atraumatic, normocephalic Eyes: PERRL bilateral, EOMI bilateral, no conjunctival injection noted Neck: Soft, supple, trachea midline Cardiovascular: Patient bradycardic with a regular rhythm no murmurs gallops rubs noted Respiratory: Clear to auscultation bilaterally Abdomen: Soft, nondistended, nontender to palpation Extremities: +5/5 strength noted in the bilateral upper and lower extremities, radial pulses +2/4 in the bilateral extremities, no pedal edema exam Neurological: Patient follow commands knew that he was at [facility] year is 2024. NIH of 0 GCS 15 patient completed finger-nose test bilaterally for any difficulty Skin: Warm, dry, intact no rashes or lesions noted Const Vital Signs: 08/03/24 18:00 08/03/24 18:20 08/03/24 18:50 Temperature 97.7 F L Temperature Source Oral Pulse Rate 67 59 L Respiratory Rate 16 17 Blood Pressure 156/83 H 144/80 H Blood Pressure Mean 107 101 Pulse Ox 99 97 96 Oxygen Delivery Method Room Air Room Air 08/03/24 20:00 08/03/24 22:00 08/03/24 22:21 Temperature 98.2 F Temperature Source Pulse Rate 55 L 68 65 Respiratory Rate 16 16 15 Blood Pressure 129/79 H 140/77 H 140/77 H Blood Pressure Mean 95 98 98 Pulse Ox 98 98 98 Oxygen Delivery Method Room Air Room Air MDM MDM MDM Narrative Medical decision making narrative: Patient is a 73-year-old male who presented to the emergency department the chief complaint of altered mental status and inability ambulate. On the differential diagnose includes but not limited to transient ischemic attack, intracranial hemorrhage, complex migraine, stress-induced amnesia. Once workup is obtained reviewed he will be reevaluated. Patient is not a tenecteplase candidate as his symptoms have resolved and he is on Xarelto. Patient's CBC was reviewed and showed no evidence leukocytosis white blood count normal at 9, hemoglobin 14.3, platelet count was noted be 176. Patient INR of 2, PTT of 22.7 once again he is chronically anticoagulated on Xarelto. Patient sodium normal 140, potassium of 4.1, creatinine normal at 0.82. Patient's troponin was 13, EKG was reviewed and showed atrial fibrillation with a controlled rate of 50 bpm he has a history atrial fibrillation. Delta troponin will be obtained. Patient's urinalysis did not show any evidence of infection microscopic exam is pending but he has negative leukocyte esterase and negative nitrites. Patient's chest x-ray reviewed by myself by radiology showed no acute cardiopulmonary processes. Patient CT head and brain without contrast showed no acute intracranial abnormality there is findings of chronic microvascular ischemic changes and age-related changes noted. Patient CTA head and neck showed limited exam due to technique however there is greater than 70% stenosis within the bilateral proximal ICA. This is well advanced for the patient's age recommend vascular surgery consultation. At this point time do believe the patient will warrant admission to the hospital for his TIA type symptoms. Patient's case will be discussed with hospitalist for admission. Discussed case with hospitalist Dr. Vargas who accept the patient for admission. Patient was notified is agreeable this plan all question concerns answered. Lab Data Labs: Laboratory Results - last 24 hr 08/03/24 08/03/24 08/03/24 18:34 20:11 20:40 WBC 9.0 RBC 5.03 Hgb 14.3 Hct 44.3 MCV 88.1 MCH 28.4 MCHC 32.3 RDW Std Deviation 55.5 H RDW Coeff of Homero 17.3 H Plt Count 176 MPV 10.2 Immature Gran % (Auto) 0.200 Neut % (Auto) 55.2 Lymph % (Auto) 32.0 Gila % (Auto) 10.8 H Eos % (Auto) 1.2 Baso % (Auto) 0.6 Absolute Neuts (auto) 5.0 Absolute Lymphs (auto) 2.88 Nucleated RBC % 0 PT 22.7 H INR 2.0 APTT 34.4 Sodium 140 Potassium 4.1 Chloride 106 Carbon Dioxide 20.6 L Anion Gap 13 BUN 10 Creatinine 0.82 Estim Creat Clear Calc 87.18 Est GFR (MDRD) Non-Af 93 BUN/Creatinine Ratio 12.6 Glucose 66 L Calcium 8.0 Troponin T High Sens 13 Troponin T Hi Sens 2 Hr 12 Urine Color Yellow Urine Clarity Clear Urine pH 5.0 Ur Specific Marshall 1.010 Urine Protein 30 H Urine Glucose (UA) 1000 H Urine Ketones 5 H Urine Occult Blood 50 H Urine Nitrite Negative Urine Bilirubin Negative Urine Urobilinogen 1 H Ur Leukocyte Esterase Negative Urine RBC 0-5 SEEN Urine WBC 0 SEEN Ur Squamous Epith Cells 0 SEEN Urine Bacteria 0 SEEN Urine Mucus 0 SEEN Radiography Diagnostic Testing: Clinical Impression(s) from Imaging Studies Chest X-Ray 08/03/24 18:53 IMPRESSION: No new infiltrate or consolidation is seen within the lungs. Reading Location: [facility] Brain CT 08/03/24 19:50 IMPRESSION: 1. No acute intracranial abnormality. 2. Findings of chronic microvascular ischemic changes and age-related changes. Reading Location: [facility] Head/Neck CTA 08/03/24 19:50 IMPRESSION: Limited examination due to technique. Greater than 70% stenosis within the bilateral proximal ICA. This is well advanced for patient's age. Recommend vascular surgery consultation. Reading Location: [facility] Discharge Plan Triage Chief Complaint: Neuro S/Sx ED Provider: Ambrosio Goldberg Dx/Rx/DC Orders Clinical Impression: AMS (altered mental status), TIA (transient ischemic attack) Prescriptions: No Action atorvastatin 20 mg tablet 20 mg PO QHS Xarelto 20 mg tablet 20 mg PO DAILY nitroglycerin 0.4 mg tablet, sublingual 0.4 mg sublingual Q5-15M PRN (Reason: chest pain) Patient Comments: PT STATES HE DOES HAVE, BUT IT'S VERY OLD. Rx Instructions: do not exceed 3 doses per episode metoprolol tartrate 25 mg tablet 25 mg PO BID aspirin 81 MG tablet 81 mg PO DAILY pantoprazole 40 MG tablet 40 mg PO DAILY Jardiance 10 mg tablet 10 mg PO DAILY lisinopril 5 mg tablet 5 mg PO DAILY omega 4-nsk-rnr-fish oil [Fish Oil] 60-90-500 mg capsule 2 cap PO DAILY cinnamon bark [Cinnamon] 500 mg capsule 1,000 mg PO BID metformin 500 mg tablet extended release 24 hr 500 mg PO BID methimazole 5 mg tablet 5 mg PO DAILY Primary Care Provider: Christophe Dexter Referrals: Christophe Dexter MD [Primary Care Provider] - Print Language: Mohawk Disposition Disposition: Acute Care Hospital [facility]
[2024-08-03 20:37] LABS: Color, Urine Yellow (Yellow); Glucose, Dipstick 1000 mg/dl (Normal); Ketone-Dipstick 5 mg/dl (Negative); Leukocyte Esterase-Dipstick Negative /ul (Negative); Nitrite-Dipstick Negative (Negative); Occult Blood-Urine 50 /ul (Negative); Protein-Dipstick 30 mg/dl (Negative); Urine Bilirubin Dipstick Negative (Negative); Urine Clarity Clear (Clear); Urine Urobilinogen 1 mg/dl (Normal)
[2024-08-03 21:32] LABS: Troponin T High Sens 2 HR 12 ng/L (<=22)
[2024-08-03 21:32] LABS: Red Blood Cells-Urine 0-5 SEEN /hpf (0-5)
[2024-08-03 22:00] VITALS: BP 140/77; PULSE 68; RESP 16; O2SAT 98
[2024-08-03 22:21] VITALS: BP 140/77; PULSE 65; RESP 15; TEMP 36.8; O2SAT 98
--- NOTE | 2024-08-03 22:25 | ED.RN ---
Pt began getting agitated while bp cuff was on right arm attempting to take BP. PT has already been making several rude comments to staff previously today. RN educated pt if he is being admitted to hospital that we have to get his vitals routinely. Pt stated Yeah but you wrapped the cuff around my arm at 90mph and you don't have to squeeze so tight. You can take a manual. This RN informed pt blood pressure cuff was applied appropriately to arm and RN cannot control how much the monitor squeezes arm. RN also informed pt department has several critical patients and we are not able to divert our time to take manual blood pressures when the monitor in the room is working perfectly fine. Pt complaining that staff in department are all a bunch of idiots and that the floor will be short staffed, pt informed he has a right to leave hospital and we cannot keep him here. At this time calmed down pt and told him his behavior is out of line. Pt then agreed to be hospitalized and was provided with yogurt and sprite because all the other food here sucks.
--- NOTE | 2024-08-03 23:08 | PCM.HP.STD ---
[facility] - General General Date of Admission: 08/03/24 Date of Service: 08/03/24 Chief Complaint: Confusion, Difficulty Talking and Weakness. HPI Narrative ROBERT HANCOCK, is a 73 M with a past medical history of essential hypertension; on metoprolol, hyperlipidemia; on atorvastatin and empagliflozin, history of hyperthyroidism; on methimazole, overweight; with a BMI of 28 this admission, history of tobacco abuse; ~1 PPD times ~50 years, DM-2; of unknown control on metformin, history of chronic diabetic ulcer of the right lower extremity, history of pyoderma gangrenosum, history of atrial fibrillation; on rivaroxaban, CAD; s/p AL () with stents to LAD and LCx on baby aspirin daily plus as needed SL NTG, history of bilateral carotid artery stenosis, history of GI bleed; s/p panendoscopy (2022), history of GERD; on pantoprazole, history of anemia, history of umbilical hernia, history of bilateral cataracts; s/p extraction (2016), history of CTS; s/p release, history of psoriasis, history of gout and OA; with history of back surgery with subsequent chronic back pain who presents to [facility] ER complaining of confusion, difficulty talking and weakness. Mr. Hancock reports his symptoms began at approximately 5 PM on August 03, 2024 when he woke up from a nap and appeared to be very confused. His stated that he was yelling for her and she came to the bedside and noted he was confused as he could not remember her name. She then tried to get him up and when he could not ambulate she then activated EMS. She states that now in the ER he is back to his baseline. She admitted to the recently sold their house but she denied other recent illness or similar previous episodes. The patient admits to headache and confusion but he denies changes in vision, chest pain, palpitations, heart racing, shortness of breath, cough, dysuria, hematuria, arthralgias, myalgias or rash. In the ER he was noted to have a CTA of the head and neck with IV contrast that revealed greater than ~70% stenosis within the bilateral proximal ICA which is well advanced for patient's age with vascular surgical consultation recommended with CT scan of the brain without contrast revealed no acute intracranial abnormality but did show findings of chronic microvascular ischemic changes and age-related changes. He was also noted to have laboratory evidence of Hypoglycemia of 66 mg/dL present on admission. Patient was suspected to have TIA; with resolution of his symptoms at this time and he was then admitted to the PCU under observation status for ongoing care for a stay that is expected to be less than 2 midnights. [facility] Medical History Poison matthew Anemia Back pain Dietary restriction Difficulty swallowing History of GI bleed History of edema History of heart attack Hyperthyroidism Carotid artery disease Psoriasis Gout SOB (shortness of breath) on exertion Atrial fibrillation Wears glasses High cholesterol Smoker History of echocardiogram History of stress test Cardiology follow-up encounter History of atrial fibrillation Positive colorectal cancer screening using Cologuard test Bilateral carotid artery stenosis Diabetic ulcer of right dick with fat layer exposed Chronic ulcer of right leg with fat layer exposed Skin necrosis Pyoderma gangrenosum Tobacco abuse counseling Tobacco abuse History of AL (myocardial infarction) Hyperlipidemia Overweight (BMI 25.0-29.9) Umbilical hernia Hypolipidemia Hypertension Diabetes mellitus Coronary artery disease Swelling of right lower extremity Ulcer of right leg CAD (coronary artery disease) GERD (gastroesophageal reflux disease) Diabetes HTN (hypertension) Home Medications ?Medication ?Instructions ?Recorded ?Last Taken ?Type aspirin 81 mg tablet,delayed 81 mg PO DAILY blood thinner 02/23/15 08/03/24 History release pantoprazole 40 mg tablet,delayed 40 mg PO DAILY PPI 08/16/16 08/03/24 History release empagliflozin 10 mg tablet 10 mg PO DAILY 02/13/23 08/03/24 History (Jardiance) lisinopril 5 mg tablet 5 mg PO DAILY 02/13/23 08/03/24 History atorvastatin 20 mg tablet 20 mg PO QHS 05/08/23 08/02/24 History cinnamon bark 500 mg capsule 1,000 mg PO BID 05/08/23 08/03/24 History (Cinnamon) nitroglycerin 0.4 mg sublingual 0.4 mg sublingual Q5-15M PRN chest 05/08/23 Unknown History tablet pain omega 0-dgr-onh-fish oil 60 mg-90 2 cap PO DAILY 05/08/23 08/03/24 History mg-500 mg capsule (Fish Oil) rivaroxaban 20 mg tablet (Xarelto) 20 mg PO DAILY 05/08/23 08/03/24 History metoprolol tartrate 25 mg tablet 25 mg PO BID 12/22/23 08/03/24 History metformin 500 mg tablet,extended 500 mg PO BID 08/03/24 08/03/24 History release 24 hr methimazole 5 mg tablet 5 mg PO DAILY 08/03/24 08/03/24 History Allergy/AdvReac Type Severity Reaction Status Date / Time No Known Allergies Allergy Verified 12/22/23 11:30 Family History Father Diabetes Heart disease CAD (coronary artery disease) Brother Diabetes CAD (coronary artery disease) Mother CVA (cerebral vascular accident) Brother CAD (coronary artery disease) Diabetes Surgical History Hx of carpal tunnel repair History of esophagogastroduodenoscopy (EGD) Hx of colonoscopy History of cardiac catheterization Hx of left cataract extraction Hx of right cataract extraction Stented coronary artery History of colonoscopy History of back surgery Social History Smoking Status: Current every day smoker tobacco type: cigarettes alcohol intake: current alcohol intake frequency: holidays/special occasions only substance use type: does not use caffeine: No ROS ROS Narrative Review of Systems: Constitutional: Patient denies fever or chills. Eyes: Patient denies changes vision or discharge from eyes. ENT: Patient denies runny nose, sore throat or ear pain. Resp: Patient denies shortness of breath or cough. CV: Patient denies chest pain, palpitations, heart racing or lower extremity edema. GI: Patient denies abdominal pain, nausea, vomiting, diarrhea or constipation. : Patient denies dysuria, hematuria or urinary frequency. MSK: Patient denies arthralgias or myalgias. Skin: Patient denies rash, abscess, wounds or jaundice. Psych: Patient denies symptoms of uncontrolled depression or anxiety. Neuro: Patient admits to headache with transient confusion and weakness that caused him unable to get up and ambulate as per HPI. Allergy: Patient denies lip swelling, tongue swelling or urticaria. Hematology: Patient admits to easy bleeding on rivaroxaban. Endocrinology: Patient denies polyuria, polydipsia, polyphagia or heat/cold intolerance. 14 point ROS otherwise negative except for positives noted above in HPI. Vital Signs Vital Signs Vital Signs: 08/03/24 18:00 08/03/24 18:20 08/03/24 18:50 Temperature 97.7 F L Temperature Source Oral Pulse Rate 67 59 L Respiratory Rate 16 17 Blood Pressure 156/83 H 144/80 H Blood Pressure Mean 107 101 Pulse Ox 99 97 96 Oxygen Delivery Method Room Air Room Air 08/03/24 20:00 08/03/24 22:00 08/03/24 22:21 Temperature 98.2 F Temperature Source Pulse Rate 55 L 68 65 Respiratory Rate 16 16 15 Blood Pressure 129/79 H 140/77 H 140/77 H Blood Pressure Mean 95 98 98 Pulse Ox 98 98 98 Oxygen Delivery Method Room Air Room Air Weight Weight: 189 lb 9.561 oz Body Mass Index (BMI) 28.0 Physical Exam Const alert, oriented x3, no apparent distress and average body habitus General Appearance: cooperative HEENT normocephalic, head/scalp atraumatic, hearing grossly normal bilaterally and moist oral mucous membranes Eyes PERRL, EOMs intact bilaterally and conjunctivae normal Neck no lymphadenopathy and supple Resp normal respiratory effort, no retractions, no use of accessory muscles and clear to auscultation bilaterally Cardio regular rate and regular rhythm GI normal to inspection, nondistended, normoactive bowel sounds, soft to palpation, non-tender and non-distended Extremity normal to inspection, full ROM and no clubbing, cyanosis or edema Skin Skin Narrative: Patient has no evidence of rash, abscess, wounds or jaundice. Neuro oriented x3, CN's II-XII intact bilaterally, moves all extremities and no focal motor deficits Sensorium / Orientation: awake, alert, oriented to person, oriented to place and oriented to time Speech: speech normal Psych affect normal Results Medical Records Data Attestation: I reviewed the patient's medical records Lab / Micro Data Attestation: I reviewed the patient's lab results. 08/03/24 18:34 08/03/24 18:34 Labs: Laboratory Results - last 24 hr 08/03/24 18:34: WBC 9.0, RBC 5.03, Hgb 14.3, Hct 44.3, MCV 88.1, MCH 28.4, MCHC 32.3, RDW Std Deviation 55.5 H, RDW Coeff of Homero 17.3 H, Plt Count 176, MPV 10.2, Immature Gran % (Auto) 0.200, Neut % (Auto) 55.2, Lymph % (Auto) 32.0, [place] % (Auto) 10.8 H, Eos % (Auto) 1.2, Baso % (Auto) 0.6, Absolute Neuts (auto) 5.0, Absolute Lymphs (auto) 2.88, Nucleated RBC % 0, PT 22.7 H, INR 2.0, APTT 34.4, Sodium 140, Potassium 4.1, Chloride 106, Carbon Dioxide 20.6 L, Anion Gap 13, BUN 10, Creatinine 0.82, Estim Creat Clear Calc 87.18, Est GFR (MDRD) Non-Af 93, BUN/Creatinine Ratio 12.6, Glucose 66 L, Calcium 8.0, Troponin T High Sens 13 08/03/24 20:11: Urine Color Yellow, Urine Clarity Clear, Urine pH 5.0, Ur Specific [place] 1.010, Urine Protein 30 H, Urine Glucose (UA) 1000 H, Urine Ketones 5 H, Urine Occult Blood 50 H, Urine Nitrite Negative, Urine Bilirubin Negative, Urine Urobilinogen 1 H, Ur Leukocyte Esterase Negative, Urine RBC 0-5 SEEN, Urine WBC 0 SEEN, Ur Squamous Epith Cells 0 SEEN, Urine Bacteria 0 SEEN, Urine Mucus 0 SEEN 08/03/24 20:40: Troponin T Hi Sens 2 Hr 12 Imaging Radiology Impression Chest X-Ray 08/03/24 18:53 IMPRESSION: No new infiltrate or consolidation is seen within the lungs. Reading Location: [facility] Brain CT 08/03/24 19:50 IMPRESSION: 1. No acute intracranial abnormality. 2. Findings of chronic microvascular ischemic changes and age-related changes. Reading Location: [facility] Head/Neck CTA 08/03/24 19:50 IMPRESSION: Limited examination due to technique. Greater than 70% stenosis within the bilateral proximal ICA. This is well advanced for patient's age. Recommend vascular surgery consultation. Reading Location: [facility] Assessment & Plan Assessment/Plan (1) TIA (transient ischemic attack): (2) Bilateral carotid artery stenosis: (3) AMS (altered mental status): QUALIFIERS: Altered mental status type: disorientation Qualified Code(s): R41.0 - Disorientation, unspecified (4) Hypoglycemia: (5) Tobacco abuse: (6) Chronic anticoagulation: (7) Atrial fibrillation: QUALIFIERS: Atrial fibrillation type: permanent Qualified Code(s): I48.21 - Permanent atrial fibrillation (8) Coronary artery disease: QUALIFIERS: Coronary Disease-Associated Artery/Lesion type: [place] artery [place] vs. transplanted heart: [place] heart Associated angina: without angina Qualified Code(s): I25.10 - Atherosclerotic heart disease of [place] coronary artery without angina pectoris (9) Stented coronary artery: (10) Overweight (BMI 25.0-29.9): PLAN: Plan 1. Suspected TIA with CTA of the head and neck with IV contrast that revealed greater than ~70% stenosis within the bilateral proximal ICA which is well advanced for patient's age with vascular surgical consultation recommended with CT scan of the brain without contrast revealed no acute intracranial abnormality but did show findings of chronic microvascular ischemic changes and age-related changes in the setting of a known history of bilateral carotid stenosis - Admit to PCU under observation status. Continue baby aspirin, rivaroxaban as previous plus increase atorvastatin to 40 mg p.o. nightly. Check MRI of the brain without contrast to evaluate for possible CVA not evident on CT. Check carotid Doppler to confirm severity of stenosis suspected on CT. Check echocardiogram to evaluate LVEF. Finally, we will consult vascular surgery to see this patient on rounds in the a.m. for further recommendations with help appreciated in advance. 2. Hypoglycemia of 66 mg/dL present on admission in the setting of known DM-2; on metformin complicating #1 - Hold metformin for 72 hours after IV contrast dye. ADA diet plus FSBS q. AC/HS. Give D5 normal saline IV fluid to prevent recurrence of hypoglycemia. Check hemoglobin A1c to objectively assess quality of diabetic control. 3. History of Tobacco Abuse; ~1 PPD times ~50 years compounding #1 & #2 - Tobacco Cessation will be strongly encouraged. 4. History of atrial fibrillation; on rivaroxaban adding to the medical complexity of #1 - #3 - Maintain home regimen as previous. 5. Overweight; with a BMI of 28 this admission adding to the burden of disease outlined from #1 - #4 - Weight loss will be recommended. 6. CAD; s/p AL () with stents to LAD and LCx on baby aspirin daily plus as needed SL NTG - Resume current treatment. 7. Essential Hypertension; on metoprolol - Hold scheduled antihypertensives until CVA definitively ruled out on MRI. 8. Hyperlipidemia; on atorvastatin and empagliflozin - Continue current treatment and check Lipid Profile. 9. History of hyperthyroidism; on methimazole - Maintain methimazole and check TSH. 10. History of chronic diabetic ulcer of the Right lower extremity - Noted. 11. History of pyoderma gangrenosum - Noted. 12. History of GI bleed; s/p panendoscopy (2022) - Noted with no evidence of recurrence at this time. 13. History of GERD; on pantoprazole - Continue PPI. 14. History of anemia - Stable with hemoglobin of 14.3 g/dL and MCV of 80.1 fL this admission. 15. History of umbilical hernia - Noted. 16. History of bilateral cataracts; s/p extraction (2016) - Noted for the sake of completeness. 17. History of CTS; s/p release - Noted. 18. History of psoriasis - Noted. 19. History of gout - Chronic and stable with no evidence of acute flare. 20. OA; with history of back surgery with subsequent chronic back pain - Give acetaminophen prn pain or fever. 21. DVT prophylaxis - Patient already on rivaroxaban for #4 which will be continued. Total time: Approximately (but not less than) 85 minutes. Charges/Coding Visit Charges OBSV E&M: 86006 Observ/hosp same date L3
[2024-08-04] VITALS: PULSE 56; RESP 20; O2SAT 92
--- NOTE | 2024-08-04 01:03 | CDU_ITS ---
Reason For Study Reason For Study: Carotid stenosis Rt. Velocities/BP Lt. Velocities/BP Prox CCA 62.6/16.3 cm/sec. Prox CCA 47.4/14.2 cm/sec. Mid CCA 62.6/16.3 cm/sec. Mid CCA 50/17.7 cm/sec. Dist CCA 65.5/12.6 cm/sec. Dist CCA 52.6/16 cm/sec. Prox ICA 132.1/17 cm/sec. Prox ICA 148.5/37.1 cm/sec. Mid ICA 99.2/18.8 cm/sec. Mid ICA 76.2/17.9 cm/sec. Dist ICA 77.3/23.4 cm/sec. Dist ICA 58.6/16.8 cm/sec. Rt. ICA/CCA = 2.11. Lt. ICA/CCA = 2.97. Prox ECA 114.6/13.9 cm/sec. Prox ECA 91.9/13.3 cm/sec. Rt. Vert. 43.9/10.7 cm/sec. Lt. Vert. 49.4/14.5 cm/sec. Right Extracranial There is homogeneous, smooth atherosclerotic plaque noted in the right common carotid artery. There is heterogeneous, irregular atherosclerotic plaque noted in the right internal carotid artery. The atherosclerotic plaque causes acoustic shadowing. There is heterogeneous, irregular atherosclerotic plaque noted in the right external carotid artery. Antegrade flow is noted in the right vertebral artery. Left Extracranial There is homogeneous, smooth atherosclerotic plaque noted in the left common carotid artery. There is heterogeneous, irregular atherosclerotic plaque noted in the left internal carotid artery. The atherosclerotic plaque causes acoustic shadowing. There is heterogeneous, irregular atherosclerotic plaque noted in the left external carotid artery. Antegrade flow is noted in the left vertebral artery. Procedure Carotid Duplex 88210. This is a Carotid Duplex examination using B-mode, color flow and specral Doppler. Exam performed portable in patient room. VL/Carotid Duplex Ultrasound Interpretation Summary Moderate (50-69%) stenosis right extracranial internal carotid. Moderate (50-69%) stenosis left extracranial internal carotid. Patent and antegrade vertebrals bilaterally. Ordering Physician: Clark London Referring Physician: Christophe Dexter Performed By: Luisa Moss RVT
--- NOTE | 2024-08-04 01:03 | ECHOD_ITS ---
Reason For Study Reason For Study: TIA/CVA Procedure This was a 2D Doppler, Color Flow transthoracic echocardiogram. Exam performed portable in patient room. Left Ventricle Normal LV size. Left ventricular systolic function is normal. The left ventricular ejection fraction is 65 %. No regional wall motion abnormalities noted. Right Ventricle Normal RV size. Normal systolic function. Atria The left atrium is mildly enlarged. The right atrium is mildly enlarged. Mitral Valve Normal mitral valve. Tricuspid Valve Normal tricuspid valve. Mild (1+) tricuspid valve insufficiency. Pulmonary artery systolic pressure is 34 mmHg. Aortic Valve Trisinus/trileaflet aortic valve. Moderate focal aortic valve calcification. Pulmonic Valve Normal pulmonic valve. Great Vessels Normal aortic root. The pulmonary artery is normal size. Inferior vena cava collapse with respiration. Pericardium/Pleural No pericardial effusion. MMode/2D Measurements & Calculations LVIDd: 4.1 cm IVSd: 1.0 cm LVOT diam: 2.1 cm LVIDs: 2.3 cm LVPWd: 1.1 cm LVOT area: 3.4 cm2 RVDd: 4.2 cm FS: 43.0 % Ao root diam: 3.6 cm LAV(MOD-bp): 69.8 ml LVAd ap4: 25.1 cm2 LAV(MOD-bp) Indexed: 35.2 ml/m2 LVLd ap4: 7.4 cm LAV(MOD-sp2): 71.8 ml EDV(MOD-sp4): 71.6 ml LAV(MOD-sp4): 64.9 ml EDV(sp4-el): 72.8 ml LVAs ap4: 13.0 cm2 LVLs ap4: 6.1 cm ESV(MOD-sp4): 24.3 ml ESV(sp4-el): 23.6 ml EF(MOD-sp4): 66.0 % EF(sp4-el): 67.6 % SV(MOD-sp4): 47.2 ml SV(sp4-el): 49.2 ml Ao sinus diam: 4.0 cm SI(MOD-sp4): 23.8 ml/m2 Ao ST Junction: 2.9 cm Aortic Valve Planimetry: 1.8 cm2 LA A4 area: 22.3 cm2 LA dimension(2D): 3.9 cm RA A4 area: 24.7 cm2 Doppler Measurements & Calculations MV E max jonnie: 130.9 cm/sec MV V2 max: 142.4 cm/sec Ao V2 max: 139.0 cm/sec MV max P.1 mmHg Ao max P.8 mmHg MV V2 mean: 60.1 cm/sec Ao V2 mean: 94.1 cm/sec MV mean P.1 mmHg Ao mean P.1 mmHg MV V2 VTI: 30.9 cm Ao V2 VTI: 29.1 cm MVA(VTI): 1.8 cm2 AV (velocity ratio): 0.54 KAREN(I,D): 1.9 cm2 KAREN(V,D): 1.8 cm2 LV V1 max: 73.5 cm/sec SV(LVOT): 54.3 ml PA V2 max: 75.2 cm/sec LV V1 max P.2 mmHg LV V1 mean P.1 mmHg LV V1 mean: 48.2 cm/sec LV V1 VTI: 15.8 cm TR max jonnie: 291.9 cm/sec TR max P.1 mmHg ECHO/Echo Complete Interpretation Summary Normal LV size. Left ventricular systolic function is normal. The left ventricular ejection fraction is 65 %. Moderate focal aortic valve calcification. The left atrium is mildly enlarged. The right atrium is mildly enlarged. Ordering Physician: Clark London Performed By: Oracio Corcoran RCS
--- NOTE | 2024-08-04 01:03 | MRI_ITS ---
EXAM: MRI brain without contrast. CLINICAL HISTORY: TIA, with transient confusion and inability to ambulate. COMPARISON: Head CT of 08/04/2019. TECHNIQUE: MRI brain without contrast. FINDINGS: Diffusion-weighted images demonstrate no area of restricted diffusion. No intracranial mass or mass effect is seen. No extra-axial fluid collection is noted. Mild generalized cerebral and cerebellar atrophy is noted, with symmetric ventricular enlargement consistent with the degree of atrophy. Mild mucosal disease is seen of the bilateral ethmoid and maxillary sinuses. No air-fluid level is noted. The remaining paranasal sinuses appear clear, as do the mastoid air cells. No orbital pathology is noted. Internal auditory canals appear symmetric and within the normal range. MRI/Brain without Contrast IMPRESSION: 1. No acute intracranial process is seen. 2. Mild generalized cerebral cerebellar atrophy. 3. Mild chronic appearing paranasal sinus disease. Reading Location: [id number]
[2024-08-04 01:33] VITALS: BMI 26.2
[2024-08-04 01:35] VITALS: BP 146/66; PULSE 61; RESP 18; TEMP 36.5; O2SAT 96
[2024-08-04 01:53] LABS: Alcohol, Blood (Medical)-Serum < 10.1 mg/dL (<=10.0)
[2024-08-04 01:53] LABS: Amphetamine Urine NEGATIVE (<1000 ng/mL); Barbiturate Urine NEGATIVE (< 200 ng/mL); Benzodiazepine Urine NEGATIVE (< 200 ng/mL); Buprenorphine Urine NEGATIVE (< 200 ng/mL); Cocaine Urine NEGATIVE (< 300 ng/mL); Fentanyl, Urine NEGATIVE; Methadone Urine NEGATIVE (< 300 ng/mL); Opiates Urine NEGATIVE (< 300 ng/mL); Oxycodone, Urine NEGATIVE (< 100 ng/mL); PCP Urine NEGATIVE (< 25 ng/mL); THC Urine NEGATIVE (< 50 ng/mL)
[2024-08-04 01:55] LABS: Hemoglobin A1c 6.8 % (<=5.6)
[2024-08-04] MEDS: Dextrose 5%/0.9% NaCl 1,000 ML 70 ML IV (01:58)
[2024-08-04] MEDS: 0.9% Saline Lock 10 ML Syringe IV (01:59)
[2024-08-04 02:22] LABS: Thyroid Stim Hormone (TSH) 0.012 uIU/mL (0.300-4.200)
[2024-08-04 02:28] LABS: Bedside Glucose 90 mg/dL (74-106)
[2024-08-04 03:05] VITALS: BMI 26.2
[2024-08-04 05:40] VITALS: BP 117/69; PULSE 46; RESP 18; TEMP 36.5; O2SAT 95
[2024-08-04 06:03] LABS: Bedside Glucose 97 mg/dL (74-106)
[2024-08-04 06:44] LABS: Vitamin B12 258 pg/mL (180-914)
[2024-08-04 07:17] LABS: Cholesterol 107 mg/dL (<=200); High Density Lipoprotein 46 mg/dL; Low Density Lipoprotein Calc. 49 mg/dL; Triglycerides 64 mg/dL; Very Low Density Lipoprotein 13 mg/dL (5-40); cholesterol:hdl ratio screen 2.34
[2024-08-04 07:24] LABS: Free T3 2.3 pg/mL (2.18-3.98)
--- NOTE | 2024-08-04 07:31 | EX.PCM.CON.S ---
Assessment & Plan Assessment/Plan (1) Carotid artery disease: QUALIFIERS: Carotid artery disease type: stenosis Laterality: bilateral Qualified Code(s): I65.23 - Occlusion and stenosis of bilateral carotid arteries PLAN: CTA images reviewed and by NASCET R ICA 52% stenosis and L ICA 51% stenosis which correlates well with carotid duplex results. No CVA was identified on MRI. Unlikely his carotid disease is symptomatic. No surgical intervention recommended at this time, would continue to monitor with yearly duplex. Continue current medical management. He can re-establish care in our office as an outpatient. HPI Consult Data Date of Consult: 08/05/24 HPI Narrative HPI Narrative: ROBERT CRISTINA, is a 73 M who presented to [facility] ER with stroke-like symptoms. His reported that he woke up from a nap with confusion and generalized inability to ambulate which promopted EMS. Upon arrival to the ED, he was back to his baseline and had a normal neuro exam. He was admitted for stroke workup. Brain CT was negative. Head/Neck CTA demonstrated carotid stenosis. Brain MRI was negative. Carotid duplex demonstrated moderate bilateral stenosis 50-69%.He is on Xarelto 20mg daily, ASA 81mg daily, and moderate intensity statin at home. He has no prior history of CVA/TIA. [facility] Medical History Poison matthew Anemia Back pain Dietary restriction Difficulty swallowing History of GI bleed History of edema History of heart attack Hyperthyroidism Carotid artery disease Psoriasis Gout SOB (shortness of breath) on exertion Atrial fibrillation Wears glasses High cholesterol Smoker History of echocardiogram History of stress test Cardiology follow-up encounter History of atrial fibrillation Positive colorectal cancer screening using Cologuard test Bilateral carotid artery stenosis Diabetic ulcer of right dick with fat layer exposed Chronic ulcer of right leg with fat layer exposed Skin necrosis Pyoderma gangrenosum Tobacco abuse counseling Tobacco abuse History of AR (myocardial infarction) Hyperlipidemia Overweight (BMI 25.0-29.9) Umbilical hernia Hypolipidemia Hypertension Diabetes mellitus Coronary artery disease Swelling of right lower extremity Ulcer of right leg CAD (coronary artery disease) GERD (gastroesophageal reflux disease) Diabetes HTN (hypertension) Home Medications ?Medication ?Instructions ?Recorded ?Last Taken ?Type aspirin 81 mg tablet,delayed 81 mg PO DAILY blood thinner 02/23/15 08/03/24 History release pantoprazole 40 mg tablet,delayed 40 mg PO DAILY PPI 08/16/16 08/03/24 History release empagliflozin 10 mg tablet 10 mg PO DAILY 02/13/23 08/03/24 History (Jardiance) lisinopril 5 mg tablet 5 mg PO DAILY 02/13/23 08/03/24 History cinnamon bark 500 mg capsule 1,000 mg PO BID 05/08/23 08/03/24 History (Cinnamon) nitroglycerin 0.4 mg sublingual 0.4 mg sublingual Q5-15M PRN chest 05/08/23 Unknown History tablet pain omega 8-enh-veh-fish oil 60 mg-90 2 cap PO DAILY 05/08/23 08/03/24 History mg-500 mg capsule (Fish Oil) rivaroxaban 20 mg tablet (Xarelto) 20 mg PO DAILY 05/08/23 08/03/24 History metoprolol tartrate 25 mg tablet 25 mg PO BID 12/22/23 08/03/24 History metformin 500 mg tablet,extended 500 mg PO BID 08/03/24 08/03/24 History release 24 hr methimazole 5 mg tablet 5 mg PO DAILY 08/03/24 08/03/24 History atorvastatin 40 mg tablet 40 mg PO QHS 30 days #30 tabs 08/04/24 Unknown Rx Allergy/AdvReac Type Severity Reaction Status Date / Time No Known Allergies Allergy Verified 12/22/23 11:30 Family History Father Diabetes Heart disease CAD (coronary artery disease) Brother Diabetes CAD (coronary artery disease) Mother CVA (cerebral vascular accident) Brother CAD (coronary artery disease) Diabetes Surgical History Hx of carpal tunnel repair History of esophagogastroduodenoscopy (EGD) Hx of colonoscopy History of cardiac catheterization Hx of left cataract extraction Hx of right cataract extraction Stented coronary artery History of colonoscopy History of back surgery Social History Smoking Status: Current every day smoker tobacco type: cigarettes alcohol intake: current alcohol intake frequency: holidays/special occasions only substance use type: does not use caffeine: No Physical Exam Const alert, oriented x3 and no apparent distress General Appearance: comfortable HEENT normocephalic, hearing grossly normal bilaterally, external ears normal and external nose normal Nose: external nose normal Eyes EOMs intact bilaterally General Eye: normal appearance of both eyes Neck General: normal visual inspection and trachea midline Resp normal respiratory effort, no retractions and no use of accessory muscles Effort and Inspection: able to speak in complete sentences; Negative for labored, grunting or stridor Cardio regular rate Extremity no clubbing, cyanosis or edema Skin no rashes or lesions noted Neuro oriented x3, CN's II-XII intact bilaterally, moves all extremities and no focal motor deficits Speech: speech normal Psych mental status grossly normal Appearance: grossly normal Speech: normal speech Lab / Micro Data 08/03/24 18:34 08/03/24 18:34 Labs: Laboratory Results - last 24 hr 08/03/24 18:14: Hemoglobin A1c 6.8 08/03/24 18:34: WBC 9.0, RBC 5.03, Hgb 14.3, Hct 44.3, MCV 88.1, MCH 28.4, MCHC 32.3, RDW Std Deviation 55.5 H, RDW Coeff of Homero 17.3 H, Plt Count 176, MPV 10.2, Immature Gran % (Auto) 0.200, Neut % (Auto) 55.2, Lymph % (Auto) 32.0, [place] % (Auto) 10.8 H, Eos % (Auto) 1.2, Baso % (Auto) 0.6, Absolute Neuts (auto) 5.0, Absolute Lymphs (auto) 2.88, Nucleated RBC % 0, PT 22.7 H, INR 2.0, APTT 34.4, Sodium 140, Potassium 4.1, Chloride 106, Carbon Dioxide 20.6 L, Anion Gap 13, BUN 10, Creatinine 0.82, Estim Creat Clear Calc 87.18, Est GFR (MDRD) Non-Af 93, BUN/Creatinine Ratio 12.6, Glucose 66 L, Calcium 8.0, Troponin T High Sens 13 08/03/24 20:11: Urine Color Yellow, Urine Clarity Clear, Urine pH 5.0, Ur Specific [place] 1.010, Urine Protein 30 H, Urine Glucose (UA) 1000 H, Urine Ketones 5 H, Urine Occult Blood 50 H, Urine Nitrite Negative, Urine Bilirubin Negative, Urine Urobilinogen 1 H, Ur Leukocyte Esterase Negative, Urine RBC 0-5 SEEN, Urine WBC 0 SEEN, Ur Squamous Epith Cells 0 SEEN, Urine Bacteria 0 SEEN, Urine Mucus 0 SEEN, Urine Opiates Screen NEGATIVE, U Buprenorphine Qual NEGATIVE, Ur Oxycodone Screen NEGATIVE, Urine Methadone Screen NEGATIVE, Urine Fentanyl Screen NEGATIVE, Ur Barbiturates Screen NEGATIVE, Ur Phencyclidine Scrn NEGATIVE, Ur Amphetamines Screen NEGATIVE, U Benzodiazepines Scrn NEGATIVE, Urine Cocaine Screen NEGATIVE, U Cannabinoids Screen NEGATIVE 08/03/24 20:40: Troponin T Hi Sens 2 Hr 12, TSH 0.012 L, Ethyl Alcohol < 10.1 08/04/24 01:55: POC Glucose 90 08/04/24 05:35: Triglycerides 64, Cholesterol 107, LDL Cholesterol, Calc 49, VLDL Cholesterol 13, HDL Cholesterol 46, Cholesterol/HDL Ratio 2.34, Vitamin B12 258, Serum Folate 10.20, Free T4 1.20, Free T3 pg/dL 2.3 08/04/24 05:45: POC Glucose 97 Imaging Radiology Impression Chest X-Ray 08/03/24 18:53 IMPRESSION: No new infiltrate or consolidation is seen within the lungs. Reading Location: [id number] Brain CT 08/03/24 19:50 IMPRESSION: 1. No acute intracranial abnormality. 2. Findings of chronic microvascular ischemic changes and age-related changes. Reading Location: [id number] Head/Neck CTA 08/03/24 19:50 IMPRESSION: Limited examination due to technique. Greater than 70% stenosis within the bilateral proximal ICA. This is well advanced for patient's age. Recommend vascular surgery consultation. Reading Location: [id number] Charges/Coding Visit Charges Inpatient E&M: 29231 Init Hosp L1
[2024-08-04 09:40] VITALS: BP 124/57; PULSE 80; RESP 16; TEMP 36.6; O2SAT 95
[2024-08-04] MEDS: Empagliflozin 10 MG Tablet PO (10:01)
[2024-08-04] MEDS: Rivaroxaban 20 MG Tablet PO (10:01)
[2024-08-04] MEDS: Aspirin E.C. 81 MG Tablet PO (10:01)
[2024-08-04] MEDS: Pantoprazole Sodium 40 MG Tablet PO (10:01)
[2024-08-04] MEDS: Methimazole 5 MG Tablet PO (10:02)
[2024-08-04 11:55] LABS: Bedside Glucose 249 mg/dL (74-106)
--- NOTE | 2024-08-04 12:48 | NEURO.CONS ---
Assessment and Plan: Neuro Assessment/Plan ED73 y/o man with h/o essential hypertension, hyperthyroidism, DM, Afib on xarelto, CAD s/p stents on ASA p/w confusion mainly and denies aphasia. Denies changes in vision, chest pain, palpitations, heart racing, shortness of breath, cough, dysuria, hematuria, arthralgias, myalgias or rash. CTA- >70% of b/l ICA. CT head- no acute intracranial process. A1c-6.8. LDL- 49. He was also noted to have laboratory evidence of Hypoglycemia of 66 mg/dL present on admission. Today, he reports feeling better with NIHSS-0. Diagnosis: TIA Plan: Continue xarelto and ASA along with statin. Control of vascular risk factors. Follow up MRI Brain and TTE. Follow up already consulted vascular surgery. OT/PT/ENVIRONMENTAL PROGRAM MANAGER I personally attended this patient and spent a total time of 70 minutes evaluating this patient including clinical assessment, review of chart, medical history imaging, and determining appropriate treatment and workup. HPI Consult Data Date of Consult: 08/05/24 HPI Narrative HPI Narrative: 73 y/o man with h/o essential hypertension, hyperthyroidism, DM, Afib on xarelto, CAD s/p stents on ASA p/w confusion mainly and denies aphasia. Denies changes in vision, chest pain, palpitations, heart racing, shortness of breath, cough, dysuria, hematuria, arthralgias, myalgias or rash. CTA- >70% of b/l ICA. CT head- no acute intracranial process. A1c-6.8. LDL- 49. He was also noted to have laboratory evidence of Hypoglycemia of 66 mg/dL present on admission. Today, he reports feeling better with NIHSS-0. [facility] Medical History Poison matthew Anemia Back pain Dietary restriction Difficulty swallowing History of GI bleed History of edema History of heart attack Hyperthyroidism Carotid artery disease Psoriasis Gout SOB (shortness of breath) on exertion Atrial fibrillation Wears glasses High cholesterol Smoker History of echocardiogram History of stress test Cardiology follow-up encounter History of atrial fibrillation Positive colorectal cancer screening using Cologuard test Bilateral carotid artery stenosis Diabetic ulcer of right dick with fat layer exposed Chronic ulcer of right leg with fat layer exposed Skin necrosis Pyoderma gangrenosum Tobacco abuse counseling Tobacco abuse History of [place] (myocardial infarction) Hyperlipidemia Overweight (BMI 25.0-29.9) Umbilical hernia Hypolipidemia Hypertension Diabetes mellitus Coronary artery disease Swelling of right lower extremity Ulcer of right leg CAD (coronary artery disease) GERD (gastroesophageal reflux disease) Diabetes HTN (hypertension) Home Medications ?Medication ?Instructions ?Recorded ?Last Taken ?Type aspirin 81 mg tablet,delayed 81 mg PO DAILY blood thinner 02/23/15 08/03/24 History release pantoprazole 40 mg tablet,delayed 40 mg PO DAILY PPI 08/16/16 08/03/24 History release empagliflozin 10 mg tablet 10 mg PO DAILY 02/13/23 08/03/24 History (Jardiance) lisinopril 5 mg tablet 5 mg PO DAILY 02/13/23 08/03/24 History cinnamon bark 500 mg capsule 1,000 mg PO BID 05/08/23 08/03/24 History (Cinnamon) nitroglycerin 0.4 mg sublingual 0.4 mg sublingual Q5-15M PRN chest 05/08/23 Unknown History tablet pain omega [id number]-[id number]-fish oil 60 mg-90 2 cap PO DAILY 05/08/23 08/03/24 History mg-500 mg capsule (Fish Oil) rivaroxaban 20 mg tablet (Xarelto) 20 mg PO DAILY 05/08/23 08/03/24 History metoprolol tartrate 25 mg tablet 25 mg PO BID 12/22/23 08/03/24 History metformin 500 mg tablet,extended 500 mg PO BID 08/03/24 08/03/24 History release 24 hr methimazole 5 mg tablet 5 mg PO DAILY 08/03/24 08/03/24 History atorvastatin 40 mg tablet 40 mg PO QHS 30 days #30 tabs 08/04/24 Unknown Rx Allergy/AdvReac Type Severity Reaction Status Date / Time No Known Allergies Allergy Verified 12/22/23 11:30 Family History Father Diabetes Heart disease CAD (coronary artery disease) Brother Diabetes CAD (coronary artery disease) Mother CVA (cerebral vascular accident) Brother CAD (coronary artery disease) Diabetes Surgical History Hx of carpal tunnel repair History of esophagogastroduodenoscopy (EGD) Hx of colonoscopy History of cardiac catheterization Hx of left cataract extraction Hx of right cataract extraction Stented coronary artery History of colonoscopy History of back surgery Social History Smoking Status: Current every day smoker tobacco type: cigarettes alcohol intake: current alcohol intake frequency: holidays/special occasions only substance use type: does not use caffeine: No Vital Signs Vital Signs Vital Signs: 08/03/24 18:00 08/03/24 18:20 08/03/24 18:50 Temperature 97.7 F L Temperature Source Oral Pulse Rate 67 59 L Respiratory Rate 16 17 Respiratory Effort Respiratory Depth Respiratory Pattern Blood Pressure 156/83 H 144/80 H Blood Pressure Mean 107 101 Blood Pressure Source Blood Pressure Position Blood Pressure Location Pulse Ox 99 97 96 Oxygen Delivery Method Room Air Room Air 08/03/24 20:00 08/03/24 22:00 08/03/24 22:21 Temperature 98.2 F Temperature Source Pulse Rate 55 L 68 65 Respiratory Rate 16 16 15 Respiratory Effort Respiratory Depth Respiratory Pattern Blood Pressure 129/79 H 140/77 H 140/77 H Blood Pressure Mean 95 98 98 Blood Pressure Source Blood Pressure Position Blood Pressure Location Pulse Ox 98 98 98 Oxygen Delivery Method Room Air Room Air 08/04/24 00:00 08/04/24 01:35 08/04/24 01:50 Temperature 97.7 F L Temperature Source Oral Pulse Rate 56 L 61 Respiratory Rate 20 H 18 Respiratory Effort Normal Non-Labored Respiratory Depth Normal Respiratory Pattern Normal Blood Pressure 146/66 H Blood Pressure Mean 92 Blood Pressure Source Monitor Blood Pressure Position Semi-Fowlers Blood Pressure Location Right Arm Pulse Ox 92 96 Oxygen Delivery Method Room Air Room Air Room Air 08/04/24 05:40 08/04/24 09:40 Temperature 97.7 F L 97.8 F Temperature Source Oral Oral Pulse Rate 46 L 80 Respiratory Rate 18 16 Respiratory Effort Respiratory Depth Respiratory Pattern Blood Pressure 117/69 124/57 H Blood Pressure Mean 85 79 Blood Pressure Source Monitor Monitor Blood Pressure Position Semi-Fowlers Sitting Blood Pressure Location Right Arm Right Arm Pulse Ox 95 95 Oxygen Delivery Method Room Air Room Air Weight Weight: 82.7 kg Body Mass Index (BMI) 26.2 EEG Results Procedure Details EEG Procedure Details: ROBERT CRISTINA is a 73 year old M with a past medical history of , who presents for evaluation of Electroencephalogram on DATE at TIME NIHSS NIHSS Nursing Documentation NIHSS Nursing Documentation: NIHSS: Ischemic Stroke/TIA Start: 08/04/24 01:16 Text: For PCU Patients: NIH and Neuro Check every 4 Status: Active hours, PRN and with change in RN caregiver. Freq: [id number] Protocol: Activity Type Activity Date Activity User E-sign Co-sign Detail Recorded Client Recorded Date Recorded By Document 08/04/24 09:40 [id number] 08/04/24 10:06 08/04/24 09:40 NIH Stroke Scale [NIHSS] A score of 0 is normal or asymptomatic . Total possible score is 42. Inpatient: RN or Physician to activate a stroke alert for onset of new stroke symptoms or with NIHSS increase >/= 3 points. Following change in neurological status, NIHSS will be performed per physician order or more frequently PRN. -1a. Level of Consciousness Alert; keenly responsive -1b. LOC Questions Answers BOTH questions correctly. -1c. LOC Commands Performs both tasks correctly . -2. Best Gaze Normal -3. Visual No visual loss -4. Facial Palsy Normal symmetrical movements -5a. Left Arm No drift; arm holds 90 (or 45 ) degrees for full 10 seconds -5b. Right Arm No drift; arm holds 90 (or 45 ) degrees for full 10 seconds -6a. Left Leg No drift; leg holds 30-degree position for full 5 seconds -6b. Right Leg No drift; leg holds 30-degree position for full 5 seconds -7. Limb Ataxia Absent -8. Sensory Normal; no sensory loss -9. Best Language No aphasia; normal -10. Dysarthria Normal -11. Extinction and Inattention No abnormality -Total 0 Query Text:A score of 0 is normal or asymptomatic. Total possible score is 42 . ED: Notify Physician for NIHSS increase by > / = 3 points. Inpatient: RN or Physician to activate a stroke alert for NIHSS increase of > / = 3 points. Coma Scale [Assess] -Eye Opening Spontaneous -Motor Obeys Commands -Verbal Oriented [Total] -Coma Scale Total 15 NIHSS 1a. Level of Consciousness: Alert; keenly responsive 1b. LOC Questions: Answers BOTH questions correctly. 1c. LOC Commands: Performs both tasks correctly. 2. Best Gaze: Normal 3. Visual: No visual loss 4. Facial Palsy: Normal symmetrical movements 5a. Left Arm: No drift; arm holds 90 (or 45) degrees for full 10 seconds 5b. Right Arm: No drift; arm holds 90 (or 45) degrees for full 10 seconds 6a. Left Leg: No drift; leg holds 30-degree position for full 5 seconds 6b. Right Leg: No drift; leg holds 30-degree position for full 5 seconds 7. Limb Ataxia: Absent 8. Sensory: Normal; no sensory loss 9. Best Language: No aphasia; normal 10. Dysarthria: Normal 11. Extinction and Inattention: No abnormality Total: 0 Physical Exam Narrative General: The patient appears nutritionally appropriate, well-groomed, and appears comfortable in no acute distress. Mental Status:? The patient?s mental status was normal including orientation.? Language was intact.? Cranial nerves:? Visual [place] full, and extra-ocular motion was intact. Symmetric face. Motor: Normal strength in all extremities. Sensation: Intact to touch in all extremities.? Coordination:? Bilateral finger to nose was normal.? There was no dysmetria. Gait:? deferred. Lab / Micro Data 08/03/24 18:34 08/03/24 18:34 Labs: Laboratory Results - last 24 hr 08/03/24 18:14: Hemoglobin A1c 6.8 08/03/24 18:34: WBC 9.0, RBC 5.03, Hgb 14.3, Hct 44.3, MCV 88.1, MCH 28.4, MCHC 32.3, RDW Std Deviation 55.5 H, RDW Coeff of Homero 17.3 H, Plt Count 176, MPV 10.2, Immature Gran % (Auto) 0.200, Neut % (Auto) 55.2, Lymph % (Auto) 32.0, [place] % (Auto) 10.8 H, Eos % (Auto) 1.2, Baso % (Auto) 0.6, Absolute Neuts (auto) 5.0, Absolute Lymphs (auto) 2.88, Nucleated RBC % 0, PT 22.7 H, INR 2.0, APTT 34.4, Sodium 140, Potassium 4.1, Chloride 106, Carbon Dioxide 20.6 L, Anion Gap 13, BUN 10, Creatinine 0.82, Estim Creat Clear Calc 87.18, Est GFR (MDRD) Non-Af 93, BUN/Creatinine Ratio 12.6, Glucose 66 L, Calcium 8.0, Troponin T High Sens 13 08/03/24 20:11: Urine Color Yellow, Urine Clarity Clear, Urine pH 5.0, Ur Specific [place] 1.010, Urine Protein 30 H, Urine Glucose (UA) 1000 H, Urine Ketones 5 H, Urine Occult Blood 50 H, Urine Nitrite Negative, Urine Bilirubin Negative, Urine Urobilinogen 1 H, Ur Leukocyte Esterase Negative, Urine RBC 0-5 SEEN, Urine WBC 0 SEEN, Ur Squamous Epith Cells 0 SEEN, Urine Bacteria 0 SEEN, Urine Mucus 0 SEEN, Urine Opiates Screen NEGATIVE, U Buprenorphine Qual NEGATIVE, Ur Oxycodone Screen NEGATIVE, Urine Methadone Screen NEGATIVE, Urine Fentanyl Screen NEGATIVE, Ur Barbiturates Screen NEGATIVE, Ur Phencyclidine Scrn NEGATIVE, Ur Amphetamines Screen NEGATIVE, U Benzodiazepines Scrn NEGATIVE, Urine Cocaine Screen NEGATIVE, U Cannabinoids Screen NEGATIVE 08/03/24 20:40: Troponin T Hi Sens 2 Hr 12, TSH 0.012 L, Ethyl Alcohol < 10.1 08/04/24 01:55: POC Glucose 90 08/04/24 05:35: Triglycerides 64, Cholesterol 107, LDL Cholesterol, Calc 49, VLDL Cholesterol 13, HDL Cholesterol 46, Cholesterol/HDL Ratio 2.34, Vitamin B12 258, Serum Folate 10.20, Free T4 1.20, Free T3 pg/dL 2.3 08/04/24 05:45: POC Glucose 97 08/04/24 11:37: POC Glucose 249 H Imaging Radiology Impression Chest X-Ray 08/03/24 18:53 IMPRESSION: No new infiltrate or consolidation is seen within the lungs. Reading Location: [id number] Brain CT 08/03/24 19:50 IMPRESSION: 1. No acute intracranial abnormality. 2. Findings of chronic microvascular ischemic changes and age-related changes. Reading Location: [facility] Head/Neck CTA 08/03/24 19:50 IMPRESSION: Limited examination due to technique. Greater than 70% stenosis within the bilateral proximal ICA. This is well advanced for patient's age. Recommend vascular surgery consultation. Reading Location: [id number] Active Medications Active Medications Active Medications: Current Medications Generic Name Dose Route Start Last Admin Trade Name Freq PRN Reason Stop Dose Admin Acetaminophen 650 mg 08/04/24 01:16 Acetaminophen 325 Mg Tablet PO Q6H PRN PRN Pain 1-10 Or Fever>99.6 Aspirin 81 mg 08/04/24 08:00 08/04/24 10:01 Aspirin E.C. 81 Mg Tablet PO 81 mg BREAKFAST CARLOS Administration Atorvastatin Calcium 40 mg 08/04/24 22:00 Atorvastatin Calcium 40 Mg Tablet PO QHS CARLOS Empagliflozin 10 mg 08/04/24 10:00 08/04/24 10:01 Empagliflozin 10 Mg Tablet PO 10 mg DAILY CARLOS Administration Dextrose/Sodium Chloride 1,000 mls @ 70 mls/hr 08/04/24 01:16 08/04/24 01:58 Dextrose 5%/0.9% Nacl IV 70 mls/hr .[id number] CARLOS Administration Sodium Chloride 100 mls @ 15 mls/hr 08/04/24 01:20 IV .Q6H40M PRN Saline Flush Sodium Chloride 100 mls @ 15 mls/hr 08/04/24 01:20 IV .Q6H40M PRN Additional IVPB Infusion Iopamidol 0 ml 08/03/24 18:45 08/04/24 08:12 Contrast Allergy Safety Check IV Not Given X1 CARLOS Methimazole 5 mg 08/04/24 10:00 08/04/24 10:02 Methimazole 5 Mg Tablet PO 5 mg DAILY CARLOS Administration Nitroglycerin 0.4 mg 08/04/24 01:24 Nitroglycerin (Inpatient Use) 0.4 Mg Tab.Subl SL Q5M PRN CARDIAC/CHEST PAIN Pantoprazole Sodium 40 mg 08/04/24 10:00 08/04/24 10:01 Pantoprazole Sodium 40 Mg Tablet PO 40 mg DAILY CARLOS Administration Rivaroxaban 20 mg 08/04/24 10:00 08/04/24 10:01 Rivaroxaban 20 Mg Tablet PO 20 mg DAILY CARLOS Administration Sodium Chloride 10 - 40 ml 08/04/24 01:20 08/04/24 01:59 0.9% Saline Lock 10 Ml Syringe IV 10 ml UD PRN Administration SALINE FLUSH
[2024-08-04 13:40] VITALS: BP 133/87; PULSE 68; RESP 16; TEMP 36.6; O2SAT 100
--- NOTE | 2024-08-04 14:34 | CASEMGMT ---
TREVIN introduced self and role at [facility]. TREVIN explained when someone may have had a Stroke or TIA SW is asked to do a depression screen. SW explained SW will run through about 9 questions. SW asked patient if this would be okay or if he would rather not. Patient politely told SW he would rather not. SW thanked patient for his time. Karime FRAGOSO
--- NOTE | 2024-08-04 15:13 | CASEMGMT ---
Met with patient to complete FAROOQ form. FAROOQ form explained to patient. Pt was very upset that he has mcr coverage. MCR number and copy provided to patient and his . Hilda Suarez, Discharge Planning Asst
--- NOTE | 2024-08-04 15:21 | DCINST_ITS ---
Discharge Instructions Diet Discharge Diet: Low fat / Low cholesterol and Carb Control Diet DC O2, CPAP, BIPAP needs Home O2 Discharge instructions: No Dressing / Incision Discharge Activity: Return to Normal Activity Dressing / Incision Call your doctor if you observe: Fever of 101 or Higher, Shortness of breath, Dizziness, Fainting spells, Swelling in the ankles, Chest pain and Increased palpitations (irregular heartbeat) Follow Up Care Test Results: Test results from this visit will be discussed in further detail at your follow- up appointment, if applicable. Discharge Plan Admission Admit Date/Time: 08/04/24 00:55 Attending Provider: Cyrus Raymundo Primary Care Provider: Christophe Dexter Consulting Providers: Castro Salcedo; Denis Rosario; Dyan Christianson; Kailey Tony; Nilam Cervantes; Isaac Vee; Dora Edmondson; Franky Muñoz; Cory Vergara; Franco Gomes; Shakira Perdue; Wilman Shine; Chrissy Covington; Lisa Justice; Johnie Garcia; Iker Gasca; Uma Villa; Dhaval Wright; Lyric Henson; Jefferson Koehler; Candelario Hall; Clark London Discharge Orders/Prescriptions Prescriptions: New atorvastatin 40 mg Tablet 40 mg PO QHS 30 Days Qty: 30 0RF Continued Xarelto 20 mg tablet 20 mg PO DAILY nitroglycerin 0.4 mg tablet, sublingual 0.4 mg sublingual Q5-15M PRN (Reason: chest pain) Patient Comments: PT STATES HE DOES HAVE, BUT IT'S VERY OLD. Rx Instructions: do not exceed 3 doses per episode metoprolol tartrate 25 mg tablet 25 mg PO BID aspirin 81 MG tablet 81 mg PO DAILY pantoprazole 40 MG tablet 40 mg PO DAILY Jardiance 10 mg tablet 10 mg PO DAILY lisinopril 5 mg tablet 5 mg PO DAILY omega 1-yrr-gkh-fish oil [Fish Oil] 60-90-500 mg capsule 2 cap PO DAILY cinnamon bark [Cinnamon] 500 mg capsule 1,000 mg PO BID metformin 500 mg tablet extended release 24 hr 500 mg PO BID methimazole 5 mg tablet 5 mg PO DAILY Discontinued atorvastatin 20 mg tablet 20 mg PO QHS Referrals / Follow Up: Candelario Hall MD [Med Staff - Active Staff] - Within 1 Month Christophe Dexter MD [Primary Care Provider] - Within 1 Week Disposition Disposition (needs filled in before D/C Order can be placed): Home, Self Care
--- NOTE | 2024-08-04 15:24 | DS.PCM_ITS ---
Providers Date of Admission: 08/04/24 Primary Care Physician: Dr. Christophe Dexter MD Consultations 08/04/24 01:16 Consult: Tele-Neurology Routine Consulting Provider: [facility] Reason for Consult: Acute Ischemic Stroke/TIA EMERGENT Consult: No Notified: Yes Date Notified: 08/04/24 Time Notified: 00:56 Method of Notification: ED Physician Initiated Method of Consult:: Telemedicine Nursing Unit Staff Notify [facility] of Tele-Neurology Consult: Yes Consult: Vascular Surgery Routine Consulting Provider: Candelario Hall Reason for Consult: ~70% bilateral ICA stenosis on CT. EMERGENT Consult: No Notified: Yes Date Notified: 08/04/24 Time Notified: 06:27 Method of Notification: Text Reason For Visit: TIA WITH BILATERAL CAROTID STENOSIS > THAN ~70% Diagnosis Discharge Diagnosis (1) Carotid artery disease: Status: Chronic Code(s): I77.9 - Disorder of arteries and arterioles, unspecified Qualifiers: Carotid artery disease type: stenosis Laterality: bilateral Qualified Code(s): I65.23 - Occlusion and stenosis of bilateral carotid arteries Medications at Discharge Home Medications aspirin 81 mg tablet,delayed release 81 mg PO DAILY blood thinner 02/23/15 pantoprazole 40 mg tablet,delayed release 40 mg PO DAILY PPI 08/16/16 empagliflozin 10 mg tablet (Jardiance) 10 mg PO DAILY 02/13/23 lisinopril 5 mg tablet 5 mg PO DAILY 02/13/23 cinnamon bark 500 mg capsule (Cinnamon) 1,000 mg PO BID 05/08/23 nitroglycerin 0.4 mg sublingual tablet 0.4 mg sublingual Q5-15M PRN chest pain 05/08/23 omega 8-ger-mmd-fish oil 60 mg-90 mg-500 mg capsule (Fish Oil) 2 cap PO DAILY 05/08/23 rivaroxaban 20 mg tablet (Xarelto) 20 mg PO DAILY 05/08/23 metoprolol tartrate 25 mg tablet 25 mg PO BID 12/22/23 metformin 500 mg tablet,extended release 24 hr 500 mg PO BID 08/03/24 methimazole 5 mg tablet 5 mg PO DAILY 08/03/24 atorvastatin 40 mg tablet 40 mg PO QHS 30 days #30 tabs 08/04/24 Hospital Course Operations None Procedures 2-D Echocardiogram Summary of Care Provided Minutes Spent on Discharge: 31 Hospital Course: Per HPI: ROBERT HANCOCK, is a 73 M with a past medical history of essential hypertension; on metoprolol, hyperlipidemia; on atorvastatin and empagliflozin, history of hyperthyroidism; on methimazole, overweight; with a BMI of 28 this admission, history of tobacco abuse; ~1 PPD times ~50 years, DM-2; of unknown control on metformin, history of chronic diabetic ulcer of the right lower extremity, history of pyoderma gangrenosum, history of atrial fibrillation; on rivaroxaban, CAD; s/p NJ () with stents to LAD and LCx on baby aspirin daily plus as needed SL NTG, history of bilateral carotid artery stenosis, history of GI bleed; s/p panendoscopy (2022), history of GERD; on pantoprazole, history of anemia, history of umbilical hernia, history of bilateral cataracts; s/p extraction (2016), history of CTS; s/p release, history of psoriasis, history of gout and OA; with history of back surgery with subsequent chronic back pain who presents to [facility] ER complaining of confusion, difficulty talking and weakness. Mr. Hancock reports his symptoms began at approximately 5 PM on August 03, 2024 when he woke up from a nap and appeared to be very confused. His stated that he was yelling for her and she came to the bedside and noted he was confused as he could not remember her name. She then tried to get him up and when he could not ambulate she then activated EMS. She states that now in the ER he is back to his baseline. She admitted to the recently sold their house but she denied other recent illness or similar previous episodes. The patient admits to headache and confusion but he denies changes in vision, chest pain, palpitations, heart racing, shortness of breath, cough, dysuria, hematuria, arthralgias, myalgias or rash. In the ER he was noted to have a CTA of the head and neck with IV contrast that revealed greater than ~70% stenosis within the bilateral proximal ICA which is well advanced for patient's age with vascular surgical consultation recommended with CT scan of the brain without contrast revealed no acute intracranial abnormality but did show findings of chronic microvascular ischemic changes and age-related changes. He was also noted to have laboratory evidence of Hypoglycemia of 66 mg/dL present on admission. Patient was suspected to have TIA; with resolution of his symptoms at this time and he was then admitted to the PCU under observation status for ongoing care for a stay that is expected to be less than 2 midnights. Hospital Course: 1. TIA with bilateral carotid disease?73-year-old male presented to the hospital with confusion that had resolved by the time he had arrived to the ER. MRI of his brain was negative for stroke but CTA of the head and neck demonstrated a 70% bilateral carotid stenosis on he had had a carotid duplex done in 02/02/2024 that demonstrated less than 70% stenoses on the bilateral carotid arteries. He was continued on aspirin, his statin was increased from 20 mg to 40 mg on discharge, he was continued on Xarelto. He has been rude during his hospitalization with social work and case management as he is upset for receiving a free Medicare A product and he seemed uninterested in discussing his care so he has been discharged home with outpatient follow-up. He was irritated with me trying to discuss his CTA of the head and neck results. He wants to go home so he was discharged home. He can follow-up with his PCP for results of his echocardiogram. 2. Hyperthyroidism, coronary artery disease status post stents, essential hypertension, hyperlipidemia, A-fib, GERD, type 2 diabetes all chronic medical conditions which complicate his care. His home medications were continued where appropriate Physical Exam Narrative General: Alert and oriented x 3 Weight / BMI Weight Weight: 182 lb 5.156 oz Body Mass Index (BMI) 26.2 ABG / Lab / Microbiology Data 08/03/24 18:34 08/03/24 18:34 Laboratory: Laboratory Results - last 24 hr 08/03/24 18:14: Hemoglobin A1c 6.8 08/03/24 18:34: WBC 9.0, RBC 5.03, Hgb 14.3, Hct 44.3, MCV 88.1, MCH 28.4, MCHC 32.3, RDW Std Deviation 55.5 H, RDW Coeff of Homero 17.3 H, Plt Count 176, MPV 10.2, Immature Gran % (Auto) 0.200, Neut % (Auto) 55.2, Lymph % (Auto) 32.0, M frantz % (Auto) 10.8 H, Eos % (Auto) 1.2, Baso % (Auto) 0.6, Absolute Neuts (auto) 5.0, Absolute Lymphs (auto) 2.88, Nucleated RBC % 0, PT 22.7 H, INR 2.0, APTT 34.4, Sodium 140, Potassium 4.1, Chloride 106, Carbon Dioxide 20.6 L, Anion Gap 13, BUN 10, Creatinine 0.82, Estim Creat Clear Calc 87.18, Est GFR (MDRD) Non-Af 93, BUN/Creatinine Ratio 12.6, Glucose 66 L, Calcium 8.0, Troponin T High Sens 13 08/03/24 20:11: Urine Color Yellow, Urine Clarity Clear, Urine pH 5.0, Ur Specific [place] 1.010, Urine Protein 30 H, Urine Glucose (UA) 1000 H, Urine Ketones 5 H, Urine Occult Blood 50 H, Urine Nitrite Negative, Urine Bilirubin Negative, Urine Urobilinogen 1 H, Ur Leukocyte Esterase Negative, Urine RBC 0-5 SEEN, Urine WBC 0 SEEN, Ur Squamous Epith Cells 0 SEEN, Urine Bacteria 0 SEEN, Urine Mucus 0 SEEN, Urine Opiates Screen NEGATIVE, U Buprenorphine Qual NEGATIVE, Ur Oxycodone Screen NEGATIVE, Urine Methadone Screen NEGATIVE, Urine Fentanyl Screen NEGATIVE, Ur Barbiturates Screen NEGATIVE, Ur Phencyclidine Scrn NEGATIVE, Ur Amphetamines Screen NEGATIVE, U Benzodiazepines Scrn NEGATIVE, Urine Cocaine Screen NEGATIVE, U Cannabinoids Screen NEGATIVE 08/03/24 20:40: Troponin T Hi Sens 2 Hr 12, TSH 0.012 L, Ethyl Alcohol < 10.1 08/04/24 01:55: POC Glucose 90 08/04/24 05:35: Triglycerides 64, Cholesterol 107, LDL Cholesterol, Calc 49, VLDL Cholesterol 13, HDL Cholesterol 46, Cholesterol/HDL Ratio 2.34, Vitamin B12 258, Serum Folate 10.20, Free T4 1.20, Free T3 pg/dL 2.3 08/04/24 05:45: POC Glucose 97 08/04/24 11:37: POC Glucose 249 H Radiography Diagnostic Testing: Radiology Impression Chest X-Ray 08/03/24 18:53 IMPRESSION: No new infiltrate or consolidation is seen within the lungs. Reading Location: [id number] Brain CT 08/03/24 19:50 IMPRESSION: 1. No acute intracranial abnormality. 2. Findings of chronic microvascular ischemic changes and age-related changes. Reading Location: [id number] Head/Neck CTA 08/03/24 19:50 IMPRESSION: Limited examination due to technique. Greater than 70% stenosis within the bilateral proximal ICA. This is well advanced for patient's age. Recommend vascular surgery consultation. Reading Location: [id number] Brain MRI 08/04/24 01:03 IMPRESSION: 1. No acute intracranial process is seen. 2. Mild generalized cerebral cerebellar atrophy. 3. Mild chronic appearing paranasal sinus disease. Reading Location: [address] D/C Instructions Discharge Diet: Low fat / Low cholesterol and Carb Control Diet Call your doctor if you observe: Fever of 101 or Higher, Shortness of breath, Dizziness, Fainting spells, Swelling in the ankles, Chest pain and Increased palpitations (irregular heartbeat) DC O2, CPAP, BIPAP Needs Home O2 Discharge instructions: No Meaningful Use Info Meaningful Use Meaningful Use Diagnoses (Choose all that apply): None applicable Ischemic Stroke Statin Dosing Therapy Reference: STATIN DOSE THERAPY REFERENCE: * Patients > 75 years receive moderate or high dose statin therapy. * Patients 75 years or YOUNGER should receive HIGH intensity statin dose unless contraindicated. You will be required to document reason for non-treatment if statin daily dose does not meet guidelines. HIGH DOSE STATIN THERAPY DAILY Atorvastatin > than or = to 40 mg Rosuvastatin > than or = to 20 mg Amlodipine + Atorvastatin > than or = to 2.5/40 mg Ezetimibe + Simvastatin 10/80 mg Simvastatin 80mg Discharge Plan Admission Admit Date/Time: 08/04/24 00:55 Attending Provider: Cyrus Raymundo Primary Care Provider: Christophe Dexter Consulting Providers: Castro Salcedo; Denis Rosario; Dyan Christianson; Kailey Tony; Nilam Cervantes; Isaac Vee; Dora Edmondson; Franky Muñoz; Cory Vergara; Franco Gomes; Shakira Perdue; Wilman Shine; Chrissy Covington; Lias Justice; Johnie Garcia; Iker Gasca; Uma Villa; Dhaval Wright; Lyric Henson; Jefferson Koehler; Candelario Hall; Clark London Discharge Orders/Prescriptions Prescriptions: New atorvastatin 40 mg Tablet 40 mg PO QHS 30 Days Qty: 30 0RF Continued Xarelto 20 mg tablet 20 mg PO DAILY nitroglycerin 0.4 mg tablet, sublingual 0.4 mg sublingual Q5-15M PRN (Reason: chest pain) Patient Comments: PT STATES HE DOES HAVE, BUT IT'S VERY OLD. Rx Instructions: do not exceed 3 doses per episode metoprolol tartrate 25 mg tablet 25 mg PO BID aspirin 81 MG tablet 81 mg PO DAILY pantoprazole 40 MG tablet 40 mg PO DAILY Jardiance 10 mg tablet 10 mg PO DAILY lisinopril 5 mg tablet 5 mg PO DAILY omega 8-ear-lhf-fish oil [Fish Oil] 60-90-500 mg capsule 2 cap PO DAILY cinnamon bark [Cinnamon] 500 mg capsule 1,000 mg PO BID metformin 500 mg tablet extended release 24 hr 500 mg PO BID methimazole 5 mg tablet 5 mg PO DAILY Discontinued atorvastatin 20 mg tablet 20 mg PO QHS Referrals / Follow Up: Candelario Hall MD [Med Staff - Active Staff] - Within 1 Month Christophe Dexter MD [Primary Care Provider] - Within 1 Week Disposition Disposition (needs filled in before D/C Order can be placed): Home, Self Care Charges/Coding Visit Charges Inpatient E&M: 00789 Disch Hosp >30min
[2024-08-04 15:39] VITALS: BMI 26.2
--- NOTE | 2024-08-04 15:44 | CASEMGMT ---
Patient has order for discharge. RN CM in to discuss needs at discharge. Patient denies needs or help at discharge. Patient had no further questions or concerns.
[2024-08-04 16:15] VITALS: BP 158/100; PULSE 87; RESP 18; TEMP 36.4; O2SAT 98
--- NOTE | 2024-08-04 16:27 | NURSING ---
RN at bedside at 1610 giving discharge instructions. Pt began having difficulty speaking.. NIH attempted to be completed but pt uncooperative. Pt alert and oriented and yelling at this RN stating He is leaving and we are not keeping him here. This RN attempted to educate pt on importance of staying and being assessed. Pt at bedside trying to calm pt down, pt refusing to cooperate and yelling at and staff. Bg assessed 133. Md notified (see physician notification) Pt walked out of room and getting on elevators. Per MD no need to have pt sign out ama. updated on communication with doctor.
[2024-08-04 17:23] LABS: Bedside Glucose 133 mg/dL (74-106)
== END 2024-08-04 15:23 | disposition home or self-care (01) ==
LOC: ED 23:28 → PCU 08-04 03:31
PROVIDERS: Admitting Provider Internal Medicine; Emergency Provider Emergency Medicine; PCP Family Medicine; Visit Provider Family Medicine
DX: I65.23 Occlusion and stenosis of bilateral carotid arteries (principal); I48.21 Permanent atrial fibrillation; E11.649 Type 2 diabetes mellitus with hypoglycemia without coma; R45.1 Restlessness and agitation; E66.3 Overweight; E05.90 Thyrotoxicosis, unspecified without thyrotoxic crisis or storm; R53.1 Weakness; I25.10 Atherosclerotic heart disease of native coronary artery without angina pectoris; M54.9 Dorsalgia, unspecified; I10 Essential (primary) hypertension; Z68.28 Body mass index [BMI] 28.0-28.9, adult; G89.29 Other chronic pain; E78.00 Pure hypercholesterolemia, unspecified; K21.9 Gastro-esophageal reflux disease without esophagitis; F17.210 Nicotine dependence, cigarettes, uncomplicated; I25.2 Old myocardial infarction; Z79.82 Long term (current) use of aspirin; Z79.84 Long term (current) use of oral hypoglycemic drugs; Z79.01 Long term (current) use of anticoagulants; Z79.899 Other long term (current) drug therapy; Z95.5 Presence of coronary angioplasty implant and graft
CPT/HCPCS: 36415; 70450; 70496; 70498; 70551; 71045; 80048; 80061; 80307; 81001; 82077; 82607; 82746; 82962; 83036; 84439; 84443; 84481; 84484; 85025; 85610; 85730; 93005; 93306; 93880; 99221; 99285; Q9957; Q9967; A4216; G0378

== ENCOUNTER → 2024-08-11 | Outpatient (CLI) | payer OTHER, SELFPAY ==
[2024-08-11 14:02] LABS: Free T3 2.4 pg/mL (2.18-3.98); Thyroid Stim Hormone (TSH) 0.737 uIU/mL (0.300-4.200)
== END | disposition home or self-care (01) ==
LOC: LAB 12:45
PROVIDERS: PCP Family Medicine; Referring Provider Internal Medicine Endocrinology, Diabetes & Metabolism; Visit Provider Internal Medicine Endocrinology, Diabetes & Metabolism
DX: E05.00 Thyrotoxicosis with diffuse goiter without thyrotoxic crisis or storm (principal)
CPT/HCPCS: 36415; 84439; 84443; 84481

== ENCOUNTER 2024-08-13 10:32 | Emergency (ER) | payer OTHER, SELFPAY ==
[2024-08-13] VITALS (7 sets, daily range): BP systolic 135–168; BP diastolic 73–110; PULSE 57–84; RESP 16–18; TEMP 35.7–36.6; O2SAT 95–98; BMI 26.2
--- NOTE | 2024-08-13 10:56 | CT_ITS ---
EXAM: CT Head Without Intravenous Contrast CLINICAL INDICATION: HEADACHE TECHNIQUE: Axial computed tomography images of the head/brain without intravenous contrast. This CT exam was performed using one or more of the following dose reduction techniques: automated exposure control, adjustment of the mA and/or kV according to patient size, and/or use of iterative reconstruction technique. COMPARISON: CT Head dated 08/03/2024 FINDINGS: BRAIN AND EXTRA-AXIAL SPACES: The cerebral and cerebellar sulci are prominent consistent with brain atrophy. Areas of decreased attenuation in the deep cerebral white matter are consistent with small vessel ischemic/degenerative changes. No acute intracranial hemorrhage, midline shift or mass effect. If symptoms persist, further evaluation with MRI is recommended. BONES/JOINTS: Unremarkable. No acute fracture. SOFT TISSUES: Unremarkable. SINUSES: Unremarkable as visualized. No acute sinusitis. MASTOID AIR CELLS: Unremarkable as visualized. No mastoid effusion. CT/Brain/Head without Contrast IMPRESSION: 1. Generalized brain atrophy. 2. Small vessel ischemic/degenerative changes. 3. No acute intracranial hemorrhage, midline shift or mass effect. If symptoms persist, further evaluation with MRI is recommended. Reading Location: [facility]
--- NOTE | 2024-08-13 10:56 | EKG12_ITS ---
Test Reason : CP Blood Pressure : */* mmHG Vent. Rate : 78 BPM Atrial Rate : * BPM P-R Int : * ms QRS Dur : 84 ms QT Int : 376 ms P-R-T Axes : * 150 -24 degrees QTcB Int : 428 ms Atrial fibrillation with premature ventricular or aberrantly conducted complexes Right axis deviation Right ventricular hypertrophy ST & T wave abnormality, consider inferior ischemia Abnormal ECG Confirmed by JESSICA VILLATORO, SOPHIA ([id number]), assistant editor FRAN DIAS ([id number]) on 08/16/2024 5:52:24 AM Referred By: OG Confirmed By: SOPHIA LOPEZ MD
--- NOTE | 2024-08-13 11:05 | RAD_ITS ---
PROCEDURE: CHEST 1 VIEW (PORTABLE) 08/13/2024 REASON FOR EXAM: CHEST PAIN TECHNIQUE: Frontal view of the chest. COMPARISON: Comparison is made with prior study dated August 03, 2024. FINDINGS: Hardware: EKG electrodes are seen Heart: Heart size is mildly enlarged. Lungs: Stable elevation of the right hemidiaphragm. Mild degree of vascular congestion. Bones: Degenerative changes are identified within the thoracic spine. Other: Calcification of the thoracic aorta. RAD/Chest 1 View (Portable) IMPRESSION: Stable elevation of the right hemidiaphragm. Mild degree of vascular congestion. Reading Location: [facility]
[2024-08-13 11:06] LABS: Absolute Lymphocyte Count 3.43 X10^3/uL (0.83-4.51); Absolute Neutrophil Count 6.7 X10^3/uL (2.0-7.7); Basophil# 0.06 X10^3/uL; Basophil% 0.5 % (0-1); Eosinophil# 0.06 X10^3/uL; Eosinophils% 0.5 % (0-5); Hematocrit 50.5 % (40-54); Hemoglobin 16.2 g/dL (13.0-16.5); Lymphocyte # 3.43 X10^3/ul (0.83-4.51); Mean Corp Hgb Conc 32.1 g/dL (32-36); Mean Corpuscular Volume 87.4 fL (80-94); Mean Platelet Vol. 10.4 fl (6.2-12.0); Monocyte# 0.75 X10^3/uL; Monocyte% 6.8 % (0-10); NRBC Flagged by Analyzer 0 % (0-5); Neutrophil # 6.69 X10^3/uL (2.7-7.7); Neutrophil % 60.7 % (47-70); Platelet Count 183 K/mm3 (150-450); RBC Distribution Width CV 17.9 % (11.6-14.6); RBC Distribution Width SD 54.3 fl (35.1-43.9); Red Blood Count 5.78 M/mm3 (4.6-6.2); White Blood Count 11.1 K/mm3 (4.4-11.0)
--- NOTE | 2024-08-13 11:18 | ED.VIS.CHEST ---
HPI History of Present Illness Chief Complaint: Chest Pain Informant: patient and family Narrative Narrative: Presents with daughter chest heaviness after waking at 9:30 AM. Symptoms lasted 30 minutes. No arm pain or numbness. No neck or back pain. Been ongoing on and off headaches. He was hospitalized 10 days ago for stroke symptoms with trouble speech. Admitted with a negative workup including MRI per daughter. When he left the hospital he had troubles with his speech again however he did not want to stay. He is on Xarelto for history of chronic A-fib. He states his statin was doubled. He is on baby aspirin history of 2 stents in the past last time a year ago. Followed by cardiology Dr. Marx. Hypertension hyperlipidemia, diabetes. Currently asymptomatic from chest pains. Reports pressure in his head. Her daughter reports speech improved today he was discharged the evening 9 days ago. To follow-up with PCP a week ago Friday. Daughter reports was given Phenergan Toradol in the office with improvement however headache returned. Prior Similar Symptoms: Yes PFSH PFS Medical History Poison matthew Anemia Back pain Dietary restriction Difficulty swallowing History of GI bleed History of edema History of heart attack Hyperthyroidism Carotid artery disease Psoriasis Gout SOB (shortness of breath) on exertion Atrial fibrillation Wears glasses High cholesterol Smoker History of echocardiogram History of stress test Cardiology follow-up encounter History of atrial fibrillation Positive colorectal cancer screening using Cologuard test Bilateral carotid artery stenosis Diabetic ulcer of right dick with fat layer exposed Chronic ulcer of right leg with fat layer exposed Skin necrosis Pyoderma gangrenosum Tobacco abuse counseling Tobacco abuse History of [place] (myocardial infarction) Hyperlipidemia Overweight (BMI 25.0-29.9) Umbilical hernia Hypolipidemia Hypertension Diabetes mellitus Coronary artery disease Swelling of right lower extremity Ulcer of right leg CAD (coronary artery disease) GERD (gastroesophageal reflux disease) Diabetes HTN (hypertension) Home Medications ?Medication ?Instructions ?Recorded ?Last Taken ?Type aspirin 81 mg tablet,delayed 81 mg PO DAILY blood thinner 02/23/15 08/03/24 History release pantoprazole 40 mg tablet,delayed 40 mg PO DAILY PPI 08/16/16 08/03/24 History release empagliflozin 10 mg tablet 10 mg PO DAILY 02/13/23 08/03/24 History (Jardiance) lisinopril 5 mg tablet 5 mg PO DAILY 02/13/23 08/03/24 History cinnamon bark 500 mg capsule 1,000 mg PO BID 05/08/23 08/03/24 History (Cinnamon) nitroglycerin 0.4 mg sublingual 0.4 mg sublingual Q5-15M PRN chest 05/08/23 Unknown History tablet pain omega 7-mmo-ity-fish oil 60 mg-90 2 cap PO DAILY 05/08/23 08/03/24 History mg-500 mg capsule (Fish Oil) rivaroxaban 20 mg tablet (Xarelto) 20 mg PO DAILY 05/08/23 08/03/24 History metoprolol tartrate 25 mg tablet 25 mg PO BID 12/22/23 08/03/24 History metformin 500 mg tablet,extended 500 mg PO BID 08/03/24 08/03/24 History release 24 hr methimazole 5 mg tablet 5 mg PO DAILY 08/03/24 08/03/24 History atorvastatin 40 mg tablet 40 mg PO QHS 30 days #30 tabs 08/04/24 Unknown Rx Allergy/AdvReac Type Severity Reaction Status Date / Time No Known Allergies Allergy Verified 08/13/24 10:33 Family History Father Diabetes Heart disease CAD (coronary artery disease) Brother Diabetes CAD (coronary artery disease) Mother CVA (cerebral vascular accident) Brother CAD (coronary artery disease) Diabetes Surgical History Hx of carpal tunnel repair History of esophagogastroduodenoscopy (EGD) Hx of colonoscopy History of cardiac catheterization Hx of left cataract extraction Hx of right cataract extraction Stented coronary artery History of colonoscopy History of back surgery Social History Smoking Status: Current every day smoker tobacco type: cigarettes alcohol intake: current alcohol intake frequency: holidays/special occasions only substance use type: does not use caffeine: No ROS ROS ED Constitutional Constitutional ED: Denies chills, fever(s) or sweats ENT ENT ED: Denies sore throat Cardiovascular Cardiovascular: Reports chest pain; Denies leg edema, palpitations or racing heartbeat Respiratory/Chest Respiratory/Chest: Denies cough, dyspnea or dyspnea on exertion Gastrointestinal Gastrointestinal: Denies abdominal pain, diarrhea, nausea or vomiting Genitourinary Genitourinary ED: Denies dysuria, hematuria or urinary frequency Musculoskeletal Musculoskeletal: Denies back pain, extremity pain or neck pain Integumentary Denies rash or wounds Neurologic Neurologic: Reports headache(s); Denies paresthesias or weakness EXAM Physical Exam Const Vital Signs: 08/13/24 10:32 08/13/24 10:33 08/13/24 11:00 Temperature 96.8 F L 96.3 F L Temperature Source Temporal Temporal Pulse Rate 84 82 Respiratory Rate 16 18 Blood Pressure 168/101 H 168/110 H Blood Pressure Mean 123 129 Pulse Ox 98 96 Oxygen Delivery Method Room Air Room Air Room Air 08/13/24 11:32 08/13/24 12:00 08/13/24 12:59 Temperature 97.8 F Temperature Source Oral Pulse Rate 57 L 57 L 60 Respiratory Rate 18 18 17 Blood Pressure 140/78 H 142/82 H 147/96 H Blood Pressure Mean 98 102 113 Pulse Ox 96 95 96 Oxygen Delivery Method Room Air Room Air Room Air 08/13/24 13:54 Temperature Temperature Source Pulse Rate 62 Respiratory Rate 18 Blood Pressure 156/93 H Blood Pressure Mean 114 Pulse Ox 95 Oxygen Delivery Method Room Air Positive well nourished and well developed General Appearance ED: well developed and NAD HEENT Reports moist mucous membranes normocephalic and atraumatic Eyes General Eye ED: Yes normal appearance of both eyes Neck full ROM Neck Narrative: No meningismus Chest Wall Chest: Negative for tenderness Resp normal respiratory effort and normal air movement Effort and Inspection: symmetric chest movement; Negative for respiratory distress Cardio regular rate and no murmurs Rhythm: abnormal rhythm Peripheral Pulses: pulses 2+ throughout GI normal to inspection, nondistended, normoactive bowel sounds and non-tender Palpation: Negative for guarding or rebound tenderness present Extremity normal to inspection General Extremety ED: Negative for edema or tenderness General Extremity: Negative for edema Neuro oriented x3, CN's II-XII intact bilaterally and no sensory deficits noted Neuro Narrative: NIH of 0. Sensorium / Orientation: awake and alert Skin no rashes or lesions noted and no wounds Heart Score History: Moderately Suspicious ECG: Normal Age: >/= 65 years Risk Factors: >/= 3 Risk Factors or History of CAD Troponin: </= Normal Limit Score: 5 MDM MDM MDM Narrative Medical decision making narrative: Interventions / MDM: Differential diagnosis: Diagnosis considered but do not suspect: No clinical meningitis. My EKG interpretation: Rate controlled atrial fibrillation rate of 78, no ST changes, T wave versions in inferior leads leads III nonspecific. PVC noted. Imaging independently reviewed and interpreted by myself: CT brain: No acute process. 1 view chest x-ray: Possible mild vascular congestion with right elevated hemidiaphragm also read by radiology. External documents reviewed: Hospitalization in July 29 5025. Bilateral carotid disease noncritical stenosis around 50%. MRI negative. Treated for TIA. Statin doubled, continue aspirin and his Xarelto. Records from cardiology visit December 2019 for coronary disease Heart cath 2018 patent stents to the LAD and circumflex. He had other coronary disease lesions with no symptoms was noted to contact office if he has any chest pain symptoms. Test considered but not ordered:N/A ED course: Patient EKG rate controlled A-fib isolated T wave version lead III nonspecific. Currently chest pain-free. Headache with no meningismus. Cardiac workup initiated, CT brain ordered. 1300: CT brain negative. Chest x-ray no infiltrates. Initial cardiac enzyme negative at 14. Remains chest pain-free. Reviewing records lasted over 20 years ago. Stress test 2022. Heart cath 2018 patent stents however had no other coronary disease areas. Cardiology note reports follow-up with them if any cardiac symptoms of concern. Mild pain behind his eye at this time we will treat with Tylenol. Will await delta troponin prior to disposition. 1415: Repeat troponin 15 negative per algorithm. Remains chest pain-free. Headache resolving. NIH of 0. He does have coronary disease history of coronary disease, he is followed by cardiology. At this time symptom-free. Discussed following up with his cardiology team for reevaluation further testing as needed. Discussed tricked return precautions. He will continue his aspirin and his Xarelto. Initially stating he is only taking his 20 mg of atorvastatin, discussed he can take the 40 mg for preventative treatment with his recent carotid disease. Patient and daughter understands this. Outpatient follow-up. All questions were answered. Re-evaluation: stable Disposition discussed with patient/family/significant other: Patient and daughter Case discussed with consulting clinician: N/A This note was generated with [employer] dictation software. It may contain incorrect words, spelling, and punctuation that were not noted in checking the note before signing. Lab Data Attestation: I reviewed the patient's lab results. Labs: Laboratory Results - last 24 hr 08/13/24 08/13/24 10:35 12:47 WBC 11.1 H RBC 5.78 Hgb 16.2 Hct 50.5 MCV 87.4 MCH 28.0 MCHC 32.1 RDW Std Deviation 54.3 H RDW Coeff of Homero 17.9 H Plt Count 183 MPV 10.4 Immature Gran % (Auto) 0.500 Neut % (Auto) 60.7 Lymph % (Auto) 31.0 Haines % (Auto) 6.8 Eos % (Auto) 0.5 Baso % (Auto) 0.5 Absolute Neuts (auto) 6.7 Absolute Lymphs (auto) 3.43 Nucleated RBC % 0 Sodium 140 Potassium 4.2 Chloride 100 Carbon Dioxide 22.2 Anion Gap 17 H BUN 13 Creatinine 1.03 Estim Creat Clear Calc 65.95 Est GFR (MDRD) Non-Af 77 BUN/Creatinine Ratio 12.4 Glucose 121 H Calcium 8.8 Troponin T High Sens 14 D Troponin T Hi Sens 2 Hr 15 Radiography Diagnostic Testing: Clinical Impression(s) from Imaging Studies Brain CT 08/13/24 10:56 IMPRESSION: 1. Generalized brain atrophy. 2. Small vessel ischemic/degenerative changes. 3. No acute intracranial hemorrhage, midline shift or mass effect. If symptoms persist, further evaluation with MRI is recommended. Reading Location: [facility] Chest X-Ray 08/13/24 11:05 IMPRESSION: Stable elevation of the right hemidiaphragm. Mild degree of vascular congestion. [facility] T[facility] Chief Complaint: Chest Pain ED Provider: Chriss Mak Dx/Rx/DC Orders Clinical Impression: Chest pain, Headache Instructions: Self-Care for Headaches, ED Chest Pain, Uncertain Cause Prescriptions: No Action Xarelto 20 mg tablet 20 mg PO DAILY nitroglycerin 0.4 mg tablet, sublingual 0.4 mg sublingual Q5-15M PRN (Reason: chest pain) Patient Comments: PT STATES HE DOES HAVE, BUT IT'S VERY OLD. Rx Instructions: do not exceed 3 doses per episode metoprolol tartrate 25 mg tablet 25 mg PO BID aspirin 81 MG tablet 81 mg PO DAILY pantoprazole 40 MG tablet 40 mg PO DAILY Jardiance 10 mg tablet 10 mg PO DAILY lisinopril 5 mg tablet 5 mg PO DAILY omega 1-gai-[id number]-fish oil [Fish Oil] 60-90-500 mg capsule 2 cap PO DAILY cinnamon bark [Cinnamon] 500 mg capsule 1,000 mg PO BID metformin 500 mg tablet extended release 24 hr 500 mg PO BID methimazole 5 mg tablet 5 mg PO DAILY atorvastatin 40 mg Tablet 40 mg PO QHS 30 Days Qty: 30 0RF Primary Care Provider: Christophe Dexter Referrals: Christophe Dexter MD [Primary Care Provider] - [facility] [address] [place] [address] [place] [Med Staff - Adv Practice Prof] - 3-5 Days Activity Restrictions/Additional Instructions: Cardiac workup negative. Head CT negative. Follow-up with your cardiology team for reevaluation develop recurrent symptoms, return to the ED for reevaluation. Print Language: Hebrew Disposition Disposition: Home, Self Care
[2024-08-13 12:42] LABS: Anion Gap 17 (5-15); BUN 13 mg/dL (4-19); BUN/Creat Ratio 12.4 RATIO (10-20); Calcium,Total 8.8 mg/dL (7.6-11.0); Carbon Dioxide 22.2 mmol/L (21.0-32.0); Chloride 100 mmol/L (98-108); Creatinine, Serum 1.03 mg/dL (0.70-1.20); EST Glomerular Filtration Rate 77 (>60); Estimated Creatinine Clearance 65.95 ml/min (50-250); Glucose 121 mg/dL (70-99); Potassium 4.2 mmol/L (3.3-5.1); Sodium Level 140 mmol/L (133-145); Troponin T High Sensitivity 14 ng/L (<=22)
[2024-08-13] MEDS: Acetaminophen 500 MG Tablet 1000 MG PO (13:08)
[2024-08-13 13:25] LABS: Troponin T High Sens 2 HR 15 ng/L (<=22)
== END 2024-08-13 14:32 | disposition home or self-care (01) ==
PROVIDERS: Emergency Provider Emergency Medicine; PCP Family Medicine; Visit Provider Emergency Medicine
DX: R07.9 Chest pain, unspecified (principal); I48.20 Chronic atrial fibrillation, unspecified; E11.9 Type 2 diabetes mellitus without complications; R51.9 Headache, unspecified; F17.210 Nicotine dependence, cigarettes, uncomplicated; Z79.01 Long term (current) use of anticoagulants
CPT/HCPCS: 70450; 71045; 80048; 84484; 85025; 93005; 99284; A4216